=== PATIENT | female | born 1995 | race Caucasian/White ===

== ENCOUNTER 2017-08-10 01:48 | Inpatient (IN) | payer BC, OTHER ==
[2017-08-10] VITALS (23 sets, daily range): BP systolic 78–126; BP diastolic 42–83
[~2017-08-10] VITALS: Ht 165.1 cm; Wt 69.1 kg
--- NOTE | 2017-08-10 02:18 | Emergency Room Report ---
History of Present Illness General Chief Complaint: Overdose Source: Family Member, EMS Present Illness HPI This is a 21-year-old female with a history of drug abuse. Per her mom, she had her history of endocarditis required valve replacement surgery. She also had bilateral pneumothorax requiring chest tube. Per mom she was clean until recently. EMS brought her in for drug overdose and seizure. Per EMS, her friend said that she did cocaine and heroin tonight. She was found unresponsive and 911 was called. EMS said that she had a brief 30 seconds tonic -clonic seizure activity that broke with 5 mg Versed. EMS also gave her 4 mg of Narcan without any response. Patient unable to give a history. History is from EMS and her mother. Allergies: Coded Allergies: UNABLE TO ASSESS (Unverified , 08/10/17) Patient History Past Medical History: see triage record, old chart reviewed Past Surgical History: other Pertinent Family History: none Social History: Reports: drug use Last Menstrual Period: unknown Now: No - unknown : 0 Para: 0 Immunizations: other Reviewed Nursing Documentation: PMH: Agreed, PSxH: Agreed Nursing Documentation-PMH Past Medical History Deferred: No Family Available Review of Systems All Other Systems: limited - Secondary to her condition Physical Exam Vital Signs Date Time Temp Pulse Resp B/P (MAP) Pulse Ox O2 Delivery O2 Flow Rate FiO2 08/10/17 01:33 112 14 100/70 94 Room Air vitals with tachycardia Sp02 EP Interpretation: reviewed, normal General Appearance: well appearing, no apparent distress, other - unresponsive Head: normocephalic, atraumatic Eyes: bilateral eye EOMI, bilateral eye other - Pupils are unequal. right is 6mm, left is 4mm ENT: hearing grossly normal, normal pharynx Neck: full range of motion, supple, no meningismus Respiratory: chest non-tender, lungs clear, normal breath sounds Cardiovascular #1: regular rate, rhythm, no murmur, other - Midline scar of the sternum. Bilateral chest tube scars. No murmur Gastrointestinal: normal bowel sounds, non tender, no mass, no organomegaly, no bruit, non-distended Musculoskeletal: back normal, other - Multiple track marley Psychiatric: mood/affect normal Skin: warm/dry Medical Decision Making Diagnostic Impression: Primary Impression: Drug overdose Qualified Codes: T50.901A - Poisoning by unspecified drugs, medicaments and biological substances, accidental (unintentional), initial encounter Additional Impressions: Encephalopathy acute Seizure Hypotension Qualified Codes: I95.9 - Hypotension, unspecified ER Course Present with an overdose and new-onset seizure. Now she is only positive for benzodiazepine. This may be from the Versed given by EMS. Supposedly, she took heroine and cocaine just prior to EMS arrival. Her seizure is new-onset. This may be secondary to hypoxic injury. Patient blood pressure is low. Per mom, when she was hospitalized for overdose, her blood pressure was low. Her daughter normally runs low blood pressure. Is no evidence of sepsis. She does have a urinary tract infection. Chest x-ray showed no pneumothorax. I hear no murmur to indicate endocarditis reoccurrence. She said her mental status change , will admit for further monitoring. I worry that she may have anoxic brain injury causing her persistent state. Laboratory Tests Test 08/10/17 01:50 White Blood Count 9.2 K/UL (4.8-10.8) Red Blood Count 5.24 M/UL (4.20-5.40) Hemoglobin 16.2 G/DL (12.0-16.0) H Hematocrit 51.2 % (37.0-47.0) H Mean Corpuscular Volume 98 FL (80-99) Mean Corpuscular Hemoglobin 30.9 PG (27.0-31.0) Mean Corpuscular Hemoglobin Concent 31.6 G/DL (32.0-36.0) L Red Cell Distribution Width 14.1 % (11.6-14.8) Platelet Count 255 K/UL (150-450) Mean Platelet Volume 7.3 FL (6.5-10.1) Neutrophils (%) (Auto) 54.0 % (45.0-75.0) Lymphocytes (%) (Auto) 39.2 % (20.0-45.0) Monocytes (%) (Auto) 4.6 % (1.0-10.0) Eosinophils (%) (Auto) 0.9 % (0.0-3.0) Basophils (%) (Auto) 1.3 % (0.0-2.0) Urine Color Yellow Urine Appearance Slightly cloudy Urine pH 6 (4.5-8.0) Urine Specific [place] 1.020 (1.005-1.035) Urine Protein 3+ (NEGATIVE) H Urine Glucose (UA) Negative (NEGATIVE) Urine Ketones 2+ (NEGATIVE) H Urine Occult Blood 4+ (NEGATIVE) H Urine Nitrite Positive (NEGATIVE) H Urine Bilirubin Negative (NEGATIVE) Urine Urobilinogen Normal MG/DL (0.0-1.0) Urine Leukocyte Esterase 1+ (NEGATIVE) H Urine RBC 15-20 /HPF (0 - 2) H Urine WBC 5-10 /HPF (0 - 2) H Urine Squamous Epithelial Cells Many /LPF (NONE/OCC) H Urine Bacteria Many /HPF (NONE) H Urine HCG, Qualitative Negative Sodium Level 139 MMOL/L (136-145) Potassium Level 4.1 MMOL/L (3.5-5.1) Chloride Level 99 MMOL/L (98-107) Carbon Dioxide Level 17 MMOL/L (21-32) L Anion Gap 23 mmol/L (5-15) H Blood Urea Nitrogen 11 mg/dL (7-18) Creatinine 1.7 MG/DL (0.55-1.30) H Estimat Glomerular Filtration Rate 37.6 mL/min (>60) Glucose Level 177 MG/DL (74-106) H Calcium Level 9.0 MG/DL (8.5-10.1) Total Bilirubin 0.8 MG/DL (0.2-1.0) Aspartate Amino Transf (AST/SGOT) 176 U/L (15-37) H Alanine Aminotransferase (ALT/SGPT) 94 U/L (12-78) H Alkaline Phosphatase 142 U/L (46-116) H Total Protein 7.8 G/DL (6.4-8.2) Albumin 3.9 G/DL (3.4-5.0) Globulin 3.9 g/dL Albumin/Globulin Ratio 1.0 (1.0-2.7) Salicylates Level 2.4 ug/mL (2.8-20) L Urine Opiates Screen Negative (NEGATIVE) Acetaminophen Level < 2 MCG/ML (10-30) L Urine Barbiturates Screen Negative (NEGATIVE) Phencyclidine (PCP) Screen Negative (NEGATIVE) Urine Amphetamines Screen Negative (NEGATIVE) Urine Benzodiazepines Screen Positive (NEGATIVE) H Urine Cocaine Screen Negative (NEGATIVE) Urine Marijuana (THC) Screen Negative (NEGATIVE) Serum Alcohol < 3 mg/dL Lab Results Impression labs unremarkable EKG Diagnostic Results Rate: normal, tachycardiac Rhythm: NSR ST Segments: no acute changes Rhythm Strip Diag. Results Rhythm Strip Time: 02:18 EP Interpretation: yes Rate: 100 Rhythm: NSR, no PVC's, no ectopy Chest X-Ray Diagnostic Results Chest X-Ray Diagnostic Results : Chest X-Ray Ordered: Yes # of Views/Limited/Complete: 1 View Indication: Shortness of Breath EP Interpretation: Yes Interpretation: no consolidation, no effusion, no pneumothorax, no acute cardiopulmonary disease Impression: No acute disease Electronically Signed by: Antwon Templeton MD Last Vital Signs Date Time Temp Pulse Resp B/P (MAP) Pulse Ox O2 Delivery O2 Flow Rate FiO2 08/10/17 01:33 112 14 100/70 94 Room Air Status: improved Disposition: ADMITTED INPATIENT Condition: Serious ANTWON TEMPLETON M.D. Aug 10, 2017 02:18
[2017-08-10 02:29] LABS: BASOPHILS % (AUTO) 1.3 % (0.0-2.0); EOSINOPHILS % (AUTO) 0.9 % (0.0-3.0); HEMATOCRIT 51.2 % (37.0-47.0); HEMOGLOBIN 16.2 G/DL (12.0-16.0); LYMPHOCYTES % (AUTO) 39.2 % (20.0-45.0); MEAN CORPUSCULAR VOLUME 98 FL (80-99); MONOCYTES % (AUTO) 4.6 % (1.0-10.0); PLATELET COUNT 255 K/UL (150-450); RED BLOOD COUNT 5.24 M/UL (4.20-5.40); RED CELL DISTRIBUTION WIDTH 14.1 % (11.6-14.8); WHITE BLOOD COUNT 9.2 K/UL (4.8-10.8)
[2017-08-10 02:38] LABS: BILIRUBIN, URINE NEGATIVE (NEGATIVE); GLUCOSE, URINE (UA) NEGATIVE (NEGATIVE); KETONES,URINE 2+ (NEGATIVE); LEUKOCYTE ESTERASE ,URINE 1+ (NEGATIVE); NITRITE,URINE POSITIVE (NEGATIVE); PH,URINE 6 (4.5-8.0); PROTEIN,URINE 3+ (NEGATIVE); UROBILINOGEN,URINE NORMAL MG/DL (0.0-1.0)
[2017-08-10 02:47] LABS: ANION GAP 23 mmol/L (5-15); BLOOD UREA NITROGEN 11 mg/dL (7-18); CARBON DIOXIDE 17 MMOL/L (21-32); CHLORIDE 99 MMOL/L (98-107); CREATININE 1.7 MG/DL (0.55-1.30); POTASSIUM 4.1 MMOL/L (3.5-5.1); SODIUM 139 MMOL/L (136-145)
[2017-08-10 02:51] LABS: ALANINE AMINOTRANSFERASE 94 U/L (12-78); ALBUMIN 3.9 G/DL (3.4-5.0); ALKALINE PHOSPHATASE 142 U/L (46-116); APPEARANCE,URINE SLIGHTLY CLOUDY; ASPARTATE AMINO TRANSFERASE 176 U/L (15-37); BILIRUBIN,TOTAL 0.8 MG/DL (0.2-1.0); COLOR,URINE YELLOW
[2017-08-10] MEDS ORDERED: cefTRIAXone 1 GM in NS 55 ML IVPB ONE (03:15)
[2017-08-10] MEDS ORDERED: NEURONTIN100 MG ORAL (05:01)
--- NOTE | 2017-08-10 11:17 | Diagnostic Imaging Report ---
Indication: Headache Technique: Contiguous 5 mm thick transaxial imaging of the head obtained in a Siemens Sensation [address] scanner. Soft tissue and bone windows generated. Automatic Exposure Control was utilized. Total Dose length Product (DLP): 1291.[address] Dose Index Volume (CTDIvol): 70.38 mGy Comparison: none Findings: The size and configuration of the cortical sulci, basal cisterns, and ventricles are within normal limits for age. There is no mass effect, midline shift, or edema identified. There is no evidence of acute hemorrhage or abnormal intra-axial or extra-axial fluid collections. The bones and soft tissues are unremarkable. Impression: No mass effect, edema or acute bleed. The CT scanner at [facility] is accredited by the [employer] and the scans are performed using dose optimization techniques as appropriate to a performed exam including Automatic Exposure control.
--- NOTE | 2017-08-10 12:36 | Diagnostic Imaging Report ---
Indication: Dyspnea Comparison: None A single view chest radiograph was obtained. Findings: Mechanical heart valve, sternotomy noted. Normal atelectasis noted at the lung base. No infiltrate seen. IMPRESSION: No acute findings
--- NOTE | 2017-08-10 12:41 | Diagnostic Imaging Report ---
Indication: Dyspnea Comparison: None A single view chest radiograph was obtained. Findings: Cardiomediastinal appearance is within normal limits for age. Pulmonary vascularity is appropriate. The diaphragmatic contour is smooth and costophrenic angles are sharp. Sternotomy and mechanical heart valve noted. No pleural effusions are identified. The bones are osteopenic. Impression: No acute findings
--- NOTE | 2017-08-10 12:48 | Consultation ---
Consult Note Consult Note PCCM for Dr. Jennings REASON FOR CONSULT: OD/RF/acidosis HPI: 21 F h/o IVDU in/out rehab c/b IE S/P MVR @ [place] early 2017 now BIB EMS after her roomate found her FD surrounded by drug paraphenelia. In the ED initially she was 7.27/57/71/21/93, then placed on BiPAP with minimal improvement, HCO3- 17, gap 23, Utox + BZD's, per mother she has been using Xanax + Fentanyl + black tar heroine. She is slightly more alert. No further Hx is obtainable. PMH: IVDU, IE PSH: MVR ALL: NKDA Active Scripts Medications Dose Route/Sig Max Daily Dose Days Date Category Neurontin* (Gabapentin) 100 Mg Capsule Unknown Dose ORAL THREE TIMES A DAY 08/10/17 Reported SHx: + IVDU, occ EtOH, + tobacco FHx: Unobtainable ROS: Unobtainable PE: Last 24 Hour Vital Signs Date Time Temp Pulse Resp B/P (MAP) Pulse Ox O2 Delivery O2 Flow Rate FiO2 08/10/17 12:18 98.8 93 16 94/56 100 Bi-pap 2.0 50 08/10/17 12:00 93 12 105/59 100 Bi-pap 30 08/10/17 11:45 50 08/10/17 11:00 89 16 94/56 100 Bi-pap 30 08/10/17 10:47 100 20 100 Facial 30 08/10/17 10:00 98.8 94 15 94/56 100 Bi-pap 30 08/10/17 09:10 94 18 99 Facial 30 08/10/17 09:08 94 12 111/54 100 Bi-pap 30 08/10/17 09:02 30 08/10/17 08:30 87 15 87/53 100 Nasal Cannula 2.0 08/10/17 08:00 97.4 88 15 92/50 100 Nasal Cannula 2.0 08/10/17 06:54 98.1 91 14 83/51 97 Nasal Cannula 2.0 08/10/17 06:00 98.1 91 20 88/52 99 Nasal Cannula 2.0 08/10/17 05:00 98.0 90 20 94/52 98 Nasal Cannula 2.0 08/10/17 04:57 98.1 94 16 86/46 96 Nasal Cannula 3.0 08/10/17 03:56 97.8 94 16 78/46 96 Nasal Cannula 3.0 08/10/17 03:55 97.8 93 14 82/42 96 Nasal Cannula 3.0 08/10/17 03:15 97.8 93 14 78/48 96 Nasal Cannula 3.0 08/10/17 03:00 97.9 91 14 82/50 96 Nasal Cannula 3.0 08/10/17 02:30 97.8 92 14 89/52 96 Nasal Cannula 3.0 08/10/17 01:50 98 14 Nasal Cannula 3.0 08/10/17 01:50 97.8 98 14 118/74 96 Nasal Cannula 3.0 08/10/17 01:33 112 14 100/70 94 Room Air Obtunded, arousable NC/AT, OPC c dry MM, BiPAP CTA RRR, + sternotomy scar S/NT/ND c NABS No C/C/E Laboratory Tests Test 08/10/17 01:50 08/10/17 07:39 08/10/17 10:48 White Blood Count 9.2 K/UL (4.8-10.8) Red Blood Count 5.24 M/UL (4.20-5.40) Hemoglobin 16.2 G/DL (12.0-16.0) H Hematocrit 51.2 % (37.0-47.0) H Mean Corpuscular Volume 98 FL (80-99) Mean Corpuscular Hemoglobin 30.9 PG (27.0-31.0) Mean Corpuscular Hemoglobin Concent 31.6 G/DL (32.0-36.0) L Red Cell Distribution Width 14.1 % (11.6-14.8) Platelet Count 255 K/UL (150-450) Mean Platelet Volume 7.3 FL (6.5-10.1) Neutrophils (%) (Auto) 54.0 % (45.0-75.0) Lymphocytes (%) (Auto) 39.2 % (20.0-45.0) Monocytes (%) (Auto) 4.6 % (1.0-10.0) Eosinophils (%) (Auto) 0.9 % (0.0-3.0) Basophils (%) (Auto) 1.3 % (0.0-2.0) Urine Color Yellow Urine Appearance Slightly cloudy Urine pH 6 (4.5-8.0) Urine Specific [place] 1.020 (1.005-1.035) Urine Protein 3+ (NEGATIVE) H Urine Glucose (UA) Negative (NEGATIVE) Urine Ketones 2+ (NEGATIVE) H Urine Occult Blood 4+ (NEGATIVE) H Urine Nitrite Positive (NEGATIVE) H Urine Bilirubin Negative (NEGATIVE) Urine Urobilinogen Normal MG/DL (0.0-1.0) Urine Leukocyte Esterase 1+ (NEGATIVE) H Urine RBC 15-20 /HPF (0 - 2) H Urine WBC 5-10 /HPF (0 - 2) H Urine Squamous Epithelial Cells Many /LPF (NONE/OCC) H Urine Bacteria Many /HPF (NONE) H Urine HCG, Qualitative Negative Sodium Level 139 MMOL/L (136-145) Potassium Level 4.1 MMOL/L (3.5-5.1) Chloride Level 99 MMOL/L (98-107) Carbon Dioxide Level 17 MMOL/L (21-32) L Anion Gap 23 mmol/L (5-15) H Blood Urea Nitrogen 11 mg/dL (7-18) Creatinine 1.7 MG/DL (0.55-1.30) H Estimat Glomerular Filtration Rate 37.6 mL/min (>60) Glucose Level 177 MG/DL (74-106) H Calcium Level 9.0 MG/DL (8.5-10.1) Total Bilirubin 0.8 MG/DL (0.2-1.0) Aspartate Amino Transf (AST/SGOT) 176 U/L (15-37) H Alanine Aminotransferase (ALT/SGPT) 94 U/L (12-78) H Alkaline Phosphatase 142 U/L (46-116) H Total Protein 7.8 G/DL (6.4-8.2) Albumin 3.9 G/DL (3.4-5.0) Globulin 3.9 g/dL Albumin/Globulin Ratio 1.0 (1.0-2.7) Salicylates Level 2.4 ug/mL (2.8-20) L Urine Opiates Screen Negative (NEGATIVE) Acetaminophen Level < 2 MCG/ML (10-30) L Urine Barbiturates Screen Negative (NEGATIVE) Phencyclidine (PCP) Screen Negative (NEGATIVE) Urine Amphetamines Screen Negative (NEGATIVE) Urine Benzodiazepines Screen Positive (NEGATIVE) H Urine Cocaine Screen Negative (NEGATIVE) Urine Marijuana (THC) Screen Negative (NEGATIVE) Serum Alcohol < 3 mg/dL Arterial Blood pH 7.270 (7.350-7.450) 7.280 (7.350-7.450) Arterial Blood Partial Pressure CO2 47.5 mmHg (35.0-45.0) H 47.1 mmHg (35.0-45.0) H Arterial Blood Partial Pressure O2 71.2 mmHg (75.0-100.0) L 55.1 mmHg (75.0-100.0) L Arterial Blood HCO3 21.5 mmol/L (22.0-26.0) L 21.7 mmol/L (22.0-26.0) L Arterial Blood Oxygen Saturation 93.0 % (92.0-98.0) 87.3 % (92.0-98.0) L Arterial Blood Base Excess -5.4 -5.1 Tye Test Positive Positive Assessment/Plan ASSESSMENT: 21 F h/o IVDU c/b IE S/P MVR p/w AMS 2/2 drug OD/toxicity c/b AGMA with inadequate respiratory compensation. She was previously on a ventilator for several months and her mother would rather he not be intubated but understands that if she does not respond to the current BiPAP setting she may require intubation. PROBLEM LIST: -Drug OD -H/O IVDU -Anion gap metabolic acidosis + Respiratory acidosis -MATTHEW -Hemoconcentration -Dehydration -H/O infective endocarditis S/P MVR PLAN: -Admit to [facility] -Increase BiPAP to 15/5 -Recheck ABG in 1 hour -If gas exchange not better --> will require intubation -Aggressive IVF hydration -F/U Cx's -F/U TTE -NPO until MS better -Monitor volumes and renal function -DVT Px: Hep SQ -Will need psych and SW evaluation D/W mom and ERMD @ bedside Nelia Gaines MD, [facility] NELIA GAINES M.D. Aug 10, 2017 12:48
[2017-08-10 15:36] LABS: BASOPHILS % (AUTO) 0.9 % (0.0-2.0); EOSINOPHILS % (AUTO) 0.4 % (0.0-3.0); HEMATOCRIT 40.6 % (37.0-47.0); HEMOGLOBIN 13.2 G/DL (12.0-16.0); LYMPHOCYTES % (AUTO) 19.9 % (20.0-45.0); MEAN CORPUSCULAR VOLUME 96 FL (80-99); MONOCYTES % (AUTO) 8.8 % (1.0-10.0); PLATELET COUNT 166 K/UL (150-450); RED BLOOD COUNT 4.25 M/UL (4.20-5.40); RED CELL DISTRIBUTION WIDTH 14.5 % (11.6-14.8); WHITE BLOOD COUNT 6.3 K/UL (4.8-10.8)
[2017-08-10 15:47] LABS: ALANINE AMINOTRANSFERASE 109 U/L (12-78); ALBUMIN 3.2 G/DL (3.4-5.0); ALKALINE PHOSPHATASE 98 U/L (46-116); ANION GAP 10 mmol/L (5-15); ASPARTATE AMINO TRANSFERASE 167 U/L (15-37); BILIRUBIN,TOTAL 0.5 MG/DL (0.2-1.0); BLOOD UREA NITROGEN 8 mg/dL (7-18); CALCIUM 8.1 MG/DL (8.5-10.1); CARBON DIOXIDE 23 MMOL/L (21-32); CHLORIDE 108 MMOL/L (98-107); CREATININE 0.9 MG/DL (0.55-1.30); POTASSIUM 4.2 MMOL/L (3.5-5.1); SODIUM 141 MMOL/L (136-145)
[2017-08-10 16:15] LABS: APPEARANCE,URINE CLEAR; BILIRUBIN, URINE NEGATIVE (NEGATIVE); COLOR,URINE PALE YELLOW; GLUCOSE, URINE (UA) NEGATIVE (NEGATIVE); KETONES,URINE 3+ (NEGATIVE); LEUKOCYTE ESTERASE ,URINE 1+ (NEGATIVE); NITRITE,URINE NEGATIVE (NEGATIVE); PH,URINE 5 (4.5-8.0); PROTEIN,URINE NEGATIVE (NEGATIVE); UROBILINOGEN,URINE NORMAL MG/DL (0.0-1.0)
--- NOTE | 2017-08-10 17:30 | History and Physical Report ---
DATE OF ADMISSION: 08/10/2017 CHIEF COMPLAINT: Altered level of consciousness. HISTORY OF PRESENT ILLNESS: This is an unfortunate 21-year-old female, who has a prolonged history of IV drug abuse. The patient was found down at her apartment for unknown period of time. The patient unfortunately continued to abuse drugs including fentanyl. Apparently, the patient lost her consciousness for an unknown period of time. She became unconscious. Paramedics were called. The patient was rushed to the ER. She had a 30-second tonic-clonic seizure and she developed respiratory failure. The patient stayed in the emergency department for a long period of time on BiPAP. Eventually, the patient was transferred to telemetry. Currently the patient is nonverbal and unable to give any further information. The information is retrieved from the patient's mother who is at the bedside. PAST MEDICAL HISTORY: 1. Polysubstance abuse including mainly IV drug abuse. 2. Status post aortic valve bioprosthetic valve replacement done in [place] about a year ago. 3. History of subacute bacterial aortic valve endocarditis around that time, namely July 2016. MEDICATIONS: Home medications currently unknown. We will try to get the list from the mother. One medication is Neurontin, but the rest of the medications unknown. ALLERGIES: No known drug allergies. SOCIAL HISTORY: The patient is known to use multiple IV agents including fentanyl and other agents. FAMILY HISTORY: Unremarkable. REVIEW OF SYSTEMS: Unable to obtain. PHYSICAL EXAMINATION: GENERAL: This is a young female, who is on a BiPAP. VITAL SIGNS: Blood pressure 94/56, pulse 93, temperature 98.8 degrees rectal. The patient is on BiPAP. HEENT: Head is normocephalic. Pupils are dilated and essentially barely responsive to light. NECK: Supple. Trachea midline. There was no lymphadenopathy or thyromegaly. LUNGS: Bilateral rhonchi. HEART: Tachycardia. S1, S2. No rubs, murmurs, or gallops. ABDOMEN: Soft and nontender. Bowel sounds were active. EXTREMITIES: No clubbing, cyanosis, or edema. NEUROLOGIC: She is barely responsive to noxious stimuli. There were no lateralizing signs. LABORATORY AND ANCILLARY DATA: CT scan of the brain essentially unremarkable. Chest x-ray, no acute finding. CBC within normal limits. Serum chemistry, creatinine 1.7, BUN 11. Electrolytes within normal limits. AST 176, ALT 94. ABG the latest one on BiPAP is pH 7.28, pCO2 47, pO2 55. ASSESSMENT: 1. Respiratory failure. 2. Delirium secondary to drug use. 3. Multiorgan failure secondary to the above. PLAN: 1. The patient may need intubation due to acute hypoxemia. 2. We discussed with Dr. Gaines, design drafter chief. Albert Doran M.D. DR: Judith JOB#: [id number] CC:
--- NOTE | 2017-08-10 17:55 | Infectious Diseases Prog Note ---
Assessment/Plan Assessment/Plan Full consult dictated: A) 1) possible uti, ams, drug overdose, ? sepsis, + risk for endocarditis 2) allergies - negative 3) hx valve replacement secondary to endocarditis P) 1) vancomycin, rocephin and flagyl 2) check cultures, chest x-ray and labs 3) neurology evaluation 4) continue per primary and consultants 5) thank you Subjective Allergies: Coded Allergies: UNABLE TO ASSESS (Unverified , 08/10/17) Objective Vital Signs Last 24 Hour Vital Signs Date Time Temp Pulse Resp B/P (MAP) Pulse Ox O2 Delivery O2 Flow Rate FiO2 08/10/17 17:11 97 16 100 Facial 50 08/10/17 16:00 98.1 100 16 109/60 100 Bi-pap 70 08/10/17 14:42 103 16 100 Facial 50 08/10/17 12:47 100 20 100 Facial 50 08/10/17 12:18 98.8 93 16 94/56 100 Bi-pap 2.0 50 08/10/17 12:00 93 12 105/59 100 Bi-pap 30 08/10/17 11:45 50 08/10/17 11:00 89 16 94/56 100 Bi-pap 30 08/10/17 10:47 100 20 100 Facial 30 08/10/17 10:00 98.8 94 15 94/56 100 Bi-pap 30 08/10/17 09:10 94 18 99 Facial 30 08/10/17 09:08 94 12 111/54 100 Bi-pap 30 08/10/17 09:02 30 08/10/17 08:30 87 15 87/53 100 Nasal Cannula 2.0 08/10/17 08:00 97.4 88 15 92/50 100 Nasal Cannula 2.0 08/10/17 06:54 98.1 91 14 83/51 97 Nasal Cannula 2.0 08/10/17 06:00 98.1 91 20 88/52 99 Nasal Cannula 2.0 08/10/17 05:00 98.0 90 20 94/52 98 Nasal Cannula 2.0 08/10/17 04:57 98.1 94 16 86/46 96 Nasal Cannula 3.0 08/10/17 03:56 97.8 94 16 78/46 96 Nasal Cannula 3.0 08/10/17 03:55 97.8 93 14 82/42 96 Nasal Cannula 3.0 08/10/17 03:15 97.8 93 14 78/48 96 Nasal Cannula 3.0 08/10/17 03:00 97.9 91 14 82/50 96 Nasal Cannula 3.0 08/10/17 02:30 97.8 92 14 89/52 96 Nasal Cannula 3.0 08/10/17 01:50 98 14 Nasal Cannula 3.0 08/10/17 01:50 97.8 98 14 118/74 96 Nasal Cannula 3.0 08/10/17 01:33 112 14 100/70 94 Room Air Height (Feet): 5 Height (Inches): 6.00 Weight (Pounds): 160 Laboratory Tests Test 08/10/17 01:50 08/10/17 07:39 08/10/17 10:48 08/10/17 12:27 White Blood Count 9.2 K/UL (4.8-10.8) Red Blood Count 5.24 M/UL (4.20-5.40) Hemoglobin 16.2 G/DL (12.0-16.0) H Hematocrit 51.2 % (37.0-47.0) H Mean Corpuscular Volume 98 FL (80-99) Mean Corpuscular Hemoglobin 30.9 PG (27.0-31.0) Mean Corpuscular Hemoglobin Concent 31.6 G/DL (32.0-36.0) L Red Cell Distribution Width 14.1 % (11.6-14.8) Platelet Count 255 K/UL (150-450) Mean Platelet Volume 7.3 FL (6.5-10.1) Neutrophils (%) (Auto) 54.0 % (45.0-75.0) Lymphocytes (%) (Auto) 39.2 % (20.0-45.0) Monocytes (%) (Auto) 4.6 % (1.0-10.0) Eosinophils (%) (Auto) 0.9 % (0.0-3.0) Basophils (%) (Auto) 1.3 % (0.0-2.0) Urine Color Yellow Urine Appearance Slightly cloudy Urine pH 6 (4.5-8.0) Urine Specific [place] 1.020 (1.005-1.035) Urine Protein 3+ (NEGATIVE) H Urine Glucose (UA) Negative (NEGATIVE) Urine Ketones 2+ (NEGATIVE) H Urine Occult Blood 4+ (NEGATIVE) H Urine Nitrite Positive (NEGATIVE) H Urine Bilirubin Negative (NEGATIVE) Urine Urobilinogen Normal MG/DL (0.0-1.0) Urine Leukocyte Esterase 1+ (NEGATIVE) H Urine RBC 15-20 /HPF (0 - 2) H Urine WBC 5-10 /HPF (0 - 2) H Urine Squamous Epithelial Cells Many /LPF (NONE/OCC) H Urine Bacteria Many /HPF (NONE) H Urine HCG, Qualitative Negative Sodium Level 139 MMOL/L (136-145) Potassium Level 4.1 MMOL/L (3.5-5.1) Chloride Level 99 MMOL/L (98-107) Carbon Dioxide Level 17 MMOL/L (21-32) L Anion Gap 23 mmol/L (5-15) H Blood Urea Nitrogen 11 mg/dL (7-18) Creatinine 1.7 MG/DL (0.55-1.30) H Estimat Glomerular Filtration Rate 37.6 mL/min (>60) Glucose Level 177 MG/DL (74-106) H Calcium Level 9.0 MG/DL (8.5-10.1) Total Bilirubin 0.8 MG/DL (0.2-1.0) Aspartate Amino Transf (AST/SGOT) 176 U/L (15-37) H Alanine Aminotransferase (ALT/SGPT) 94 U/L (12-78) H Alkaline Phosphatase 142 U/L (46-116) H Total Protein 7.8 G/DL (6.4-8.2) Albumin 3.9 G/DL (3.4-5.0) Globulin 3.9 g/dL Albumin/Globulin Ratio 1.0 (1.0-2.7) Salicylates Level 2.4 ug/mL (2.8-20) L Urine Opiates Screen Negative (NEGATIVE) Acetaminophen Level < 2 MCG/ML (10-30) L Urine Barbiturates Screen Negative (NEGATIVE) Phencyclidine (PCP) Screen Negative (NEGATIVE) Urine Amphetamines Screen Negative (NEGATIVE) Urine Benzodiazepines Screen Positive (NEGATIVE) H Urine Cocaine Screen Negative (NEGATIVE) Urine Marijuana (THC) Screen Negative (NEGATIVE) Serum Alcohol < 3 mg/dL Arterial Blood pH 7.270 (7.350-7.450) 7.280 (7.350-7.450) 7.300 (7.350-7.450) Arterial Blood Partial Pressure CO2 47.5 mmHg (35.0-45.0) H 47.1 mmHg (35.0-45.0) H 44.2 mmHg (35.0-45.0) Arterial Blood Partial Pressure O2 71.2 mmHg (75.0-100.0) L 55.1 mmHg (75.0-100.0) L 66.6 mmHg (75.0-100.0) L Arterial Blood HCO3 21.5 mmol/L (22.0-26.0) L 21.7 mmol/L (22.0-26.0) L 21.7 mmol/L (22.0-26.0) L Arterial Blood Oxygen Saturation 93.0 % (92.0-98.0) 87.3 % (92.0-98.0) L 92.7 % (92.0-98.0) Arterial Blood Base Excess -5.4 -5.1 -4.6 Tye Test Positive Positive Positive Test 08/10/17 15:00 08/10/17 15:45 White Blood Count 6.3 K/UL (4.8-10.8) Red Blood Count 4.25 M/UL (4.20-5.40) Hemoglobin 13.2 G/DL (12.0-16.0) Hematocrit 40.6 % (37.0-47.0) Mean Corpuscular Volume 96 FL (80-99) Mean Corpuscular Hemoglobin 31.1 PG (27.0-31.0) H Mean Corpuscular Hemoglobin Concent 32.5 G/DL (32.0-36.0) Red Cell Distribution Width 14.5 % (11.6-14.8) Platelet Count 166 K/UL (150-450) Mean Platelet Volume 7.5 FL (6.5-10.1) Neutrophils (%) (Auto) 70.0 % (45.0-75.0) Lymphocytes (%) (Auto) 19.9 % (20.0-45.0) L Monocytes (%) (Auto) 8.8 % (1.0-10.0) Eosinophils (%) (Auto) 0.4 % (0.0-3.0) Basophils (%) (Auto) 0.9 % (0.0-2.0) Sodium Level 141 MMOL/L (136-145) Potassium Level 4.2 MMOL/L (3.5-5.1) Chloride Level 108 MMOL/L (98-107) H Carbon Dioxide Level 23 MMOL/L (21-32) Anion Gap 10 mmol/L (5-15) Blood Urea Nitrogen 8 mg/dL (7-18) Creatinine 0.9 MG/DL (0.55-1.30) Estimat Glomerular Filtration Rate > 60 mL/min (>60) Glucose Level 71 MG/DL (74-106) #L Lactic Acid Level 0.70 mmol/L (0.66-2.22) Calcium Level 8.1 MG/DL (8.5-10.1) L Total Bilirubin 0.5 MG/DL (0.2-1.0) Aspartate Amino Transf (AST/SGOT) 167 U/L (15-37) H Alanine Aminotransferase (ALT/SGPT) 109 U/L (12-78) H Alkaline Phosphatase 98 U/L (46-116) Troponin I 0.853 ng/mL (0.000-0.056) Total Protein 6.3 G/DL (6.4-8.2) L Albumin 3.2 G/DL (3.4-5.0) L Globulin 3.1 g/dL Albumin/Globulin Ratio 1.0 (1.0-2.7) Urine Color Pale yellow Urine Appearance Clear Urine pH 5 (4.5-8.0) Urine Specific [place] 1.020 (1.005-1.035) Urine Protein Negative (NEGATIVE) Urine Glucose (UA) Negative (NEGATIVE) Urine Ketones 3+ (NEGATIVE) H Urine Occult Blood Negative (NEGATIVE) Urine Nitrite Negative (NEGATIVE) Urine Bilirubin Negative (NEGATIVE) Urine Urobilinogen Normal MG/DL (0.0-1.0) Urine Leukocyte Esterase 1+ (NEGATIVE) H Urine RBC 0-2 /HPF (0 - 2) Urine WBC 0-2 /HPF (0 - 2) Urine Squamous Epithelial Cells Few /LPF (NONE/OCC) Urine Bacteria Few /HPF (NONE) Current Medications Medications (Trade) Dose Ordered Sig/Hema Route PRN Reason Start Time Stop Time Status Last Admin Dose Admin Heparin Sodium (Porcine) (Heparin 5000 units/ml) 5,000 units EVERY 12 HOURS SUBQ 08/10/17 21:00 09/09/17 20:59 Sodium Chloride 1,000 ml @ 150 mls/hr [id number] IV 08/10/17 13:31 09/09/17 13:30 08/10/17 14:21 MARIA A SMITH Aug 10, 2017 17:55
[2017-08-10] MEDS ORDERED: Thiamine HCl 100 MG in D5W 55 ML IVPB SCH (18:00)
[2017-08-10] MEDS: levETIRAcetam 500mg/NS100ml 100 ML IVPB SCH (20:08)
[2017-08-10] MEDS: Thiamine HCl 100 MG in D5W 55 ML IVPB SCH (20:09)
[2017-08-10] MEDS ORDERED: levETIRAcetam 500mg/NS100ml 100 ML IVPB ONE (21:00)
[2017-08-10] MEDS ORDERED: Heparin 5000 units/ml inj SUBQ SCH (21:00)
[2017-08-10] MEDS: Heparin 5000 units/ml inj SUBQ SCH (21:01)
--- NOTE | 2017-08-10 21:15 | Consultation ---
DATE OF CONSULTATION: 08/10/2017 NEUROLOGICAL CONSULTATION CONSULTING PHYSICIAN: Charlie Alvarez M.D. REQUESTING PHYSICIAN: Albert Doran M.D. HISTORY OF PRESENT ILLNESS: This is a 21-year-old female, seen in neurological consultation to evaluate a new onset of unresponsiveness. The patient is comatose, unable to provide with any information and this was obtained from her mother who was present during this exam as well as from medical records. Note that, the patient had a relapse with her substance abuse in the last month or two. Last night, she was walking and was in her usual state. Then, around 2 a.m., her roommate, girlfriend, found her in the bathroom with some drug paraphernalia, needles, around her. The patient was unresponsive and nonbreathing. She started her on CPR, chest compressions, called paramedics and within 5 minutes paramedics arrived. The patient's friend reported that she was on cocaine and heroin. When the paramedics arrived, they found her with having tonic-clonic seizure, which stopped after 5 mg of Versed was given, later 4 mg of Narcan was given, but with no response. She was brought to this facility with blood pressure 100/70 and heart rate of 112. She was unresponsive. Her pupils were unequal, right 6 mm and left 4 mm. Drug screen was positive only for benzodiazepine, which felt could be from Versed given by EMS. Episode of seizure was new onset and suspected to have hypoxic injury. The patient was admitted with hypotension. Her laboratory work revealed elevated hemoglobin 16.2 and hematocrit 51.2. Toxicology panel as mentioned was positive for benzo. Her urinalysis 5 to 10 WBCs, 2+ ketones, and 3+ protein. Chemistry panel, carbon dioxide of 17, anion gap of 23, creatinine 1.7, glucose 177, AST 176, ALT 94, alkaline phosphatase 142, and troponin 0.853. Lactic acid 0.70. Repeat chemistry revealed glucose down to 71. Imaging studies included CT scan of the brain, which revealed no intracranial abnormalities. No edema. No mass lesion. Her chest x-ray with no acute findings. Sternotomy and mechanical heart valve was noted. Repeat chest x-ray, no acute findings. Following admission till present, the patient's condition remained essentially unchanged except noted sometimes opening eyes looking to the right, but no spontaneous movement of arms and legs. The patient continued with desaturation and maintained now on BiPAP. It is expected that if there are any signs of progression, the patient is to be intubated. 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 Last year, she developed drug-induced endocarditis and in September of this year, she underwent mitral valve replacement. The patient had been abusing IV fentanyl, heroin, presumably Xanax as well, and alcohol. She had at least 3 relapses, but the latest was approximately one month ago. SOCIAL HISTORY: Currently, the patient resides with a roommate. 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 FAMILY HISTORY: Noncontributory. REVIEW OF SYMPTOMS: Unable to obtain due to the patient's status. PHYSICAL EXAMINATION: GENERAL: This is a well-developed, somewhat pale, ill-appearing young lady, lying in bed with head turned to the right. BiPAP in place. MUSCULOSKELETAL: There is midsternal postsurgical scarring. There are multiple IV scars in her both upper and lower extremities and seems a fresh needle thien in the right decubitus. Peripheral pulses 1+ symmetric. MENTAL STATUS: The patient is unresponsive. On stimulation, she opens eyes, has a right gaze preference. She does not respond to verbal command. CRANIAL NERVE II: Pupils 3 mm responding to light and accommodation. Extraocular movements, right gaze preference. CRANIAL NERVE V: Normal corneal responses. CRANIAL NERVE VII: No facial asymmetry. CRANIAL NERVE VIII: Unable to test. CRANIAL NERVES IX THROUGH XII: Reduced gag response. MOTOR EXAMINATION: Slightly diffuse rigidity in both upper and lower extremities. No spontaneous movement. No asymmetry from [id number]. Deep tendon reflexes very brisk, 3+ bilaterally. Positive Babinski sign clearly on the right, questionable on the left. IMPRESSION: 1. Severe anoxic encephalopathy with bilateral upper motor neuron deficit. 2. Rule out drug toxicity. 3. Status post mitral valve replacement in 2017. DISCUSSION: The patient was found to be nonbreathing, unresponsive, and it was not clear how long she stayed in that condition before her friend found her in the bathroom. CPR was applied and it took approximately 5 minutes for paramedics to arrive and continue the CPR. The patient had a single generalized seizure episode caused by underlying severe encephalopathy. Cause of encephalopathy is not clear, but most likely post anoxic. Repeat laboratory work with drug screen was requested. I will obtain an electroencephalogram. Her treatment is limited now to respiratory support. She is on subcutaneous heparin, normal saline, and Rocephin. We will add thiamine 100 mg. The patient to be placed in ICU for closer observation as she may develop need for intubation. The patient to be observed for paroxysmal events and EEG is pending. She has abnormal transaminase. We will check ammonia level and repeat studies in the morning. I discussed in detail the patient's status with her mother and staff. Thank you for allowing me to see this interesting patient in neurological consultation. Charlie Alvarez M.D. DR: TEZ JOB#: [id number] CC:
--- NOTE | 2017-08-10 21:54 | Cardiology Progress Note ---
Subjective Subjective The patient with IVDA and hsitory of endocarditis She has prosthetic cardiac valve need to rule out valve endocarditis Objective Last 24 Hour Vital Signs Date Time Temp Pulse Resp B/P (MAP) Pulse Ox O2 Delivery O2 Flow Rate FiO2 08/10/17 21:00 104 18 116/72 100 Bi-pap 70 08/10/17 20:54 104 17 100 Facial 70 08/10/17 20:00 100.1 103 17 113/70 100 Bi-pap 70 08/10/17 19:00 101 17 112/75 100 Bi-pap 70 08/10/17 18:15 70 08/10/17 18:15 99.4 100 16 126/83 100 Bi-pap 70 08/10/17 18:07 99 08/10/17 17:11 97 16 100 Facial 50 08/10/17 16:00 98.1 100 16 109/60 100 Bi-pap 70 08/10/17 14:42 103 16 100 Facial 50 08/10/17 12:47 100 20 100 Facial 50 08/10/17 12:18 98.8 93 16 94/56 100 Bi-pap 2.0 50 08/10/17 12:00 93 12 105/59 100 Bi-pap 30 08/10/17 11:45 50 08/10/17 11:00 89 16 94/56 100 Bi-pap 30 08/10/17 10:47 100 20 100 Facial 30 08/10/17 10:00 98.8 94 15 94/56 100 Bi-pap 30 08/10/17 09:10 94 18 99 Facial 30 08/10/17 09:08 94 12 111/54 100 Bi-pap 30 08/10/17 09:02 30 08/10/17 08:30 87 15 87/53 100 Nasal Cannula 2.0 08/10/17 08:00 97.4 88 15 92/50 100 Nasal Cannula 2.0 08/10/17 06:54 98.1 91 14 83/51 97 Nasal Cannula 2.0 08/10/17 06:00 98.1 91 20 88/52 99 Nasal Cannula 2.0 08/10/17 05:00 98.0 90 20 94/52 98 Nasal Cannula 2.0 08/10/17 04:57 98.1 94 16 86/46 96 Nasal Cannula 3.0 08/10/17 03:56 97.8 94 16 78/46 96 Nasal Cannula 3.0 08/10/17 03:55 97.8 93 14 82/42 96 Nasal Cannula 3.0 08/10/17 03:15 97.8 93 14 78/48 96 Nasal Cannula 3.0 08/10/17 03:00 97.9 91 14 82/50 96 Nasal Cannula 3.0 08/10/17 02:30 97.8 92 14 89/52 96 Nasal Cannula 3.0 08/10/17 01:50 98 14 Nasal Cannula 3.0 08/10/17 01:50 97.8 98 14 118/74 96 Nasal Cannula 3.0 08/10/17 01:33 112 14 100/70 94 Room Air Intake and Output 08/10/17 08/11/17 19:00 07:00 Intake Total 450 ml 406 ml Output Total 1050 ml Balance -600 ml 406 ml Intake IV Total 450 ml 406 ml Output Urine Total 1050 ml Laboratory Tests Test 08/10/17 01:50 08/10/17 07:39 08/10/17 10:48 08/10/17 12:27 White Blood Count 9.2 K/UL (4.8-10.8) Red Blood Count 5.24 M/UL (4.20-5.40) Hemoglobin 16.2 G/DL (12.0-16.0) H Hematocrit 51.2 % (37.0-47.0) H Mean Corpuscular Volume 98 FL (80-99) Mean Corpuscular Hemoglobin 30.9 PG (27.0-31.0) Mean Corpuscular Hemoglobin Concent 31.6 G/DL (32.0-36.0) L Red Cell Distribution Width 14.1 % (11.6-14.8) Platelet Count 255 K/UL (150-450) Mean Platelet Volume 7.3 FL (6.5-10.1) Neutrophils (%) (Auto) 54.0 % (45.0-75.0) Lymphocytes (%) (Auto) 39.2 % (20.0-45.0) Monocytes (%) (Auto) 4.6 % (1.0-10.0) Eosinophils (%) (Auto) 0.9 % (0.0-3.0) Basophils (%) (Auto) 1.3 % (0.0-2.0) Urine Color Yellow Urine Appearance Slightly cloudy Urine pH 6 (4.5-8.0) Urine Specific [place] 1.020 (1.005-1.035) Urine Protein 3+ (NEGATIVE) H Urine Glucose (UA) Negative (NEGATIVE) Urine Ketones 2+ (NEGATIVE) H Urine Occult Blood 4+ (NEGATIVE) H Urine Nitrite Positive (NEGATIVE) H Urine Bilirubin Negative (NEGATIVE) Urine Urobilinogen Normal MG/DL (0.0-1.0) Urine Leukocyte Esterase 1+ (NEGATIVE) H Urine RBC 15-20 /HPF (0 - 2) H Urine WBC 5-10 /HPF (0 - 2) H Urine Squamous Epithelial Cells Many /LPF (NONE/OCC) H Urine Bacteria Many /HPF (NONE) H Urine HCG, Qualitative Negative Sodium Level 139 MMOL/L (136-145) Potassium Level 4.1 MMOL/L (3.5-5.1) Chloride Level 99 MMOL/L (98-107) Carbon Dioxide Level 17 MMOL/L (21-32) L Anion Gap 23 mmol/L (5-15) H Blood Urea Nitrogen 11 mg/dL (7-18) Creatinine 1.7 MG/DL (0.55-1.30) H Estimat Glomerular Filtration Rate 37.6 mL/min (>60) Glucose Level 177 MG/DL (74-106) H Calcium Level 9.0 MG/DL (8.5-10.1) Total Bilirubin 0.8 MG/DL (0.2-1.0) Aspartate Amino Transf (AST/SGOT) 176 U/L (15-37) H Alanine Aminotransferase (ALT/SGPT) 94 U/L (12-78) H Alkaline Phosphatase 142 U/L (46-116) H Total Protein 7.8 G/DL (6.4-8.2) Albumin 3.9 G/DL (3.4-5.0) Globulin 3.9 g/dL Albumin/Globulin Ratio 1.0 (1.0-2.7) Salicylates Level 2.4 ug/mL (2.8-20) L Urine Opiates Screen Negative (NEGATIVE) Acetaminophen Level < 2 MCG/ML (10-30) L Urine Barbiturates Screen Negative (NEGATIVE) Phencyclidine (PCP) Screen Negative (NEGATIVE) Urine Amphetamines Screen Negative (NEGATIVE) Urine Benzodiazepines Screen Positive (NEGATIVE) H Urine Cocaine Screen Negative (NEGATIVE) Urine Marijuana (THC) Screen Negative (NEGATIVE) Serum Alcohol < 3 mg/dL Arterial Blood pH 7.270 (7.350-7.450) 7.280 (7.350-7.450) 7.300 (7.350-7.450) Arterial Blood Partial Pressure CO2 47.5 mmHg (35.0-45.0) H 47.1 mmHg (35.0-45.0) H 44.2 mmHg (35.0-45.0) Arterial Blood Partial Pressure O2 71.2 mmHg (75.0-100.0) L 55.1 mmHg (75.0-100.0) L 66.6 mmHg (75.0-100.0) L Arterial Blood HCO3 21.5 mmol/L (22.0-26.0) L 21.7 mmol/L (22.0-26.0) L 21.7 mmol/L (22.0-26.0) L Arterial Blood Oxygen Saturation 93.0 % (92.0-98.0) 87.3 % (92.0-98.0) L 92.7 % (92.0-98.0) Arterial Blood Base Excess -5.4 -5.1 -4.6 Tye Test Positive Positive Positive Test 08/10/17 15:00 08/10/17 15:45 08/10/17 18:40 White Blood Count 6.3 K/UL (4.8-10.8) Red Blood Count 4.25 M/UL (4.20-5.40) Hemoglobin 13.2 G/DL (12.0-16.0) Hematocrit 40.6 % (37.0-47.0) Mean Corpuscular Volume 96 FL (80-99) Mean Corpuscular Hemoglobin 31.1 PG (27.0-31.0) H Mean Corpuscular Hemoglobin Concent 32.5 G/DL (32.0-36.0) Red Cell Distribution Width 14.5 % (11.6-14.8) Platelet Count 166 K/UL (150-450) Mean Platelet Volume 7.5 FL (6.5-10.1) Neutrophils (%) (Auto) 70.0 % (45.0-75.0) Lymphocytes (%) (Auto) 19.9 % (20.0-45.0) L Monocytes (%) (Auto) 8.8 % (1.0-10.0) Eosinophils (%) (Auto) 0.4 % (0.0-3.0) Basophils (%) (Auto) 0.9 % (0.0-2.0) Sodium Level 141 MMOL/L (136-145) Potassium Level 4.2 MMOL/L (3.5-5.1) Chloride Level 108 MMOL/L (98-107) H Carbon Dioxide Level 23 MMOL/L (21-32) Anion Gap 10 mmol/L (5-15) Blood Urea Nitrogen 8 mg/dL (7-18) Creatinine 0.9 MG/DL (0.55-1.30) Estimat Glomerular Filtration Rate > 60 mL/min (>60) Glucose Level 71 MG/DL (74-106) #L Lactic Acid Level 0.70 mmol/L (0.66-2.22) Calcium Level 8.1 MG/DL (8.5-10.1) L Total Bilirubin 0.5 MG/DL (0.2-1.0) Aspartate Amino Transf (AST/SGOT) 167 U/L (15-37) H Alanine Aminotransferase (ALT/SGPT) 109 U/L (12-78) H Alkaline Phosphatase 98 U/L (46-116) Troponin I 0.853 ng/mL (0.000-0.056) Total Protein 6.3 G/DL (6.4-8.2) L Albumin 3.2 G/DL (3.4-5.0) L Globulin 3.1 g/dL Albumin/Globulin Ratio 1.0 (1.0-2.7) Urine Color Pale yellow Urine Appearance Clear Urine pH 5 (4.5-8.0) Urine Specific [place] 1.020 (1.005-1.035) Urine Protein Negative (NEGATIVE) Urine Glucose (UA) Negative (NEGATIVE) Urine Ketones 3+ (NEGATIVE) H Urine Occult Blood Negative (NEGATIVE) Urine Nitrite Negative (NEGATIVE) Urine Bilirubin Negative (NEGATIVE) Urine Urobilinogen Normal MG/DL (0.0-1.0) Urine Leukocyte Esterase 1+ (NEGATIVE) H Urine RBC 0-2 /HPF (0 - 2) Urine WBC 0-2 /HPF (0 - 2) Urine Squamous Epithelial Cells Few /LPF (NONE/OCC) Urine Bacteria Few /HPF (NONE) Ammonia 15 umol/L (11-32) Opiates Screen Pending Oxycodone Level Pending Blood Methadone Screen Pending Blood Propoxyphene Screen Pending Blood Barbiturates Screen Pending Phencyclidine (PCP) Screen Pending Amphetamines Screen Pending Benzodiazepines Screen Pending Blood Cocaine/Metabolite Screen Pending Marijuana (THC) Screen Pending Blood Drug Screen Comment Pending MICHAEL PADILLA Aug 10, 2017 21:54
[2017-08-10] MEDS: Vancomycin 1gm in Dextrose 275ml IVPB SCH (21:58)
[2017-08-11] VITALS (24 sets, daily range): BP systolic 96–131; BP diastolic 43–87
--- NOTE | 2017-08-11 01:00 | Consultation ---
DATE OF CONSULTATION: 08/10/2017 INFECTIOUS DISEASES CONSULTATION CONSULTING PHYSICIAN: Danyel Whitfield M.D. ATTENDING PHYSICIAN: Albert Doran M.D. REASON FOR CONSULTATION: Urinary tract infection, encephalopathy, rule out sepsis. CHIEF COMPLAINT: The patient's chief complaint coming into the hospital is encephalopathy and drug overdose. HISTORY OF PRESENT ILLNESS: This is a 21-year-old female, who has history of valve replacement surgery because of endocarditis because of history of drug abuse. The patient has history also of bilateral pneumothorax. The patient had overdose and seizures in the ER. Per the records, the patient had cocaine and heroin. The patient was noted to have positive urinalysis and has possibility to have urinary tract infection. The patient also has risk for endocarditis. She has significantly altered mental status requiring BiPAP and the patient may require intubation per the pulmonary notes. Drug screen was positive for benzodiazepines. Opiate and cocaine were negative. The patient is short of breath requiring BiPAP. The patient will be started on broad-spectrum antibiotics treating urinary tract infection and possibility of endocarditis, especially with history of valve replacement. Because of altered mental status, she could also be septic. The patient was placed on vancomycin, Rocephin, and Flagyl pending workup. The patient will be seen by neurology. MAR was noted. Orders were noted. Notes were reviewed. Case was discussed with the patient's mother. PAST MEDICAL HISTORY: The patient has history of endocarditis requiring mechanical valve replacement. She has history of pneumothorax with chest tubes. She is currently on BiPAP. She is short of breath, altered mental status. She has metabolic acidosis at this time. She has history of bioprosthetic valve replacement, it looks like, actually one year ago and also aortic valve endocarditis in 07/2016, it looks like. No history of diabetes or hypertension mentioned, but she has history of IV drug abuse as discussed. She did come in with seizure. MEDICATIONS: Upon reviewing the MAR, she is currently on heparin, IV fluids, antibiotics of Rocephin, vancomycin, and Flagyl. She was given a dose of Rocephin in the emergency room. Outside medications, it looks like she is on gabapentin and Neurontin. ALLERGIES: No known drug allergies. SOCIAL HISTORY: Positive for IV drug abuse. There is no mention of alcohol use. Per the records, she has social history positive for tobacco use. FAMILY HISTORY: Noncontributory. REVIEW OF SYSTEMS: CONSTITUTIONAL: She does have a Garcia. She has altered mental status requiring BiPAP. HEAD AND NECK: She has BiPAP. It is unclear if she had neck stiffness or fevers prior to admission. CARDIAC: She is currently not on pressors. GASTROINTESTINAL: No nausea, vomiting, or diarrhea. GENITOURINARY: She has a Garcia. PULMONARY: Short of breath, on BiPAP. SKIN: No rash. NEUROLOGICAL: She did come in with seizures actually. Review of systems otherwise limited. PHYSICAL EXAMINATION: VITAL SIGNS: Temperature 98.1 degrees, pulse rate 100, respiratory rate 16, blood pressure systolic noted/62, and saturation 100% on BiPAP, FiO2 down to 50%. GENERAL: Lethargic and weak. Neck seems to be somewhat stiff, but really difficult to tell because of her altered mental status and BiPAP status. HEAD AND NECK: Oral exam, no obvious thrush. Eye exam, no obvious icterus. She actually is responsive to her name. She is somewhat responsive. She opens her eyes, but does not verbalize at this time. She is on BiPAP. Normocephalic. CARDIAC: Regular, tachycardic. A 1/6 systolic murmur. ABDOMEN: Soft. Positive bowel sounds. LUNGS: Fairly clear bilaterally. No obvious rales. Occasional rhonchi. SKIN: No rash. MUSCULOSKELETAL: No effusion. Legs are without cellulitis. PERIPHERAL VASCULAR: No cyanosis or gangrene. GENITOURINARY: She has a Garcia. Urine is slightly cloudy. LINES: Line sites without phlebitis. NEUROLOGICAL: Poorly responsive. Opens her eyes, but on BiPAP. LABORATORY AND DIAGNOSTIC DATA: Laboratory data as follows. UA had positive nitrite, 5-10 white blood cells, and 1+ leukocyte esterase. Urine culture and blood cultures are pending. Creatinine 0.9, it was 1.7. LFTs were elevated. , urine HCG screen was negative. Chest x-ray was negative. CT scan of the head showed no acute bleed or mass effect. Cultures are pending at this time. Followup chest x-ray has been ordered. ASSESSMENT AND PLAN: 1. The patient has altered mental status, likely secondary to drug overdose, however, must rule out any occult underlying sepsis. It looks like she has urinary tract infection which certainly could cause altered mental status. She is at risk for endocarditis and also aspiration pneumonia. The patient will be placed on aggressive treatment with antibiotics of vancomycin, Rocephin, and Flagyl until cultures are back. We will check followup chest x-ray. Questionable with altered mental status, it could be secondary to meningitis, this is difficult to assess at this time. The patient will be seen by neurology and if her mental status does not improve, consider lumbar puncture, however, she will be placed on empiric antibiotics as of now. Check followup labs, chest x-ray, and cultures. Continue vancomycin, Rocephin, and Flagyl for now. 2. History of intravenous drug abuse and drug overdose. 3. Shortness of breath, acidosis on BiPAP. 4. Acute kidney injury with elevated creatinine, which is improved. 5. Dehydration. 6. Intravenous fluids. 7. 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 8. No known drug allergies. 9. Social history positive for intravenous drug abuse and smoking. 10. Family history noncontributory. 11. MAR was noted. 12. Continue treatment per primary, Dr. Doran. 13. Case discussed with RN. 14. Case discussed with the patient's mother. Danyel Whitfield M.D. DR: Izzy JOB#: [id number] CC: [email or web address]
[2017-08-11 05:50] LABS: BASOPHILS % (AUTO) 0.4 % (0.0-2.0); HEMATOCRIT 38.2 % (37.0-47.0); HEMOGLOBIN 12.6 G/DL (12.0-16.0); LYMPHOCYTES % (AUTO) 8.7 % (20.0-45.0); MEAN CORPUSCULAR VOLUME 95 FL (80-99); MONOCYTES % (AUTO) 7.2 % (1.0-10.0); NEUTROPHILS % (AUTO) 83.7 % (45.0-75.0); PLATELET COUNT 139 K/UL (150-450); RED BLOOD COUNT 4.01 M/UL (4.20-5.40); RED CELL DISTRIBUTION WIDTH 13.9 % (11.6-14.8); WHITE BLOOD COUNT 9.6 K/UL (4.8-10.8)
[2017-08-11] MEDS: Vancomycin 1gm in Dextrose 275ml IVPB SCH ×3 (06:21→23:16)
[2017-08-11] MEDS: levETIRAcetam 500mg/NS100ml 100 ML IVPB SCH (06:23)
[2017-08-11 06:42] LABS: ALANINE AMINOTRANSFERASE 87 U/L (12-78); ALBUMIN/GLOBULIN RATIO 0.9 (1.0-2.7); ALKALINE PHOSPHATASE 89 U/L (46-116); ANION GAP 13 mmol/L (5-15); ASPARTATE AMINO TRANSFERASE 80 U/L (15-37); BILIRUBIN,TOTAL 0.5 MG/DL (0.2-1.0); BLOOD UREA NITROGEN 5 mg/dL (7-18); CALCIUM 8.3 MG/DL (8.5-10.1); CARBON DIOXIDE 19 MMOL/L (21-32); CHLORIDE 107 MMOL/L (98-107); CREATININE 0.8 MG/DL (0.55-1.30); POTASSIUM 3.6 MMOL/L (3.5-5.1); SODIUM 139 MMOL/L (136-145)
--- NOTE | 2017-08-11 08:35 | Cardiology Progress Note ---
Assessment/Plan Assessment/Plan from cardiac stndpoint, the patient is stable at present time sounds like she has mechanical valve if she has mechanical valve ? and probably should be anticoagulated I am unable to review echo and will review report from her surgery as soon as it is available endocarditis work up in progress the patient presented with seizures and she is treated by neurology will follow Subjective Subjective Tthe patient is sedated on bipap mother at the bedside the patient Objective Last 24 Hour Vital Signs Date Time Temp Pulse Resp B/P (MAP) Pulse Ox O2 Delivery O2 Flow Rate FiO2 08/11/17 07:29 86 19 94 Facial 70 08/11/17 06:00 111 24 107/87 97 Bi-pap 70 08/11/17 05:32 118 27 95 Facial 70 08/11/17 05:00 115 20 119/60 97 Bi-pap 70 08/11/17 04:00 120 08/11/17 04:00 70 08/11/17 04:00 98.9 120 21 117/67 98 Bi-pap 70 08/11/17 03:00 119 19 105/62 97 Bi-pap 70 08/11/17 02:49 103 22 100 Facial 70 08/11/17 02:00 113 21 114/63 100 Bi-pap 70 08/11/17 01:42 112 19 100 Facial 70 08/11/17 01:00 109 20 122/80 100 Bi-pap 70 08/11/17 00:00 98.8 107 20 120/61 100 Bi-pap 70 08/11/17 00:00 107 08/10/17 23:34 109 22 100 Facial 70 08/10/17 23:00 112 20 116/69 100 Bi-pap 70 08/10/17 22:00 105 18 121/82 100 Bi-pap 70 08/10/17 21:00 104 18 116/72 100 Bi-pap 70 08/10/17 20:54 104 17 100 Facial 70 08/10/17 20:00 100.1 103 17 113/70 100 Bi-pap 70 08/10/17 20:00 70 08/10/17 20:00 103 08/10/17 19:00 101 17 112/75 100 Bi-pap 70 08/10/17 18:15 70 08/10/17 18:15 99.4 100 16 126/83 100 Bi-pap 70 08/10/17 18:07 99 08/10/17 17:11 97 16 100 Facial 50 08/10/17 16:00 98.1 100 16 109/60 100 Bi-pap 70 08/10/17 14:42 103 16 100 Facial 50 08/10/17 12:47 100 20 100 Facial 50 08/10/17 12:18 98.8 93 16 94/56 100 Bi-pap 2.0 50 08/10/17 12:00 93 12 105/59 100 Bi-pap 30 08/10/17 11:45 50 08/10/17 11:00 89 16 94/56 100 Bi-pap 30 08/10/17 10:47 100 20 100 Facial 30 08/10/17 10:00 98.8 94 15 94/56 100 Bi-pap 30 08/10/17 09:10 94 18 99 Facial 30 08/10/17 09:08 94 12 111/54 100 Bi-pap 30 08/10/17 09:02 30 General Appearance: other - sedated EENT: other - sluggish pupil reaction Neck: no JVD Rhythm: ST Cardiovascular: normal rate, other - crisp S2 sound better heard at LSB Respiratory/Chest: chest wall non-tender, rhonchi - bilaterally, other - has midsternal surgical scar Abdomen: soft Neurologic: unresponsiveness Laboratory Tests Test 08/10/17 10:48 08/10/17 12:27 08/10/17 15:00 08/10/17 15:45 Arterial Blood pH 7.280 (7.350-7.450) 7.300 (7.350-7.450) Arterial Blood Partial Pressure CO2 47.1 mmHg (35.0-45.0) H 44.2 mmHg (35.0-45.0) Arterial Blood Partial Pressure O2 55.1 mmHg (75.0-100.0) L 66.6 mmHg (75.0-100.0) L Arterial Blood HCO3 21.7 mmol/L (22.0-26.0) L 21.7 mmol/L (22.0-26.0) L Arterial Blood Oxygen Saturation 87.3 % (92.0-98.0) L 92.7 % (92.0-98.0) Arterial Blood Base Excess -5.1 -4.6 Tye Test Positive Positive White Blood Count 6.3 K/UL (4.8-10.8) Red Blood Count 4.25 M/UL (4.20-5.40) Hemoglobin 13.2 G/DL (12.0-16.0) Hematocrit 40.6 % (37.0-47.0) Mean Corpuscular Volume 96 FL (80-99) Mean Corpuscular Hemoglobin 31.1 PG (27.0-31.0) H Mean Corpuscular Hemoglobin Concent 32.5 G/DL (32.0-36.0) Red Cell Distribution Width 14.5 % (11.6-14.8) Platelet Count 166 K/UL (150-450) Mean Platelet Volume 7.5 FL (6.5-10.1) Neutrophils (%) (Auto) 70.0 % (45.0-75.0) Lymphocytes (%) (Auto) 19.9 % (20.0-45.0) L Monocytes (%) (Auto) 8.8 % (1.0-10.0) Eosinophils (%) (Auto) 0.4 % (0.0-3.0) Basophils (%) (Auto) 0.9 % (0.0-2.0) Sodium Level 141 MMOL/L (136-145) Potassium Level 4.2 MMOL/L (3.5-5.1) Chloride Level 108 MMOL/L (98-107) H Carbon Dioxide Level 23 MMOL/L (21-32) Anion Gap 10 mmol/L (5-15) Blood Urea Nitrogen 8 mg/dL (7-18) Creatinine 0.9 MG/DL (0.55-1.30) Estimat Glomerular Filtration Rate > 60 mL/min (>60) Glucose Level 71 MG/DL (74-106) #L Lactic Acid Level 0.70 mmol/L (0.66-2.22) Calcium Level 8.1 MG/DL (8.5-10.1) L Total Bilirubin 0.5 MG/DL (0.2-1.0) Aspartate Amino Transf (AST/SGOT) 167 U/L (15-37) H Alanine Aminotransferase (ALT/SGPT) 109 U/L (12-78) H Alkaline Phosphatase 98 U/L (46-116) Troponin I 0.853 ng/mL (0.000-0.056) Total Protein 6.3 G/DL (6.4-8.2) L Albumin 3.2 G/DL (3.4-5.0) L Globulin 3.1 g/dL Albumin/Globulin Ratio 1.0 (1.0-2.7) Urine Color Pale yellow Urine Appearance Clear Urine pH 5 (4.5-8.0) Urine Specific [place] 1.020 (1.005-1.035) Urine Protein Negative (NEGATIVE) Urine Glucose (UA) Negative (NEGATIVE) Urine Ketones 3+ (NEGATIVE) H Urine Occult Blood Negative (NEGATIVE) Urine Nitrite Negative (NEGATIVE) Urine Bilirubin Negative (NEGATIVE) Urine Urobilinogen Normal MG/DL (0.0-1.0) Urine Leukocyte Esterase 1+ (NEGATIVE) H Urine RBC 0-2 /HPF (0 - 2) Urine WBC 0-2 /HPF (0 - 2) Urine Squamous Epithelial Cells Few /LPF (NONE/OCC) Urine Bacteria Few /HPF (NONE) Test 08/10/17 18:40 08/11/17 05:10 Ammonia 15 umol/L (11-32) Opiates Screen Pending Oxycodone Level Pending Blood Methadone Screen Pending Blood Propoxyphene Screen Pending Blood Barbiturates Screen Pending Phencyclidine (PCP) Screen Pending Amphetamines Screen Pending Benzodiazepines Screen Pending Blood Cocaine/Metabolite Screen Pending Marijuana (THC) Screen Pending Blood Drug Screen Comment Pending White Blood Count 9.6 K/UL (4.8-10.8) # Red Blood Count 4.01 M/UL (4.20-5.40) L Hemoglobin 12.6 G/DL (12.0-16.0) Hematocrit 38.2 % (37.0-47.0) Mean Corpuscular Volume 95 FL (80-99) Mean Corpuscular Hemoglobin 31.4 PG (27.0-31.0) H Mean Corpuscular Hemoglobin Concent 32.9 G/DL (32.0-36.0) Red Cell Distribution Width 13.9 % (11.6-14.8) Platelet Count 139 K/UL (150-450) L Mean Platelet Volume 7.9 FL (6.5-10.1) Neutrophils (%) (Auto) 83.7 % (45.0-75.0) H Lymphocytes (%) (Auto) 8.7 % (20.0-45.0) L Monocytes (%) (Auto) 7.2 % (1.0-10.0) Eosinophils (%) (Auto) 0.0 % (0.0-3.0) Basophils (%) (Auto) 0.4 % (0.0-2.0) Sodium Level 139 MMOL/L (136-145) Potassium Level 3.6 MMOL/L (3.5-5.1) Chloride Level 107 MMOL/L (98-107) Carbon Dioxide Level 19 MMOL/L (21-32) L Anion Gap 13 mmol/L (5-15) Blood Urea Nitrogen 5 mg/dL (7-18) L Creatinine 0.8 MG/DL (0.55-1.30) Estimat Glomerular Filtration Rate > 60 mL/min (>60) Glucose Level 93 MG/DL (74-106) Calcium Level 8.3 MG/DL (8.5-10.1) L Total Bilirubin 0.5 MG/DL (0.2-1.0) Aspartate Amino Transf (AST/SGOT) 80 U/L (15-37) H Alanine Aminotransferase (ALT/SGPT) 87 U/L (12-78) H Alkaline Phosphatase 89 U/L (46-116) Troponin I 0.977 ng/mL (0.000-0.056) Total Protein 6.3 G/DL (6.4-8.2) L Albumin 3.0 G/DL (3.4-5.0) L Globulin 3.3 g/dL Albumin/Globulin Ratio 0.9 (1.0-2.7) L Hepatitis A IgM Antibody Pending Hepatitis B Surface Antigen Pending Hepatitis B Core IgM Antibody Pending Hepatitis C Antibody Pending HIV (1&2) Antibody Rapid Negative (NEGATIVE) Microbiology Date/Time Source Procedure Growth Status 08/10/17 15:45 Urine,Clean Catch Urine Culture - Preliminary NO GROWTH Resulted 08/10/17 01:50 Urine,Clean Catch Urine Culture - Preliminary Gram Negative Bacillus 1 Resulted MICHAEL PADILLA Aug 11, 2017 08:35
[2017-08-11] MEDS: Heparin 5000 units/ml inj SUBQ SCH ×2 (08:45→20:51)
[2017-08-11] MEDS ORDERED: levETIRAcetam 1,000mg/NS100ml 100 ML IVPB ONE (09:00)
--- NOTE | 2017-08-11 10:11 | Pulmonology Progress Note ---
Assessment/Plan Assessment/Plan ASSESSMENT: 21 F h/o IVDU c/b IE S/P MVR p/w AMS 2/2 drug OD/toxicity c/b AGMA with inadequate respiratory compensation. She was previously on a ventilator for several months and her mother would rather he not be intubated but understands that if she does not respond to the current BiPAP setting she may require intubation. PROBLEM LIST: -Drug OD -H/O IVDU -Anion gap metabolic acidosis + Respiratory acidosis -MATTHEW -Hemoconcentration -Dehydration -H/O infective endocarditis S/P MVR PLAN: -Admitted to ICU -Off BiPAP now -Recheck ABG in 1 hour -Aggressive IVF hydration -F/U Cx's -F/U TTE -NPO until MS better -Monitor volumes and renal function -DVT Px: Hep SQ Subjective Interval Events: Seen in ICU Constitutional: Reports: no symptoms HEENT: Repors: no symptoms Respiratory: Reports: no symptoms Cardiovascular: Reports: no symptoms Gastrointestinal/Abdominal: Reports: no symptoms Genitourinary: Reports: no symptoms Allergies: Coded Allergies: UNABLE TO ASSESS (Unverified , 08/10/17) Objective Last 24 Hour Vital Signs Date Time Temp Pulse Resp B/P (MAP) Pulse Ox O2 Delivery O2 Flow Rate FiO2 08/11/17 09:49 Nasal Cannula 4.0 36 08/11/17 09:48 100 Nasal Cannula 4.0 36 08/11/17 09:27 126 32 94 Facial 70 08/11/17 08:00 111 24 105/62 97 Bi-pap 70 08/11/17 07:29 86 19 94 Facial 70 08/11/17 07:00 97 24 105/62 97 Bi-pap 70 08/11/17 06:00 111 24 107/87 97 Bi-pap 70 08/11/17 05:32 118 27 95 Facial 70 08/11/17 05:00 115 20 119/60 97 Bi-pap 70 08/11/17 04:00 120 08/11/17 04:00 70 08/11/17 04:00 98.9 120 21 117/67 98 Bi-pap 70 08/11/17 03:00 119 19 105/62 97 Bi-pap 70 08/11/17 02:49 103 22 100 Facial 70 08/11/17 02:00 113 21 114/63 100 Bi-pap 70 08/11/17 01:42 112 19 100 Facial 70 08/11/17 01:00 109 20 122/80 100 Bi-pap 70 08/11/17 00:00 98.8 107 20 120/61 100 Bi-pap 70 08/11/17 00:00 107 08/10/17 23:34 109 22 100 Facial 70 08/10/17 23:00 112 20 116/69 100 Bi-pap 70 08/10/17 22:00 105 18 121/82 100 Bi-pap 70 08/10/17 21:00 104 18 116/72 100 Bi-pap 70 08/10/17 20:54 104 17 100 Facial 70 08/10/17 20:00 100.1 103 17 113/70 100 Bi-pap 70 08/10/17 20:00 70 08/10/17 20:00 103 08/10/17 19:00 101 17 112/75 100 Bi-pap 70 08/10/17 18:15 70 08/10/17 18:15 99.4 100 16 126/83 100 Bi-pap 70 08/10/17 18:07 99 08/10/17 17:11 97 16 100 Facial 50 08/10/17 16:00 98.1 100 16 109/60 100 Bi-pap 70 08/10/17 14:42 103 16 100 Facial 50 08/10/17 12:47 100 20 100 Facial 50 08/10/17 12:18 98.8 93 16 94/56 100 Bi-pap 2.0 50 08/10/17 12:00 93 12 105/59 100 Bi-pap 30 08/10/17 11:45 50 08/10/17 11:00 89 16 94/56 100 Bi-pap 30 08/10/17 10:47 100 20 100 Facial 30 General Appearance: no acute distress HEENT: normocephalic Respiratory/Chest: chest wall non-tender, lungs clear Cardiovascular: normal peripheral pulses, normal rate Microbiology Date/Time Source Procedure Growth Status 08/10/17 15:45 Urine,Clean Catch Urine Culture - Preliminary NO GROWTH Resulted 08/10/17 01:50 Urine,Clean Catch Urine Culture - Preliminary Gram Negative Bacillus 1 Resulted Laboratory Tests 08/10/17 10:48: Arterial Blood pH 7.280L, Arterial Blood Partial Pressure CO2 47.1H, Arterial Blood Partial Pressure O2 55.1L, Arterial Blood HCO3 21.7L, Arterial Blood Oxygen Saturation 87.3L, Arterial Blood Base Excess -5.1, Tye Test Positive 08/10/17 12:27: Arterial Blood pH 7.300L, Arterial Blood Partial Pressure CO2 44.2, Arterial Blood Partial Pressure O2 66.6L, Arterial Blood HCO3 21.7L, Arterial Blood Oxygen Saturation 92.7, Arterial Blood Base Excess -4.6, Tye Test Positive 08/10/17 15:00: White Blood Count 6.3, Red Blood Count 4.25, Hemoglobin 13.2, Hematocrit 40.6, Mean Corpuscular Volume 96, Mean Corpuscular Hemoglobin 31.1H, Mean Corpuscular Hemoglobin Concent 32.5, Red Cell Distribution Width 14.5, Platelet Count 166, Mean Platelet Volume 7.5, Neutrophils (%) (Auto) 70.0, Lymphocytes (%) (Auto) 19.9L, Monocytes (%) (Auto) 8.8, Eosinophils (%) (Auto) 0.4, Basophils (%) (Auto ) 0.9, Sodium Level 141, Potassium Level 4.2, Chloride Level 108H, Carbon Dioxide Level 23, Anion Gap 10, Blood Urea Nitrogen 8, Creatinine 0.9, Estimat Glomerular Filtration Rate > 60, Glucose Level 71#L, Lactic Acid Level 0.70, Calcium Level 8.1L, Total Bilirubin 0.5, Aspartate Amino Transf (AST/SGOT) 167H , Alanine Aminotransferase (ALT/SGPT) 109H, Alkaline Phosphatase 98, Troponin I 0.853H, Total Protein 6.3L, Albumin 3.2L, Globulin 3.1, Albumin/Globulin Ratio 1.0 08/10/17 15:45: Urine Color Pale yellow, Urine Appearance Clear, Urine pH 5, Urine Specific [place] 1.020, Urine Protein Negative, Urine Glucose (UA) Negative, Urine Ketones 3+H, Urine Occult Blood Negative, Urine Nitrite Negative, Urine Bilirubin Negative, Urine Urobilinogen Normal, Urine Leukocyte Esterase 1+H, Urine RBC 0-2, Urine WBC 0-2, Urine Squamous Epithelial Cells Few, Urine Bacteria Few 08/10/17 18:40: Ammonia 15, Opiates Screen [Pending], Oxycodone Level [Pending], Blood Methadone Screen [Pending], Blood Propoxyphene Screen [Pending], Blood Barbiturates Screen [Pending], Phencyclidine (PCP) Screen [Pending], Amphetamines Screen [Pending], Benzodiazepines Screen [Pending], Blood Cocaine/ Metabolite Screen [Pending], Marijuana (THC) Screen [Pending], Blood Drug Screen Comment [Pending] 08/11/17 05:10: White Blood Count 9.6#, Red Blood Count 4.01L, Hemoglobin 12.6, Hematocrit 38.2 , Mean Corpuscular Volume 95, Mean Corpuscular Hemoglobin 31.4H, Mean Corpuscular Hemoglobin Concent 32.9, Red Cell Distribution Width 13.9, Platelet Count 139L, Mean Platelet Volume 7.9, Neutrophils (%) (Auto) 83.7H, Lymphocytes (%) (Auto) 8.7L, Monocytes (%) (Auto) 7.2, Eosinophils (%) (Auto) 0.0, Basophils (%) (Auto) 0.4, Sodium Level 139, Potassium Level 3.6, Chloride Level 107, Carbon Dioxide Level 19L, Anion Gap 13, Blood Urea Nitrogen 5L, Creatinine 0.8, Estimat Glomerular Filtration Rate > 60, Glucose Level 93, Calcium Level 8.3L, Total Bilirubin 0.5, Aspartate Amino Transf (AST/SGOT) 80H, Alanine Aminotransferase (ALT/SGPT) 87H, Alkaline Phosphatase 89, Troponin I 0.977H, Total Protein 6.3L, Albumin 3.0L, Globulin 3.3, Albumin/Globulin Ratio 0.9L, Hepatitis A IgM Antibody [Pending], Hepatitis B Surface Antigen [Pending], Hepatitis B Core IgM Antibody [Pending], Hepatitis C Antibody [Pending], HIV (1& 2) Antibody Rapid Negative 08/11/17 09:20: Arterial Blood pH 7.385, Arterial Blood Partial Pressure CO2 32.8L, Arterial Blood Partial Pressure O2 367.3H, Arterial Blood HCO3 18.8L, Arterial Blood Oxygen Saturation 99.2H, Arterial Blood Base Excess -5.3, Tye Test Positive Current Medications Medications (Trade) Dose Ordered Sig/Hema Route PRN Reason Start Time Stop Time Status Last Admin Dose Admin Ceftriaxone Sodium 2 gm/ Dextrose 100 ml @ 200 mls/hr EVERY 12 HOURS IVPB 08/10/17 21:00 08/17/17 20:59 08/11/17 08:41 Chlorhexidine Gluconate (Valerie-Hex 2%) 1 applic DAILY@2000 TOPIC 08/11/17 20:00 09/10/17 19:59 UNV Heparin Sodium (Porcine) (Heparin 5000 units/ml) 5,000 units EVERY 12 HOURS SUBQ 08/10/17 21:00 09/09/17 20:59 08/11/17 08:45 Heparin Sodium/ Sodium Chloride (Heparin 2000 units/Ns 1000ml premix) 2,000 unit ONCE ONCE INJ 08/11/17 10:00 08/11/17 10:01 UNV Levetiracetam 100 ml @ 400 mls/hr Q12HR@0700,1900 IVPB 08/10/17 19:00 09/09/17 18:59 08/11/17 06:23 Lidocaine HCl (Xylocaine 1% 30ml) 30 ml ONCE ONCE INJ 08/11/17 10:00 08/11/17 10:01 UNV Metronidazole 100 ml @ 100 mls/hr Q8HR IVPB 08/10/17 22:00 08/17/17 21:59 08/11/17 06:20 Sodium Chloride 1,000 ml @ 150 mls/hr Q6H40M IV 08/10/17 19:15 09/09/17 19:14 08/11/17 06:21 Thiamine HCl 100 mg/Dextrose 56 ml @ 112 mls/hr Q24H IVPB 08/10/17 19:30 09/09/17 19:29 08/10/17 20:09 Vancomycin HCl (Vanco rx to dose) 1 ea DAILYPRN PRN MISC Per rx protocol 08/11/17 09:00 09/10/17 08:59 Vancomycin HCl 1 gm/Dextrose 275 ml @ 183.708 mls/hr Q8HR IVPB 08/10/17 22:00 08/15/17 21:59 08/11/17 06:21 Misbah Lay MD Aug 11, 2017 10:11
[2017-08-11] MEDS ORDERED: Lidocaine 1% Plain 30 ml INJ PRN (10:30)
[2017-08-11] MEDS ORDERED: Heparin 2000 units/Ns 1000ml INJ PRN (10:30)
--- NOTE | 2017-08-11 10:39 | General Progress Note ---
Assessment/Plan Assessment/Plan Recurrent Brain Anoxia due to Cardio Respiratory arrest. Waking up. Prognosis seems better. Still Delirious. 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 Awaiting Medical records from [place]. Subjective Allergies: Coded Allergies: UNABLE TO ASSESS (Unverified , 08/10/17) Subjective In ICU. Waking up. Per mother was verbal earlier.. Had seizures earlier. Objective Last 24 Hour Vital Signs Date Time Temp Pulse Resp B/P (MAP) Pulse Ox O2 Delivery O2 Flow Rate FiO2 08/11/17 10:00 101 24 112/51 100 Nasal Cannula 4.0 08/11/17 09:49 Nasal Cannula 4.0 36 08/11/17 09:48 100 Nasal Cannula 4.0 36 08/11/17 09:27 126 32 94 Facial 70 08/11/17 09:00 111 24 105/62 99 Bi-pap 70 08/11/17 08:00 99.0 08/11/17 08:00 111 24 105/62 97 Bi-pap 70 08/11/17 07:29 86 19 94 Facial 70 08/11/17 07:00 97 24 105/62 97 Bi-pap 70 08/11/17 06:00 111 24 107/87 97 Bi-pap 70 08/11/17 05:32 118 27 95 Facial 70 08/11/17 05:00 115 20 119/60 97 Bi-pap 70 08/11/17 04:00 120 08/11/17 04:00 70 08/11/17 04:00 98.9 120 21 117/67 98 Bi-pap 70 08/11/17 03:00 119 19 105/62 97 Bi-pap 70 08/11/17 02:49 103 22 100 Facial 70 08/11/17 02:00 113 21 114/63 100 Bi-pap 70 08/11/17 01:42 112 19 100 Facial 70 08/11/17 01:00 109 20 122/80 100 Bi-pap 70 08/11/17 00:00 98.8 107 20 120/61 100 Bi-pap 70 08/11/17 00:00 107 08/10/17 23:34 109 22 100 Facial 70 08/10/17 23:00 112 20 116/69 100 Bi-pap 70 08/10/17 22:00 105 18 121/82 100 Bi-pap 70 08/10/17 21:00 104 18 116/72 100 Bi-pap 70 08/10/17 20:54 104 17 100 Facial 70 08/10/17 20:00 100.1 103 17 113/70 100 Bi-pap 70 08/10/17 20:00 70 08/10/17 20:00 103 08/10/17 19:00 101 17 112/75 100 Bi-pap 70 08/10/17 18:15 70 08/10/17 18:15 99.4 100 16 126/83 100 Bi-pap 70 08/10/17 18:07 99 08/10/17 17:11 97 16 100 Facial 50 08/10/17 16:00 98.1 100 16 109/60 100 Bi-pap 70 08/10/17 14:42 103 16 100 Facial 50 08/10/17 12:47 100 20 100 Facial 50 08/10/17 12:18 98.8 93 16 94/56 100 Bi-pap 2.0 50 08/10/17 12:00 93 12 105/59 100 Bi-pap 30 08/10/17 11:45 50 08/10/17 11:00 89 16 94/56 100 Bi-pap 30 08/10/17 10:47 100 20 100 Facial 30 Laboratory Tests 08/10/17 10:48: Arterial Blood pH 7.280L, Arterial Blood Partial Pressure CO2 47.1H, Arterial Blood Partial Pressure O2 55.1L, Arterial Blood HCO3 21.7L, Arterial Blood Oxygen Saturation 87.3L, Arterial Blood Base Excess -5.1, Tye Test Positive 08/10/17 12:27: Arterial Blood pH 7.300L, Arterial Blood Partial Pressure CO2 44.2, Arterial Blood Partial Pressure O2 66.6L, Arterial Blood HCO3 21.7L, Arterial Blood Oxygen Saturation 92.7, Arterial Blood Base Excess -4.6, Tye Test Positive 08/10/17 15:00: White Blood Count 6.3, Red Blood Count 4.25, Hemoglobin 13.2, Hematocrit 40.6, Mean Corpuscular Volume 96, Mean Corpuscular Hemoglobin 31.1H, Mean Corpuscular Hemoglobin Concent 32.5, Red Cell Distribution Width 14.5, Platelet Count 166, Mean Platelet Volume 7.5, Neutrophils (%) (Auto) 70.0, Lymphocytes (%) (Auto) 19.9L, Monocytes (%) (Auto) 8.8, Eosinophils (%) (Auto) 0.4, Basophils (%) (Auto ) 0.9, Sodium Level 141, Potassium Level 4.2, Chloride Level 108H, Carbon Dioxide Level 23, Anion Gap 10, Blood Urea Nitrogen 8, Creatinine 0.9, Estimat Glomerular Filtration Rate > 60, Glucose Level 71#L, Lactic Acid Level 0.70, Calcium Level 8.1L, Total Bilirubin 0.5, Aspartate Amino Transf (AST/SGOT) 167H , Alanine Aminotransferase (ALT/SGPT) 109H, Alkaline Phosphatase 98, Troponin I 0.853H, Total Protein 6.3L, Albumin 3.2L, Globulin 3.1, Albumin/Globulin Ratio 1.0 08/10/17 15:45: Urine Color Pale yellow, Urine Appearance Clear, Urine pH 5, Urine Specific [place] 1.020, Urine Protein Negative, Urine Glucose (UA) Negative, Urine Ketones 3+H, Urine Occult Blood Negative, Urine Nitrite Negative, Urine Bilirubin Negative, Urine Urobilinogen Normal, Urine Leukocyte Esterase 1+H, Urine RBC 0-2, Urine WBC 0-2, Urine Squamous Epithelial Cells Few, Urine Bacteria Few 08/10/17 18:40: Ammonia 15, Opiates Screen [Pending], Oxycodone Level [Pending], Blood Methadone Screen [Pending], Blood Propoxyphene Screen [Pending], Blood Barbiturates Screen [Pending], Phencyclidine (PCP) Screen [Pending], Amphetamines Screen [Pending], Benzodiazepines Screen [Pending], Blood Cocaine/ Metabolite Screen [Pending], Marijuana (THC) Screen [Pending], Blood Drug Screen Comment [Pending] 08/11/17 05:10: White Blood Count 9.6#, Red Blood Count 4.01L, Hemoglobin 12.6, Hematocrit 38.2 , Mean Corpuscular Volume 95, Mean Corpuscular Hemoglobin 31.4H, Mean Corpuscular Hemoglobin Concent 32.9, Red Cell Distribution Width 13.9, Platelet Count 139L, Mean Platelet Volume 7.9, Neutrophils (%) (Auto) 83.7H, Lymphocytes (%) (Auto) 8.7L, Monocytes (%) (Auto) 7.2, Eosinophils (%) (Auto) 0.0, Basophils (%) (Auto) 0.4, Sodium Level 139, Potassium Level 3.6, Chloride Level 107, Carbon Dioxide Level 19L, Anion Gap 13, Blood Urea Nitrogen 5L, Creatinine 0.8, Estimat Glomerular Filtration Rate > 60, Glucose Level 93, Calcium Level 8.3L, Total Bilirubin 0.5, Aspartate Amino Transf (AST/SGOT) 80H, Alanine Aminotransferase (ALT/SGPT) 87H, Alkaline Phosphatase 89, Troponin I 0.977H, Total Protein 6.3L, Albumin 3.0L, Globulin 3.3, Albumin/Globulin Ratio 0.9L, Hepatitis A IgM Antibody [Pending], Hepatitis B Surface Antigen [Pending], Hepatitis B Core IgM Antibody [Pending], Hepatitis C Antibody [Pending], HIV (1& 2) Antibody Rapid Negative 08/11/17 09:20: Arterial Blood pH 7.385, Arterial Blood Partial Pressure CO2 32.8L, Arterial Blood Partial Pressure O2 367.3H, Arterial Blood HCO3 18.8L, Arterial Blood Oxygen Saturation 99.2H, Arterial Blood Base Excess -5.3, Tye Test Positive Height (Feet): 5 Height (Inches): 6.00 Weight (Pounds): 160 Objective On 02 via NC Cv RR Lungs CTA Abd SNT. BS + E No CCe Neuro Delirious. Nonfocal. Michel Extensor B. pupils equal + responsive to light. BERTRAND CONDE Aug 11, 2017 10:39
--- NOTE | 2017-08-11 12:33 | Neurology Progress Note ---
Interim History Interim History ROS Limited/Unobtainable: Yes Complaints: nonverbal, Events: in/out LOC, was able to say yes/no.noted intermittent R>L arm/arm contractu Objective Physical Exam Last Vital Signs Date Time Temp Pulse Resp B/P (MAP) Pulse Ox O2 Delivery O2 Flow Rate FiO2 08/11/17 12:03 4.0 08/11/17 12:00 99 08/11/17 11:00 24 98/43 100 Nasal Cannula 08/11/17 09:49 36 08/11/17 08:00 99.0 Laboratory Tests Test 08/10/17 15:00 08/10/17 15:45 08/10/17 18:40 08/11/17 05:10 White Blood Count 6.3 K/UL (4.8-10.8) 9.6 K/UL (4.8-10.8) # Red Blood Count 4.25 M/UL (4.20-5.40) 4.01 M/UL (4.20-5.40) L Hemoglobin 13.2 G/DL (12.0-16.0) 12.6 G/DL (12.0-16.0) Hematocrit 40.6 % (37.0-47.0) 38.2 % (37.0-47.0) Mean Corpuscular Volume 96 FL (80-99) 95 FL (80-99) Mean Corpuscular Hemoglobin 31.1 PG (27.0-31.0) H 31.4 PG (27.0-31.0) H Mean Corpuscular Hemoglobin Concent 32.5 G/DL (32.0-36.0) 32.9 G/DL (32.0-36.0) Red Cell Distribution Width 14.5 % (11.6-14.8) 13.9 % (11.6-14.8) Platelet Count 166 K/UL (150-450) 139 K/UL (150-450) L Mean Platelet Volume 7.5 FL (6.5-10.1) 7.9 FL (6.5-10.1) Neutrophils (%) (Auto) 70.0 % (45.0-75.0) 83.7 % (45.0-75.0) H Lymphocytes (%) (Auto) 19.9 % (20.0-45.0) L 8.7 % (20.0-45.0) L Monocytes (%) (Auto) 8.8 % (1.0-10.0) 7.2 % (1.0-10.0) Eosinophils (%) (Auto) 0.4 % (0.0-3.0) 0.0 % (0.0-3.0) Basophils (%) (Auto) 0.9 % (0.0-2.0) 0.4 % (0.0-2.0) Sodium Level 141 MMOL/L (136-145) 139 MMOL/L (136-145) Potassium Level 4.2 MMOL/L (3.5-5.1) 3.6 MMOL/L (3.5-5.1) Chloride Level 108 MMOL/L (98-107) H 107 MMOL/L (98-107) Carbon Dioxide Level 23 MMOL/L (21-32) 19 MMOL/L (21-32) L Anion Gap 10 mmol/L (5-15) 13 mmol/L (5-15) Blood Urea Nitrogen 8 mg/dL (7-18) 5 mg/dL (7-18) L Creatinine 0.9 MG/DL (0.55-1.30) 0.8 MG/DL (0.55-1.30) Estimat Glomerular Filtration Rate > 60 mL/min (>60) > 60 mL/min (>60) Glucose Level 71 MG/DL (74-106) #L 93 MG/DL (74-106) Lactic Acid Level 0.70 mmol/L (0.66-2.22) Calcium Level 8.1 MG/DL (8.5-10.1) L 8.3 MG/DL (8.5-10.1) L Total Bilirubin 0.5 MG/DL (0.2-1.0) 0.5 MG/DL (0.2-1.0) Aspartate Amino Transf (AST/SGOT) 167 U/L (15-37) H 80 U/L (15-37) H Alanine Aminotransferase (ALT/SGPT) 109 U/L (12-78) H 87 U/L (12-78) H Alkaline Phosphatase 98 U/L (46-116) 89 U/L (46-116) Troponin I 0.853 ng/mL (0.000-0.056) 0.977 ng/mL (0.000-0.056) Total Protein 6.3 G/DL (6.4-8.2) L 6.3 G/DL (6.4-8.2) L Albumin 3.2 G/DL (3.4-5.0) L 3.0 G/DL (3.4-5.0) L Globulin 3.1 g/dL 3.3 g/dL Albumin/Globulin Ratio 1.0 (1.0-2.7) 0.9 (1.0-2.7) L Urine Color Pale yellow Urine Appearance Clear Urine pH 5 (4.5-8.0) Urine Specific [place] 1.020 (1.005-1.035) Urine Protein Negative (NEGATIVE) Urine Glucose (UA) Negative (NEGATIVE) Urine Ketones 3+ (NEGATIVE) H Urine Occult Blood Negative (NEGATIVE) Urine Nitrite Negative (NEGATIVE) Urine Bilirubin Negative (NEGATIVE) Urine Urobilinogen Normal MG/DL (0.0-1.0) Urine Leukocyte Esterase 1+ (NEGATIVE) H Urine RBC 0-2 /HPF (0 - 2) Urine WBC 0-2 /HPF (0 - 2) Urine Squamous Epithelial Cells Few /LPF (NONE/OCC) Urine Bacteria Few /HPF (NONE) Ammonia 15 umol/L (11-32) Opiates Screen Pending Oxycodone Level Pending Blood Methadone Screen Pending Blood Propoxyphene Screen Pending Blood Barbiturates Screen Pending Phencyclidine (PCP) Screen Pending Amphetamines Screen Pending Benzodiazepines Screen Pending Blood Cocaine/Metabolite Screen Pending Marijuana (THC) Screen Pending Blood Drug Screen Comment Pending Hepatitis A IgM Antibody Pending Hepatitis B Surface Antigen Pending Hepatitis B Core IgM Antibody Pending Hepatitis C Antibody Pending HIV (1&2) Antibody Rapid Negative (NEGATIVE) Test 08/11/17 09:20 08/11/17 12:15 Arterial Blood pH 7.385 (7.350-7.450) 7.396 (7.350-7.450) Arterial Blood Partial Pressure CO2 32.8 mmHg (35.0-45.0) L 34.7 mmHg (35.0-45.0) L Arterial Blood Partial Pressure O2 367.3 mmHg (75.0-100.0) H 54.0 mmHg (75.0-100.0) L Arterial Blood HCO3 18.8 mmol/L (22.0-26.0) L 20.8 mmol/L (22.0-26.0) L Arterial Blood Oxygen Saturation 99.2 % (92.0-98.0) H 89.5 % (92.0-98.0) L Arterial Blood Base Excess -5.3 -3.4 Tye Test Positive Positive General: well developed, well nourished, no acute distress, other - on bipap Head: normocophalic, atraumatic Neck: other - rigid Neurologic Exam Mental Status: other - occasion arousable,recognised mom Speech: other - yes/no Language: no aphasia Cranial Nerve II: fundus normal, no papilledema Cranial Nerves III, IV, : PERRLA, EOMI, pupils Cranial Nerve V: masseters function normal Cranial Nerve VII: normal facial expressions Cranial Nerve VIII: no nystagmus Cranial Nerve IX: normal palate elevation Cranial Nerve X: other Cranial Nerve XI: trapezii function normal Cranial Nerve XII: no tongue atrophy/fasciculations Motor System: other - occas tonic movements armsR>L Sensory: other Coordination: other Deep Tendon Reflexes: 3+ bicep (L), 3+ bicep (R), 3+ tricep (L), 3+ tricep (R) , 3+ brachioradialis (L), 3+ brachioradialis (R), 3+ knee (L), 3+ knee (R), 3+ ankle (L), 3+ ankle (R) Reflexes: mute plantar (L), mute plantar (R) Impression/Recommendations Problems: (1) severe anoxic encephalopathy (2) iv substance abuse, relapse (3) r/o drug toxicity (4) symptomatic seizure event Status: unchanged Recommendations #[id number] EEG noted ICU monitoring ammonia drug screen keppra 1000mg bid d/w staff and MOM PAM FAN Aug 11, 2017 12:33
[2017-08-11] MEDS: LORazepam Inj 2mg/ml 1ml IV PRN ×2 (15:44→23:25)
--- NOTE | 2017-08-11 18:15 | Cardiology Report ---
APPROVED REPORT EKG Measurement Heart [id number] Sinus tachycardia Otherwise normal ECG
[2017-08-11] MEDS ORDERED: levETIRAcetam 500mg/NS100ml 100 ML IVPB ONE (19:30)
[2017-08-11] MEDS ORDERED: Dyna-Hex 2% Top Sol 2oz TOPIC SCH (20:00)
--- NOTE | 2017-08-11 20:12 | Cardiology Progress Note ---
Assessment/Plan Assessment/Plan from cardiac stndpoint, the patient is stable at present time sounds like she has mechanical valve if she has mechanical valve ? and probably should be anticoagulated I am unable to review echo and will review report from her surgery as soon as it is available endocarditis work up in progress the patient presented with seizures and she is treated by neurology will follow Subjective Subjective I am still unalbe to review echo personally. The imaging are not available for review. No froml report available either no hospital records from the [facility] were surgery was done available either will order PT/INT the patient at home was not on Coumadin, according to her mother. Objective Last 24 Hour Vital Signs Date Time Temp Pulse Resp B/P (MAP) Pulse Ox O2 Delivery O2 Flow Rate FiO2 08/11/17 19:00 102 22 119/62 97 Nasal Cannula 4.0 08/11/17 18:00 89 22 123/68 97 Nasal Cannula 4.0 08/11/17 17:00 89 22 123/68 97 Nasal Cannula 4.0 08/11/17 16:00 92 08/11/17 16:00 87 22 108/68 97 Nasal Cannula 4.0 08/11/17 16:00 4.0 08/11/17 15:00 111 24 131/68 100 Nasal Cannula 4.0 08/11/17 14:00 115 24 113/79 100 Nasal Cannula 4.0 08/11/17 13:00 115 24 116/65 100 Nasal Cannula 4.0 08/11/17 12:03 4.0 08/11/17 12:00 99 08/11/17 12:00 98.8 104 24 96/43 100 Nasal Cannula 4.0 08/11/17 11:00 98 24 98/43 100 Nasal Cannula 4.0 08/11/17 10:00 101 24 112/51 100 Nasal Cannula 4.0 08/11/17 09:49 Nasal Cannula 4.0 36 08/11/17 09:48 100 Nasal Cannula 4.0 36 08/11/17 09:27 126 32 94 Facial 70 08/11/17 09:00 111 24 105/62 99 Bi-pap 70 08/11/17 08:00 70 08/11/17 08:00 98 08/11/17 08:00 99.0 08/11/17 08:00 111 24 105/62 97 Bi-pap 70 08/11/17 07:29 86 19 94 Facial 70 08/11/17 07:00 97 24 105/62 97 Bi-pap 70 08/11/17 06:00 111 24 107/87 97 Bi-pap 70 08/11/17 05:32 118 27 95 Facial 70 08/11/17 05:00 115 20 119/60 97 Bi-pap 70 08/11/17 04:00 120 08/11/17 04:00 70 08/11/17 04:00 98.9 120 21 117/67 98 Bi-pap 70 08/11/17 03:00 119 19 105/62 97 Bi-pap 70 08/11/17 02:49 103 22 100 Facial 70 08/11/17 02:00 113 21 114/63 100 Bi-pap 70 08/11/17 01:42 112 19 100 Facial 70 08/11/17 01:00 109 20 122/80 100 Bi-pap 70 08/11/17 00:00 98.8 107 20 120/61 100 Bi-pap 70 08/11/17 00:00 107 08/10/17 23:34 109 22 100 Facial 70 08/10/17 23:00 112 20 116/69 100 Bi-pap 70 08/10/17 22:00 105 18 121/82 100 Bi-pap 70 08/10/17 21:00 104 18 116/72 100 Bi-pap 70 08/10/17 20:54 104 17 100 Facial 70 Intake and Output 08/11/17 08/12/17 19:00 07:00 Intake Total 2067.416 ml Output Total 520 ml Balance 1547.416 ml Intake IV Total 2067.416 ml Output Urine Total 520 ml Laboratory Tests Test 08/11/17 05:10 08/11/17 09:20 08/11/17 12:15 White Blood Count 9.6 K/UL (4.8-10.8) # Red Blood Count 4.01 M/UL (4.20-5.40) L Hemoglobin 12.6 G/DL (12.0-16.0) Hematocrit 38.2 % (37.0-47.0) Mean Corpuscular Volume 95 FL (80-99) Mean Corpuscular Hemoglobin 31.4 PG (27.0-31.0) H Mean Corpuscular Hemoglobin Concent 32.9 G/DL (32.0-36.0) Red Cell Distribution Width 13.9 % (11.6-14.8) Platelet Count 139 K/UL (150-450) L Mean Platelet Volume 7.9 FL (6.5-10.1) Neutrophils (%) (Auto) 83.7 % (45.0-75.0) H Lymphocytes (%) (Auto) 8.7 % (20.0-45.0) L Monocytes (%) (Auto) 7.2 % (1.0-10.0) Eosinophils (%) (Auto) 0.0 % (0.0-3.0) Basophils (%) (Auto) 0.4 % (0.0-2.0) Sodium Level 139 MMOL/L (136-145) Potassium Level 3.6 MMOL/L (3.5-5.1) Chloride Level 107 MMOL/L (98-107) Carbon Dioxide Level 19 MMOL/L (21-32) L Anion Gap 13 mmol/L (5-15) Blood Urea Nitrogen 5 mg/dL (7-18) L Creatinine 0.8 MG/DL (0.55-1.30) Estimat Glomerular Filtration Rate > 60 mL/min (>60) Glucose Level 93 MG/DL (74-106) Calcium Level 8.3 MG/DL (8.5-10.1) L Total Bilirubin 0.5 MG/DL (0.2-1.0) Aspartate Amino Transf (AST/SGOT) 80 U/L (15-37) H Alanine Aminotransferase (ALT/SGPT) 87 U/L (12-78) H Alkaline Phosphatase 89 U/L (46-116) Troponin I 0.977 ng/mL (0.000-0.056) Total Protein 6.3 G/DL (6.4-8.2) L Albumin 3.0 G/DL (3.4-5.0) L Globulin 3.3 g/dL Albumin/Globulin Ratio 0.9 (1.0-2.7) L Hepatitis A IgM Antibody Pending Hepatitis B Surface Antigen Pending Hepatitis B Core IgM Antibody Pending Hepatitis C Antibody Pending HIV (1&2) Antibody Rapid Negative (NEGATIVE) Arterial Blood pH 7.385 (7.350-7.450) 7.396 (7.350-7.450) Arterial Blood Partial Pressure CO2 32.8 mmHg (35.0-45.0) L 34.7 mmHg (35.0-45.0) L Arterial Blood Partial Pressure O2 367.3 mmHg (75.0-100.0) H 54.0 mmHg (75.0-100.0) L Arterial Blood HCO3 18.8 mmol/L (22.0-26.0) L 20.8 mmol/L (22.0-26.0) L Arterial Blood Oxygen Saturation 99.2 % (92.0-98.0) H 89.5 % (92.0-98.0) L Arterial Blood Base Excess -5.3 -3.4 Tye Test Positive Positive Microbiology Date/Time Source Procedure Growth Status 08/10/17 15:45 Urine,Clean Catch Urine Culture - Preliminary NO GROWTH Resulted 08/10/17 01:50 Urine,Clean Catch Urine Culture - Preliminary Gram Negative Bacillus 1 Resulted MICHAEL PADILLA Aug 11, 2017 20:12
[2017-08-11] MEDS: Thiamine HCl 100 MG in D5W 55 ML IVPB SCH (20:17)
[2017-08-11 21:30] LABS: INR 1.2 (0.9-1.1)
--- NOTE | 2017-08-11 22:32 | Electroencephalogram ---
DATE OF PROCEDURE: 08/10/2017 PROCEDURE PERFORMED: Electroencephalogram. READING PHYSICIAN: Charlie Alvarez M.D. HISTORY: This is a 21-year-old female with anoxic encephalopathy and drug toxicity, presented with generalized seizure. EEG was requested to identify underlying epileptogenic activity. CURRENT TREATMENT: Includes vancomycin and Keppra. During recording, the patient described as being drowsy, stuporous, and restless, with intermittently awake or sleep episodes, poorly cooperative. Modified montage was applied due to lack of Fz, Cz, due to head gear for ongoing BiPAP. EEG was done using 18 electrodes placed scalp to scalp, scalp to ear montages according to 10/20 [employer] System. Most wakeful portions of recording, background consists of low voltage mixture of 6 to 7 - 7 to 8 cycles per second theta activities often by fast low voltage beta activities. No significant amount of EMG artifacts noted. There was no asymmetry from side to side. There were no spike or wave activities. There was no clinical evidence of paroxysmal event. IMPRESSION: Abnormal EEG in presence of mild-moderate diffuse slowing. COMMENT: 1. Absence of paroxysmal event on a single recording does not rule out seizure disorder. Above abnormality consistent with underlying anoxic or toxic encephalopathy. 2. Clinical correlation is necessary. Charlie Alvarez M.D. DR: Conner JOB#: [id number] CC:
[2017-08-12] VITALS (19 sets, daily range): BP systolic 100–147; BP diastolic 42–97
[2017-08-12] MEDS: LORazepam Inj 2mg/ml 1ml IV PRN (02:48)
[2017-08-12 04:43] LABS: EOSINOPHILS % (AUTO) 0.2 % (0.0-3.0); HEMATOCRIT 34.2 % (37.0-47.0); HEMOGLOBIN 11.4 G/DL (12.0-16.0); LYMPHOCYTES % (AUTO) 18.8 % (20.0-45.0); MEAN CORPUSCULAR VOLUME 94 FL (80-99); MONOCYTES % (AUTO) 11.7 % (1.0-10.0); NEUTROPHILS % (AUTO) 68.3 % (45.0-75.0); PLATELET COUNT 126 K/UL (150-450); RED BLOOD COUNT 3.64 M/UL (4.20-5.40); RED CELL DISTRIBUTION WIDTH 13.9 % (11.6-14.8); WHITE BLOOD COUNT 6.4 K/UL (4.8-10.8)
[2017-08-12 04:52] LABS: ANION GAP 11 mmol/L (5-15); BLOOD UREA NITROGEN 5 mg/dL (7-18); CALCIUM 8.3 MG/DL (8.5-10.1); CARBON DIOXIDE 21 MMOL/L (21-32); CHLORIDE 109 MMOL/L (98-107); CREATININE 0.9 MG/DL (0.55-1.30); POTASSIUM 3.3 MMOL/L (3.5-5.1); SODIUM 141 MMOL/L (136-145)
[2017-08-12] MEDS: Vancomycin 1gm in Dextrose 275ml IVPB SCH ×2 (06:48→14:54)
--- NOTE | 2017-08-12 08:23 | Pulmonology Progress Note ---
Assessment/Plan Assessment/Plan ASSESSMENT: 21 F h/o IVDU c/b IE S/P MVR p/w AMS 2/2 drug OD/toxicity c/b AGMA with inadequate respiratory compensation. She was previously on a ventilator for several months and her mother would rather he not be intubated but understands that if she does not respond to the current BiPAP setting she may require intubation. PROBLEM LIST: -Drug OD -H/O IVDU -Anion gap metabolic acidosis + Respiratory acidosis -MATTHEW -Hemoconcentration -Dehydration -H/O infective endocarditis S/P MVR PLAN: -Admitted to ICU -Off BiPAP now; respiratory status is stable -F/U Cx's -F/U TTE -NPO until MS better -Monitor volumes and renal function -DVT Px: Hep SQ Subjective Interval Events: Marginally more awake Constitutional: Reports: no symptoms HEENT: Repors: no symptoms Respiratory: Reports: no symptoms Cardiovascular: Reports: no symptoms Gastrointestinal/Abdominal: Reports: no symptoms Allergies: Coded Allergies: UNABLE TO ASSESS (Unverified , 08/10/17) Objective Last 24 Hour Vital Signs Date Time Temp Pulse Resp B/P (MAP) Pulse Ox O2 Delivery O2 Flow Rate FiO2 08/12/17 08:00 99 32 133/62 100 Nasal Cannula 3.0 08/12/17 08:00 99 08/12/17 07:00 92 19 145/73 100 Nasal Cannula 3.0 08/12/17 06:00 106 27 145/80 100 Nasal Cannula 3.0 08/12/17 05:00 90 30 141/80 99 Nasal Cannula 3.0 08/12/17 04:00 98.9 93 31 130/65 100 Nasal Cannula 3.0 08/12/17 04:00 97 08/12/17 03:00 98 30 112/68 99 Nasal Cannula 3.0 08/12/17 02:00 103 33 130/63 98 Nasal Cannula 3.0 08/12/17 01:00 98.9 97 32 130/63 100 Nasal Cannula 3.0 08/12/17 00:00 100.2 103 32 136/64 100 Nasal Cannula 3.0 08/12/17 00:00 106 08/11/17 23:00 99 21 129/64 100 Nasal Cannula 3.0 08/11/17 22:00 88 25 115/51 100 Nasal Cannula 3.0 08/11/17 21:00 90 28 123/66 100 Nasal Cannula 3.0 08/11/17 20:00 98.9 108 23 130/67 100 Nasal Cannula 4.0 08/11/17 20:00 4.0 08/11/17 20:00 83 08/11/17 19:30 Nasal Cannula 2.0 28 08/11/17 19:30 100 Nasal Cannula 2.0 28 08/11/17 19:00 102 22 119/62 97 Nasal Cannula 4.0 08/11/17 18:00 89 22 123/68 97 Nasal Cannula 4.0 08/11/17 17:00 89 22 123/68 97 Nasal Cannula 4.0 08/11/17 16:00 92 08/11/17 16:00 87 22 108/68 97 Nasal Cannula 4.0 08/11/17 16:00 4.0 08/11/17 15:00 111 24 131/68 100 Nasal Cannula 4.0 08/11/17 14:00 115 24 113/79 100 Nasal Cannula 4.0 08/11/17 13:00 115 24 116/65 100 Nasal Cannula 4.0 08/11/17 12:03 4.0 08/11/17 12:00 99 08/11/17 12:00 98.8 104 24 96/43 100 Nasal Cannula 4.0 08/11/17 11:00 98 24 98/43 100 Nasal Cannula 4.0 08/11/17 10:00 101 24 112/51 100 Nasal Cannula 4.0 08/11/17 09:49 Nasal Cannula 4.0 36 08/11/17 09:48 100 Nasal Cannula 4.0 36 08/11/17 09:27 126 32 94 Facial 70 08/11/17 09:00 111 24 105/62 99 Bi-pap 70 Intake and Output 08/12/17 08/13/17 19:00 07:00 Output Total 35 ml Balance -35 ml Output Urine Total 35 ml General Appearance: no acute distress HEENT: normocephalic Respiratory/Chest: chest wall non-tender, lungs clear Cardiovascular: normal peripheral pulses, normal rate Microbiology Date/Time Source Procedure Growth Status 08/10/17 18:40 Blood Blood Culture - Preliminary NO GROWTH AFTER 24 HOURS Resulted 08/10/17 18:35 Blood Blood Culture - Preliminary NO GROWTH AFTER 24 HOURS Resulted 08/10/17 01:50 Nasal Nares MRSA Culture - Final NO METHICILLIN RESISTANT STAPH AUREUS... Complete 08/10/17 15:45 Urine,Clean Catch Urine Culture - Preliminary NO GROWTH Resulted 08/10/17 01:50 Urine,Clean Catch Urine Culture - Preliminary Gram Negative Bacillus 1 Resulted 08/10/17 01:50 Rectum VRE Culture - Final NO VANCOMYCIN RESISTANT ENTEROCOCCUS ... Complete Laboratory Tests 08/11/17 09:20: Arterial Blood pH 7.385, Arterial Blood Partial Pressure CO2 32.8L, Arterial Blood Partial Pressure O2 367.3H, Arterial Blood HCO3 18.8L, Arterial Blood Oxygen Saturation 99.2H, Arterial Blood Base Excess -5.3, Tye Test Positive 08/11/17 12:15: Arterial Blood pH 7.396, Arterial Blood Partial Pressure CO2 34.7L, Arterial Blood Partial Pressure O2 54.0L, Arterial Blood HCO3 20.8L, Arterial Blood Oxygen Saturation 89.5L, Arterial Blood Base Excess -3.4, Tye Test Positive 08/11/17 21:00: Prothrombin Time 13.1H, Prothromb Time International Ratio 1.2H, Vancomycin Level Trough 16.5H 08/12/17 03:00: White Blood Count 6.4, Red Blood Count 3.64L, Hemoglobin 11.4L, Hematocrit 34.2L , Mean Corpuscular Volume 94, Mean Corpuscular Hemoglobin 31.4H, Mean Corpuscular Hemoglobin Concent 33.3, Red Cell Distribution Width 13.9, Platelet Count 126L, Mean Platelet Volume 8.7, Neutrophils (%) (Auto) 68.3, Lymphocytes ( %) (Auto) 18.8L, Monocytes (%) (Auto) 11.7H, Eosinophils (%) (Auto) 0.2, Basophils (%) (Auto) 1.0, Sodium Level 141, Potassium Level 3.3L, Chloride Level 109H, Carbon Dioxide Level 21, Anion Gap 11, Blood Urea Nitrogen 5L, Creatinine 0.9, Estimat Glomerular Filtration Rate > 60, Glucose Level 107H, Calcium Level 8.3L, Magnesium Level 1.4L Current Medications Medications (Trade) Dose Ordered Sig/Hema Route PRN Reason Start Time Stop Time Status Last Admin Dose Admin Ceftriaxone Sodium 2 gm/ Dextrose 100 ml @ 200 mls/hr EVERY 12 HOURS IVPB 08/10/17 21:00 08/17/17 20:59 08/11/17 20:51 Chlorhexidine Gluconate (Valerie-Hex 2%) 1 applic DAILY@2000 TOPIC 08/11/17 20:00 09/10/17 19:59 Heparin Sodium (Porcine) (Heparin 5000 units/ml) 5,000 units EVERY 12 HOURS SUBQ 08/10/17 21:00 09/09/17 20:59 08/11/17 08:45 Heparin Sodium/ Sodium Chloride (Heparin 2000 units/Ns 1000ml premix) 2,000 unit ONCE PRN INJ PICC PLACEMENT 08/11/17 10:30 08/12/17 23:59 Levetiracetam 100 ml @ 400 mls/hr Q12HR IVPB 08/12/17 09:00 09/11/17 08:59 Lidocaine HCl (Xylocaine 1% 30ml) 30 ml ONCE PRN INJ PICC PLACEMENT 08/11/17 10:30 08/12/17 23:59 Lorazepam (Ativan 2mg/ml 1ml) 2 mg Q3H PRN IV For Anxiety 08/11/17 15:30 08/18/17 15:29 08/12/17 02:48 Metronidazole 100 ml @ 100 mls/hr Q8HR IVPB 08/10/17 22:00 08/17/17 21:59 08/12/17 05:47 Sodium Chloride 1,000 ml @ 150 mls/hr Q6H40M IV 08/10/17 19:15 09/09/17 19:14 08/12/17 05:47 Thiamine HCl 100 mg/Dextrose 56 ml @ 112 mls/hr Q24H IVPB 08/10/17 19:30 09/09/17 19:29 08/11/17 20:17 Vancomycin HCl (Vanco rx to dose) 1 ea DAILYPRN PRN MISC Per rx protocol 08/11/17 09:00 09/10/17 08:59 Vancomycin HCl 1 gm/Dextrose 275 ml @ 183.708 mls/hr Q8HR IVPB 08/10/17 22:00 08/15/17 21:59 08/12/17 06:48 Misbah Lay MD Aug 12, 2017 08:23
--- NOTE | 2017-08-12 08:45 | General Progress Note ---
Assessment/Plan Assessment/Plan Recurrent Brain Anoxia due to Cardio Respiratory arrest. Waking up. Prognosis seems better. Still Delirious. 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 Awaiting Medical records from [place]. Further waking up. To tele. EEG diffuse slow. Subjective Allergies: Coded Allergies: UNABLE TO ASSESS (Unverified , 08/10/17) Subjective In ICU. Waking up. Per mother was verbal earlier.. Had seizures earlier. Objective Last 24 Hour Vital Signs Date Time Temp Pulse Resp B/P (MAP) Pulse Ox O2 Delivery O2 Flow Rate FiO2 08/12/17 08:00 99 32 133/62 100 Nasal Cannula 3.0 08/12/17 08:00 99 08/12/17 07:00 92 19 145/73 100 Nasal Cannula 3.0 08/12/17 06:00 106 27 145/80 100 Nasal Cannula 3.0 08/12/17 05:00 90 30 141/80 99 Nasal Cannula 3.0 08/12/17 04:00 98.9 93 31 130/65 100 Nasal Cannula 3.0 08/12/17 04:00 97 08/12/17 03:00 98 30 112/68 99 Nasal Cannula 3.0 08/12/17 02:00 103 33 130/63 98 Nasal Cannula 3.0 08/12/17 01:00 98.9 97 32 130/63 100 Nasal Cannula 3.0 08/12/17 00:00 100.2 103 32 136/64 100 Nasal Cannula 3.0 08/12/17 00:00 106 08/11/17 23:00 99 21 129/64 100 Nasal Cannula 3.0 08/11/17 22:00 88 25 115/51 100 Nasal Cannula 3.0 08/11/17 21:00 90 28 123/66 100 Nasal Cannula 3.0 08/11/17 20:00 98.9 108 23 130/67 100 Nasal Cannula 4.0 08/11/17 20:00 4.0 08/11/17 20:00 83 08/11/17 19:30 Nasal Cannula 2.0 28 08/11/17 19:30 100 Nasal Cannula 2.0 28 08/11/17 19:00 102 22 119/62 97 Nasal Cannula 4.0 08/11/17 18:00 89 22 123/68 97 Nasal Cannula 4.0 08/11/17 17:00 89 22 123/68 97 Nasal Cannula 4.0 08/11/17 16:00 92 08/11/17 16:00 87 22 108/68 97 Nasal Cannula 4.0 08/11/17 16:00 4.0 08/11/17 15:00 111 24 131/68 100 Nasal Cannula 4.0 08/11/17 14:00 115 24 113/79 100 Nasal Cannula 4.0 08/11/17 13:00 115 24 116/65 100 Nasal Cannula 4.0 08/11/17 12:03 4.0 08/11/17 12:00 99 08/11/17 12:00 98.8 104 24 96/43 100 Nasal Cannula 4.0 08/11/17 11:00 98 24 98/43 100 Nasal Cannula 4.0 08/11/17 10:00 101 24 112/51 100 Nasal Cannula 4.0 08/11/17 09:49 Nasal Cannula 4.0 36 08/11/17 09:48 100 Nasal Cannula 4.0 36 08/11/17 09:27 126 32 94 Facial 70 08/11/17 09:00 111 24 105/62 99 Bi-pap 70 Intake and Output 08/12/17 08/13/17 19:00 07:00 Output Total 35 ml Balance -35 ml Output Urine Total 35 ml Laboratory Tests 08/11/17 09:20: Arterial Blood pH 7.385, Arterial Blood Partial Pressure CO2 32.8L, Arterial Blood Partial Pressure O2 367.3H, Arterial Blood HCO3 18.8L, Arterial Blood Oxygen Saturation 99.2H, Arterial Blood Base Excess -5.3, Tye Test Positive 08/11/17 12:15: Arterial Blood pH 7.396, Arterial Blood Partial Pressure CO2 34.7L, Arterial Blood Partial Pressure O2 54.0L, Arterial Blood HCO3 20.8L, Arterial Blood Oxygen Saturation 89.5L, Arterial Blood Base Excess -3.4, Tye Test Positive 08/11/17 21:00: Prothrombin Time 13.1H, Prothromb Time International Ratio 1.2H, Vancomycin Level Trough 16.5H 08/12/17 03:00: White Blood Count 6.4, Red Blood Count 3.64L, Hemoglobin 11.4L, Hematocrit 34.2L , Mean Corpuscular Volume 94, Mean Corpuscular Hemoglobin 31.4H, Mean Corpuscular Hemoglobin Concent 33.3, Red Cell Distribution Width 13.9, Platelet Count 126L, Mean Platelet Volume 8.7, Neutrophils (%) (Auto) 68.3, Lymphocytes ( %) (Auto) 18.8L, Monocytes (%) (Auto) 11.7H, Eosinophils (%) (Auto) 0.2, Basophils (%) (Auto) 1.0, Sodium Level 141, Potassium Level 3.3L, Chloride Level 109H, Carbon Dioxide Level 21, Anion Gap 11, Blood Urea Nitrogen 5L, Creatinine 0.9, Estimat Glomerular Filtration Rate > 60, Glucose Level 107H, Calcium Level 8.3L, Magnesium Level 1.4L Height (Feet): 5 Height (Inches): 6.00 Weight (Pounds): 156 Objective On 02 via NC Cv RR Lungs CTA Abd SNT. BS + E No CCe Neuro Delirious. Nonfocal. Michel Extensor B. pupils equal + responsive to light. BERTRAND CONDE Aug 12, 2017 08:45
[2017-08-12] MEDS ORDERED: levETIRAcetam 1,000mg/NS100ml 100 ML IVPB SCH (09:00)
[2017-08-12] MEDS: Heparin 5000 units/ml inj SUBQ SCH ×2 (09:00→20:43)
[2017-08-12] MEDS ORDERED: Acetaminophen 650 MG SUPP RECTAL PRN (09:30)
[2017-08-12] MEDS ORDERED: Pantoprazole Inj IVP SCH (10:00)
--- NOTE | 2017-08-12 10:16 | Diagnostic Imaging Report ---
Indication: Reason For Exam: COUGH Technique: One view of the chest Comparison: 08/10/2017 Findings: Slight peripheral opacity in the left lateral lung base probably reflects overlying soft tissue, but small effusion not excluded. Lungs and pleural spaces are otherwise clear. Prosthetic valve and median sternotomy sutures, orphaned epicardial pacemaker leads again demonstrated Impression: Doubt acute process. Cannot rule out minimal pleural and/or parenchymal disease of the left lateral lung base
--- NOTE | 2017-08-12 11:10 | Neurology Progress Note ---
Interim History Interim History ROS Limited/Unobtainable: Yes Complaints: reported brief frazes to mom Events: in/out LOC, was able to say yes/no.noted intermittent R>L arm contractures Objective Physical Exam Last Vital Signs Date Time Temp Pulse Resp B/P (MAP) Pulse Ox O2 Delivery O2 Flow Rate FiO2 08/12/17 10:00 95 27 131/75 100 Nasal Cannula 3.0 08/12/17 09:00 99.1 08/12/17 07:10 28 Laboratory Tests Test 08/11/17 12:15 08/11/17 21:00 08/12/17 03:00 Arterial Blood pH 7.396 (7.350-7.450) Arterial Blood Partial Pressure CO2 34.7 mmHg (35.0-45.0) L Arterial Blood Partial Pressure O2 54.0 mmHg (75.0-100.0) L Arterial Blood HCO3 20.8 mmol/L (22.0-26.0) L Arterial Blood Oxygen Saturation 89.5 % (92.0-98.0) L Arterial Blood Base Excess -3.4 Tye Test Positive Prothrombin Time 13.1 SEC (9.30-11.50) H Prothromb Time International Ratio 1.2 (0.9-1.1) H Vancomycin Level Trough 16.5 ug/mL (5.0-12.0) H White Blood Count 6.4 K/UL (4.8-10.8) Red Blood Count 3.64 M/UL (4.20-5.40) L Hemoglobin 11.4 G/DL (12.0-16.0) L Hematocrit 34.2 % (37.0-47.0) L Mean Corpuscular Volume 94 FL (80-99) Mean Corpuscular Hemoglobin 31.4 PG (27.0-31.0) H Mean Corpuscular Hemoglobin Concent 33.3 G/DL (32.0-36.0) Red Cell Distribution Width 13.9 % (11.6-14.8) Platelet Count 126 K/UL (150-450) L Mean Platelet Volume 8.7 FL (6.5-10.1) Neutrophils (%) (Auto) 68.3 % (45.0-75.0) Lymphocytes (%) (Auto) 18.8 % (20.0-45.0) L Monocytes (%) (Auto) 11.7 % (1.0-10.0) H Eosinophils (%) (Auto) 0.2 % (0.0-3.0) Basophils (%) (Auto) 1.0 % (0.0-2.0) Sodium Level 141 MMOL/L (136-145) Potassium Level 3.3 MMOL/L (3.5-5.1) L Chloride Level 109 MMOL/L (98-107) H Carbon Dioxide Level 21 MMOL/L (21-32) Anion Gap 11 mmol/L (5-15) Blood Urea Nitrogen 5 mg/dL (7-18) L Creatinine 0.9 MG/DL (0.55-1.30) Estimat Glomerular Filtration Rate > 60 mL/min (>60) Glucose Level 107 MG/DL (74-106) H Calcium Level 8.3 MG/DL (8.5-10.1) L Magnesium Level 1.4 MG/DL (1.8-2.4) L General: well developed, well nourished, no acute distress, other - off bipap Head: normocophalic, atraumatic Neck: other - rigid Neurologic Exam Mental Status: other - occasion arousable,recognised mom, keep eyes closed Speech: other - yes/no Language: no aphasia Cranial Nerve II: fundus normal, no papilledema Cranial Nerves III, IV, : PERRLA, EOMI, pupils Cranial Nerve V: masseters function normal Cranial Nerve VII: normal facial expressions Cranial Nerve VIII: no nystagmus Cranial Nerve IX: normal palate elevation Cranial Nerve X: other Cranial Nerve XI: trapezii function normal Cranial Nerve XII: no tongue atrophy/fasciculations Motor System: other - occas tonic movements armsR>L,generalised rigidity Sensory: other Coordination: other Deep Tendon Reflexes: 3+ bicep (L), 3+ bicep (R), 3+ tricep (L), 3+ tricep (R) , 3+ brachioradialis (L), 3+ brachioradialis (R), 3+ knee (L), 3+ knee (R), 3+ ankle (L), 3+ ankle (R) Reflexes: mute plantar (L), mute plantar (R) Impression/Recommendations Problems: (1) severe anoxic encephalopathy (2) iv substance abuse, relapse (3) r/o drug toxicity (4) symptomatic seizure event Status: unchanged Recommendations #[id number] EEG noted ICU monitoring ammonia level drug screen---pending keppra 1000mg bid d/w staff and PAM POTTER Aug 12, 2017 11:10
--- NOTE | 2017-08-12 13:03 | Diagnostic Imaging Report ---
Indications: Needs long-term IV access Technique: Procedure performed at bedside. Procedural timeout performed. Ultrasound confirms patent compressible right is a vein. Total sterile technique, including sterile probe cover and sterile gel, sterile gloves, hand hygiene, hat, mask,, sterile gown, large sterile drape, and preparation with 2% chlorhexidine utilized. Local anesthesia with 1% lidocaine. Under real-time ultrasound guidance, puncture basilic vein using 21-gauge needle, passage 0.018 guidewire, exchange for 5 Azerbaijani peel-away sheath. 5 Azerbaijani dual-lumen power PICC cut to 37 cm. It was inserted through the peel-away sheath. Peel-away sheath and guidewire removed. Catheter fixed to the skin. Both catheter ports aspirated and flushed. Patient tolerated procedure well, without immediate complication. Followup chest x-ray obtained, documents catheter tip position at the cavoatrial junction Impression: Successful bedside placement of right arm PICC under sonographic guidance, as described above.
--- NOTE | 2017-08-12 14:48 | Cardiology Report ---
APPROVED REPORT EXAM: Two-dimensional and M-mode echocardiogram with Doppler and color Doppler. INDICATION Atrial Flutter M-Mode DIMENSIONS IVSd0.9 (0.7-1.1cm)Left Atrium (MM)2.0 (1.6-4.0cm) LVDd4.1 (3.5-5.6cm)Aortic Root2.7 (2.0-3.7cm) PWd0.9 (0.7-1.1cm)Aortic Cusp Exc.2.0 (1.5-2.0cm) LVDs2.4 (2.5-4.0cm) PWs1.3 cm Normal left ventricular chamber size, systolic function and wall motion. Left ventricular ejection fraction estimated to be 65 %. No evidence of left ventricular hypertrophy. No evidence of pericardial effusion. Left atrial and right ventricular sizes are within normal limits. Mild right atrial enlargement. Mild mitral annulus and aortic root calcification. Normal appearing aortic, mitral, and pulmonic valves. Mechanical tricuspid valve is noted and appears to move appropriately. IVC at normal size with physiologic collapse. A color flow and spectral Doppler study was performed and revealed: No aortic regurgitation. Trace mitral regurgitation. Mitral inflow indicates normal left ventricular diastolic function. Mild to moderate tricuspid regurgitation. Tricuspid systolic velocities suggests peak right ventricular systolic pressure of 38 mmHg, consistent with mild pulmonary hypertension. Mild to moderate pulmonic regurgitation present.
--- NOTE | 2017-08-12 14:53 | Diagnostic Imaging Report ---
Indication: Reason For Exam: SOB Technique: One view of the chest Comparison: 08/11/2017 Findings: Patient currently rotated to the right. There are increased hazy opacities seen at both lung bases. Normal heart size. Postsurgical changes as described previously Impression: Increased bilateral basilar hazy infiltrates versus edema, over one day
--- NOTE | 2017-08-12 19:24 | Infectious Diseases Prog Note ---
Assessment/Plan Assessment/Plan ASSESSMENT AND PLAN: 1. e.coli uti, ? cap, ? aspiration pna, ? atx, ?edema - rocephin and flagyl - check sputum - check labs and chest x-ray 2. History of intravenous drug abuse and drug overdose, encephalopathy, more alert 3. Shortness of breath, acidosis on BiPAP, ? VT - respiratory status better 4. Acute kidney injury with elevated creatinine, which is improved. 5. Dehydration. 6. Intravenous fluids. 7. 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 8. No known drug allergies. 9. Social history positive for intravenous drug abuse and smoking. 10. Family history noncontributory. 11. MAR was noted. 12. Continue treatment per primary, Dr. Doran and consultants 13. Case discussed with RN. 14. Case discussed with the patient's mother. Subjective Constitutional: Reports: other - more alert but confused , Denies: fever HEENT: Reports: congestion - less Respiratory: Reports: shortness of breath - less Cardiovascular: Denies: chest pain Gastrointestinal/Abdominal: Denies: nausea, vomiting, diarrhea Genitourinary: Reports: other - no jameson Neurologic: Reports: other - more alert Skin: Denies: rash Hematologic: Denies: bleeding Allergies: Coded Allergies: No Known Allergies (Unverified , 08/12/17) Objective Vital Signs Last 24 Hour Vital Signs Date Time Temp Pulse Resp B/P (MAP) Pulse Ox O2 Delivery O2 Flow Rate FiO2 08/12/17 17:00 84 29 147/79 100 Nasal Cannula 3.0 08/12/17 16:00 71 28 120/68 100 Nasal Cannula 3.0 08/12/17 16:00 68 08/12/17 15:00 97.5 86 29 116/97 100 Nasal Cannula 3.0 08/12/17 14:00 66 23 109/70 100 Nasal Cannula 3.0 08/12/17 13:25 99.1 08/12/17 13:00 81 30 115/78 100 Nasal Cannula 3.0 08/12/17 12:00 77 08/12/17 12:00 100.7 100 28 100/42 100 Nasal Cannula 3.0 08/12/17 11:00 30 131/75 100 Nasal Cannula 3.0 08/12/17 11:00 91 30 131/75 100 Nasal Cannula 3.0 08/12/17 10:00 95 27 131/75 100 Nasal Cannula 3.0 08/12/17 09:00 99.1 94 31 126/71 100 Nasal Cannula 3.0 08/12/17 08:00 99.9 99 32 133/62 100 Nasal Cannula 3.0 08/12/17 08:00 84 08/12/17 08:00 99 08/12/17 07:10 Nasal Cannula 2.0 28 08/12/17 07:10 100 Nasal Cannula 2.0 28 08/12/17 07:00 92 19 145/73 100 Nasal Cannula 3.0 08/12/17 06:00 106 27 145/80 100 Nasal Cannula 3.0 08/12/17 05:00 90 30 141/80 99 Nasal Cannula 3.0 08/12/17 04:00 98.9 93 31 130/65 100 Nasal Cannula 3.0 08/12/17 04:00 97 08/12/17 03:00 98 30 112/68 99 Nasal Cannula 3.0 08/12/17 02:00 103 33 130/63 98 Nasal Cannula 3.0 08/12/17 01:00 98.9 97 32 130/63 100 Nasal Cannula 3.0 08/12/17 00:00 100.2 103 32 136/64 100 Nasal Cannula 3.0 08/12/17 00:00 106 08/11/17 23:00 99 21 129/64 100 Nasal Cannula 3.0 08/11/17 22:00 88 25 115/51 100 Nasal Cannula 3.0 08/11/17 21:00 90 28 123/66 100 Nasal Cannula 3.0 08/11/17 20:00 98.9 108 23 130/67 100 Nasal Cannula 4.0 08/11/17 20:00 4.0 08/11/17 20:00 83 08/11/17 19:30 Nasal Cannula 2.0 28 08/11/17 19:30 100 Nasal Cannula 2.0 28 Height (Feet): 5 Height (Inches): 6.00 Weight (Pounds): 156 General Appearance: no acute distress HEENT: normocephalic, atraumatic, anicteric, mucous membranes moist, EOMI, pharynx normal, supple, no JVD Respiratory/Chest: lungs clear, normal breath sounds, no respiratory distress, no accessory muscle use Cardiovascular: normal rate, regular rhythm, no gallop/murmur, no JVD Abdomen: normal bowel sounds, soft, non tender, no organomegaly, non distended Genitourinary: other - no jameson Extremities: no cyanosis Skin: no rash 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 Complete 08/10/17 15:45 Urine,Clean Catch Urine Culture - Preliminary NO GROWTH AFTER 24 HOURS Resulted 08/10/17 01:50 Urine,Clean Catch Urine Culture - Final Escherichia Coli Complete 08/10/17 01:50 Rectum VRE Culture - Final NO VANCOMYCIN RESISTANT ENTEROCOCCUS ... Complete Laboratory Tests Test 08/11/17 21:00 08/12/17 03:00 Prothrombin Time 13.1 SEC (9.30-11.50) H Prothromb Time International Ratio 1.2 (0.9-1.1) H Vancomycin Level Trough 16.5 ug/mL (5.0-12.0) H White Blood Count 6.4 K/UL (4.8-10.8) Red Blood Count 3.64 M/UL (4.20-5.40) L Hemoglobin 11.4 G/DL (12.0-16.0) L Hematocrit 34.2 % (37.0-47.0) L Mean Corpuscular Volume 94 FL (80-99) Mean Corpuscular Hemoglobin 31.4 PG (27.0-31.0) H Mean Corpuscular Hemoglobin Concent 33.3 G/DL (32.0-36.0) Red Cell Distribution Width 13.9 % (11.6-14.8) Platelet Count 126 K/UL (150-450) L Mean Platelet Volume 8.7 FL (6.5-10.1) Neutrophils (%) (Auto) 68.3 % (45.0-75.0) Lymphocytes (%) (Auto) 18.8 % (20.0-45.0) L Monocytes (%) (Auto) 11.7 % (1.0-10.0) H Eosinophils (%) (Auto) 0.2 % (0.0-3.0) Basophils (%) (Auto) 1.0 % (0.0-2.0) Sodium Level 141 MMOL/L (136-145) Potassium Level 3.3 MMOL/L (3.5-5.1) L Chloride Level 109 MMOL/L (98-107) H Carbon Dioxide Level 21 MMOL/L (21-32) Anion Gap 11 mmol/L (5-15) Blood Urea Nitrogen 5 mg/dL (7-18) L Creatinine 0.9 MG/DL (0.55-1.30) Estimat Glomerular Filtration Rate > 60 mL/min (>60) Glucose Level 107 MG/DL (74-106) H Calcium Level 8.3 MG/DL (8.5-10.1) L Magnesium Level 1.4 MG/DL (1.8-2.4) L Current Medications Medications (Trade) Dose Ordered Sig/Hema Route PRN Reason Start Time Stop Time Status Last Admin Dose Admin Acetaminophen (Tylenol) 650 mg Q4H PRN RECTAL Mild Pain/Temp > 100.5 08/12/17 19:30 09/11/17 19:29 Ceftriaxone Sodium 2 gm/ Dextrose 100 ml @ 200 mls/hr EVERY 12 HOURS IVPB 08/12/17 21:00 08/17/17 20:59 Chlorhexidine Gluconate (Valerie-Hex 2%) 1 applic DAILY@2000 TOPIC 08/12/17 20:00 09/10/17 19:59 Heparin Sodium (Porcine) (Heparin 5000 units/ml) 5,000 units EVERY 12 HOURS SUBQ 08/12/17 21:00 09/09/17 20:59 UNV Levetiracetam 100 ml @ 400 mls/hr Q12HR IVPB 08/12/17 21:00 09/11/17 08:59 Lorazepam (Ativan 2mg/ml 1ml) 2 mg Q3H PRN IV For Anxiety or Agitation 08/12/17 18:30 08/18/17 15:29 Metronidazole 100 ml @ 100 mls/hr Q8HR IVPB 08/12/17 22:00 12/25/17 21:59 Pantoprazole (Protonix) 40 mg DAILY IVP 08/13/17 09:00 09/11/17 09:59 Sodium Chloride 1,000 ml @ 150 mls/hr Q6H40M IV 08/12/17 20:00 09/09/17 19:59 Thiamine HCl 100 mg/Dextrose 56 ml @ 112 mls/hr Q24H IVPB 08/12/17 20:00 09/09/17 19:59 Vancomycin HCl (Vanco rx to dose) 1 ea DAILYPRN PRN MISC Per rx protocol 08/12/17 19:15 09/11/17 19:14 Vancomycin HCl 1 gm/Dextrose 275 ml @ 183.708 mls/hr Q8HR IVPB 08/12/17 22:00 08/15/17 21:59 MARIA A DOLAN Aug 12, 2017 19:24
[2017-08-12] MEDS: Dyna-Hex 2% Top Sol 2oz TOPIC SCH (20:42)
[2017-08-12] MEDS: levETIRAcetam 1,000mg/NS100ml 100 ML IVPB SCH (20:42)
[2017-08-12] MEDS: Thiamine HCl 100 MG in D5W 55 ML IVPB SCH (20:48)
[2017-08-12] MEDS ORDERED: Vancomycin 1 GM in D5W 275 ML IVPB SCH (22:00)
[2017-08-13] VITALS (7 sets, daily range): BP systolic 115–145; BP diastolic 68–103
[2017-08-13] MEDS: LORazepam Inj 2mg/ml 1ml IV PRN (01:06)
[2017-08-13 07:11] LABS: ANION GAP 10 mmol/L (5-15); BLOOD UREA NITROGEN 7 mg/dL (7-18); CARBON DIOXIDE 20 MMOL/L (21-32); CHLORIDE 115 MMOL/L (98-107); CREATININE 0.7 MG/DL (0.55-1.30); HEMOGLOBIN 9.4 G/DL (12.0-16.0); MEAN CORPUSCULAR VOLUME 93 FL (80-99); PLATELET COUNT 91 K/UL (150-450); RED BLOOD COUNT 2.99 M/UL (4.20-5.40); RED CELL DISTRIBUTION WIDTH 13.4 % (11.6-14.8); WHITE BLOOD COUNT 5.6 K/UL (4.8-10.8)
[2017-08-13 07:49] LABS: CALCIUM 6.5 MG/DL (8.5-10.1); POTASSIUM 2.9 MMOL/L (3.5-5.1); SODIUM 146 MMOL/L (136-145)
--- NOTE | 2017-08-13 08:21 | Pulmonology Progress Note ---
Assessment/Plan Assessment/Plan ASSESSMENT: 21 F h/o IVDU c/b IE S/P MVR p/w AMS 2/2 drug OD/toxicity c/b AGMA with inadequate respiratory compensation. She was previously on a ventilator for several months and her mother would rather he not be intubated but understands that if she does not respond to the current BiPAP setting she may require intubation. PROBLEM LIST: -Drug OD -H/O IVDU -Anion gap metabolic acidosis + Respiratory acidosis -MATTHEW -Hemoconcentration -Dehydration -H/O infective endocarditis S/P MVR PLAN: -Continue supplemental o2 -Off BiPAP now; respiratory status is stable -F/U Cx's -F/U TTE -NPO until MS better -Monitor volumes and renal function -DVT Px: Hep SQ Subjective Interval Events: More awake Constitutional: Reports: no symptoms HEENT: Repors: no symptoms Respiratory: Reports: no symptoms Cardiovascular: Reports: no symptoms Allergies: Coded Allergies: No Known Allergies (Unverified , 08/12/17) PER MOM, NO KNOWN ALLERGIES Objective Last 24 Hour Vital Signs Date Time Temp Pulse Resp B/P (MAP) Pulse Ox O2 Delivery O2 Flow Rate FiO2 08/13/17 04:00 98.2 80 20 145/70 94 Nasal Cannula 08/13/17 04:00 86 08/13/17 00:00 61 08/13/17 00:00 99.5 92 26 123/68 95 Nasal Cannula 92 08/12/17 20:45 Nasal Cannula 2.0 28 08/12/17 20:44 96 Nasal Cannula 2.0 28 08/12/17 20:00 59 08/12/17 20:00 96.1 67 22 121/63 97 Nasal Cannula 3.0 08/12/17 17:00 84 29 147/79 100 Nasal Cannula 3.0 08/12/17 16:00 71 28 120/68 100 Nasal Cannula 3.0 08/12/17 16:00 68 08/12/17 15:00 97.5 86 29 116/97 100 Nasal Cannula 3.0 08/12/17 14:00 66 23 109/70 100 Nasal Cannula 3.0 08/12/17 13:25 99.1 08/12/17 13:00 81 30 115/78 100 Nasal Cannula 3.0 08/12/17 12:00 77 08/12/17 12:00 100.7 100 28 100/42 100 Nasal Cannula 3.0 08/12/17 11:00 30 131/75 100 Nasal Cannula 3.0 08/12/17 11:00 91 30 131/75 100 Nasal Cannula 3.0 08/12/17 10:00 95 27 131/75 100 Nasal Cannula 3.0 08/12/17 09:00 99.1 94 31 126/71 100 Nasal Cannula 3.0 Intake and Output 08/12/17 08/13/17 19:00 07:00 Intake Total 900 ml 1612.0 ml Output Total 330 ml 327 ml Balance 570 ml 1285.0 ml Intake IV Total 900 ml 1612.0 ml Output Urine Total 330 ml 325 ml Stool Total 2 ml # Bowel Movements 2 General Appearance: no acute distress HEENT: normocephalic Respiratory/Chest: chest wall non-tender, lungs clear Cardiovascular: normal peripheral pulses Microbiology Date/Time Source Procedure Growth Status 08/10/17 18:40 Blood Blood Culture - Preliminary NO GROWTH AFTER 48 HOURS Resulted 08/10/17 18:35 Blood Blood Culture - Preliminary NO GROWTH AFTER 48 HOURS Resulted 08/10/17 15:45 Urine,Clean Catch Urine Culture - Preliminary NO GROWTH AFTER 24 HOURS Resulted Laboratory Tests 08/13/17 05:30: White Blood Count 5.6, Red Blood Count 2.99L, Hemoglobin 9.4L, Hematocrit 28.0L , Mean Corpuscular Volume 93, Mean Corpuscular Hemoglobin 31.3H, Mean Corpuscular Hemoglobin Concent 33.5, Red Cell Distribution Width 13.4, Platelet Count 91L, Mean Platelet Volume 7.9, Neutrophils (%) (Auto) , Lymphocytes (%) ( Auto) , Monocytes (%) (Auto) , Eosinophils (%) (Auto) , Basophils (%) (Auto) , Neutrophils % (Manual) [Pending], Lymphocytes % (Manual) [Pending], Platelet Estimate [Pending], Platelet Morphology [Pending], Sodium Level 146H, Potassium Level 2.9L, Chloride Level 115H, Carbon Dioxide Level 20L, Anion Gap 10, Blood Urea Nitrogen 7, Creatinine 0.7, Estimat Glomerular Filtration Rate > 60, Glucose Level 111H, Calcium Level 6.5#L Current Medications Medications (Trade) Dose Ordered Sig/Hema Route PRN Reason Start Time Stop Time Status Last Admin Dose Admin Acetaminophen (Tylenol) 650 mg Q4H PRN RECTAL Mild Pain/Temp > 100.5 08/12/17 19:30 09/11/17 19:29 Ceftriaxone Sodium 1 gm/ Dextrose 50 ml @ 100 mls/hr Q24H IVPB 08/13/17 09:00 08/20/17 08:59 Chlorhexidine Gluconate (Valerie-Hex 2%) 1 applic DAILY@2000 TOPIC 08/12/17 20:00 09/10/17 19:59 08/12/17 20:42 Heparin Sodium (Porcine) (Heparin 5000 units/ml) 5,000 units EVERY 12 HOURS SUBQ 08/12/17 21:00 09/09/17 20:59 Levetiracetam 100 ml @ 400 mls/hr Q12HR IVPB 08/12/17 21:00 09/11/17 08:59 08/12/17 20:42 Lorazepam (Ativan 2mg/ml 1ml) 2 mg Q3H PRN IV For Anxiety or Agitation 08/12/17 18:30 08/18/17 15:29 08/13/17 01:06 Metronidazole 100 ml @ 100 mls/hr Q8HR IVPB 08/12/17 22:00 08/17/17 21:59 08/13/17 05:19 Pantoprazole (Protonix) 40 mg DAILY IVP 08/13/17 09:00 09/11/17 09:59 Sodium Chloride 1,000 ml @ 150 mls/hr Q6H40M IV 08/12/17 20:00 09/09/17 19:59 08/13/17 04:11 Thiamine HCl 100 mg/Dextrose 56 ml @ 112 mls/hr Q24H IVPB 08/12/17 20:00 09/09/17 19:59 08/12/17 20:48 Misbah Lay MD Aug 13, 2017 08:21
[2017-08-13] MEDS: Heparin 5000 units/ml inj SUBQ SCH ×2 (09:00→21:00)
[2017-08-13] MEDS: Pantoprazole Inj IVP SCH (09:17)
[2017-08-13] MEDS: levETIRAcetam 1,000mg/NS100ml 100 ML IVPB SCH (09:21)
[2017-08-13] MEDS: cefTRIAXone 1 GM in D5W 50 ML IVPB SCH (09:52)
[2017-08-13] MEDS: Acetaminophen 650 MG SUPP RECTAL PRN (09:57)
--- NOTE | 2017-08-13 13:03 | Neurology Progress Note ---
Interim History Interim History ROS Limited/Unobtainable: Yes Complaints: reportedtalking to friends Events: in/out confusion, was able to say"thursty".noted intermittent R>L arm rigid Objective Physical Exam Last Vital Signs Date Time Temp Pulse Resp B/P (MAP) Pulse Ox O2 Delivery O2 Flow Rate FiO2 08/13/17 11:21 99.1 08/13/17 08:00 95 26 144/76 95 Nasal Cannula 08/12/17 20:45 2.0 28 Laboratory Tests Test 08/13/17 05:30 White Blood Count 5.6 K/UL (4.8-10.8) Red Blood Count 2.99 M/UL (4.20-5.40) L Hemoglobin 9.4 G/DL (12.0-16.0) L Hematocrit 28.0 % (37.0-47.0) L Mean Corpuscular Volume 93 FL (80-99) Mean Corpuscular Hemoglobin 31.3 PG (27.0-31.0) H Mean Corpuscular Hemoglobin Concent 33.5 G/DL (32.0-36.0) Red Cell Distribution Width 13.4 % (11.6-14.8) Platelet Count 91 K/UL (150-450) L Mean Platelet Volume 7.9 FL (6.5-10.1) Neutrophils (%) (Auto) % (45.0-75.0) Lymphocytes (%) (Auto) % (20.0-45.0) Monocytes (%) (Auto) % (1.0-10.0) Eosinophils (%) (Auto) % (0.0-3.0) Basophils (%) (Auto) % (0.0-2.0) Differential Total Cells Counted 100 Neutrophils % (Manual) 73 % (45-75) Lymphocytes % (Manual) 21 % (20-45) Monocytes % (Manual) 6 % (1-10) Eosinophils % (Manual) 0 % (0-3) Basophils % (Manual) 0 % (0-2) Band Neutrophils 0 % (0-8) Platelet Estimate Decreased L Platelet Morphology Normal Hypochromasia 1+ Sodium Level 146 MMOL/L (136-145) H Potassium Level 2.9 MMOL/L (3.5-5.1) L Chloride Level 115 MMOL/L (98-107) H Carbon Dioxide Level 20 MMOL/L (21-32) L Anion Gap 10 mmol/L (5-15) Blood Urea Nitrogen 7 mg/dL (7-18) Creatinine 0.7 MG/DL (0.55-1.30) Estimat Glomerular Filtration Rate > 60 mL/min (>60) Glucose Level 111 MG/DL (74-106) H Calcium Level 6.5 MG/DL (8.5-10.1) #L General: well developed, well nourished, no acute distress, other - on o2 canula ,very restless moving all limbs,spastic, eyes closed,slurred speech Head: normocophalic, atraumatic Neck: other - rigid Neurologic Exam Mental Status: other - arousable,recognised mom, keep eyes closed,mumbling follows simple command,very restless Speech: other - yes/no slurred Language: no aphasia Cranial Nerve II: fundus normal, no papilledema Cranial Nerves III, IV, : PERRLA, EOMI, pupils, other - p5mm rla no eyetracking ? blind Cranial Nerve V: masseters function normal Cranial Nerve VII: normal facial expressions Cranial Nerve VIII: no nystagmus Cranial Nerve IX: normal palate elevation Cranial Nerve X: other Cranial Nerve XI: trapezii function normal Cranial Nerve XII: no tongue atrophy/fasciculations Motor System: other - often tonic movements armsR>L,generalised rigiditypower 5 /5 Sensory: other Coordination: other Deep Tendon Reflexes: 3+ bicep (L), 3+ bicep (R), 3+ tricep (L), 3+ tricep (R) , 3+ brachioradialis (L), 3+ brachioradialis (R), 3+ knee (L), 3+ knee (R), 3+ ankle (L), 3+ ankle (R) Reflexes: mute plantar (L), mute plantar (R) Impression/Recommendations Problems: (1) severe anoxic encephalopathy (2) iv substance abuse, relapse (3) r/o drug toxicity (4) symptomatic seizure event (5) anemia,low K and CA++ (6) nicotine/drug withdrawal. Status: unchanged Recommendations #[id number] EEG noted ICU monitori drug screen---pending keppra 1000mg bid d/w staff and MOM MRI brain clonopin0.5 psych eval swallow study PAM FAN Aug 13, 2017 13:03
[2017-08-13] MEDS: LORazepam Inj 2mg/ml 1ml IV SCH ×2 (13:29→17:40)
--- NOTE | 2017-08-13 14:27 | General Progress Note ---
Assessment/Plan Assessment/Plan Recurrent Brain Anoxia due to Cardio Respiratory arrest. Waking up. Prognosis seems better. 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 Awaiting Medical records from [facility]. Further waking up. To tele. EEG diffuse slow. Bedside swallow pending. Refer to [facility] Subjective Allergies: Coded Allergies: No Known Allergies (Unverified , 08/12/17) PER MOM, NO KNOWN ALLERGIES Subjective In HIRAM. Waking up further. Per mother was verbal earlier.. Sedated (Ativan) Objective Last 24 Hour Vital Signs Date Time Temp Pulse Resp B/P (MAP) Pulse Ox O2 Delivery O2 Flow Rate FiO2 08/13/17 11:21 99.1 08/13/17 10:27 99.1 08/13/17 08:00 101.8 95 26 144/76 95 Nasal Cannula 08/13/17 08:00 92 08/13/17 04:00 98.2 80 20 145/70 94 Nasal Cannula 08/13/17 04:00 86 08/13/17 00:00 61 08/13/17 00:00 99.5 92 26 123/68 95 Nasal Cannula 92 08/12/17 20:45 Nasal Cannula 2.0 28 08/12/17 20:44 96 Nasal Cannula 2.0 28 08/12/17 20:00 59 08/12/17 20:00 96.1 67 22 121/63 97 Nasal Cannula 3.0 08/12/17 17:00 84 29 147/79 100 Nasal Cannula 3.0 08/12/17 16:00 71 28 120/68 100 Nasal Cannula 3.0 08/12/17 16:00 68 08/12/17 15:00 97.5 86 29 116/97 100 Nasal Cannula 3.0 Intake and Output 08/12/17 08/13/17 19:00 07:00 Intake Total 900 ml 1612.0 ml Output Total 330 ml 327 ml Balance 570 ml 1285.0 ml Intake IV Total 900 ml 1612.0 ml Output Urine Total 330 ml 325 ml Stool Total 2 ml # Bowel Movements 2 Laboratory Tests 08/13/17 05:30: White Blood Count 5.6, Red Blood Count 2.99L, Hemoglobin 9.4L, Hematocrit 28.0L , Mean Corpuscular Volume 93, Mean Corpuscular Hemoglobin 31.3H, Mean Corpuscular Hemoglobin Concent 33.5, Red Cell Distribution Width 13.4, Platelet Count 91L, Mean Platelet Volume 7.9, Neutrophils (%) (Auto) , Lymphocytes (%) ( Auto) , Monocytes (%) (Auto) , Eosinophils (%) (Auto) , Basophils (%) (Auto) , Differential Total Cells Counted 100, Neutrophils % (Manual) 73, Lymphocytes % ( Manual) 21, Monocytes % (Manual) 6, Eosinophils % (Manual) 0, Basophils % ( Manual) 0, Band Neutrophils 0, Platelet Estimate DecreasedL, Platelet Morphology Normal, Hypochromasia 1+, Sodium Level 146H, Potassium Level 2.9L, Chloride Level 115H, Carbon Dioxide Level 20L, Anion Gap 10, Blood Urea Nitrogen 7, Creatinine 0.7, Estimat Glomerular Filtration Rate > 60, Glucose Level 111H, Calcium Level 6.5#L Height (Feet): 5 Height (Inches): 6.00 Weight (Pounds): 160 Objective On 02 via NC Cv RR Lungs CTA Abd SNT. BS + E No CCe Neuro Delirious. Nonfocal. Michel Extensor B. pupils equal + responsive to light. BERTRAND CONDE Aug 13, 2017 14:27
[2017-08-13] MEDS: Potassium Chloride 30 MEQ in 1/2 NS 1000ml 1,000 ML IV SCH (16:33)
[2017-08-13] MEDS ORDERED: Tubing IV Secondary IV ONE (16:38)
[2017-08-13] MEDS: Thiamine HCl 100 MG in D5W 55 ML IVPB SCH (21:03)
[2017-08-13] MEDS: Dyna-Hex 2% Top Sol 2oz TOPIC SCH (21:04)
--- NOTE | 2017-08-13 23:30 | Cardiology Progress Note ---
Assessment/Plan Assessment/Plan reviewed echo: the patient has bioprosthetic valve in tricuspid position it is functioning fine she does not have mechanical valve and does not have indications for antiocagulation Subjective Subjective The patient is sleeping. Mother at the bedside Objective Last 24 Hour Vital Signs Date Time Temp Pulse Resp B/P (MAP) Pulse Ox O2 Delivery O2 Flow Rate FiO2 08/13/17 19:46 96.6 88 24 115/77 95 Room Air 74 08/13/17 16:00 86 08/13/17 15:50 98.2 86 20 128/80 94 Nasal Cannula 08/13/17 12:00 88 08/13/17 12:00 99.3 91 24 136/68 95 Nasal Cannula 3.0 91 08/13/17 11:21 99.1 08/13/17 10:27 99.1 08/13/17 08:00 101.8 95 26 144/76 95 Nasal Cannula 08/13/17 08:00 92 08/13/17 04:00 98.2 80 20 145/70 94 Nasal Cannula 08/13/17 04:00 86 08/13/17 00:00 61 08/13/17 00:00 99.5 92 26 123/68 95 Nasal Cannula 92 General Appearance: lethargic, other - sedated EENT: PERRL/EOMI Neck: supple Rhythm: NSR Cardiovascular: normal peripheral pulses Respiratory/Chest: lungs clear Abdomen: non tender Extremities: no swelling Intake and Output 08/12/17 08/13/17 19:00 07:00 Intake Total 900 ml 1612.0 ml Output Total 330 ml 327 ml Balance 570 ml 1285.0 ml Intake IV Total 900 ml 1612.0 ml Output Urine Total 330 ml 325 ml Stool Total 2 ml # Bowel Movements 2 Laboratory Tests Test 08/13/17 05:30 White Blood Count 5.6 K/UL (4.8-10.8) Red Blood Count 2.99 M/UL (4.20-5.40) L Hemoglobin 9.4 G/DL (12.0-16.0) L Hematocrit 28.0 % (37.0-47.0) L Mean Corpuscular Volume 93 FL (80-99) Mean Corpuscular Hemoglobin 31.3 PG (27.0-31.0) H Mean Corpuscular Hemoglobin Concent 33.5 G/DL (32.0-36.0) Red Cell Distribution Width 13.4 % (11.6-14.8) Platelet Count 91 K/UL (150-450) L Mean Platelet Volume 7.9 FL (6.5-10.1) Neutrophils (%) (Auto) % (45.0-75.0) Lymphocytes (%) (Auto) % (20.0-45.0) Monocytes (%) (Auto) % (1.0-10.0) Eosinophils (%) (Auto) % (0.0-3.0) Basophils (%) (Auto) % (0.0-2.0) Differential Total Cells Counted 100 Neutrophils % (Manual) 73 % (45-75) Lymphocytes % (Manual) 21 % (20-45) Monocytes % (Manual) 6 % (1-10) Eosinophils % (Manual) 0 % (0-3) Basophils % (Manual) 0 % (0-2) Band Neutrophils 0 % (0-8) Platelet Estimate Decreased L Platelet Morphology Normal Hypochromasia 1+ Sodium Level 146 MMOL/L (136-145) H Potassium Level 2.9 MMOL/L (3.5-5.1) L Chloride Level 115 MMOL/L (98-107) H Carbon Dioxide Level 20 MMOL/L (21-32) L Anion Gap 10 mmol/L (5-15) Blood Urea Nitrogen 7 mg/dL (7-18) Creatinine 0.7 MG/DL (0.55-1.30) Estimat Glomerular Filtration Rate > 60 mL/min (>60) Glucose Level 111 MG/DL (74-106) H Calcium Level 6.5 MG/DL (8.5-10.1) KyleL MICHAEL PADILLA Aug 13, 2017 23:30
[2017-08-14] MEDS: LORazepam Inj 2mg/ml 1ml IV SCH ×3 (00:30→12:00)
[2017-08-14] MEDS: Potassium Chloride 30 MEQ in 1/2 NS 1000ml 1,000 ML IV SCH ×3 (02:37→22:35)
[2017-08-14 03:37] VITALS: BP 122/64
[2017-08-14] MEDS: cefTRIAXone 1 GM in D5W 50 ML IVPB SCH ×2 (06:15→10:51)
[2017-08-14 08:00] VITALS: BP 117/68
[2017-08-14] MEDS: Heparin 5000 units/ml inj SUBQ SCH ×2 (08:33→20:47)
[2017-08-14] MEDS: Pantoprazole Inj IVP SCH (09:24)
[2017-08-14] MEDS: levETIRAcetam 1,000mg/NS100ml 100 ML IVPB SCH (09:25)
[2017-08-14 09:33] LABS: BASOPHILS % (AUTO) 0.7 % (0.0-2.0); EOSINOPHILS % (AUTO) 0.4 % (0.0-3.0); HEMATOCRIT 35.1 % (37.0-47.0); HEMOGLOBIN 11.8 G/DL (12.0-16.0); LYMPHOCYTES % (AUTO) 16.5 % (20.0-45.0); MEAN CORPUSCULAR VOLUME 93 FL (80-99); MONOCYTES % (AUTO) 9.4 % (1.0-10.0); PLATELET COUNT 149 K/UL (150-450); RED BLOOD COUNT 3.79 M/UL (4.20-5.40); RED CELL DISTRIBUTION WIDTH 13.4 % (11.6-14.8); WHITE BLOOD COUNT 7.7 K/UL (4.8-10.8)
[2017-08-14 09:44] LABS: ALANINE AMINOTRANSFERASE 43 U/L (12-78); ALBUMIN 2.9 G/DL (3.4-5.0); ALKALINE PHOSPHATASE 66 U/L (46-116); ANION GAP 13 mmol/L (5-15); ASPARTATE AMINO TRANSFERASE 43 U/L (15-37); BILIRUBIN,TOTAL 0.7 MG/DL (0.2-1.0); BLOOD UREA NITROGEN 7 mg/dL (7-18); CARBON DIOXIDE 19 MMOL/L (21-32); CHLORIDE 106 MMOL/L (98-107); CREATININE 0.7 MG/DL (0.55-1.30); POTASSIUM 3.4 MMOL/L (3.5-5.1); SODIUM 138 MMOL/L (136-145)
--- NOTE | 2017-08-14 10:15 | General Progress Note ---
Assessment/Plan Assessment/Plan Recurrent Brain Anoxia due to Cardio Respiratory arrest. Waking up. Prognosis seems better. 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 Awaiting Medical records from [place]. Further waking up. To tele. EEG diffuse slow. Bedside swallow pending. Refer to [facility] Urine Tox Screen Results Still pending? Subjective Allergies: Coded Allergies: No Known Allergies (Unverified , 08/12/17) PER MOM, NO KNOWN ALLERGIES Subjective In HIRAM. Waking up further. Per mother was verbal earlier.. Sedated (Ativan) Objective Last 24 Hour Vital Signs Date Time Temp Pulse Resp B/P (MAP) Pulse Ox O2 Delivery O2 Flow Rate FiO2 08/14/17 08:00 98.6 91 20 117/68 93 Nasal Cannula 2.0 91 08/14/17 04:00 96 08/14/17 03:37 98.2 76 20 122/64 93 Nasal Cannula 75 08/14/17 00:00 84 08/13/17 23:45 98.1 71 22 137/103 98 Nasal Cannula 78 08/13/17 20:00 87 08/13/17 19:46 96.6 88 24 115/77 95 Room Air 74 08/13/17 19:30 97 Nasal Cannula 2.0 28 08/13/17 19:30 Nasal Cannula 2.0 28 08/13/17 16:00 86 08/13/17 15:50 98.2 86 20 128/80 94 Nasal Cannula 08/13/17 12:00 88 08/13/17 12:00 99.3 91 24 136/68 95 Nasal Cannula 3.0 91 08/13/17 11:21 99.1 08/13/17 10:27 99.1 Intake and Output 08/13/17 08/14/17 19:00 07:00 Output Total 300 ml Balance -300 ml Output Urine Total 300 ml # Bowel Movements 3 Laboratory Tests 08/14/17 09:00: White Blood Count 7.7, Red Blood Count 3.79L, Hemoglobin 11.8L, Hematocrit 35.1L , Mean Corpuscular Volume 93, Mean Corpuscular Hemoglobin 31.1H, Mean Corpuscular Hemoglobin Concent 33.6, Red Cell Distribution Width 13.4, Platelet Count 149#L, Mean Platelet Volume 7.8, Neutrophils (%) (Auto) 73.0, Lymphocytes (%) (Auto) 16.5L, Monocytes (%) (Auto) 9.4, Eosinophils (%) (Auto) 0.4, Basophils (%) (Auto) 0.7, Sodium Level 138, Potassium Level 3.4L, Chloride Level 106, Carbon Dioxide Level 19L, Anion Gap 13, Blood Urea Nitrogen 7, Creatinine 0.7, Estimat Glomerular Filtration Rate > 60, Glucose Level 84, Calcium Level 7.0L, Total Bilirubin 0.7, Aspartate Amino Transf (AST/SGOT) 43H, Alanine Aminotransferase (ALT/SGPT) 43, Alkaline Phosphatase 66, Total Protein 5.8L, Albumin 2.9L, Globulin 2.9, Albumin/Globulin Ratio 1.0 Height (Feet): 5 Height (Inches): 6.00 Weight (Pounds): 170 Objective On 02 via NC Cv RR Lungs CTA Abd SNT. BS + E No CCe Neuro Delirious. Nonfocal. Michel Extensor B. pupils equal + responsive to light. BERTRAND CONDE Aug 14, 2017 10:15
--- NOTE | 2017-08-14 11:11 | Pulmonology Progress Note ---
Assessment/Plan Assessment/Plan ASSESSMENT: 21 F h/o IVDU c/b IE S/P MVR p/w AMS 2/2 drug OD/toxicity c/b AGMA with inadequate respiratory compensation. She was previously on a ventilator for several months and her mother would rather he not be intubated but understands that if she does not respond to the current BiPAP setting she may require intubation. PROBLEM LIST: -Drug OD -H/O IVDU -Anion gap metabolic acidosis + Respiratory acidosis -MATTHEW -Hemoconcentration -Dehydration -H/O infective endocarditis S/P MVR PLAN: -Continue supplemental o2 -Off BiPAP now; respiratory status is stable -F/U Cx's -F/U TTE -NPO until MS better; swallow eval -Monitor volumes and renal function -DVT Px: Hep SQ May need ARU Subjective Interval Events: More awake Constitutional: Reports: no symptoms HEENT: Repors: no symptoms Respiratory: Reports: no symptoms Cardiovascular: Reports: no symptoms Allergies: Coded Allergies: No Known Allergies (Unverified , 08/12/17) PER MOM, NO KNOWN ALLERGIES Objective Last 24 Hour Vital Signs Date Time Temp Pulse Resp B/P (MAP) Pulse Ox O2 Delivery O2 Flow Rate FiO2 08/14/17 08:00 98.6 91 20 117/68 93 Nasal Cannula 2.0 91 08/14/17 04:00 96 08/14/17 03:37 98.2 76 20 122/64 93 Nasal Cannula 75 08/14/17 00:00 84 08/13/17 23:45 98.1 71 22 137/103 98 Nasal Cannula 78 08/13/17 20:00 87 08/13/17 19:46 96.6 88 24 115/77 95 Room Air 74 08/13/17 19:30 97 Nasal Cannula 2.0 28 08/13/17 19:30 Nasal Cannula 2.0 28 08/13/17 16:00 86 08/13/17 15:50 98.2 86 20 128/80 94 Nasal Cannula 08/13/17 12:00 88 08/13/17 12:00 99.3 91 24 136/68 95 Nasal Cannula 3.0 91 08/13/17 11:21 99.1 Intake and Output 08/13/17 08/14/17 19:00 07:00 Output Total 300 ml Balance -300 ml Output Urine Total 300 ml # Bowel Movements 3 General Appearance: no acute distress HEENT: normocephalic Respiratory/Chest: chest wall non-tender, lungs clear Cardiovascular: normal peripheral pulses, normal rate Abdomen: normal bowel sounds Laboratory Tests 08/14/17 09:00: White Blood Count 7.7, Red Blood Count 3.79L, Hemoglobin 11.8L, Hematocrit 35.1L , Mean Corpuscular Volume 93, Mean Corpuscular Hemoglobin 31.1H, Mean Corpuscular Hemoglobin Concent 33.6, Red Cell Distribution Width 13.4, Platelet Count 149#L, Mean Platelet Volume 7.8, Neutrophils (%) (Auto) 73.0, Lymphocytes (%) (Auto) 16.5L, Monocytes (%) (Auto) 9.4, Eosinophils (%) (Auto) 0.4, Basophils (%) (Auto) 0.7, Sodium Level 138, Potassium Level 3.4L, Chloride Level 106, Carbon Dioxide Level 19L, Anion Gap 13, Blood Urea Nitrogen 7, Creatinine 0.7, Estimat Glomerular Filtration Rate > 60, Glucose Level 84, Calcium Level 7.0L, Total Bilirubin 0.7, Aspartate Amino Transf (AST/SGOT) 43H, Alanine Aminotransferase (ALT/SGPT) 43, Alkaline Phosphatase 66, Total Protein 5.8L, Albumin 2.9L, Globulin 2.9, Albumin/Globulin Ratio 1.0 Current Medications Medications (Trade) Dose Ordered Sig/Hema Route PRN Reason Start Time Stop Time Status Last Admin Dose Admin Acetaminophen (Tylenol) 650 mg Q4H PRN RECTAL Mild Pain/Temp > 100.5 08/12/17 19:30 09/11/17 19:29 08/13/17 09:57 Ceftriaxone Sodium 1 gm/ Dextrose 50 ml @ 100 mls/hr Q24H IVPB 08/13/17 09:00 08/20/17 08:59 08/14/17 10:51 Chlorhexidine Gluconate (Valerie-Hex 2%) 1 applic DAILY@2000 TOPIC 08/12/17 20:00 09/10/17 19:59 08/13/17 21:04 Heparin Sodium (Porcine) (Heparin 5000 units/ml) 5,000 units EVERY 12 HOURS SUBQ 08/12/17 21:00 09/09/17 20:59 Levetiracetam 100 ml @ 400 mls/hr DAILY IVPB 08/14/17 09:00 09/11/17 08:59 08/14/17 09:25 Lorazepam (Ativan 2mg/ml 1ml) 1 mg EVERY 6 HOURS IV 08/13/17 13:00 08/20/17 12:59 08/14/17 06:14 Lorazepam (Ativan 2mg/ml 1ml) 2 mg Q3H PRN IV For Anxiety or Agitation 08/12/17 18:30 08/18/17 15:29 08/13/17 01:06 Metronidazole 100 ml @ 100 mls/hr Q8HR IVPB 08/12/17 22:00 08/17/17 21:59 08/14/17 06:16 Nicotine (Nicoderm) 1 patch Q24H TDERMAL 08/13/17 16:00 09/12/17 15:59 08/13/17 16:34 Pantoprazole (Protonix) 40 mg DAILY IVP 08/13/17 09:00 09/11/17 09:59 08/14/17 09:24 Potassium Chloride 30 meq/ Sodium Chloride 1,015 ml @ 100 mls/hr Q10H9M IV 08/13/17 16:00 09/12/17 15:59 08/14/17 02:37 Thiamine HCl 100 mg/Dextrose 56 ml @ 112 mls/hr Q24H IVPB 08/12/17 20:00 09/09/17 19:59 08/13/17 21:03 Misbah Lay MD Aug 14, 2017 11:11
[2017-08-14 12:00] VITALS: BP 120/78
--- NOTE | 2017-08-14 13:51 | Neurology Progress Note ---
Interim History Interim History ROS Limited/Unobtainable: Yes Complaints: reported talking to friends,appropriately Events: post ativan sedation followed by severe agitation Interim History patients friend reported -pt was heavily abusing xanax, heroin tar.x 1 week prior to admission Objective Physical Exam Last Vital Signs Date Time Temp Pulse Resp B/P (MAP) Pulse Ox O2 Delivery O2 Flow Rate FiO2 08/14/17 08:00 98.6 91 20 117/68 93 Nasal Cannula 2.0 91 08/13/17 19:30 28 Laboratory Tests Test 08/14/17 09:00 White Blood Count 7.7 K/UL (4.8-10.8) Red Blood Count 3.79 M/UL (4.20-5.40) L Hemoglobin 11.8 G/DL (12.0-16.0) L Hematocrit 35.1 % (37.0-47.0) L Mean Corpuscular Volume 93 FL (80-99) Mean Corpuscular Hemoglobin 31.1 PG (27.0-31.0) H Mean Corpuscular Hemoglobin Concent 33.6 G/DL (32.0-36.0) Red Cell Distribution Width 13.4 % (11.6-14.8) Platelet Count 149 K/UL (150-450) #L Mean Platelet Volume 7.8 FL (6.5-10.1) Neutrophils (%) (Auto) 73.0 % (45.0-75.0) Lymphocytes (%) (Auto) 16.5 % (20.0-45.0) L Monocytes (%) (Auto) 9.4 % (1.0-10.0) Eosinophils (%) (Auto) 0.4 % (0.0-3.0) Basophils (%) (Auto) 0.7 % (0.0-2.0) Sodium Level 138 MMOL/L (136-145) Potassium Level 3.4 MMOL/L (3.5-5.1) L Chloride Level 106 MMOL/L (98-107) Carbon Dioxide Level 19 MMOL/L (21-32) L Anion Gap 13 mmol/L (5-15) Blood Urea Nitrogen 7 mg/dL (7-18) Creatinine 0.7 MG/DL (0.55-1.30) Estimat Glomerular Filtration Rate > 60 mL/min (>60) Glucose Level 84 MG/DL (74-106) Calcium Level 7.0 MG/DL (8.5-10.1) L Total Bilirubin 0.7 MG/DL (0.2-1.0) Aspartate Amino Transf (AST/SGOT) 43 U/L (15-37) H Alanine Aminotransferase (ALT/SGPT) 43 U/L (12-78) Alkaline Phosphatase 66 U/L (46-116) Total Protein 5.8 G/DL (6.4-8.2) L Albumin 2.9 G/DL (3.4-5.0) L Globulin 2.9 g/dL Albumin/Globulin Ratio 1.0 (1.0-2.7) General: well developed, well nourished, no acute distress, other - on o2 canula ,very restless moving all limbs,spastic, eyes closed,slurred speech Head: normocophalic, atraumatic Neck: other - rigid Neurologic Exam Mental Status: other - ,recognised mom, keep eyes closed,mumbling follows simple command,very restless Speech: other - yes/no slurred but spoke with friends Language: no aphasia Cranial Nerve II: fundus normal, no papilledema Cranial Nerves III, IV, : PERRLA, EOMI, pupils, other - p5mm rla no eyetracking ? blind Cranial Nerve V: masseters function normal Cranial Nerve VII: normal facial expressions Cranial Nerve VIII: no nystagmus Cranial Nerve IX: normal palate elevation Cranial Nerve X: other Cranial Nerve XI: trapezii function normal Cranial Nerve XII: no tongue atrophy/fasciculations Motor System: other - often tonic movements armsR>L,generalised rigiditypower 5 /5 Sensory: other Coordination: other Deep Tendon Reflexes: 3+ bicep (L), 3+ bicep (R), 3+ tricep (L), 3+ tricep (R) , 3+ brachioradialis (L), 3+ brachioradialis (R), 3+ knee (L), 3+ knee (R), 3+ ankle (L), 3+ ankle (R) Reflexes: mute plantar (L), mute plantar (R) Impression/Recommendations Problems: (1) severe anoxic encephalopathy (2) iv substance abuse, relapse (3) r/o drug toxicity (4) symptomatic seizure event (5) anemia,low K and CA++ (6) nicotine/drug withdrawal. Status: doing well, unchanged Recommendations #[id number] EEG noted drug screen---pending keppra 1000mg bid d/w staff and MOM MRI brain psych eval swallow study [id number] prn [id number] qhs PAM FAN Aug 14, 2017 13:51
--- NOTE | 2017-08-14 15:01 | Infectious Diseases Prog Note ---
Assessment/Plan Assessment/Plan ASSESSMENT AND PLAN: 1. e.coli uti, ? cap, ? aspiration pna, ? atx, ?edema - rocephin and flagyl - check sputum - check labs and chest x-ray 2. History of intravenous drug abuse and drug overdose, encephalopathy, more alert 3. Shortness of breath, acidosis on BiPAP, ? AL - respiratory status better 4. Acute kidney injury with elevated creatinine, which is improved. 5. Dehydration. 6. Intravenous fluids. 7. 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 8. No known drug allergies. 9. Social history positive for intravenous drug abuse and smoking. 10. Family history noncontributory. 11. MAR was noted. 12. Continue treatment per primary, Dr. Doran and consultants 13. Case discussed with RN. 14. Case discussed with the patient's mother. Subjective Constitutional: Reports: fever HEENT: Denies: congestion Respiratory: Denies: shortness of breath Cardiovascular: Denies: chest pain Gastrointestinal/Abdominal: Denies: nausea, vomiting, diarrhea Genitourinary: Reports: other - + jameson Neurologic: Denies: headache Psychiatric: Denies: depression Skin: Denies: rash Hematologic: Denies: bleeding Musculoskeletal: Denies: pain Allergies: Coded Allergies: No Known Allergies (Unverified , 08/12/17) PER MOM, NO KNOWN ALLERGIES Objective Vital Signs Last 24 Hour Vital Signs Date Time Temp Pulse Resp B/P (MAP) Pulse Ox O2 Delivery O2 Flow Rate FiO2 08/14/17 08:00 98.6 91 20 117/68 93 Nasal Cannula 2.0 91 08/14/17 04:00 96 08/14/17 03:37 98.2 76 20 122/64 93 Nasal Cannula 75 08/14/17 00:00 84 08/13/17 23:45 98.1 71 22 137/103 98 Nasal Cannula 78 08/13/17 20:00 87 08/13/17 19:46 96.6 88 24 115/77 95 Room Air 74 08/13/17 19:30 97 Nasal Cannula 2.0 28 08/13/17 19:30 Nasal Cannula 2.0 28 08/13/17 16:00 86 08/13/17 15:50 98.2 86 20 128/80 94 Nasal Cannula Height (Feet): 5 Height (Inches): 6.00 Weight (Pounds): 170 General Appearance: no acute distress, other - more alert overall HEENT: normocephalic, atraumatic, anicteric Respiratory/Chest: crackles/rales, rhonchi - bilaterally Cardiovascular: normal rate, regular rhythm, no gallop/murmur, no JVD Abdomen: normal bowel sounds, soft, non tender, no organomegaly, non distended Genitourinary: other - + jameson - urine slt cloudy Extremities: no cyanosis Skin: no rash Neurologic/Psychiatric: cash management coordinator II-XII grossly normal, alert - more alert and talkative Lymphatic: no neck adenopathy Musculoskeletal: no effusion Objective 08/12 - Chest x-ray: Impression: Increased bilateral basilar hazy infiltrates versus edema, over one day Microbiology Date/Time Source Procedure Growth Status 08/10/17 18:40 Blood Blood Culture - Preliminary NO GROWTH AFTER 72 HOURS Resulted 08/10/17 01:50 Nasal Nares MRSA Culture - Final NO METHICILLIN RESISTANT STAPH AUREUS... Complete 08/10/17 15:45 Urine,Clean Catch Urine Culture - Final NO GROWTH AFTER 48 HOURS Complete 08/10/17 01:50 Rectum VRE Culture - Final NO VANCOMYCIN RESISTANT ENTEROCOCCUS ... Complete Laboratory Tests Test 08/14/17 09:00 White Blood Count 7.7 K/UL (4.8-10.8) Red Blood Count 3.79 M/UL (4.20-5.40) L Hemoglobin 11.8 G/DL (12.0-16.0) L Hematocrit 35.1 % (37.0-47.0) L Mean Corpuscular Volume 93 FL (80-99) Mean Corpuscular Hemoglobin 31.1 PG (27.0-31.0) H Mean Corpuscular Hemoglobin Concent 33.6 G/DL (32.0-36.0) Red Cell Distribution Width 13.4 % (11.6-14.8) Platelet Count 149 K/UL (150-450) #L Mean Platelet Volume 7.8 FL (6.5-10.1) Neutrophils (%) (Auto) 73.0 % (45.0-75.0) Lymphocytes (%) (Auto) 16.5 % (20.0-45.0) L Monocytes (%) (Auto) 9.4 % (1.0-10.0) Eosinophils (%) (Auto) 0.4 % (0.0-3.0) Basophils (%) (Auto) 0.7 % (0.0-2.0) Sodium Level 138 MMOL/L (136-145) Potassium Level 3.4 MMOL/L (3.5-5.1) L Chloride Level 106 MMOL/L (98-107) Carbon Dioxide Level 19 MMOL/L (21-32) L Anion Gap 13 mmol/L (5-15) Blood Urea Nitrogen 7 mg/dL (7-18) Creatinine 0.7 MG/DL (0.55-1.30) Estimat Glomerular Filtration Rate > 60 mL/min (>60) Glucose Level 84 MG/DL (74-106) Calcium Level 7.0 MG/DL (8.5-10.1) L Total Bilirubin 0.7 MG/DL (0.2-1.0) Aspartate Amino Transf (AST/SGOT) 43 U/L (15-37) H Alanine Aminotransferase (ALT/SGPT) 43 U/L (12-78) Alkaline Phosphatase 66 U/L (46-116) Total Protein 5.8 G/DL (6.4-8.2) L Albumin 2.9 G/DL (3.4-5.0) L Globulin 2.9 g/dL Albumin/Globulin Ratio 1.0 (1.0-2.7) Current Medications Medications (Trade) Dose Ordered Sig/Hema Route PRN Reason Start Time Stop Time Status Last Admin Dose Admin Acetaminophen (Tylenol) 650 mg Q4H PRN RECTAL Mild Pain/Temp > 100.5 08/12/17 19:30 09/11/17 19:29 08/13/17 09:57 Ceftriaxone Sodium 1 gm/ Dextrose 50 ml @ 100 mls/hr Q24H IVPB 08/13/17 09:00 08/20/17 08:59 08/14/17 10:51 Chlorhexidine Gluconate (Valerie-Hex 2%) 1 applic DAILY@1999 TOPIC 08/12/17 20:00 09/10/17 19:59 08/13/17 21:04 Haloperidol Lactate (Haldol) 2 mg Q4H PRN IM Agitation 08/14/17 14:00 09/13/17 13:59 Haloperidol Lactate (Haldol) 2 mg QHS IM 12/22/17 21:00 09/13/17 20:59 Heparin Sodium (Porcine) (Heparin 5000 units/ml) 5,000 units EVERY 12 HOURS SUBQ 08/12/17 21:00 09/09/17 20:59 Levetiracetam 100 ml @ 400 mls/hr DAILY IVPB 08/14/17 09:00 09/11/17 08:59 08/14/17 09:25 Lorazepam (Ativan 2mg/ml 1ml) 2 mg Q3H PRN IV For Anxiety or Agitation 08/12/17 18:30 08/18/17 15:29 08/13/17 01:06 Metronidazole 100 ml @ 100 mls/hr Q8HR IVPB 08/12/17 22:00 08/17/17 21:59 08/14/17 13:42 Multivitamins 10 ml/Potassium Chloride 30 meq/ Sodium Chloride 1,025 ml @ 100 mls/hr Q24H IV 08/14/17 16:00 09/13/17 15:59 Nicotine (Nicoderm) 1 patch Q24H TDERMAL 08/13/17 16:00 09/12/17 15:59 08/13/17 16:34 Non-Formulary Medication (Non-Formulary Med) 1 ea DAILY ORAL 08/14/17 21:00 09/13/17 20:59 Pantoprazole (Protonix) 40 mg DAILY IVP 08/13/17 09:00 09/11/17 09:59 08/14/17 09:24 Potassium Chloride 30 meq/ Sodium Chloride 1,015 ml @ 100 mls/hr Q10H9M IV 08/13/17 16:00 09/12/17 15:59 08/14/17 12:38 Thiamine HCl 100 mg/Dextrose 56 ml @ 112 mls/hr Q24H IVPB 08/12/17 20:00 09/09/17 19:59 08/13/17 21:03 MARIA A SMITH Aug 14, 2017 15:01
[2017-08-14 16:00] VITALS: BP 124/76
[2017-08-14] MEDS: 1/2 NS IV SCH (16:14)
[2017-08-14] MEDS: MULTIVITAMIN IV SCH (16:14)
[2017-08-14] MEDS: POTASSIUM CHLORIDE IV SCH (16:14)
--- NOTE | 2017-08-14 17:57 | Diagnostic Imaging Report ---
Indication: Infection Technique: XRAY Chest 1v Comparison: None Findings: Interval PICC line placement catheter tip appears to be in the region of the caval atrial junction however evaluation is limited due to overlying cardiac leads. Heart size and mediastinal contours are stable. There is increasing interstitial opacification and patchy bilateral airspace opacities. Total amount of small bilateral pleural effusions. No definite pneumothorax. Impression: Interval worsening of interstitial opacification/edema with development of small bilateral pleural effusions and patchy bilateral airspace opacities. PICC line tip obscured. Possibly in the region of the cavoatrial junction. Repeat exam after repositioning the overlying cardiac leads is recommended for better assessment of PICC tip position.
[2017-08-14 20:00] VITALS: BP 128/74
[2017-08-14] MEDS: Dyna-Hex 2% Top Sol 2oz TOPIC SCH (20:16)
[2017-08-14] MEDS: Acetaminophen 650 MG SUPP RECTAL PRN (20:18)
[2017-08-14] MEDS: Thiamine HCl 100 MG in D5W 55 ML IVPB SCH (20:49)
[2017-08-14] MEDS ORDERED: Haloperidol 5mg/ml Inj IM SCH (21:00)
[2017-08-14] MEDS: Haloperidol 5mg/ml Inj IM PRN (22:44)
[2017-08-15] VITALS: BP 107/46
--- NOTE | 2017-08-15 00:27 | Cardiology Report ---
APPROVED REPORT EKG Measurement Heart [id number] VT [id number] Sinus tachycardia Otherwise normal ECG
[2017-08-15] MEDS: Haloperidol 5mg/ml Inj IM PRN (02:29)
[2017-08-15 04:00] VITALS: BP 150/85
[2017-08-15 04:54] LABS: BASOPHILS % (AUTO) 0.9 % (0.0-2.0); EOSINOPHILS % (AUTO) 0.4 % (0.0-3.0); HEMATOCRIT 36.4 % (37.0-47.0); HEMOGLOBIN 12.4 G/DL (12.0-16.0); LYMPHOCYTES % (AUTO) 20.1 % (20.0-45.0); MEAN CORPUSCULAR VOLUME 92 FL (80-99); MONOCYTES % (AUTO) 10.3 % (1.0-10.0); NEUTROPHILS % (AUTO) 68.2 % (45.0-75.0); PLATELET COUNT 151 K/UL (150-450); RED BLOOD COUNT 3.97 M/UL (4.20-5.40); RED CELL DISTRIBUTION WIDTH 13.3 % (11.6-14.8); WHITE BLOOD COUNT 6.8 K/UL (4.8-10.8)
[2017-08-15 05:19] LABS: ANION GAP 13 mmol/L (5-15); BLOOD UREA NITROGEN 5 mg/dL (7-18); CALCIUM 7.1 MG/DL (8.5-10.1); CARBON DIOXIDE 20 MMOL/L (21-32); CHLORIDE 107 MMOL/L (98-107); CREATININE 0.7 MG/DL (0.55-1.30); POTASSIUM 3.5 MMOL/L (3.5-5.1); SODIUM 140 MMOL/L (136-145)
[2017-08-15 08:00] VITALS: BP 125/68
[2017-08-15] MEDS: Heparin 5000 units/ml inj SUBQ SCH ×2 (09:00→20:54)
[2017-08-15] MEDS: Pantoprazole Inj IVP SCH (09:33)
[2017-08-15] MEDS: levETIRAcetam 1,000mg/NS100ml 100 ML IVPB SCH (09:36)
[2017-08-15] MEDS: cefTRIAXone 1 GM in D5W 50 ML IVPB SCH (09:39)
[2017-08-15] MEDS: Potassium Chloride 30 MEQ in 1/2 NS 1000ml 1,000 ML IV SCH (11:22)
--- NOTE | 2017-08-15 11:28 | General Progress Note ---
Assessment/Plan Assessment/Plan Recurrent Brain Anoxia due to Cardio Respiratory arrest. Waking up. Prognosis seems better. 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 Awaiting Medical records from [place]. Further waking up. To tele. EEG diffuse slow. Bedside swallow pending. Refer to [facility] Urine Tox Screen Results Still pending? DW Dr. Alvarez. May need PEG to afford more sedation and better nutrition/IVF Subjective Allergies: Coded Allergies: No Known Allergies (Unverified , 08/12/17) PER MOM, NO KNOWN ALLERGIES Subjective In HIRAM. Waking up further. Per mother was verbal earlier.. Sedated (Ativan) Objective Last 24 Hour Vital Signs Date Time Temp Pulse Resp B/P (MAP) Pulse Ox O2 Delivery O2 Flow Rate FiO2 08/15/17 08:00 98.2 63 19 125/68 98 Room Air 08/15/17 08:00 89 08/15/17 04:00 84 08/15/17 04:00 97.9 80 23 150/85 98 Room Air 08/15/17 00:00 98.8 87 25 107/46 94 Room Air 08/15/17 00:00 108 08/14/17 20:50 97.0 08/14/17 20:00 103 08/14/17 20:00 99.0 26 128/74 95 Room Air 08/14/17 16:00 86 08/14/17 16:00 97.0 80 19 124/76 94 Nasal Cannula 2.0 93 08/14/17 12:00 97.1 93 20 120/78 93 Nasal Cannula 2.0 93 08/14/17 12:00 70 Intake and Output 08/14/17 08/15/17 19:00 07:00 Output Total 1402 ml Balance -1402 ml Output Urine Total 1400 ml Stool Total 2 ml # Voids 1 1 # Bowel Movements 2 Laboratory Tests 08/15/17 04:30: White Blood Count 6.8, Red Blood Count 3.97L, Hemoglobin 12.4, Hematocrit 36.4L , Mean Corpuscular Volume 92, Mean Corpuscular Hemoglobin 31.2H, Mean Corpuscular Hemoglobin Concent 34.0, Red Cell Distribution Width 13.3, Platelet Count 151, Mean Platelet Volume 7.7, Neutrophils (%) (Auto) 68.2, Lymphocytes (% ) (Auto) 20.1, Monocytes (%) (Auto) 10.3H, Eosinophils (%) (Auto) 0.4, Basophils (%) (Auto) 0.9, Sodium Level 140, Potassium Level 3.5, Chloride Level 107, Carbon Dioxide Level 20L, Anion Gap 13, Blood Urea Nitrogen 5L, Creatinine 0.7, Estimat Glomerular Filtration Rate > 60, Glucose Level 83, Calcium Level 7.1L Height (Feet): 5 Height (Inches): 6.00 Weight (Pounds): 166 Objective On 02 via NC Cv RR Lungs CTA Abd SNT. BS + E No CCe Neuro Delirious. Nonfocal. Michel Extensor B. pupils equal + responsive to light. BERTRAND CONDE Aug 15, 2017 11:28
[2017-08-15 12:00] VITALS: BP 124/79
--- NOTE | 2017-08-15 12:03 | Neurology Progress Note ---
Interim History Interim History ROS Limited/Unobtainable: Yes Complaints: reported talking to friends,appropriately Events: haldol 2mg brief sedation Interim History intermittent motor agitation severe rigidity mos at night, with verbal unresponsiveness hi risk of aspiration Objective Physical Exam Last Vital Signs Date Time Temp Pulse Resp B/P (MAP) Pulse Ox O2 Delivery O2 Flow Rate FiO2 08/15/17 08:00 98.2 63 19 125/68 98 Room Air 08/14/17 16:00 2.0 08/13/17 19:30 28 Laboratory Tests Test 08/15/17 04:30 White Blood Count 6.8 K/UL (4.8-10.8) Red Blood Count 3.97 M/UL (4.20-5.40) L Hemoglobin 12.4 G/DL (12.0-16.0) Hematocrit 36.4 % (37.0-47.0) L Mean Corpuscular Volume 92 FL (80-99) Mean Corpuscular Hemoglobin 31.2 PG (27.0-31.0) H Mean Corpuscular Hemoglobin Concent 34.0 G/DL (32.0-36.0) Red Cell Distribution Width 13.3 % (11.6-14.8) Platelet Count 151 K/UL (150-450) Mean Platelet Volume 7.7 FL (6.5-10.1) Neutrophils (%) (Auto) 68.2 % (45.0-75.0) Lymphocytes (%) (Auto) 20.1 % (20.0-45.0) Monocytes (%) (Auto) 10.3 % (1.0-10.0) H Eosinophils (%) (Auto) 0.4 % (0.0-3.0) Basophils (%) (Auto) 0.9 % (0.0-2.0) Sodium Level 140 MMOL/L (136-145) Potassium Level 3.5 MMOL/L (3.5-5.1) Chloride Level 107 MMOL/L (98-107) Carbon Dioxide Level 20 MMOL/L (21-32) L Anion Gap 13 mmol/L (5-15) Blood Urea Nitrogen 5 mg/dL (7-18) L Creatinine 0.7 MG/DL (0.55-1.30) Estimat Glomerular Filtration Rate > 60 mL/min (>60) Glucose Level 83 MG/DL (74-106) Calcium Level 7.1 MG/DL (8.5-10.1) L General: well developed, well nourished, no acute distress, other - on o2 canula ,very restless moving all limbs,spastic, eyes closed,slurred speech Head: normocophalic, atraumatic Neck: other - rigid Neurologic Exam Mental Status: other - ,recognised mom, keep eyes closed,mumbling follows simple command,very restless Speech: other - yes/no slurred but spoke with friends Language: no aphasia Cranial Nerve II: fundus normal, no papilledema Cranial Nerves III, IV, : PERRLA, EOMI, pupils, other - p5mm rla no eyetracking ? blind Cranial Nerve V: masseters function normal Cranial Nerve VII: normal facial expressions Cranial Nerve VIII: no nystagmus Cranial Nerve IX: normal palate elevation Cranial Nerve X: other Cranial Nerve XI: trapezii function normal Cranial Nerve XII: no tongue atrophy/fasciculations Motor System: other - often tonic movements armsR>L,generalised rigiditypower 5 /5 Sensory: other Coordination: other Deep Tendon Reflexes: 3+ bicep (L), 3+ bicep (R), 3+ tricep (L), 3+ tricep (R) , 3+ brachioradialis (L), 3+ brachioradialis (R), 3+ knee (L), 3+ knee (R), 3+ ankle (L), 3+ ankle (R) Reflexes: mute plantar (L), mute plantar (R) Impression/Recommendations Problems: (1) severe anoxic encephalopathy (2) iv substance abuse, relapse (3) r/o drug toxicity (4) symptomatic seizure event (5) nicotine/drug withdrawal. Status: doing well, unchanged Recommendations #[id number] EEG noted drug screen---pending keppra 500 mg bid d/w staff and MOM psych eval swallow study done G tube [id number] Valium not awailable PAM FAN Aug 15, 2017 12:03
[2017-08-15] MEDS ORDERED: DiphenhydrAMINE 50mg/ml Inj IVP PRN (12:15)
--- NOTE | 2017-08-15 12:15 | Pulmonology Progress Note ---
Assessment/Plan Assessment/Plan ASSESSMENT: 21 F h/o IVDU c/b IE S/P MVR p/w AMS 2/2 drug OD/toxicity c/b AGMA with inadequate respiratory compensation. She was previously on a ventilator for several months and her mother would rather he not be intubated but understands that if she does not respond to the current BiPAP setting she may require intubation. PROBLEM LIST: -Drug OD -H/O IVDU -Anion gap metabolic acidosis + Respiratory acidosis -MATTHEW -Hemoconcentration -Dehydration -H/O infective endocarditis S/P MVR PLAN: -Continue supplemental o2 -Off BiPAP now; respiratory status is stable -F/U Cx's -F/U TTE -NPO until MS better; swallow eval -Monitor volumes and renal function -DVT Px: Hep SQ May need ARU Discussed with mother at bedside Subjective Interval Events: More awake Constitutional: Reports: no symptoms HEENT: Repors: no symptoms Respiratory: Reports: no symptoms Cardiovascular: Reports: no symptoms Allergies: Coded Allergies: No Known Allergies (Unverified , 08/12/17) PER MOM, NO KNOWN ALLERGIES Objective Last 24 Hour Vital Signs Date Time Temp Pulse Resp B/P (MAP) Pulse Ox O2 Delivery O2 Flow Rate FiO2 08/15/17 08:00 98.2 63 19 125/68 98 Room Air 08/15/17 08:00 89 08/15/17 04:00 84 08/15/17 04:00 97.9 80 23 150/85 98 Room Air 08/15/17 00:00 98.8 87 25 107/46 94 Room Air 08/15/17 00:00 108 08/14/17 20:50 97.0 08/14/17 20:00 103 08/14/17 20:00 99.0 26 128/74 95 Room Air 08/14/17 16:00 86 08/14/17 16:00 97.0 80 19 124/76 94 Nasal Cannula 2.0 93 Intake and Output 08/14/17 08/15/17 19:00 07:00 Output Total 1402 ml Balance -1402 ml Output Urine Total 1400 ml Stool Total 2 ml # Voids 1 1 # Bowel Movements 2 General Appearance: no acute distress HEENT: normocephalic Respiratory/Chest: chest wall non-tender, lungs clear Cardiovascular: normal peripheral pulses, normal rate Laboratory Tests 08/15/17 04:30: White Blood Count 6.8, Red Blood Count 3.97L, Hemoglobin 12.4, Hematocrit 36.4L , Mean Corpuscular Volume 92, Mean Corpuscular Hemoglobin 31.2H, Mean Corpuscular Hemoglobin Concent 34.0, Red Cell Distribution Width 13.3, Platelet Count 151, Mean Platelet Volume 7.7, Neutrophils (%) (Auto) 68.2, Lymphocytes (% ) (Auto) 20.1, Monocytes (%) (Auto) 10.3H, Eosinophils (%) (Auto) 0.4, Basophils (%) (Auto) 0.9, Sodium Level 140, Potassium Level 3.5, Chloride Level 107, Carbon Dioxide Level 20L, Anion Gap 13, Blood Urea Nitrogen 5L, Creatinine 0.7, Estimat Glomerular Filtration Rate > 60, Glucose Level 83, Calcium Level 7.1L Current Medications Medications (Trade) Dose Ordered Sig/Hema Route PRN Reason Start Time Stop Time Status Last Admin Dose Admin Acetaminophen (Tylenol) 650 mg Q4H PRN RECTAL Mild Pain/Temp > 100.5 08/12/17 19:30 09/11/17 19:29 08/14/17 20:18 Ceftriaxone Sodium 1 gm/ Dextrose 50 ml @ 100 mls/hr Q24H IVPB 08/13/17 09:00 08/20/17 08:59 08/15/17 09:39 Chlorhexidine Gluconate (Valerie-Hex 2%) 1 applic DAILY@2000 TOPIC 08/12/17 20:00 09/10/17 19:59 08/14/17 20:16 Diphenhydramine HCl (Benadryl) 50 mg Q6H PRN IVP Agitation 08/15/17 12:15 09/14/17 12:14 Haloperidol Lactate (Haldol) 2 mg Q4H PRN IM Agitation 08/14/17 14:00 09/13/17 13:59 08/15/17 02:29 Heparin Sodium (Porcine) (Heparin 5000 units/ml) 5,000 units EVERY 12 HOURS SUBQ 08/12/17 21:00 09/09/17 20:59 Levetiracetam 100 ml @ 400 mls/hr DAILY IVPB 08/14/17 09:00 09/11/17 08:59 08/15/17 09:36 Lorazepam (Ativan 2mg/ml 1ml) 2 mg Q3H PRN IV For Anxiety or Agitation 08/12/17 18:30 08/18/17 15:29 08/13/17 01:06 Metronidazole 100 ml @ 100 mls/hr Q8HR IVPB 08/12/17 22:00 08/17/17 21:59 08/15/17 06:09 Multivitamins 10 ml/Potassium Chloride 30 meq/ Sodium Chloride 1,025 ml @ 100 mls/hr Q24H IV 08/14/17 16:00 09/13/17 15:59 08/14/17 16:14 Nicotine (Nicoderm) 1 patch Q24H TDERMAL 08/13/17 16:00 09/12/17 15:59 08/14/17 15:21 Pantoprazole (Protonix) 40 mg DAILY IVP 08/13/17 09:00 09/11/17 09:59 08/15/17 09:33 Potassium Chloride 30 meq/ Sodium Chloride 1,015 ml @ 100 mls/hr Q10H9M IV 08/13/17 16:00 09/12/17 15:59 08/15/17 11:22 Thiamine HCl 100 mg/Dextrose 56 ml @ 112 mls/hr Q24H IVPB 08/12/17 20:00 09/09/17 19:59 08/14/17 20:49 Misbah Lay MD Aug 15, 2017 12:15
[2017-08-15] MEDS: Acetaminophen 650 MG SUPP RECTAL PRN ×2 (13:51→23:30)
[2017-08-15] MEDS: LORazepam Inj 2mg/ml 1ml IV PRN (14:29)
[2017-08-15] MEDS: POTASSIUM CHLORIDE IV SCH (15:44)
[2017-08-15] MEDS: 1/2 NS IV SCH (15:44)
[2017-08-15] MEDS: MULTIVITAMIN IV SCH (15:44)
[2017-08-15 16:00] VITALS: BP 128/60
--- NOTE | 2017-08-15 16:21 | Cardiology Progress Note ---
Assessment/Plan Assessment/Plan rthe clint is stable from cardiac standpoint continue tretment as per neurology Subjective Subjective The patinet opens her eyes, but doesnot communicate does nto follow commands Objective Last 24 Hour Vital Signs Date Time Temp Pulse Resp B/P (MAP) Pulse Ox O2 Delivery O2 Flow Rate FiO2 08/15/17 12:00 97 08/15/17 12:00 97.8 79 19 124/79 93 Room Air 08/15/17 08:00 98.2 63 19 125/68 98 Room Air 08/15/17 08:00 89 08/15/17 04:00 84 08/15/17 04:00 97.9 80 23 150/85 98 Room Air 08/15/17 00:00 98.8 87 25 107/46 94 Room Air 08/15/17 00:00 108 08/14/17 20:50 97.0 08/14/17 20:00 103 08/14/17 20:00 99.0 26 128/74 95 Room Air General Appearance: lethargic EENT: PERRL/EOMI Neck: no JVD Rhythm: NSR Cardiovascular: normal peripheral pulses, normal rate Respiratory/Chest: rhonchi - bilaterally Abdomen: soft Extremities: trace edema Intake and Output 08/14/17 08/15/17 19:00 07:00 Output Total 1402 ml Balance -1402 ml Output Urine Total 1400 ml Stool Total 2 ml # Voids 1 1 # Bowel Movements 2 Laboratory Tests Test 08/15/17 04:30 White Blood Count 6.8 K/UL (4.8-10.8) Red Blood Count 3.97 M/UL (4.20-5.40) L Hemoglobin 12.4 G/DL (12.0-16.0) Hematocrit 36.4 % (37.0-47.0) L Mean Corpuscular Volume 92 FL (80-99) Mean Corpuscular Hemoglobin 31.2 PG (27.0-31.0) H Mean Corpuscular Hemoglobin Concent 34.0 G/DL (32.0-36.0) Red Cell Distribution Width 13.3 % (11.6-14.8) Platelet Count 151 K/UL (150-450) Mean Platelet Volume 7.7 FL (6.5-10.1) Neutrophils (%) (Auto) 68.2 % (45.0-75.0) Lymphocytes (%) (Auto) 20.1 % (20.0-45.0) Monocytes (%) (Auto) 10.3 % (1.0-10.0) H Eosinophils (%) (Auto) 0.4 % (0.0-3.0) Basophils (%) (Auto) 0.9 % (0.0-2.0) Sodium Level 140 MMOL/L (136-145) Potassium Level 3.5 MMOL/L (3.5-5.1) Chloride Level 107 MMOL/L (98-107) Carbon Dioxide Level 20 MMOL/L (21-32) L Anion Gap 13 mmol/L (5-15) Blood Urea Nitrogen 5 mg/dL (7-18) L Creatinine 0.7 MG/DL (0.55-1.30) Estimat Glomerular Filtration Rate > 60 mL/min (>60) Glucose Level 83 MG/DL (74-106) Calcium Level 7.1 MG/DL (8.5-10.1) MICHAEL LOPEZ Aug 15, 2017 16:21
--- NOTE | 2017-08-15 16:32 | Cardiology Progress Note ---
Assessment/Plan Assessment/Plan rthe paitnet is stable from cardiac standpoint continue tretment as per neurology Subjective Subjective [id number] Objective Last 24 Hour Vital Signs Date Time Temp Pulse Resp B/P (MAP) Pulse Ox O2 Delivery O2 Flow Rate FiO2 08/15/17 12:00 97 08/15/17 12:00 97.8 79 19 124/79 93 Room Air 08/15/17 08:00 98.2 63 19 125/68 98 Room Air 08/15/17 08:00 89 08/15/17 04:00 84 08/15/17 04:00 97.9 80 23 150/85 98 Room Air 08/15/17 00:00 98.8 87 25 107/46 94 Room Air 08/15/17 00:00 108 08/14/17 20:50 97.0 08/14/17 20:00 103 08/14/17 20:00 99.0 26 128/74 95 Room Air Intake and Output 08/14/17 08/15/17 19:00 07:00 Output Total 1402 ml Balance -1402 ml Output Urine Total 1400 ml Stool Total 2 ml # Voids 1 1 # Bowel Movements 2 Laboratory Tests Test 08/15/17 04:30 White Blood Count 6.8 K/UL (4.8-10.8) Red Blood Count 3.97 M/UL (4.20-5.40) L Hemoglobin 12.4 G/DL (12.0-16.0) Hematocrit 36.4 % (37.0-47.0) L Mean Corpuscular Volume 92 FL (80-99) Mean Corpuscular Hemoglobin 31.2 PG (27.0-31.0) H Mean Corpuscular Hemoglobin Concent 34.0 G/DL (32.0-36.0) Red Cell Distribution Width 13.3 % (11.6-14.8) Platelet Count 151 K/UL (150-450) Mean Platelet Volume 7.7 FL (6.5-10.1) Neutrophils (%) (Auto) 68.2 % (45.0-75.0) Lymphocytes (%) (Auto) 20.1 % (20.0-45.0) Monocytes (%) (Auto) 10.3 % (1.0-10.0) H Eosinophils (%) (Auto) 0.4 % (0.0-3.0) Basophils (%) (Auto) 0.9 % (0.0-2.0) Sodium Level 140 MMOL/L (136-145) Potassium Level 3.5 MMOL/L (3.5-5.1) Chloride Level 107 MMOL/L (98-107) Carbon Dioxide Level 20 MMOL/L (21-32) L Anion Gap 13 mmol/L (5-15) Blood Urea Nitrogen 5 mg/dL (7-18) L Creatinine 0.7 MG/DL (0.55-1.30) Estimat Glomerular Filtration Rate > 60 mL/min (>60) Glucose Level 83 MG/DL (74-106) Calcium Level 7.1 MG/DL (8.5-10.1) MICHAEL LOPEZ Aug 15, 2017 16:32
[2017-08-15] MEDS ORDERED: Tubing IV Secondary IV ONE (17:39)
[2017-08-15] MEDS ORDERED: NS 275ml ONE (17:39)
--- NOTE | 2017-08-15 19:00 | Consultation ---
DATE OF CONSULTATION: 08/10/2017 CARDIOLOGY CONSULTATION CONSULTING PHYSICIAN: Lauren Catalan M.D. ATTENDING/REFERRING PHYSICIAN: Albert Doran M.D. THE PATIENT IDENTIFYING DATA: This is a 21-year-old female. REASON FOR EVALUATION: Tachycardia and presence of prosthetic heart valve. HISTORY OF PRESENT ILLNESS: Taken from reviewing the chart, the patient is unresponsive and she is on BiPAP, and also on discussion with the mother who is present at the bedside. The patient is a very unfortunate 21-year-old female who came in with seizures and unresponsiveness. She has history of intravenous drug abuse, variety of them, and she also has history of smoking and alcohol abuse. She was in respiratory distress. She was admitted with seizures. She was treated and I saw her in the ICU. The patient apparently had cardiac valve replaced in [place] approximately a year ago according to her mother, but mother did not have any additional records and she did not remember the time, but it was roughly a year ago according to her and the patient also had some peripheral neuropathy as past medical history. She could not give any history herself. Besides the cardiac surgery, there was no any additional history of any surgical procedures and medication was, she apparently was on aspirin and gabapentin. MEDICATIONS: The patient's medications at home included gabapentin, propranolol, citalopram, and also aspirin. REVIEW OF SYSTEMS: Unavailable, impossible to do because she is on BiPAP and she is unresponsive. PHYSICAL EXAMINATION: GENERAL: Revealed a 21-year-old, who is on BiPAP. VITAL SIGNS: Blood pressure 80/40, heart rate , respiration rate 14, temperature was normal. HEENT: Pupils are narrowed. EOMI. NECK: Supple. Jugular venous pressure is not elevated. There is midsternal surgical scar which is healed. PMI is in the sixth intercostal space in midclavicular line. She has loud S2 and holosystolic murmur on the left sternal border. BREASTS: No masses. ABDOMEN: Soft, nontender. No masses palpable. EXTREMITIES: Lower extremities, no edema. LABORATORY AND DIAGNOSTIC DATA: The ECG revealed presence of sinus rhythm, sinus tachycardia at 100 beats per minute. No acute ST or T changes. Her old laboratories were reviewed and her hemoglobin upon admission was 13.2, white count 6.3, and platelets 156,000. Her chemistry was remarkable for BUN 23, GFR 37.5, creatinine was 1.7. AST was 176, ALT 94, and alkaline phosphatase 142. Troponin was elevated up to 0.853 and subsequent one was 0.977. Her chest x-ray done upon admission and it revealed no acute findings. IMPRESSION AND RECOMMENDATION: The patient presented with seizure. She probably is either withdrawal or overdose on one of her toxic medications. It could be alcohol withdrawal as well. Neurology is following her. She is in acute respiratory distress, failure, on BiPAP. On BiPAP, she is compensated. She also is hypotensive and showed evidence of elevated creatinine and so she is getting intravenous hydration. There are no signs of heart failure. There is history of valve replacement. We are going to review the echo. It does not sound like she has a mechanical valve, so she is not on Coumadin and in the setting of her critical condition, endocarditis and sepsis could not be rule out because she does have history of sepsis endocarditis, so we will work her up for that. We will follow the echocardiogram and she is going to be treated by infectious diseases with antibiotics and by neurology with antiseizure medications as well. This is intensive care unit level of care and I have spent 1 hour [id number] with the patient and then coordinating the care. Lauren Catalan M.D. DR: Ankit JOB#: [id number] CC:
[2017-08-15 20:00] VITALS: BP 141/90
[2017-08-15] MEDS: Thiamine HCl 100 MG in D5W 55 ML IVPB SCH (20:54)
[2017-08-15] MEDS: Dyna-Hex 2% Top Sol 2oz TOPIC SCH (20:54)
--- NOTE | 2017-08-15 21:00 | Consultation ---
DATE OF CONSULTATION: 08/15/2017 PSYCHIATRIC CONSULTATION CONSULTING PHYSICIAN: Kristie Braswell M.D. ATTENDING PHYSICIAN: Albert Doran M.D. HISTORY OF PRESENT ILLNESS: The patient is a 21-year-old female with history of opiate pain medication, heroin, and Xanax addiction who recently relapsed. She overdosed on an unknown amount of Xanax and heroin. Laboratory toxicology is only positive for benzodiazepines. The patient was found in her apartment unconscious, friends who were at bedside and stated that they found the patient with syringe, empty syringes on the floor. During evaluation, the patient is agitated. Her vitals were unstable. Her blood pressure was high. She was and was unable to participate in evaluation and answer the questions. PAST PSYCHIATRIC HISTORY: Includes depression and anxiety has been treated with benzodiazepines and specifically Xanax. According to mother, Ativan does not work for her. The patient has had another suicide attempt a year back, unknown whether it was suicide attempt or overdose. PAST MEDICAL HISTORY: Aortic valve bioprosthetic valve replacement, history of cellulitis, history of subacute bacterial aortic valve endocarditis. ALLERGIES: No known drug allergies. SUBSTANCE ABUSE HISTORY: See above. MENTAL STATUS EXAMINATION: The patient was confused, disoriented, agitated, mumbles, not able to answer questions. Mood is anxious, agitation. Affect is constricted, congruent with mood. Thought process is concrete. Thought content, no suicidal or homicidal ideation. ASSESSMENT: AXIS I Polysubstance dependence, benzodiazepine withdrawal, encephalopathy. AXIS II Deferred. AXIS III As above. AXIS IV Low. AXIS V Global assessment of functioning is 20. PLAN: 1. I will discontinue Haldol. At this point, the patient is withdrawing from benzodiazepine. 2. I will change the IV to IM, titrate gradually with into her system and keep the withdrawal symptoms controlled. 3. We will continue to follow and readjust the medications. Kristie Braswell M.D. DR: JOHN JOB#: [id number] CC:
[2017-08-15] MEDS: LORazepam Inj 2mg/ml 1ml IM PRN (22:11)
[2017-08-16] VITALS: BP 137/81
[2017-08-16] MEDS: LORazepam Inj 2mg/ml 1ml IM PRN ×2 (01:25→05:22)
[2017-08-16] MEDS: Potassium Chloride 30 MEQ in 1/2 NS 1000ml 1,000 ML IV SCH ×4 (02:49→15:39)
[2017-08-16 04:00] VITALS: BP 133/79
[2017-08-16 08:00] VITALS: BP 134/100
[2017-08-16] MEDS: Pantoprazole Inj IVP SCH (09:20)
[2017-08-16] MEDS: cefTRIAXone 1 GM in D5W 50 ML IVPB SCH (09:20)
[2017-08-16] MEDS: Heparin 5000 units/ml inj SUBQ SCH ×2 (09:21→22:18)
--- NOTE | 2017-08-16 09:36 | Diagnostic Imaging Report ---
Indication: Infection Technique: XRAY Chest 1v Comparison: 08/14/2017 Findings: Heart size and mediastinal contours are stable. PICC line tip in the region of the cavoatrial junction. Slight interval decrease in interstitial opacification/edema and improved aeration of the bilateral lower lungs compared to the prior exam. No pneumothorax. Osseous structures are stable. Impression: Slight improvement of aeration of the lungs compared to the prior exam with improved interstitial opacification/edema and decrease in patchy bilateral airspace opacities.
[2017-08-16] MEDS ORDERED: LORazepam Inj 2mg/ml 1ml IV ONE (09:50)
[2017-08-16 11:33] LABS: ALANINE AMINOTRANSFERASE 35 U/L (12-78); ALBUMIN 2.9 G/DL (3.4-5.0); ALBUMIN/GLOBULIN RATIO 0.9 (1.0-2.7); ALKALINE PHOSPHATASE 64 U/L (46-116); ANION GAP 10 mmol/L (5-15); ASPARTATE AMINO TRANSFERASE 32 U/L (15-37); BILIRUBIN,TOTAL 0.4 MG/DL (0.2-1.0); BLOOD UREA NITROGEN 5 mg/dL (7-18); CALCIUM 7.3 MG/DL (8.5-10.1); CARBON DIOXIDE 22 MMOL/L (21-32); CHLORIDE 105 MMOL/L (98-107); CREATINE KINASE 226 U/L (26-308); CREATININE 0.7 MG/DL (0.55-1.30); POTASSIUM 3.6 MMOL/L (3.5-5.1); SODIUM 137 MMOL/L (136-145)
--- NOTE | 2017-08-16 11:37 | Neurology Progress Note ---
Interim History Interim History ROS Limited/Unobtainable: Yes Complaints: reported talking to friends,appropriately,intermittent tremors/ rigid Events: now on Ativan off haldol Objective Physical Exam Last Vital Signs Date Time Temp Pulse Resp B/P (MAP) Pulse Ox O2 Delivery O2 Flow Rate FiO2 08/16/17 04:00 98.2 101 22 133/79 97 08/16/17 04:00 Room Air 08/14/17 16:00 2.0 08/13/17 19:30 28 Laboratory Tests Test 08/16/17 10:50 Sodium Level Pending Potassium Level Pending Chloride Level Pending Carbon Dioxide Level Pending Blood Urea Nitrogen Pending Creatinine Pending Estimat Glomerular Filtration Rate Pending Glucose Level Pending Calcium Level Pending Magnesium Level Pending Total Bilirubin Pending Aspartate Amino Transf (AST/SGOT) Pending Alanine Aminotransferase (ALT/SGPT) Pending Alkaline Phosphatase Pending Total Creatine Kinase Pending Total Protein Pending Albumin Pending Globulin Pending General: well developed, well nourished, no acute distress, other - on o2 canula ,very restless moving all limbs,spastic, eyes closed,slurred speech Head: normocophalic, atraumatic Neck: other - rigid Neurologic Exam Mental Status: other - ,recognised mom, keep eyes closed,mumbling follows simple command,very restless Speech: other - yes/no slurred but spoke with friends Language: no aphasia Cranial Nerve II: fundus normal, no papilledema Cranial Nerves III, IV, : PERRLA, EOMI, pupils, other - p5mm rla no eyetracking ? blind Cranial Nerve V: masseters function normal Cranial Nerve VII: normal facial expressions Cranial Nerve VIII: no nystagmus Cranial Nerve IX: normal palate elevation Cranial Nerve X: other Cranial Nerve XI: trapezii function normal Cranial Nerve XII: no tongue atrophy/fasciculations Motor System: other - often tonic movements armsR>L,generalised rigiditypower 5 /5 Sensory: other Coordination: other Deep Tendon Reflexes: 3+ bicep (L), 3+ bicep (R), 3+ tricep (L), 3+ tricep (R) , 3+ brachioradialis (L), 3+ brachioradialis (R), 3+ knee (L), 3+ knee (R), 3+ ankle (L), 3+ ankle (R) Reflexes: mute plantar (L), mute plantar (R) Impression/Recommendations Problems: (1) severe encephalopathy, anoxic/drug toxicity/benzo withdrawal (2) iv substance abuse, relapse (3) symptomatic seizure event (4) nicotine/drug withdrawal. Status: doing well, unchanged Recommendations #[id number] EEG noted drug screen---pending keppra 500 mg bid d/w staff and MOM psych eval noted swallow study done-ng tube [id number] Valium not available d/w mom, staff venous duplex PAM Perez Aug 16, 2017 11:37
[2017-08-16] MEDS: levETIRAcetam 1,000mg/NS100ml 100 ML IVPB SCH (11:42)
[2017-08-16 12:00] VITALS: BP 140/80
[2017-08-16] MEDS ORDERED: LORazepam Inj 2mg/ml 1ml IM PRN ×2 (12:30→13:00)
[2017-08-16] MEDS ORDERED: NS 275ml ONE (12:35)
[2017-08-16] MEDS ORDERED: NS 500ML ONE (12:35)
[2017-08-16] MEDS ORDERED: Tubing IV Secondary IV ONE (12:35)
[2017-08-16] MEDS: LORazepam Inj 2mg/ml 1ml IM SCH ×3 (13:29→22:17)
--- NOTE | 2017-08-16 13:33 | General Progress Note ---
Assessment/Plan Assessment/Plan Recurrent Brain Anoxia due to Cardio Respiratory arrest. Waking up. Prognosis seems better. 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 Awaiting Medical records from [place]. Further waking up. To tele. EEG diffuse slow. Bedside swallow pending. She'll need long-term SNF after PEG. Urine Tox Screen Results Still pending? DW Dr. Alvarez. May need PEG to afford more sedation and better nutrition/IVF Subjective Allergies: Coded Allergies: No Known Allergies (Unverified , 08/12/17) PER MOM, NO KNOWN ALLERGIES Subjective In HIRAM. Waking up further. Per mother was verbal earlier.. Sedated (Ativan) Objective Last 24 Hour Vital Signs Date Time Temp Pulse Resp B/P (MAP) Pulse Ox O2 Delivery O2 Flow Rate FiO2 08/16/17 12:00 102 08/16/17 08:00 109 08/16/17 08:00 98.4 100 20 134/100 97 Room Air 08/16/17 04:00 98.2 101 22 133/79 97 08/16/17 04:00 Room Air 08/16/17 04:00 104 08/16/17 00:00 Room Air 08/16/17 00:00 90 08/16/17 00:00 98.1 103 22 137/81 97 08/15/17 20:00 Room Air 08/15/17 20:00 98.2 88 22 141/90 97 08/15/17 20:00 86 08/15/17 16:00 87 08/15/17 16:00 98.9 84 19 128/60 92 Room Air Intake and Output 08/15/17 08/16/17 19:00 07:00 Intake Total 1027 ml 1142 ml Output Total 1700 ml 1600 ml Balance -673 ml -458 ml Intake IV Total 1027 ml 1142 ml Output Urine Total 1700 ml 1600 ml Laboratory Tests 08/16/17 10:50: Sodium Level 137, Potassium Level 3.6, Chloride Level 105, Carbon Dioxide Level 22, Anion Gap 10, Blood Urea Nitrogen 5L, Creatinine 0.7, Estimat Glomerular Filtration Rate > 60, Glucose Level 117H, Calcium Level 7.3L, Magnesium Level 1.6L, Total Bilirubin 0.4, Aspartate Amino Transf (AST/SGOT) 32, Alanine Aminotransferase (ALT/SGPT) 35, Alkaline Phosphatase 64, Total Creatine Kinase 226, Total Protein 6.1L, Albumin 2.9L, Globulin 3.2, Albumin/Globulin Ratio 0.9L Height (Feet): 5 Height (Inches): 6.00 Weight (Pounds): 158 Objective On 02 via NC Cv RR Lungs CTA Abd SNT. BS + E No CCe Neuro Delirious. Nonfocal. Michel Extensor B. pupils equal + responsive to light. BERTRAND CONDE Aug 16, 2017 13:33
--- NOTE | 2017-08-16 13:58 | Pulmonology Progress Note ---
Assessment/Plan Assessment/Plan PROBLEM LIST: -Drug OD -H/O IVDU -Respiratory acidosis -MATTHEW -H/O infective endocarditis S/P MVR PLAN: -Continue supplemental o2 -Off BiPAP and monitor -monitor for aspiration -Monitor volumes and renal function -DVT prophylaxis Subjective Allergies: Coded Allergies: No Known Allergies (Unverified , 08/12/17) PER MOM, NO KNOWN ALLERGIES Subjective care reviewed and discussed Objective Last 24 Hour Vital Signs Date Time Temp Pulse Resp B/P (MAP) Pulse Ox O2 Delivery O2 Flow Rate FiO2 08/16/17 12:00 102 08/16/17 08:00 109 08/16/17 08:00 98.4 100 20 134/100 97 Room Air 08/16/17 04:00 98.2 101 22 133/79 97 08/16/17 04:00 Room Air 08/16/17 04:00 104 08/16/17 00:00 Room Air 08/16/17 00:00 90 08/16/17 00:00 98.1 103 22 137/81 97 08/15/17 20:00 Room Air 08/15/17 20:00 98.2 88 22 141/90 97 08/15/17 20:00 86 08/15/17 16:00 87 08/15/17 16:00 98.9 84 19 128/60 92 Room Air Intake and Output 08/15/17 08/16/17 19:00 07:00 Intake Total 1027 ml 1142 ml Output Total 1700 ml 1600 ml Balance -673 ml -458 ml Intake IV Total 1027 ml 1142 ml Output Urine Total 1700 ml 1600 ml Objective WDWN NAD clear breath sounds bilaterally without rhonchi or wheeze [id number] without MRG NABS nontender no HSM no CCE nonfocal Laboratory Tests 08/16/17 10:50: Sodium Level 137, Potassium Level 3.6, Chloride Level 105, Carbon Dioxide Level 22, Anion Gap 10, Blood Urea Nitrogen 5L, Creatinine 0.7, Estimat Glomerular Filtration Rate > 60, Glucose Level 117H, Calcium Level 7.3L, Magnesium Level 1.6L, Total Bilirubin 0.4, Aspartate Amino Transf (AST/SGOT) 32, Alanine Aminotransferase (ALT/SGPT) 35, Alkaline Phosphatase 64, Total Creatine Kinase 226, Total Protein 6.1L, Albumin 2.9L, Globulin 3.2, Albumin/Globulin Ratio 0.9L Current Medications Medications (Trade) Dose Ordered Sig/Hema Route PRN Reason Start Time Stop Time Status Last Admin Dose Admin Acetaminophen (Tylenol) 650 mg Q4H PRN RECTAL Mild Pain/Temp > 100.5 08/12/17 19:30 09/11/17 19:29 08/15/17 23:30 Ceftriaxone Sodium 1 gm/ Dextrose 50 ml @ 100 mls/hr Q24H IVPB 08/13/17 09:00 08/20/17 08:59 08/16/17 09:20 Chlorhexidine Gluconate (Valerie-Hex 2%) 1 applic DAILY@2000 TOPIC 08/12/17 20:00 09/10/17 19:59 08/15/17 20:54 Diphenhydramine HCl (Benadryl) 50 mg Q6H PRN IVP Agitation 08/15/17 12:15 09/14/17 12:14 Heparin Sodium (Porcine) (Heparin 5000 units/ml) 5,000 units EVERY 12 HOURS SUBQ 08/12/17 21:00 09/09/17 20:59 08/16/17 09:21 Levetiracetam 100 ml @ 400 mls/hr DAILY IVPB 08/14/17 09:00 09/11/17 08:59 08/16/17 11:42 Lorazepam (Ativan 2mg/ml 1ml) 2 mg Q4HR IM 08/16/17 13:00 08/23/17 12:59 08/16/17 13:29 Metronidazole 100 ml @ 100 mls/hr Q8HR IVPB 08/12/17 22:00 08/17/17 21:59 08/16/17 05:21 Multivitamins 10 ml/Potassium Chloride 30 meq/ Sodium Chloride 1,025 ml @ 100 mls/hr Q24H IV 08/14/17 16:00 09/13/17 15:59 08/15/17 15:44 Nicotine (Nicoderm) 1 patch Q24H TDERMAL 08/13/17 16:00 09/12/17 15:59 08/15/17 15:38 Pantoprazole (Protonix) 40 mg DAILY IVP 08/13/17 09:00 09/11/17 09:59 08/16/17 09:20 Potassium Chloride 30 meq/ Sodium Chloride 1,015 ml @ 100 mls/hr Q10H9M IV 08/13/17 16:00 09/12/17 15:59 08/16/17 02:49 Thiamine HCl 100 mg/Dextrose 56 ml @ 112 mls/hr Q24H IVPB 08/12/17 20:00 09/09/17 19:59 08/15/17 20:54 GAYLE ALMENDAREZ Aug 16, 2017 13:58
--- NOTE | 2017-08-16 14:06 | Infectious Diseases Prog Note ---
Assessment/Plan Assessment/Plan ASSESSMENT AND PLAN: 1. e.coli uti, ? cap, ? aspiration pna, ? atx, ?edema - rocephin and flagyl - day # 7 abx - no sputum cultures results, was ordered - check labs and chest x-ray - respiratory improved, chest x-ray better - d/w mother 2. drug abuse and drug overdose, encephalopathy - per neurology 3. hepatitis C serology + - w/u as outpatient including viral load etc... 4. Acute kidney injury with elevated creatinine, which is improved. 5. Dehydration. 6. Intravenous fluids. 7. 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 8. No known drug allergies. 9. Social history positive for intravenous drug abuse and smoking. 10. Family history noncontributory. 11. MAR was noted. 12. Continue treatment per primary, Dr. Doran and consultants 13. Case discussed with RN. 14. Case discussed with the patient's mother. Subjective Constitutional: Denies: fever HEENT: Denies: congestion Respiratory: Denies: shortness of breath - less Cardiovascular: Denies: chest pain Gastrointestinal/Abdominal: Denies: nausea, vomiting, diarrhea Genitourinary: Reports: other - + jameson Neurologic: Denies: headache Psychiatric: Reports: other - NA Skin: Denies: rash Hematologic: Denies: bleeding Musculoskeletal: Denies: pain Allergies: Coded Allergies: No Known Allergies (Unverified , 08/12/17) PER MOM, NO KNOWN ALLERGIES Objective Vital Signs Last 24 Hour Vital Signs Date Time Temp Pulse Resp B/P (MAP) Pulse Ox O2 Delivery O2 Flow Rate FiO2 08/16/17 12:00 102 08/16/17 08:00 109 08/16/17 08:00 98.4 100 20 134/100 97 Room Air 08/16/17 04:00 98.2 101 22 133/79 97 08/16/17 04:00 Room Air 08/16/17 04:00 104 08/16/17 00:00 Room Air 08/16/17 00:00 90 08/16/17 00:00 98.1 103 22 137/81 97 08/15/17 20:00 Room Air 08/15/17 20:00 98.2 88 22 141/90 97 08/15/17 20:00 86 08/15/17 16:00 87 08/15/17 16:00 98.9 84 19 128/60 92 Room Air Height (Feet): 5 Height (Inches): 6.00 Weight (Pounds): 158 General Appearance: no acute distress HEENT: normocephalic, atraumatic, anicteric, mucous membranes moist, EOMI, pharynx normal, supple, no JVD Respiratory/Chest: crackles/rales, rhonchi - bilaterally Cardiovascular: normal rate, regular rhythm, no gallop/murmur, no JVD Abdomen: normal bowel sounds, soft, non tender, no organomegaly, non distended Genitourinary: other - + jameson - urine slt cloudy Extremities: no cyanosis Skin: no rash 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 Complete 08/10/17 15:45 Urine,Clean Catch Urine Culture - Final NO GROWTH AFTER 48 HOURS Complete 08/10/17 01:50 Rectum VRE Culture - Final NO VANCOMYCIN RESISTANT ENTEROCOCCUS ... Complete Labs Test 08/14/17 09:00 08/15/17 04:30 08/16/17 10:50 White Blood Count 7.7 K/UL (4.8-10.8) 6.8 K/UL (4.8-10.8) Red Blood Count 3.79 M/UL (4.20-5.40) 3.97 M/UL (4.20-5.40) Hemoglobin 11.8 G/DL (12.0-16.0) 12.4 G/DL (12.0-16.0) Hematocrit 35.1 % (37.0-47.0) 36.4 % (37.0-47.0) Mean Corpuscular Volume 93 FL (80-99) 92 FL (80-99) Mean Corpuscular Hemoglobin 31.1 PG (27.0-31.0) 31.2 PG (27.0-31.0) Mean Corpuscular Hemoglobin Concent 33.6 G/DL (32.0-36.0) 34.0 G/DL (32.0-36.0) Red Cell Distribution Width 13.4 % (11.6-14.8) 13.3 % (11.6-14.8) Platelet Count 149 K/UL (150-450) 151 K/UL (150-450) Mean Platelet Volume 7.8 FL (6.5-10.1) 7.7 FL (6.5-10.1) Neutrophils (%) (Auto) 73.0 % (45.0-75.0) 68.2 % (45.0-75.0) Lymphocytes (%) (Auto) 16.5 % (20.0-45.0) 20.1 % (20.0-45.0) Monocytes (%) (Auto) 9.4 % (1.0-10.0) 10.3 % (1.0-10.0) Eosinophils (%) (Auto) 0.4 % (0.0-3.0) 0.4 % (0.0-3.0) Basophils (%) (Auto) 0.7 % (0.0-2.0) 0.9 % (0.0-2.0) Sodium Level 138 MMOL/L (136-145) 140 MMOL/L (136-145) 137 MMOL/L (136-145) Potassium Level 3.4 MMOL/L (3.5-5.1) 3.5 MMOL/L (3.5-5.1) 3.6 MMOL/L (3.5-5.1) Chloride Level 106 MMOL/L (98-107) 107 MMOL/L (98-107) 105 MMOL/L (98-107) Carbon Dioxide Level 19 MMOL/L (21-32) 20 MMOL/L (21-32) 22 MMOL/L (21-32) Anion Gap 13 mmol/L (5-15) 13 mmol/L (5-15) 10 mmol/L (5-15) Blood Urea Nitrogen 7 mg/dL (7-18) 5 mg/dL (7-18) 5 mg/dL (7-18) Creatinine 0.7 MG/DL (0.55-1.30) 0.7 MG/DL (0.55-1.30) 0.7 MG/DL (0.55-1.30) Estimat Glomerular Filtration Rate > 60 mL/min (>60) > 60 mL/min (>60) > 60 mL/min (>60) Glucose Level 84 MG/DL (74-106) 83 MG/DL (74-106) 117 MG/DL (74-106) Calcium Level 7.0 MG/DL (8.5-10.1) 7.1 MG/DL (8.5-10.1) 7.3 MG/DL (8.5-10.1) Total Bilirubin 0.7 MG/DL (0.2-1.0) 0.4 MG/DL (0.2-1.0) Aspartate Amino Transf (AST/SGOT) 43 U/L (15-37) 32 U/L (15-37) Alanine Aminotransferase (ALT/SGPT) 43 U/L (12-78) 35 U/L (12-78) Alkaline Phosphatase 66 U/L (46-116) 64 U/L (46-116) Total Protein 5.8 G/DL (6.4-8.2) 6.1 G/DL (6.4-8.2) Albumin 2.9 G/DL (3.4-5.0) 2.9 G/DL (3.4-5.0) Globulin 2.9 g/dL 3.2 g/dL Albumin/Globulin Ratio 1.0 (1.0-2.7) 0.9 (1.0-2.7) Magnesium Level 1.6 MG/DL (1.8-2.4) Total Creatine Kinase 226 U/L (26-308) Laboratory Tests Test 08/16/17 10:50 Sodium Level 137 MMOL/L (136-145) Potassium Level 3.6 MMOL/L (3.5-5.1) Chloride Level 105 MMOL/L (98-107) Carbon Dioxide Level 22 MMOL/L (21-32) Anion Gap 10 mmol/L (5-15) Blood Urea Nitrogen 5 mg/dL (7-18) L Creatinine 0.7 MG/DL (0.55-1.30) Estimat Glomerular Filtration Rate > 60 mL/min (>60) Glucose Level 117 MG/DL (74-106) H Calcium Level 7.3 MG/DL (8.5-10.1) L Magnesium Level 1.6 MG/DL (1.8-2.4) L Total Bilirubin 0.4 MG/DL (0.2-1.0) Aspartate Amino Transf (AST/SGOT) 32 U/L (15-37) Alanine Aminotransferase (ALT/SGPT) 35 U/L (12-78) Alkaline Phosphatase 64 U/L (46-116) Total Creatine Kinase 226 U/L (26-308) Total Protein 6.1 G/DL (6.4-8.2) L Albumin 2.9 G/DL (3.4-5.0) L Globulin 3.2 g/dL Albumin/Globulin Ratio 0.9 (1.0-2.7) L Current Medications Medications (Trade) Dose Ordered Sig/Hema Route PRN Reason Start Time Stop Time Status Last Admin Dose Admin Acetaminophen (Tylenol) 650 mg Q4H PRN RECTAL Mild Pain/Temp > 100.5 08/12/17 19:30 09/11/17 19:29 08/15/17 23:30 Ceftriaxone Sodium 1 gm/ Dextrose 50 ml @ 100 mls/hr Q24H IVPB 08/13/17 09:00 08/20/17 08:59 08/16/17 09:20 Chlorhexidine Gluconate (Valerie-Hex 2%) 1 applic DAILY@2000 TOPIC 08/12/17 20:00 09/10/17 19:59 08/15/17 20:54 Diphenhydramine HCl (Benadryl) 50 mg Q6H PRN IVP Agitation 08/15/17 12:15 09/14/17 12:14 Heparin Sodium (Porcine) (Heparin 5000 units/ml) 5,000 units EVERY 12 HOURS SUBQ 08/12/17 21:00 09/09/17 20:59 08/16/17 09:21 Levetiracetam 100 ml @ 400 mls/hr DAILY IVPB 08/14/17 09:00 09/11/17 08:59 08/16/17 11:42 Lorazepam (Ativan 2mg/ml 1ml) 2 mg Q4HR IM 08/16/17 13:00 08/23/17 12:59 08/16/17 13:29 Metronidazole 100 ml @ 100 mls/hr Q8HR IVPB 08/12/17 22:00 08/17/17 21:59 08/16/17 05:21 Multivitamins 10 ml/Potassium Chloride 30 meq/ Sodium Chloride 1,025 ml @ 100 mls/hr Q24H IV 08/14/17 16:00 09/13/17 15:59 08/15/17 15:44 Nicotine (Nicoderm) 1 patch Q24H TDERMAL 08/13/17 16:00 09/12/17 15:59 08/15/17 15:38 Pantoprazole (Protonix) 40 mg DAILY IVP 08/13/17 09:00 09/11/17 09:59 08/16/17 09:20 Potassium Chloride 30 meq/ Sodium Chloride 1,015 ml @ 100 mls/hr Q10H9M IV 08/13/17 16:00 09/12/17 15:59 08/16/17 02:49 Thiamine HCl 100 mg/Dextrose 56 ml @ 112 mls/hr Q24H IVPB 08/12/17 20:00 09/09/17 19:59 08/15/17 20:54 MARIA A SMITH Aug 16, 2017 14:05
[2017-08-16 16:00] VITALS: BP 138/86
[2017-08-16] MEDS: POTASSIUM CHLORIDE IV SCH (16:41)
[2017-08-16] MEDS: 1/2 NS IV SCH (16:41)
[2017-08-16] MEDS: MULTIVITAMIN IV SCH (16:41)
--- NOTE | 2017-08-16 18:10 | Cardiology Progress Note ---
Assessment/Plan Assessment/Plan will discontinue telemetry tomorrow Subjective Subjective she is more alert Objective Last 24 Hour Vital Signs Date Time Temp Pulse Resp B/P (MAP) Pulse Ox O2 Delivery O2 Flow Rate FiO2 08/16/17 16:00 97.9 98 19 138/86 98 Room Air 08/16/17 12:00 102 08/16/17 12:00 99.9 100 20 140/80 99 Room Air 08/16/17 08:00 109 08/16/17 08:00 98.4 100 20 134/100 97 Room Air 08/16/17 04:00 98.2 101 22 133/79 97 08/16/17 04:00 Room Air 08/16/17 04:00 104 08/16/17 00:00 Room Air 08/16/17 00:00 90 08/16/17 00:00 98.1 103 22 137/81 97 08/15/17 20:00 Room Air 08/15/17 20:00 98.2 88 22 141/90 97 08/15/17 20:00 86 General Appearance: lethargic EENT: PERRL/EOMI Neck: supple Rhythm: SB Cardiovascular: regular rhythm Respiratory/Chest: crackles/rales - at bases Abdomen: non tender Extremities: no swelling Neurologic: no pronator Intake and Output 08/15/17 08/16/17 19:00 07:00 Intake Total 1027 ml 1142 ml Output Total 1700 ml 1600 ml Balance -673 ml -458 ml Intake IV Total 1027 ml 1142 ml Output Urine Total 1700 ml 1600 ml Laboratory Tests Test 08/16/17 10:50 Sodium Level 137 MMOL/L (136-145) Potassium Level 3.6 MMOL/L (3.5-5.1) Chloride Level 105 MMOL/L (98-107) Carbon Dioxide Level 22 MMOL/L (21-32) Anion Gap 10 mmol/L (5-15) Blood Urea Nitrogen 5 mg/dL (7-18) L Creatinine 0.7 MG/DL (0.55-1.30) Estimat Glomerular Filtration Rate > 60 mL/min (>60) Glucose Level 117 MG/DL (74-106) H Calcium Level 7.3 MG/DL (8.5-10.1) L Magnesium Level 1.6 MG/DL (1.8-2.4) L Total Bilirubin 0.4 MG/DL (0.2-1.0) Aspartate Amino Transf (AST/SGOT) 32 U/L (15-37) Alanine Aminotransferase (ALT/SGPT) 35 U/L (12-78) Alkaline Phosphatase 64 U/L (46-116) Total Creatine Kinase 226 U/L (26-308) Total Protein 6.1 G/DL (6.4-8.2) L Albumin 2.9 G/DL (3.4-5.0) L Globulin 3.2 g/dL Albumin/Globulin Ratio 0.9 (1.0-2.7) L Microbiology Date/Time Source Procedure Growth Status 08/14/17 21:00 Sputum Induced Gram Stain - Final Resulted 08/14/17 21:00 Sputum Induced Sputum Culture Pending Resulted MICHAEL PADILLA Aug 16, 2017 18:10
[2017-08-16] MEDS: Acetaminophen 650 MG SUPP RECTAL PRN (18:25)
--- NOTE | 2017-08-16 18:45 | Consultation ---
DATE OF CONSULTATION: 08/16/2017 GASTROENTEROLOGY CONSULTATION CONSULTING PHYSICIAN: Nir Enrique M.D. ATTENDING/REFERRING PHYSICIAN: Albert Doran M.D. CHIEF COMPLAINT: Failure to thrive. HISTORY OF PRESENT ILLNESS: Most of the history per family at bedside and per chart. This is a 22-year-old female with past medical history of polysubstance abuse, at this time very sedated, unable to get any history from her. I was mainly consulted for possible G-tube placement for feeding. PAST MEDICAL HISTORY: 1. Polysubstance abuse. 2. Aortic valve bioprosthetic valve replacement. 3. History of subacute bacterial aortic valve infection. ALLERGIES: No known drug allergies. MEDICATIONS: Please see medication reconciliation list. SOCIAL HISTORY: The patient has history of multiple drug abuse. FAMILY HISTORY: Noncontributory. REVIEW OF SYSTEMS: Unable to obtain. PHYSICAL EXAMINATION: VITAL SIGNS: Temperature 98.2, pulse 101, respirations 22, blood pressure 132/79. HEENT: Normocephalic, atraumatic. Sclerae anicteric. NECK: Supple. No sign of obvious lymphadenopathy. CARDIOVASCULAR: Regular rhythm. Plus S1, S2. No obvious murmur. LUNGS: Decreased breath sounds bilaterally based on supine exam. ABDOMEN: Soft, nontender. No rebound. No guarding. EXTREMITIES: No cyanosis. No clubbing. No edema. LABORATORY DATA: Hepatitis C positive. White count 6.8, hemoglobin 12.4, hematocrit 36, platelet of 151,000. ASSESSMENT AND PLAN: This is a 22-year-old female with polysubstance abuse, altered mental status. At this time, the patient apparently able to swallow but so sedated right now, cannot eat enough. I had a long discussion with the mother at the bedside. She does not want a gastrostomy tube at this time. We discussed the possibility of putting in NG tube to try feeding and give medications via NG tube and be evaluated in few days and she agreed to it, so we are going to do that for now. The patient also needs to follow up as outpatient for hepatitis C treatment. I want to thank Dr. Doran for this kind referral. Nir Redd Enrique DR: Hua JOB#: [id number] CC: Albert Doran M.D.; Fax#: [phone]
[2017-08-16] MEDS: Dyna-Hex 2% Top Sol 2oz TOPIC SCH (19:55)
[2017-08-16] MEDS: Thiamine HCl 100 MG in D5W 55 ML IVPB SCH (19:55)
[2017-08-16 20:42] VITALS: BP 128/72
[2017-08-17] VITALS (8 sets, daily range): BP systolic 93–156; BP diastolic 53–93
[2017-08-17] MEDS: LORazepam Inj 2mg/ml 1ml IM SCH ×6 (02:18→22:18)
[2017-08-17] MEDS: Potassium Chloride 30 MEQ in 1/2 NS 1000ml 1,000 ML IV SCH ×2 (04:26→12:41)
[2017-08-17 06:53] LABS: BASOPHILS % (AUTO) 1.1 % (0.0-2.0); EOSINOPHILS % (AUTO) 0.7 % (0.0-3.0); LYMPHOCYTES % (AUTO) 23.9 % (20.0-45.0); MEAN CORPUSCULAR VOLUME 92 FL (80-99); MONOCYTES % (AUTO) 10.3 % (1.0-10.0); NEUTROPHILS % (AUTO) 64.1 % (45.0-75.0); PLATELET COUNT 243 K/UL (150-450); RED BLOOD COUNT 4.15 M/UL (4.20-5.40); RED CELL DISTRIBUTION WIDTH 13.5 % (11.6-14.8); WHITE BLOOD COUNT 7.9 K/UL (4.8-10.8)
[2017-08-17 06:57] LABS: ANION GAP 11 mmol/L (5-15); BLOOD UREA NITROGEN 5 mg/dL (7-18); CALCIUM 7.5 MG/DL (8.5-10.1); CARBON DIOXIDE 21 MMOL/L (21-32); CHLORIDE 104 MMOL/L (98-107); CREATININE 0.7 MG/DL (0.55-1.30); POTASSIUM 3.5 MMOL/L (3.5-5.1); SODIUM 136 MMOL/L (136-145)
[2017-08-17] MEDS: levETIRAcetam 1,000mg/NS100ml 100 ML IVPB SCH (08:48)
[2017-08-17] MEDS: Pantoprazole Inj IVP SCH (08:48)
[2017-08-17] MEDS: cefTRIAXone 1 GM in D5W 50 ML IVPB SCH (08:48)
[2017-08-17] MEDS: Acetaminophen 650 MG SUPP RECTAL PRN (08:48)
[2017-08-17] MEDS: Heparin 5000 units/ml inj SUBQ SCH ×2 (09:07→22:20)
--- NOTE | 2017-08-17 09:15 | Pulmonology Progress Note ---
Assessment/Plan Assessment/Plan PROBLEM LIST: -Drug OD -H/O IVDU -Respiratory acidosis -MATTHEW -H/O infective endocarditis S/P MVR PLAN: -Continue supplemental o2 -Off BiPAP and monitor -monitor for aspiration and repeat Xray -Monitor volumes and renal function -DVT prophylaxis -followup ABG and BNP with cxr findings impression, plan, and exam edited and reviewed in detail care discussed with RN Subjective ROS Limited/Unobtainable: Yes Allergies: Coded Allergies: No Known Allergies (Unverified , 08/12/17) PER MOM, NO KNOWN ALLERGIES Subjective care reviewed and discussed with mother no congestion but would like repeat cxr Objective Last 24 Hour Vital Signs Date Time Temp Pulse Resp B/P (MAP) Pulse Ox O2 Delivery O2 Flow Rate FiO2 08/17/17 09:12 114/85 08/17/17 08:00 100.5 88 19 93/53 100 Room Air 08/17/17 04:50 99.3 80 19 156/75 99 Room Air 08/17/17 04:00 Room Air 08/17/17 04:00 104 08/17/17 00:00 Room Air 08/17/17 00:00 111 08/17/17 00:00 99.5 91 19 121/69 99 Room Air 08/16/17 20:49 Nasal Cannula 2.0 28 08/16/17 20:48 98 Nasal Cannula 2.0 28 08/16/17 20:42 100.3 104 19 128/72 98 Room Air 08/16/17 20:00 105 08/16/17 20:00 Room Air 08/16/17 16:00 97.9 98 19 138/86 98 Room Air 08/16/17 16:00 102 08/16/17 12:00 102 08/16/17 12:00 99.9 100 20 140/80 99 Room Air Intake and Output 08/16/17 08/17/17 19:00 07:00 Intake Total 1020 ml 1428 ml Output Total 400 ml 1400 ml Balance 620 ml 28 ml Intake Free Water 100 ml IV Total 1020 ml 1163 ml Tube Feeding 165 ml Output Urine Total 400 ml 1400 ml # Voids 1 # Bowel Movements 3 1 Objective WDWN NAD clear breath sounds bilaterally without rhonchi or wheeze [id number] without MRG NABS nontender no HSM no CCE nonfocal NGT in place reduced ROM Microbiology Date/Time Source Procedure Growth Status 08/14/17 21:00 Sputum Induced Gram Stain - Final Resulted 08/14/17 21:00 Sputum Induced Sputum Culture Pending Resulted Laboratory Tests 08/16/17 10:50: Sodium Level 137, Potassium Level 3.6, Chloride Level 105, Carbon Dioxide Level 22, Anion Gap 10, Blood Urea Nitrogen 5L, Creatinine 0.7, Estimat Glomerular Filtration Rate > 60, Glucose Level 117H, Calcium Level 7.3L, Magnesium Level 1.6L, Total Bilirubin 0.4, Aspartate Amino Transf (AST/SGOT) 32, Alanine Aminotransferase (ALT/SGPT) 35, Alkaline Phosphatase 64, Total Creatine Kinase 226, Total Protein 6.1L, Albumin 2.9L, Globulin 3.2, Albumin/Globulin Ratio 0.9L 08/17/17 06:10: Sodium Level 136, Potassium Level 3.5, Chloride Level 104, Carbon Dioxide Level 21, Anion Gap 11, Blood Urea Nitrogen 5L, Creatinine 0.7, Estimat Glomerular Filtration Rate > 60, Glucose Level 122H, Calcium Level 7.5L, White Blood Count 7.9, Red Blood Count 4.15L, Hemoglobin 13.0, Hematocrit 38.0, Mean Corpuscular Volume 92, Mean Corpuscular Hemoglobin 31.4H, Mean Corpuscular Hemoglobin Concent 34.2, Red Cell Distribution Width 13.5, Platelet Count 243, Mean Platelet Volume 7.1, Neutrophils (%) (Auto) 64.1, Lymphocytes (%) (Auto) 23.9, Monocytes (%) (Auto) 10.3H, Eosinophils (%) (Auto) 0.7, Basophils (%) (Auto) 1.1 Current Medications Medications (Trade) Dose Ordered Sig/Hema Route PRN Reason Start Time Stop Time Status Last Admin Dose Admin Acetaminophen (Tylenol) 650 mg Q4H PRN RECTAL Mild Pain/Temp > 100.5 08/12/17 19:30 09/11/17 19:29 08/17/17 08:48 Ceftriaxone Sodium 1 gm/ Dextrose 50 ml @ 100 mls/hr Q24H IVPB 08/17/17 09:00 08/20/17 08:59 08/17/17 08:48 Chlorhexidine Gluconate (Vlaerie-Hex 2%) 1 applic DAILY@1999 TOPIC 08/12/17 20:00 09/10/17 19:59 08/16/17 19:55 Diphenhydramine HCl (Benadryl) 50 mg Q6H PRN IVP Agitation 08/15/17 12:15 09/14/17 12:14 Heparin Sodium (Porcine) (Heparin 5000 units/ml) 5,000 units EVERY 12 HOURS SUBQ 08/12/17 21:00 09/09/17 20:59 08/17/17 09:07 Levetiracetam 100 ml @ 400 mls/hr DAILY IVPB 08/14/17 09:00 09/11/17 08:59 08/17/17 08:48 Lorazepam (Ativan 2mg/ml 1ml) 2 mg Q4HR IM 08/16/17 13:00 08/23/17 12:59 08/17/17 05:46 Metronidazole 100 ml @ 100 mls/hr Q8HR IVPB 08/16/17 22:00 08/20/17 21:59 08/17/17 05:46 Multivitamins 10 ml/Potassium Chloride 30 meq/ Sodium Chloride 1,025 ml @ 100 mls/hr Q24H IV 08/14/17 16:00 09/13/17 15:59 08/16/17 16:41 Nicotine (Nicoderm) 1 patch Q24H TDERMAL 08/13/17 16:00 09/12/17 15:59 08/16/17 16:42 Pantoprazole (Protonix) 40 mg DAILY IVP 08/13/17 09:00 09/11/17 09:59 08/17/17 08:48 Potassium Chloride 30 meq/ Sodium Chloride 1,015 ml @ 100 mls/hr Q10H9M IV 08/13/17 16:00 09/12/17 15:59 08/17/17 04:26 Thiamine HCl 100 mg/Dextrose 56 ml @ 112 mls/hr Q24H IVPB 08/12/17 20:00 09/09/17 19:59 08/16/17 19:55 GAYLE ALMENDAREZ Aug 17, 2017 09:15
--- NOTE | 2017-08-17 09:54 | Diagnostic Imaging Report ---
Indication: Reason For Exam: NGT. Technique: One view abdomen Findings: A nasogastric tube is in the stomach. There are overlying artifacts. Bowel gas pattern is nonobstructive. The bones are unremarkable. Impression: NG tube in the stomach. Otherwise negative. The above report is concordant with preliminary reading by [facility] . .
--- NOTE | 2017-08-17 09:55 | Neurology Progress Note ---
Interim History Interim History ROS Limited/Unobtainable: Yes Complaints: very drowsy intermittent arm spasms Events: now on Ativan off haldol no change Objective Physical Exam Last Vital Signs Date Time Temp Pulse Resp B/P (MAP) Pulse Ox O2 Delivery O2 Flow Rate FiO2 08/17/17 09:12 114/85 08/17/17 08:00 100.5 88 19 100 Room Air 08/16/17 20:49 2.0 28 Laboratory Tests Test 08/16/17 10:50 08/17/17 06:10 Sodium Level 137 MMOL/L (136-145) 136 MMOL/L (136-145) Potassium Level 3.6 MMOL/L (3.5-5.1) 3.5 MMOL/L (3.5-5.1) Chloride Level 105 MMOL/L (98-107) 104 MMOL/L (98-107) Carbon Dioxide Level 22 MMOL/L (21-32) 21 MMOL/L (21-32) Anion Gap 10 mmol/L (5-15) 11 mmol/L (5-15) Blood Urea Nitrogen 5 mg/dL (7-18) L 5 mg/dL (7-18) L Creatinine 0.7 MG/DL (0.55-1.30) 0.7 MG/DL (0.55-1.30) Estimat Glomerular Filtration Rate > 60 mL/min (>60) > 60 mL/min (>60) Glucose Level 117 MG/DL (74-106) H 122 MG/DL (74-106) H Calcium Level 7.3 MG/DL (8.5-10.1) L 7.5 MG/DL (8.5-10.1) L Magnesium Level 1.6 MG/DL (1.8-2.4) L Total Bilirubin 0.4 MG/DL (0.2-1.0) Aspartate Amino Transf (AST/SGOT) 32 U/L (15-37) Alanine Aminotransferase (ALT/SGPT) 35 U/L (12-78) Alkaline Phosphatase 64 U/L (46-116) Total Creatine Kinase 226 U/L (26-308) Total Protein 6.1 G/DL (6.4-8.2) L Albumin 2.9 G/DL (3.4-5.0) L Globulin 3.2 g/dL Albumin/Globulin Ratio 0.9 (1.0-2.7) L White Blood Count 7.9 K/UL (4.8-10.8) Red Blood Count 4.15 M/UL (4.20-5.40) L Hemoglobin 13.0 G/DL (12.0-16.0) Hematocrit 38.0 % (37.0-47.0) Mean Corpuscular Volume 92 FL (80-99) Mean Corpuscular Hemoglobin 31.4 PG (27.0-31.0) H Mean Corpuscular Hemoglobin Concent 34.2 G/DL (32.0-36.0) Red Cell Distribution Width 13.5 % (11.6-14.8) Platelet Count 243 K/UL (150-450) Mean Platelet Volume 7.1 FL (6.5-10.1) Neutrophils (%) (Auto) 64.1 % (45.0-75.0) Lymphocytes (%) (Auto) 23.9 % (20.0-45.0) Monocytes (%) (Auto) 10.3 % (1.0-10.0) H Eosinophils (%) (Auto) 0.7 % (0.0-3.0) Basophils (%) (Auto) 1.1 % (0.0-2.0) Pro-B-Type Natriuretic Peptide 3005 pg/mL (0-125) H General: well developed, well nourished, no acute distress, other - ,very restless moving all limbs,spastic, eyes closed,slurred speech Head: normocophalic, atraumatic Neck: other - rigid Neurologic Exam Mental Status: other - , keep eyes closed,mumblingat times follows simple command,very restless Speech: other - yes/no slurred but spoke with friends Language: no aphasia Cranial Nerve II: fundus normal, no papilledema Cranial Nerves III, IV, : PERRLA, EOMI, pupils, other - p5mm rla no eyetracking ? blind Cranial Nerve V: masseters function normal Cranial Nerve VII: normal facial expressions Cranial Nerve VIII: no nystagmus Cranial Nerve IX: normal palate elevation Cranial Nerve X: other Cranial Nerve XI: trapezii function normal Cranial Nerve XII: no tongue atrophy/fasciculations Motor System: other - often tonic movements armsR>L,generalised rigiditypower 5 /5 Sensory: other Coordination: other Deep Tendon Reflexes: 3+ bicep (L), 3+ bicep (R), 3+ tricep (L), 3+ tricep (R) , 3+ brachioradialis (L), 3+ brachioradialis (R), 3+ knee (L), 3+ knee (R), 3+ ankle (L), 3+ ankle (R) Reflexes: mute plantar (L), mute plantar (R) Impression/Recommendations Problems: (1) severe encephalopathy, anoxic/drug toxicity/benzo withdrawal (2) iv substance abuse, relapse (3) symptomatic seizure event (4) nicotine/drug withdrawal. Status: doing well, unchanged Recommendations #[id number] EEG noted drug screen---pending keppra 500 mg bid d/w staff and MOM psych eval noted swallow study done-ng tube [id number] prn venous duplex ble will call 2nd opinion, mom asked to transfer to [facility] Aug 17, 2017 09:55
--- NOTE | 2017-08-17 11:45 | General Progress Note ---
Assessment/Plan Problem List: (1) FTT (failure to thrive) in adult ICD Codes: R62.7 - Adult failure to thrive SNOMED: 070930327 (2) severe encephalopathy, anoxic/drug toxicity/benzo withdrawal (3) Overdose ICD Codes: T50.901A - Poisoning by unspecified drugs, medicaments and biological substances, accidental (unintentional), initial encounter SNOMED: 77041219 Assessment/Plan NGTF tolerated but she pulled out reinsert NGT cont to fu for PEG if no improvement in MS Subjective ROS Limited/Unobtainable: No Allergies: Coded Allergies: No Known Allergies (Unverified , 08/12/17) PER MOM, NO KNOWN ALLERGIES Objective Last 24 Hour Vital Signs Date Time Temp Pulse Resp B/P (MAP) Pulse Ox O2 Delivery O2 Flow Rate FiO2 08/17/17 10:02 Nasal Cannula 2.0 28 08/17/17 10:02 98 Nasal Cannula 2.0 28 08/17/17 09:12 114/85 08/17/17 08:00 100.5 88 19 93/53 100 Room Air 08/17/17 04:50 99.3 80 19 156/75 99 Room Air 08/17/17 04:00 Room Air 08/17/17 04:00 104 08/17/17 00:00 Room Air 08/17/17 00:00 111 08/17/17 00:00 99.5 91 19 121/69 99 Room Air 08/16/17 20:49 Nasal Cannula 2.0 28 08/16/17 20:48 98 Nasal Cannula 2.0 28 08/16/17 20:42 100.3 104 19 128/72 98 Room Air 08/16/17 20:00 105 08/16/17 20:00 Room Air 08/16/17 16:00 97.9 98 19 138/86 98 Room Air 08/16/17 16:00 102 08/16/17 12:00 102 08/16/17 12:00 99.9 100 20 140/80 99 Room Air Intake and Output 08/16/17 08/17/17 19:00 07:00 Intake Total 1020 ml 1428 ml Output Total 400 ml 1400 ml Balance 620 ml 28 ml Intake Free Water 100 ml IV Total 1020 ml 1163 ml Tube Feeding 165 ml Output Urine Total 400 ml 1400 ml # Voids 1 # Bowel Movements 3 1 Laboratory Tests 12/25/17 06:10: White Blood Count 7.9, Red Blood Count 4.15L, Hemoglobin 13.0, Hematocrit 38.0, Mean Corpuscular Volume 92, Mean Corpuscular Hemoglobin 31.4H, Mean Corpuscular Hemoglobin Concent 34.2, Red Cell Distribution Width 13.5, Platelet Count 243, Mean Platelet Volume 7.1, Neutrophils (%) (Auto) 64.1, Lymphocytes (%) (Auto) 23.9, Monocytes (%) (Auto) 10.3H, Eosinophils (%) (Auto) 0.7, Basophils (%) ( Auto) 1.1, Sodium Level 136, Potassium Level 3.5, Chloride Level 104, Carbon Dioxide Level 21, Anion Gap 11, Blood Urea Nitrogen 5L, Creatinine 0.7, Estimat Glomerular Filtration Rate > 60, Glucose Level 122H, Calcium Level 7.5L, Pro-B- Type Natriuretic Peptide 3005H Height (Feet): 5 Height (Inches): 6.00 Weight (Pounds): 160 General Appearance: lethargic EENT: normal ENT inspection Neck: supple Cardiovascular: normal rate Respiratory/Chest: decreased breath sounds Abdomen: normal bowel sounds, non tender, soft Extremities: non-tender EUSEBIO ESCAMILLA Aug 17, 2017 11:45
--- NOTE | 2017-08-17 12:39 | General Progress Note ---
Assessment/Plan Assessment/Plan Recurrent Brain Anoxia due to Cardio Respiratory arrest. Waking up. Prognosis seems better. 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 Awaiting Medical records from [place]. Further waking up. To tele. EEG diffuse slow. Bedside swallow pending. She'll need long-term SNF after PEG. Urine Tox Screen Results Still pending? MAYANK Alvarez. May need PEG to afford more sedation and better nutrition/IVF. DW Mother. Lateral transfer to [facility] not an option! Subjective Allergies: Coded Allergies: No Known Allergies (Unverified , 08/12/17) PER MOM, NO KNOWN ALLERGIES Subjective In HIRAM. Waking up further. Per mother was verbal earlier.. Sedated (Ativan). Mother frustrated due to not enough senior care help. Objective Last 24 Hour Vital Signs Date Time Temp Pulse Resp B/P (MAP) Pulse Ox O2 Delivery O2 Flow Rate FiO2 08/17/17 10:02 Nasal Cannula 2.0 28 08/17/17 10:02 98 Nasal Cannula 2.0 28 08/17/17 09:12 114/85 08/17/17 08:00 100.5 88 19 93/53 100 Room Air 08/17/17 08:00 85 08/17/17 04:50 99.3 80 19 156/75 99 Room Air 08/17/17 04:00 Room Air 08/17/17 04:00 104 08/17/17 00:00 Room Air 08/17/17 00:00 111 08/17/17 00:00 99.5 91 19 121/69 99 Room Air 08/16/17 20:49 Nasal Cannula 2.0 28 08/16/17 20:48 98 Nasal Cannula 2.0 28 08/16/17 20:42 100.3 104 19 128/72 98 Room Air 08/16/17 20:00 105 08/16/17 20:00 Room Air 08/16/17 16:00 97.9 98 19 138/86 98 Room Air 08/16/17 16:00 102 Intake and Output 08/16/17 08/17/17 19:00 07:00 Intake Total 1020 ml 1428 ml Output Total 400 ml 1400 ml Balance 620 ml 28 ml Intake Free Water 100 ml IV Total 1020 ml 1163 ml Tube Feeding 165 ml Output Urine Total 400 ml 1400 ml # Voids 1 # Bowel Movements 3 1 Laboratory Tests 08/17/17 06:10: White Blood Count 7.9, Red Blood Count 4.15L, Hemoglobin 13.0, Hematocrit 38.0, Mean Corpuscular Volume 92, Mean Corpuscular Hemoglobin 31.4H, Mean Corpuscular Hemoglobin Concent 34.2, Red Cell Distribution Width 13.5, Platelet Count 243, Mean Platelet Volume 7.1, Neutrophils (%) (Auto) 64.1, Lymphocytes (%) (Auto) 23.9, Monocytes (%) (Auto) 10.3H, Eosinophils (%) (Auto) 0.7, Basophils (%) ( Auto) 1.1, Sodium Level 136, Potassium Level 3.5, Chloride Level 104, Carbon Dioxide Level 21, Anion Gap 11, Blood Urea Nitrogen 5L, Creatinine 0.7, Estimat Glomerular Filtration Rate > 60, Glucose Level 122H, Calcium Level 7.5L, Pro-B- Type Natriuretic Peptide 3005H 08/17/17 09:14: Arterial Blood pH 7.480H, Arterial Blood Partial Pressure CO2 30.6L, Arterial Blood Partial Pressure O2 89.8, Arterial Blood HCO3 22.7, Arterial Blood Oxygen Saturation 97.1, Arterial Blood Base Excess 0.2, Tye Test Positive Height (Feet): 5 Height (Inches): 6.00 Weight (Pounds): 160 Objective On 02 via NC Cv RR Lungs CTA Abd SNT. BS + E No CCe Neuro Delirious. Nonfocal. Michel Extensor B. pupils equal + responsive to light. BERTRAND CONDE Aug 17, 2017 12:39
[2017-08-17] MEDS: POTASSIUM CHLORIDE IV SCH (16:51)
[2017-08-17] MEDS: MULTIVITAMIN IV SCH (16:51)
[2017-08-17] MEDS: 1/2 NS IV SCH (16:51)
[2017-08-17] MEDS ORDERED: Sterile Water Irrig 1000ml IRRIG ONE (17:30)
[2017-08-17] MEDS: Thiamine HCl 100 MG in D5W 55 ML IVPB SCH (20:27)
[2017-08-17] MEDS: Dyna-Hex 2% Top Sol 2oz TOPIC SCH (20:27)
[2017-08-18] VITALS: BP 157/94
[2017-08-18] MEDS: Acetaminophen 650 MG SUPP RECTAL PRN (01:24)
[2017-08-18] MEDS: LORazepam Inj 2mg/ml 1ml IM SCH ×6 (02:51→20:30)
[2017-08-18 04:00] VITALS: BP 138/87
[2017-08-18] MEDS: Potassium Chloride 30 MEQ in 1/2 NS 1000ml 1,000 ML IV SCH ×3 (05:43→17:48)
[2017-08-18 08:00] VITALS: BP 115/80
--- NOTE | 2017-08-18 08:10 | Pulmonology Progress Note ---
Assessment/Plan Assessment/Plan PROBLEM LIST: -Drug OD -H/O IVDU -Respiratory acidosis -MATTHEW -H/O infective endocarditis S/P MVR PLAN: -Continue supplemental o2 -Off BiPAP and monitor -monitor for aspiration and repeat Xray -Monitor volumes and renal function -DVT prophylaxis -followup ABG and BNP with cxr findings-monitor closely -ID followup recommended impression, plan, and exam edited and reviewed in detail care discussed with RN Subjective ROS Limited/Unobtainable: Yes Allergies: Coded Allergies: No Known Allergies (Unverified , 08/12/17) PER MOM, NO KNOWN ALLERGIES Subjective care reviewed and discussed with mother low grade fever Objective Last 24 Hour Vital Signs Date Time Temp Pulse Resp B/P (MAP) Pulse Ox O2 Delivery O2 Flow Rate FiO2 08/18/17 04:00 90 08/18/17 04:00 Room Air 08/18/17 04:00 97.9 92 22 138/87 96 Room Air 08/18/17 02:15 98.6 08/18/17 02:14 98.4 08/18/17 00:00 Room Air 08/18/17 00:00 78 08/18/17 00:00 101.7 94 20 157/94 98 Room Air 08/17/17 20:26 99 Room Air 08/17/17 20:26 Room Air 08/17/17 20:00 Room Air 08/17/17 20:00 100.6 88 20 135/93 94 Room Air 08/17/17 20:00 96 08/17/17 16:00 99.3 80 19 120/80 100 Room Air 08/17/17 16:00 77 08/17/17 12:00 99.0 97 19 119/70 100 Room Air 08/17/17 12:00 77 08/17/17 10:02 Nasal Cannula 2.0 28 08/17/17 10:02 98 Nasal Cannula 2.0 28 08/17/17 09:12 114/85 08/17/17 09:00 99.0 98 19 94/61 100 Room Air Intake and Output 08/17/17 08/18/17 19:00 07:00 Intake Total 100 ml 1429 ml Output Total 450 ml 1000 ml Balance -350 ml 429 ml Intake Free Water 100 ml IV Total 100 ml 1044 ml Tube Feeding 285 ml Output Urine Total 450 ml 1000 ml # Bowel Movements 3 Objective WDWN NAD clear breath sounds bilaterally without rhonchi or wheeze [id number] without MRG NABS nontender no HSM no CCE nonfocal NGT in place reduced ROM Laboratory Tests 08/17/17 09:14: Arterial Blood pH 7.480H, Arterial Blood Partial Pressure CO2 30.6L, Arterial Blood Partial Pressure O2 89.8, Arterial Blood HCO3 22.7, Arterial Blood Oxygen Saturation 97.1, Arterial Blood Base Excess 0.2, Tye Test Positive Current Medications Medications (Trade) Dose Ordered Sig/Hema Route PRN Reason Start Time Stop Time Status Last Admin Dose Admin Acetaminophen (Tylenol) 650 mg Q4H PRN RECTAL Mild Pain/Temp > 100.5 08/12/17 19:30 09/11/17 19:29 08/18/17 01:24 Ceftriaxone Sodium 1 gm/ Dextrose 50 ml @ 100 mls/hr Q24H IVPB 08/17/17 09:00 08/20/17 08:59 08/17/17 08:48 Chlorhexidine Gluconate (Valerie-Hex 2%) 1 applic DAILY@2000 TOPIC 08/12/17 20:00 09/10/17 19:59 08/17/17 20:27 Heparin Sodium (Porcine) (Heparin 5000 units/ml) 5,000 units EVERY 12 HOURS SUBQ 08/12/17 21:00 09/09/17 20:59 08/17/17 22:20 Levetiracetam 100 ml @ 400 mls/hr DAILY IVPB 08/14/17 09:00 09/11/17 08:59 08/17/17 08:48 Lorazepam (Ativan 2mg/ml 1ml) 2 mg Q4HR IM 08/16/17 13:00 08/23/17 12:59 08/18/17 05:43 Metronidazole 100 ml @ 100 mls/hr Q8HR IVPB 08/16/17 22:00 08/20/17 21:59 08/18/17 05:43 Multivitamins 10 ml/Potassium Chloride 30 meq/ Sodium Chloride 1,025 ml @ 100 mls/hr Q24H IV 08/14/17 16:00 09/13/17 15:59 08/17/17 16:51 Nicotine (Nicoderm) 1 patch Q24H TDERMAL 08/13/17 16:00 09/12/17 15:59 08/17/17 16:51 Pantoprazole (Protonix) 40 mg DAILY IVP 08/13/17 09:00 09/11/17 09:59 08/17/17 08:48 Potassium Chloride 30 meq/ Sodium Chloride 1,015 ml @ 100 mls/hr Q10H9M IV 08/13/17 16:00 09/12/17 15:59 08/18/17 05:43 Thiamine HCl 100 mg/Dextrose 56 ml @ 112 mls/hr Q24H IVPB 08/12/17 20:00 09/09/17 19:59 08/17/17 20:27 GAYLE ALMENDAREZ Aug 18, 2017 08:10
[2017-08-18] MEDS: cefTRIAXone 1 GM in D5W 50 ML IVPB SCH (09:22)
[2017-08-18] MEDS: levETIRAcetam 1,000mg/NS100ml 100 ML IVPB SCH (09:22)
[2017-08-18] MEDS: Pantoprazole Inj IVP SCH (09:22)
[2017-08-18] MEDS: Heparin 5000 units/ml inj SUBQ SCH ×2 (09:25→20:32)
--- NOTE | 2017-08-18 11:42 | Diagnostic Imaging Report ---
Indication: NG tube Comparison: 08/16/2017 Single view of the abdomen obtained Findings: NG tube is in good position curled in the body of the stomach. Bowel gas pattern is nonspecific. IMPRESSION: NG tube in good position
[2017-08-18 12:00] VITALS: BP 120/90
--- NOTE | 2017-08-18 13:40 | GI Progress Note ---
Assessment/Plan Problems: (1) FTT (failure to thrive) in adult ICD Codes: R62.7 - Adult failure to thrive SNOMED: 005330237 (2) Overdose ICD Codes: T50.901A - Poisoning by unspecified drugs, medicaments and biological substances, accidental (unintentional), initial encounter SNOMED: 42141113 (3) severe encephalopathy, anoxic/drug toxicity/benzo withdrawal (4) iv substance abuse, relapse (5) symptomatic seizure event (6) severe anoxic encephalopathy Status: unchanged Status Narrative Discussed with Dr. Enrique. Assessment/Plan NGT was pulled out yesterday, replaced today awaiting placement confirmation PEG scheduled for tomorrow, mother has agreed. - NPO @ [place] - hold all blood thinners NGTFs per RD labs outpatient Hep C tx Subjective Subjective limited, non responsive Objective Last 24 Hour Vital Signs Date Time Temp Pulse Resp B/P (MAP) Pulse Ox O2 Delivery O2 Flow Rate FiO2 08/18/17 08:00 99.5 102 22 115/80 98 Room Air 08/18/17 04:00 90 08/18/17 04:00 Room Air 08/18/17 04:00 97.9 92 22 138/87 96 Room Air 08/18/17 02:15 98.6 08/18/17 02:14 98.4 08/18/17 00:00 Room Air 08/18/17 00:00 78 08/18/17 00:00 101.7 94 20 157/94 98 Room Air 08/17/17 20:26 99 Room Air 08/17/17 20:26 Room Air 08/17/17 20:00 Room Air 08/17/17 20:00 100.6 88 20 135/93 94 Room Air 08/17/17 20:00 96 08/17/17 16:00 99.3 80 19 120/80 100 Room Air 08/17/17 16:00 77 Intake and Output 08/17/17 08/18/17 19:00 07:00 Intake Total 100 ml 1429 ml Output Total 450 ml 1000 ml Balance -350 ml 429 ml Intake Free Water 100 ml IV Total 100 ml 1044 ml Tube Feeding 285 ml Output Urine Total 450 ml 1000 ml # Bowel Movements 3 Height (Feet): 5 Height (Inches): 6.00 Weight (Pounds): 148 General Appearance: no apparent distress, lethargic Cardiovascular: normal rate Respiratory/Chest: normal breath sounds, no respiratory distress Abdominal Exam: normal bowel sounds, non tender, soft Extremities: non-tender Kendra Templeton N.P. Aug 18, 2017 13:40
--- NOTE | 2017-08-18 14:57 | Diagnostic Imaging Report ---
Indication: Dyspnea Comparison: 08/17/17 about 10 minutes earlier A single view chest radiograph was obtained. Findings: The findings are stable. There is no change. NG tube is in good position. IMPRESSION: No change from the exam done 10 minutes earlier
--- NOTE | 2017-08-18 14:58 | Diagnostic Imaging Report ---
Indication: Dyspnea Comparison: 08/17/2017 A single view chest radiograph was obtained. Findings: NG tube is projected over the stomach. Heart size is stable. Mechanical heart valve, sternotomy, right PICC line are stable. Lungs remain clear IMPRESSION: No change from one day earlier
--- NOTE | 2017-08-18 15:11 | Infectious Diseases Prog Note ---
Assessment/Plan Assessment/Plan ASSESSMENT AND PLAN: 1. e.coli uti, esbl e.coli pna, ? aspiration pna, ? sepsis, febrile, ams, sedated, ? drug overdose - change abx to zosyn - recheck cultures - check labs and chest x-ray - respiratory improved, chest x-ray better - d/w mother - consider lumbar puncture if no improvemen, will d/w neurology 2. drug abuse and drug overdose per history, encephalopathy - per neurology, patient sedated, await f/u drug screen 3. hepatitis C serology + - w/u as outpatient including viral load and possible tx, d/w mother 4. Acute kidney injury with elevated creatinine, which is improved. 5. Dehydration. 6. Intravenous fluids. 7. 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 8. No known drug allergies. 9. Social history positive for intravenous drug abuse and smoking. 10. Family history noncontributory. 11. MAR was noted. 12. Continue treatment per primary, Dr. Doran and consultants 13. Case discussed with RN. 14. Case discussed with the patient's mother. Subjective Constitutional: Denies: fever HEENT: Denies: congestion Respiratory: Denies: shortness of breath Cardiovascular: Denies: chest pain Gastrointestinal/Abdominal: Denies: nausea, vomiting, diarrhea Genitourinary: Reports: other - + jameson - urine cloudy Neurologic: Reports: other - sedated Psychiatric: Denies: depression Skin: Denies: rash Hematologic: Denies: bleeding Musculoskeletal: Denies: pain Allergies: Coded Allergies: No Known Allergies (Unverified , 08/12/17) PER MOM, NO KNOWN ALLERGIES Objective Vital Signs Last 24 Hour Vital Signs Date Time Temp Pulse Resp B/P (MAP) Pulse Ox O2 Delivery O2 Flow Rate FiO2 08/18/17 08:00 99.5 102 22 115/80 98 Room Air 08/18/17 04:00 90 08/18/17 04:00 Room Air 08/18/17 04:00 97.9 92 22 138/87 96 Room Air 08/18/17 02:15 98.6 08/18/17 02:14 98.4 08/18/17 00:00 Room Air 08/18/17 00:00 78 08/18/17 00:00 101.7 94 20 157/94 98 Room Air 08/17/17 20:26 99 Room Air 08/17/17 20:26 Room Air 08/17/17 20:00 Room Air 08/17/17 20:00 100.6 88 20 135/93 94 Room Air 08/17/17 20:00 96 08/17/17 16:00 99.3 80 19 120/80 100 Room Air 08/17/17 16:00 77 Height (Feet): 5 Height (Inches): 6.00 Weight (Pounds): 148 General Appearance: no acute distress HEENT: normocephalic, atraumatic, anicteric, mucous membranes moist, EOMI, pharynx normal, supple, no JVD Respiratory/Chest: no accessory muscle use, crackles/rales, rhonchi - bilaterally Cardiovascular: normal rate, regular rhythm, no gallop/murmur, no JVD Abdomen: normal bowel sounds, soft, non tender, no organomegaly, non distended Genitourinary: other - + jameson - urine cloudy Extremities: no cyanosis Skin: no rash Neurologic/Psychiatric: other - sedated Lymphatic: no neck adenopathy Musculoskeletal: no effusion Objective 08/12 - Chest x-ray: Impression: Increased bilateral basilar hazy infiltrates versus edema, over one day Microbiology Date/Time Source Procedure Growth Status 08/10/17 18:40 Blood Blood Culture - Final NO GROWTH AFTER 5 DAYS Complete 08/14/17 21:00 Sputum Induced Gram Stain - Final Resulted 08/14/17 21:00 Sputum Culture - Preliminary Escherichia Coli - Esbl Resulted 08/10/17 15:45 Urine,Clean Catch Urine Culture - Final NO GROWTH AFTER 48 HOURS Complete 08/10/17 01:50 Rectum VRE Culture - Final NO VANCOMYCIN RESISTANT ENTEROCOCCUS ... Complete Labs Test 08/16/17 10:50 08/17/17 06:10 08/17/17 09:14 Sodium Level 137 MMOL/L (136-145) 136 MMOL/L (136-145) Potassium Level 3.6 MMOL/L (3.5-5.1) 3.5 MMOL/L (3.5-5.1) Chloride Level 105 MMOL/L (98-107) 104 MMOL/L (98-107) Carbon Dioxide Level 22 MMOL/L (21-32) 21 MMOL/L (21-32) Anion Gap 10 mmol/L (5-15) 11 mmol/L (5-15) Blood Urea Nitrogen 5 mg/dL (7-18) 5 mg/dL (7-18) Creatinine 0.7 MG/DL (0.55-1.30) 0.7 MG/DL (0.55-1.30) Estimat Glomerular Filtration Rate > 60 mL/min (>60) > 60 mL/min (>60) Glucose Level 117 MG/DL (74-106) 122 MG/DL (74-106) Calcium Level 7.3 MG/DL (8.5-10.1) 7.5 MG/DL (8.5-10.1) Magnesium Level 1.6 MG/DL (1.8-2.4) Total Bilirubin 0.4 MG/DL (0.2-1.0) Aspartate Amino Transf (AST/SGOT) 32 U/L (15-37) Alanine Aminotransferase (ALT/SGPT) 35 U/L (12-78) Alkaline Phosphatase 64 U/L (46-116) Total Creatine Kinase 226 U/L (26-308) Total Protein 6.1 G/DL (6.4-8.2) Albumin 2.9 G/DL (3.4-5.0) Globulin 3.2 g/dL Albumin/Globulin Ratio 0.9 (1.0-2.7) White Blood Count 7.9 K/UL (4.8-10.8) Red Blood Count 4.15 M/UL (4.20-5.40) Hemoglobin 13.0 G/DL (12.0-16.0) Hematocrit 38.0 % (37.0-47.0) Mean Corpuscular Volume 92 FL (80-99) Mean Corpuscular Hemoglobin 31.4 PG (27.0-31.0) Mean Corpuscular Hemoglobin Concent 34.2 G/DL (32.0-36.0) Red Cell Distribution Width 13.5 % (11.6-14.8) Platelet Count 243 K/UL (150-450) Mean Platelet Volume 7.1 FL (6.5-10.1) Neutrophils (%) (Auto) 64.1 % (45.0-75.0) Lymphocytes (%) (Auto) 23.9 % (20.0-45.0) Monocytes (%) (Auto) 10.3 % (1.0-10.0) Eosinophils (%) (Auto) 0.7 % (0.0-3.0) Basophils (%) (Auto) 1.1 % (0.0-2.0) Pro-B-Type Natriuretic Peptide 3005 pg/mL (0-125) Arterial Blood pH 7.480 (7.350-7.450) Arterial Blood Partial Pressure CO2 30.6 mmHg (35.0-45.0) Arterial Blood Partial Pressure O2 89.8 mmHg (75.0-100.0) Arterial Blood HCO3 22.7 mmol/L (22.0-26.0) Arterial Blood Oxygen Saturation 97.1 % (92.0-98.0) Arterial Blood Base Excess 0.2 Tye Test Positive Current Medications Medications (Trade) Dose Ordered Sig/Hema Route PRN Reason Start Time Stop Time Status Last Admin Dose Admin Acetaminophen (Tylenol) 650 mg Q4H PRN RECTAL Mild Pain/Temp > 100.5 08/12/17 19:30 09/11/17 19:29 08/18/17 01:24 Chlorhexidine Gluconate (Valerie-Hex 2%) 1 applic DAILY@2000 TOPIC 08/12/17 20:00 09/10/17 19:59 08/17/17 20:27 Heparin Sodium (Porcine) (Heparin 5000 units/ml) 5,000 units EVERY 12 HOURS SUBQ 08/12/17 21:00 09/09/17 20:59 08/18/17 09:25 Levetiracetam 100 ml @ 400 mls/hr DAILY IVPB 08/14/17 09:00 09/11/17 08:59 08/18/17 09:22 Lorazepam (Ativan 2mg/ml 1ml) 2 mg Q4HR IM 08/16/17 13:00 08/23/17 12:59 08/18/17 13:43 Multivitamins 10 ml/Potassium Chloride 30 meq/ Sodium Chloride 1,025 ml @ 100 mls/hr Q24H IV 08/14/17 16:00 09/13/17 15:59 08/17/17 16:51 Nicotine (Nicoderm) 1 patch Q24H TDERMAL 08/13/17 16:00 09/12/17 15:59 08/17/17 16:51 Pantoprazole (Protonix) 40 mg DAILY IVP 08/13/17 09:00 09/11/17 09:59 08/18/17 09:22 Piperacillin Sod/ Tazobactam Sod 3.375 gm/Dextrose 55 ml @ 13.75 mls/ hr Q8H IVPB 08/18/17 16:00 08/25/17 15:59 Potassium Chloride 30 meq/ Sodium Chloride 1,015 ml @ 100 mls/hr Q10H9M IV 08/13/17 16:00 09/12/17 15:59 08/18/17 05:43 Thiamine HCl 100 mg/Dextrose 56 ml @ 112 mls/hr Q24H IVPB 08/12/17 20:00 09/09/17 19:59 08/17/17 20:27 MARIA A SMITH Aug 18, 2017 15:11
[2017-08-18 16:00] VITALS: BP 125/85
--- NOTE | 2017-08-18 16:08 | Diagnostic Imaging Report ---
Indication: NG tube Comparison: 08/18/2017 Single view of the abdomen obtained Findings: Bowel gas pattern is nonspecific. No mass, ectopic calcifications, or abnormal gas collections are identified. The bones are unremarkable. NG tube remains in good position. Impression: No acute findings
--- NOTE | 2017-08-18 16:15 | Diagnostic Imaging Report ---
Indication: Dyspnea Comparison: 08/16/2017 A single view chest radiograph was obtained. Findings: NG tube noted in good position. Mechanical heart valve, borderline cardiomegaly and PICC line are noted. IMPRESSION: NG tube in good position.
[2017-08-18] MEDS: MULTIVITAMIN IV SCH (16:52)
[2017-08-18] MEDS: POTASSIUM CHLORIDE IV SCH (16:52)
[2017-08-18] MEDS: 1/2 NS IV SCH (16:52)
--- NOTE | 2017-08-18 17:14 | General Progress Note ---
Assessment/Plan Assessment/Plan Recurrent Brain Anoxia due to Cardio Respiratory arrest. Waking up. Prognosis seems better. 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 Awaiting Medical records from [place]. Further waking up. To tele. EEG diffuse slow. Bedside swallow pending. She'll need long-term SNF after PEG. Urine Tox Screen Results Still pending? MAYANK Alvarez. May need PEG to afford more sedation and better nutrition/IVF. DW Mother. Lateral transfer to [facility] not an option! Subjective Allergies: Coded Allergies: No Known Allergies (Unverified , 08/12/17) PER MOM, NO KNOWN ALLERGIES Subjective In HIRAM. Waking up further. Per mother was verbal earlier.. Sedated (Ativan). Objective Last 24 Hour Vital Signs Date Time Temp Pulse Resp B/P (MAP) Pulse Ox O2 Delivery O2 Flow Rate FiO2 08/18/17 08:00 99.5 102 22 115/80 98 Room Air 08/18/17 04:00 90 08/18/17 04:00 Room Air 08/18/17 04:00 97.9 92 22 138/87 96 Room Air 08/18/17 02:15 98.6 08/18/17 02:14 98.4 08/18/17 00:00 Room Air 08/18/17 00:00 78 08/18/17 00:00 101.7 94 20 157/94 98 Room Air 08/17/17 20:26 99 Room Air 08/17/17 20:26 Room Air 08/17/17 20:00 Room Air 08/17/17 20:00 100.6 88 20 135/93 94 Room Air 08/17/17 20:00 96 Intake and Output 08/17/17 08/18/17 19:00 07:00 Intake Total 100 ml 1429 ml Output Total 450 ml 1000 ml Balance -350 ml 429 ml Intake Free Water 100 ml IV Total 100 ml 1044 ml Tube Feeding 285 ml Output Urine Total 450 ml 1000 ml # Bowel Movements 3 Height (Feet): 5 Height (Inches): 6.00 Weight (Pounds): 148 Objective On 02 via NC Cv RR Lungs CTA Abd SNT. BS + E No CCe Neuro Delirious. Nonfocal. Michel Extensor B. pupils equal + responsive to light. BERTRAND CONDE Aug 18, 2017 17:14
[2017-08-18] MEDS: Piperacillin/Tazobactam 3.375 GM in D5W 55 ML IVPB SCH (18:40)
[2017-08-18 19:38] LABS: APPEARANCE,URINE CLEAR; BILIRUBIN, URINE NEGATIVE (NEGATIVE); COLOR,URINE YELLOW; GLUCOSE, URINE (UA) NEGATIVE (NEGATIVE); KETONES,URINE 3+ (NEGATIVE); LEUKOCYTE ESTERASE ,URINE 1+ (NEGATIVE); NITRITE,URINE NEGATIVE (NEGATIVE); PH,URINE 7 (4.5-8.0); PROTEIN,URINE NEGATIVE (NEGATIVE); UROBILINOGEN,URINE NORMAL MG/DL (0.0-1.0)
[2017-08-18 20:00] VITALS: BP 121/83
[2017-08-18] MEDS: Dyna-Hex 2% Top Sol 2oz TOPIC SCH (20:30)
[2017-08-18] MEDS: Thiamine HCl 100 MG in D5W 55 ML IVPB SCH (20:31)
--- NOTE | 2017-08-18 21:12 | Consultation ---
Consult Note Consult Note NEUROLOGY CONSULTATION: Full note dictated #[id number] 22 y/o, CF of ?H who was functioning relatively well until the early hours of 08/15/17 when her room-mate found her in the bathroom with some drug paraphernalia and needles, around her. She was unresponsive and not breathing. CPR was started immediately and the paramedics were called in. They arrived within 5 minutes. The patient's friend reported that she was on cocaine and heroin. When the paramedics arrived, they found her with having a tonic-clonic seizure, which stopped after 5 mg of Versed was given, later 4 mg of Narcan was given, but with no response. She was then transported to the [facility] ER. The drug screen was positive only for benzodiazepines, which was felt could be from Versed given by paramedics. She has been exhibiting myoclonic jerks and is on Ativan 2 g q 4 hours around the clock. As per one of her nurses she has been more obtunded recently. ON EXAM: Global cerebral dysfunction. Corneals positive and equal Gag depressed. No response even to deep pain. Pathologically brisk DTRs Extensor plantars. CT of brain benign EEG with moderate encephalopathy. IMPRESSION: Anoxic encephalopathy followed by drug-induced encephalopathy due to constant dosing with Ativan. REC: 1. Wean off Ativan and keep of mind altering drugs so that the true degree of encephalopathy can be determined. 2. Repeat EEG Prashant Berger M.D., M.S.P.H. PRASHANT BERGER Aug 18, 2017 21:12
--- NOTE | 2017-08-18 23:18 | General Progress Note ---
Assessment/Plan Status: progressing Assessment/Plan ?anoxic brain injury polysubstance abuse benzo withdrawal -cont ativan prn Subjective Allergies: Coded Allergies: No Known Allergies (Unverified , 08/12/17) PER MOM, NO KNOWN ALLERGIES Subjective the pt is encephalopathy is due to heroin and benzo overdose and its not due to administration of Ativan. the pt has relapsed on Xanax recently and has been taking Xanax on daily basis per mom and friends. Friends found her next to a syringe and heroine and alcohol/ the pt may be suffering from brain damage however at the same time withdrawing from Xanax. the pt has been pw with tachy cardia, high blood pressure and agitation. these are sxs of benzo withdrawal. the pt is less agitated on benzos. haldol would make tachy-cardia worse. Objective Last 24 Hour Vital Signs Date Time Temp Pulse Resp B/P (MAP) Pulse Ox O2 Delivery O2 Flow Rate FiO2 08/18/17 20:00 99.5 116 22 121/83 95 Room Air 08/18/17 16:00 99.2 107 20 125/85 96 Room Air 08/18/17 16:00 92 08/18/17 12:00 83 08/18/17 12:00 98.6 113 20 120/90 95 Room Air 08/18/17 08:00 99.5 102 22 115/80 98 Room Air 08/18/17 08:00 84 08/18/17 04:00 90 08/18/17 04:00 Room Air 08/18/17 04:00 97.9 92 22 138/87 96 Room Air 08/18/17 02:15 98.6 08/18/17 02:14 98.4 08/18/17 00:00 Room Air 08/18/17 00:00 78 08/18/17 00:00 101.7 94 20 157/94 98 Room Air Intake and Output 08/17/17 08/18/17 19:00 07:00 Intake Total 100 ml 1429 ml Output Total 450 ml 1000 ml Balance -350 ml 429 ml Intake Free Water 100 ml IV Total 100 ml 1044 ml Tube Feeding 285 ml Output Urine Total 450 ml 1000 ml # Bowel Movements 3 Laboratory Tests 08/18/17 14:26: Urine Color Yellow, Urine Appearance Clear, Urine pH 7, Urine Specific [place] 1.010, Urine Protein Negative, Urine Glucose (UA) Negative, Urine Ketones 3+H, Urine Occult Blood 1+H, Urine Nitrite Negative, Urine Bilirubin Negative, Urine Urobilinogen Normal, Urine Leukocyte Esterase 1+H, Urine RBC 2-4H, Urine WBC 0-2 , Urine Squamous Epithelial Cells Few, Urine Bacteria Few, Urine Yeast FewH 08/18/17 18:30: Rapid Plasma Reagin [Pending] Height (Feet): 5 Height (Inches): 6.00 Weight (Pounds): 148 General Appearance: no apparent distress, lethargic, confused Kristie Braswell M.D. Aug 18, 2017 23:18
[2017-08-19] VITALS (8 sets, daily range): BP systolic 114–152; BP diastolic 62–87
[2017-08-19] MEDS: Piperacillin/Tazobactam 3.375 GM in D5W 55 ML IVPB SCH ×3 (00:44→16:32)
[2017-08-19] MEDS: LORazepam Inj 2mg/ml 1ml IM SCH ×4 (00:52→18:12)
--- NOTE | 2017-08-19 01:30 | Consultation ---
DATE OF CONSULTATION: 08/18/2017 NEUROLOGY CONSULTATION (Second Opinion) CONSULTING PHYSICIAN: Andres Berger M.D. ATTENDING PHYSICIAN: Albert Doran M.D. REQUESTING PHYSICIAN: Charlie Alvarez M.D. HISTORY: Ms. 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 She was functioning relatively well in spite of that until the early hours of 08/15/2017, when her roommate found her in the bathroom with some drug paraphernalia and needles around her. She was apparently unresponsive and not breathing. CPR was started immediately and the paramedics were called in. When the paramedics got to her within approximately 5 minutes, the patient's friend reported that she was on cocaine and heroin. When they came, she was having a tonic-clonic seizure. She was given Versed 5 mg intravenously and the seizure stopped. Later, she was also given Narcan 4 mg with no improvement in her mental state. She was then transported to the [facility] Emergency Room. When she was evaluated in the emergency room, the drug screen was positive for benzodiazepines only and it was felt that that could have been from the Versed given to her by the paramedics, but since then, the patient has been quite encephalopathic with waxing and waning of her mental state, however, recently she has been more obtunded. Of note is that she is getting Ativan 2 mg every 4 hours [id number] for the last few days. The patient herself cannot be awakened and thus no further history could be obtained. PAST MEDICAL HISTORY: Significant for polysubstance abuse, bacterial endocarditis as a result of which she needed tricuspid valve replacement recently. FAMILY HISTORY: Unavailable as per the chart. PERSONAL HISTORY: Home: She was staying with a roommate. Work: She was a student, but recently was out of school. Habits: She has been using multiple drugs over the years. She has most recently been using Fentanyl intravenously, heroin intravenously, Xanax, alcohol, and tobacco. PHYSICAL EXAMINATION: GENERAL: She is a well-developed, well-nourished lady, lying in bed, having frequent myoclonic jerks of a generalized nature. VITAL SIGNS: Pulse 107 per minute, blood pressure 125/85 mmHg, respirations 20 per minute, and temperature 99.2 degrees Fahrenheit. HEAD: Normocephalic and atraumatic. NECK: No neck rigidity was observed. EENT: Benign. NEUROLOGICAL EXAMINATION: MENTAL STATUS EXAMINATION: She could not be aroused even on applying deep painful stimuli. Further mental status testing was thus impossible. SPEECH: Could not be tested. LANGUAGE: Could not be tested. CRANIAL NERVE EXAMINATION: II: She did not blink to threat. III, IV & : The external ocular movements were present on oculocephalic maneuvers. The pupils were 6 mm in diameter, equal, round, regular, and reactive sluggishly to light. V & VII: The corneal reflexes were present and were equal bilaterally. VIII: She did not respond to sounds and had no nystagmus. IX & X: The gag reflex was present, but depressed. XI: The sternocleidomastoids and trapezii functioned minimally. XII: The tongue was in the midline. MOTOR SYSTEM: The tone was increased in all four extremities with a mild degree of spasticity. Examination of muscle mass revealed no focal wasting. Examination of power could not be performed because even when deep painful stimuli were applied, no movements were seen. SENSORY EXAMINATION: She did not respond even to deep painful stimuli. REFLEXES: 3+ and bilaterally symmetrical at the biceps, triceps, brachioradialis, and knees; 2+ at both ankles. The plantar responses were extensor bilaterally. COORDINATION: Could not be tested. STANCE: Could not be tested. GAIT: Could not be tested. DIAGNOSTIC IMPRESSION: 1. Ms. Violetta Carter is a 22-year-old, lady, of unknown handedness, who does have a long history of polysubstance abuse, who in the early hours of 08/15/2017, overdosed on drugs that are unknown to us. She was found by her roommate unresponsive and not breathing. Cardiopulmonary resuscitation was started immediately and paramedics were called in and they arrived within approximately 5 minutes. When they found her, she was having a tonic-clonic seizure. She then was given Versed and Narcan, but no response was seen to the Narcan. She was then transported to [facility] where she was noted to have significant alteration in her mental state, but at one point in time was minimally responsive. 2. Since then, she has been given Ativan 2 mg every 4 hours [id number] and has become unresponsive. She is also exhibiting myoclonic jerks, which seem to be less than what they were earlier. 3. On neurological examination, at this time, she is unresponsive even to deep painful stimuli. The corneal reflexes are present and equal. The gag reflex is depressed and she does have eye movements on oculocephalic maneuvers. The deep tendon reflexes are pathologically brisk. She does have some mild spasticity in all four extremities. Plantar responses are extensor. 4. The CT scan of the brain without contrast is benign. 5. An electroencephalogram reveals a moderate encephalopathy. 6. The patient's history, neurological examination, laboratory data, CT scan findings, and electroencephalogram findings are most consistent with anoxic encephalopathy, most probably related to drug overdose. This has been followed by a drug-induced encephalopathy in the hospital due to the constant q.4 hour dosing with Ativan. RECOMMENDATIONS: 1. Agree with management by Dr. Alvarez. 2. Attempts should be made to wean the patient off the Ativan and keep her off mind-altering drugs so that the true degree of encephalopathy can be determined. 3. A repeat EEG should be performed - I will order it. 4. Further recommendations will be given after the above mentioned are done. Thank you for entrusting me with the care of Ms. Carter. Andres Berger M.D., M.S.P.H. DR: JOHN JOB#: [id number] CC: GUERRERO
[2017-08-19] MEDS: Potassium Chloride 30 MEQ in 1/2 NS 1000ml 1,000 ML IV SCH ×2 (04:01→16:30)
--- NOTE | 2017-08-19 08:05 | Pre-Procedure Note/Attestation ---
Pre-Procedure Note/Attestation Complete Prior to Procedure Planned Procedure: not applicable Procedure Narrative: egd/peg Indications for Procedure Pre-Operative Diagnosis: FTT Attestation I attest that I discussed the nature of the procedure; its benefits; risks and complications; and alternatives (and the risks and benefits of such alternatives ), prior to the procedure, with the patient (or the patient's legal contact center representative). I attest that, if there was a reasonable possibility of needing a blood transfusion, the patient (or the patient's legal contact center representative) was given the [facility] standardized written summary, pursuant to the Aol Sinclair Blood Safety Act ([place] Health and Safety Code # 1645, as amended). I attest that I re-evaluated the patient just prior to the surgery and that there has been no change in the patient's H&P, except as documented below: EUSEBIO ESCAMILLA Aug 19, 2017 08:05
--- NOTE | 2017-08-19 08:20 | Pulmonology Progress Note ---
Assessment/Plan Assessment/Plan PROBLEM LIST: -Drug OD -H/O IVDU -Respiratory acidosis -MATTHEW -H/O infective endocarditis S/P MVR PLAN: -Continue supplemental o2 -Off BiPAP and monitor -monitor for aspiration and repeat Xray as needed -Monitor volumes and renal function -DVT prophylaxis -followup ABG and BNP although cxr now clear ?lasix trial -ID followup recommended impression, plan, and exam edited and reviewed in detail care discussed with RN Subjective Allergies: Coded Allergies: No Known Allergies (Unverified , 08/12/17) PER MOM, NO KNOWN ALLERGIES Subjective care reviewed and discussed with mother cxr negative Objective Last 24 Hour Vital Signs Date Time Temp Pulse Resp B/P (MAP) Pulse Ox O2 Delivery O2 Flow Rate FiO2 08/19/17 04:00 99.0 109 24 139/87 6 Room Air 08/19/17 04:00 96 08/19/17 00:00 99.5 114 22 135/83 95 Room Air 08/19/17 00:00 114 08/18/17 20:00 99.5 116 22 121/83 95 Room Air 08/18/17 20:00 109 08/18/17 16:00 99.2 107 20 125/85 96 Room Air 08/18/17 16:00 92 08/18/17 12:00 83 08/18/17 12:00 98.6 113 20 120/90 95 Room Air Intake and Output 08/18/17 08/19/17 19:00 07:00 Output Total 825 ml 500 ml Balance -825 ml -500 ml Output Urine Total 825 ml 500 ml Objective WDWN NAD stable breath sounds bilaterally without rhonchi or wheeze [id number] without MRG NABS nontender no HSM no CCE nonfocal NGT in place reduced ROM Microbiology Date/Time Source Procedure Growth Status 08/18/17 14:26 Indwelling Cath Urine Culture - Preliminary NO GROWTH Resulted Laboratory Tests 08/18/17 14:26: Urine Color Yellow, Urine Appearance Clear, Urine pH 7, Urine Specific [place] 1.010, Urine Protein Negative, Urine Glucose (UA) Negative, Urine Ketones 3+H, Urine Occult Blood 1+H, Urine Nitrite Negative, Urine Bilirubin Negative, Urine Urobilinogen Normal, Urine Leukocyte Esterase 1+H, Urine RBC 2-4H, Urine WBC 0-2 , Urine Squamous Epithelial Cells Few, Urine Bacteria Few, Urine Yeast FewH 08/18/17 18:30: Rapid Plasma Reagin Non reactive Current Medications Medications (Trade) Dose Ordered Sig/Hema Route PRN Reason Start Time Stop Time Status Last Admin Dose Admin Acetaminophen (Tylenol) 650 mg Q4H PRN RECTAL Mild Pain/Temp > 100.5 08/12/17 19:30 09/11/17 19:29 08/18/17 01:24 Chlorhexidine Gluconate (Vaelrie-Hex 2%) 1 applic DAILY@2000 TOPIC 08/12/17 20:00 09/10/17 19:59 08/18/17 20:30 Heparin Sodium (Porcine) (Heparin 5000 units/ml) 5,000 units EVERY 12 HOURS SUBQ 08/12/17 21:00 09/09/17 20:59 08/18/17 20:32 Levetiracetam 100 ml @ 400 mls/hr DAILY IVPB 08/14/17 09:00 09/11/17 08:59 08/18/17 09:22 Lorazepam (Ativan 2mg/ml 1ml) 2 mg EVERY 6 HOURS IM 08/19/17 00:00 08/23/17 12:59 08/19/17 06:17 Multivitamins 10 ml/Potassium Chloride 30 meq/ Sodium Chloride 1,025 ml @ 100 mls/hr Q24H IV 08/14/17 16:00 09/13/17 15:59 08/18/17 16:52 Nicotine (Nicoderm) 1 patch Q24H TDERMAL 08/13/17 16:00 09/12/17 15:59 08/18/17 16:51 Pantoprazole (Protonix) 40 mg DAILY IVP 08/13/17 09:00 09/11/17 09:59 08/18/17 09:22 Piperacillin Sod/ Tazobactam Sod 3.375 gm/Dextrose 55 ml @ 13.75 mls/ hr Q8H IVPB 08/18/17 16:00 08/25/17 15:59 08/19/17 00:44 Potassium Chloride 30 meq/ Sodium Chloride 1,015 ml @ 100 mls/hr Q10H9M IV 08/13/17 16:00 09/12/17 15:59 08/19/17 04:01 Thiamine HCl 100 mg/Dextrose 56 ml @ 112 mls/hr Q24H IVPB 08/12/17 20:00 09/09/17 19:59 08/18/17 20:31 GAYLE ALMENDAREZ Aug 19, 2017 08:20
[2017-08-19] MEDS: Acetaminophen 650 MG SUPP RECTAL PRN (08:54)
[2017-08-19] MEDS: Pantoprazole Inj IVP SCH (08:56)
[2017-08-19] MEDS: Heparin 5000 units/ml inj SUBQ SCH ×3 (08:57→20:50)
[2017-08-19] MEDS: levETIRAcetam 1,000mg/NS100ml 100 ML IVPB SCH (09:15)
--- NOTE | 2017-08-19 10:28 | General Progress Note ---
Assessment/Plan Assessment/Plan Recurrent Brain Anoxia due to Cardio Respiratory arrest. Waking up. Prognosis seems better. 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 Awaiting Medical records from [place]. Further waking up. To tele. EEG diffuse slow. PEG on hold due to fever. ESBL E. Coli UTI per ID Urine Tox Screen Results Still pending? DW Dr. Alvarez. Subjective Allergies: Coded Allergies: No Known Allergies (Unverified , 08/12/17) PER MOM, NO KNOWN ALLERGIES Subjective Sedated. NPO Objective Last 24 Hour Vital Signs Date Time Temp Pulse Resp B/P (MAP) Pulse Ox O2 Delivery O2 Flow Rate FiO2 08/19/17 04:00 99.0 109 24 139/87 6 Room Air 08/19/17 04:00 96 08/19/17 00:00 99.5 114 22 135/83 95 Room Air 08/19/17 00:00 114 08/18/17 20:00 99.5 116 22 121/83 95 Room Air 08/18/17 20:00 109 08/18/17 16:00 99.2 107 20 125/85 96 Room Air 08/18/17 16:00 92 08/18/17 12:00 83 08/18/17 12:00 98.6 113 20 120/90 95 Room Air Intake and Output 08/18/17 08/19/17 19:00 07:00 Output Total 825 ml 500 ml Balance -825 ml -500 ml Output Urine Total 825 ml 500 ml Laboratory Tests 08/18/17 14:26: Urine Color Yellow, Urine Appearance Clear, Urine pH 7, Urine Specific [place] 1.010, Urine Protein Negative, Urine Glucose (UA) Negative, Urine Ketones 3+H, Urine Occult Blood 1+H, Urine Nitrite Negative, Urine Bilirubin Negative, Urine Urobilinogen Normal, Urine Leukocyte Esterase 1+H, Urine RBC 2-4H, Urine WBC 0-2 , Urine Squamous Epithelial Cells Few, Urine Bacteria Few, Urine Yeast FewH 08/18/17 18:30: Rapid Plasma Reagin Non reactive Height (Feet): 5 Height (Inches): 4.00 Weight (Pounds): 148 Objective On 02 via NC Febrile. Cv tach Lungs CTA Abd SNT. BS + E No CCE Neuro Sedated. Opisthotonic? SHECHTER,PAGIEL Aug 19, 2017 10:28
--- NOTE | 2017-08-19 10:31 | GI Progress Note ---
Assessment/Plan Problems: (1) FTT (failure to thrive) in adult ICD Codes: R62.7 - Adult failure to thrive SNOMED: 232106401 (2) Overdose ICD Codes: T50.901A - Poisoning by unspecified drugs, medicaments and biological substances, accidental (unintentional), initial encounter SNOMED: 42236939 (3) severe encephalopathy, anoxic/drug toxicity/benzo withdrawal (4) iv substance abuse, relapse (5) symptomatic seizure event (6) severe anoxic encephalopathy Status: unchanged Status Narrative Discussed with Dr. Enrique. Assessment/Plan PEG rescheduled for tomorrow, was cancelled today due to fever. - resume NGTFs, NPO @ [facility]. - hold all blood thinners NGTFs per RD fu labs outpatient Hep C tx Subjective Subjective limited, non responsive Objective Last 24 Hour Vital Signs Date Time Temp Pulse Resp B/P (MAP) Pulse Ox O2 Delivery O2 Flow Rate FiO2 08/19/17 04:00 99.0 109 24 139/87 6 Room Air 08/19/17 04:00 96 08/19/17 00:00 99.5 114 22 135/83 95 Room Air 08/19/17 00:00 114 08/18/17 20:00 99.5 116 22 121/83 95 Room Air 08/18/17 20:00 109 08/18/17 16:00 99.2 107 20 125/85 96 Room Air 08/18/17 16:00 92 08/18/17 12:00 83 08/18/17 12:00 98.6 113 20 120/90 95 Room Air Intake and Output 08/18/17 08/19/17 19:00 07:00 Output Total 825 ml 500 ml Balance -825 ml -500 ml Output Urine Total 825 ml 500 ml Laboratory Tests Test 08/18/17 14:26 08/18/17 18:30 Urine Color Yellow Urine Appearance Clear Urine pH 7 (4.5-8.0) Urine Specific [place] 1.010 (1.005-1.035) Urine Protein Negative (NEGATIVE) Urine Glucose (UA) Negative (NEGATIVE) Urine Ketones 3+ (NEGATIVE) H Urine Occult Blood 1+ (NEGATIVE) H Urine Nitrite Negative (NEGATIVE) Urine Bilirubin Negative (NEGATIVE) Urine Urobilinogen Normal MG/DL (0.0-1.0) Urine Leukocyte Esterase 1+ (NEGATIVE) H Urine RBC 2-4 /HPF (0 - 2) H Urine WBC 0-2 /HPF (0 - 2) Urine Squamous Epithelial Cells Few /LPF (NONE/OCC) Urine Bacteria Few /HPF (NONE) Urine Yeast Few /HPF (NONE) H Rapid Plasma Reagin Non reactive (Non Reactive) Microbiology Date/Time Source Procedure Growth Status 08/18/17 14:26 Indwelling Cath Urine Culture - Preliminary NO GROWTH Resulted Height (Feet): 5 Height (Inches): 4.00 Weight (Pounds): 148 General Appearance: no apparent distress Cardiovascular: normal rate Respiratory/Chest: normal breath sounds, no respiratory distress Abdominal Exam: normal bowel sounds, non tender, soft Extremities: non-tender Kendra Templeton N.P. Aug 19, 2017 10:31
[2017-08-19 12:36] LABS: ANION GAP 14 mmol/L (5-15); BLOOD UREA NITROGEN 11 mg/dL (7-18); CALCIUM 7.8 MG/DL (8.5-10.1); CARBON DIOXIDE 22 MMOL/L (21-32); CHLORIDE 98 MMOL/L (98-107); CREATININE 0.7 MG/DL (0.55-1.30); POTASSIUM 4.6 MMOL/L (3.5-5.1); SODIUM 134 MMOL/L (136-145)
[2017-08-19 12:37] LABS: BASOPHILS % (AUTO) 0.9 % (0.0-2.0); EOSINOPHILS % (AUTO) 1.3 % (0.0-3.0); HEMATOCRIT 42.2 % (37.0-47.0); LYMPHOCYTES % (AUTO) 25.2 % (20.0-45.0); MEAN CORPUSCULAR VOLUME 92 FL (80-99); MONOCYTES % (AUTO) 9.7 % (1.0-10.0); PLATELET COUNT 237 K/UL (150-450); RED BLOOD COUNT 4.56 M/UL (4.20-5.40); RED CELL DISTRIBUTION WIDTH 13.1 % (11.6-14.8); WHITE BLOOD COUNT 8.1 K/UL (4.8-10.8)
[2017-08-19 12:42] LABS: INR 1.5 (0.9-1.1)
--- NOTE | 2017-08-19 16:28 | Diagnostic Imaging Report ---
Indication: NG tube placement Comparison: None Single view of the abdomen obtained Findings: NG tube is in position with both the proximal and distal ports well situated in the stomach. IMPRESSION: Nasogastric tube in good position
[2017-08-19] MEDS: MULTIVITAMIN IV SCH (16:31)
[2017-08-19] MEDS: 1/2 NS IV SCH (16:31)
[2017-08-19] MEDS: POTASSIUM CHLORIDE IV SCH (16:31)
--- NOTE | 2017-08-19 19:56 | Neurology Progress Note ---
Interim History Interim History Interim History Ms. Carter continues to be unarousable. She only responds to deep pain with lower extremity withdrawal. She continues to get large doses of Ativan. The myoclonic jerks continue at the same pace. There has been no significant change in her condition. Review of Systems Neuro Review of Systems Unable to obtain Objective Physical Exam Last Vital Signs Date Time Temp Pulse Resp B/P (MAP) Pulse Ox O2 Delivery O2 Flow Rate FiO2 08/19/17 18:40 98.0 92 20 135/70 96 Room Air 08/17/17 10:02 2.0 28 Laboratory Tests Test 08/19/17 12:00 White Blood Count 8.1 K/UL (4.8-10.8) Red Blood Count 4.56 M/UL (4.20-5.40) Hemoglobin 14.0 G/DL (12.0-16.0) Hematocrit 42.2 % (37.0-47.0) Mean Corpuscular Volume 92 FL (80-99) Mean Corpuscular Hemoglobin 30.7 PG (27.0-31.0) Mean Corpuscular Hemoglobin Concent 33.2 G/DL (32.0-36.0) Red Cell Distribution Width 13.1 % (11.6-14.8) Platelet Count 237 K/UL (150-450) Mean Platelet Volume 6.2 FL (6.5-10.1) L Neutrophils (%) (Auto) 63.0 % (45.0-75.0) Lymphocytes (%) (Auto) 25.2 % (20.0-45.0) Monocytes (%) (Auto) 9.7 % (1.0-10.0) Eosinophils (%) (Auto) 1.3 % (0.0-3.0) Basophils (%) (Auto) 0.9 % (0.0-2.0) Prothrombin Time 15.6 SEC (9.30-11.50) H Prothromb Time International Ratio 1.5 (0.9-1.1) H Activated Partial Thromboplast Time 25 SEC (23-33) Sodium Level 134 MMOL/L (136-145) L Potassium Level 4.6 MMOL/L (3.5-5.1) Chloride Level 98 MMOL/L (98-107) Carbon Dioxide Level 22 MMOL/L (21-32) Anion Gap 14 mmol/L (5-15) Blood Urea Nitrogen 11 mg/dL (7-18) Creatinine 0.7 MG/DL (0.55-1.30) Estimat Glomerular Filtration Rate > 60 mL/min (>60) Glucose Level 184 MG/DL (74-106) H Calcium Level 7.8 MG/DL (8.5-10.1) L Coccidioides Antibody (Comp Fix) Pending Neurologic Exam Objective PHYSICAL EXAMINATION: GENERAL: She is a well-developed, well-nourished lady, lying in bed, having infrequent myoclonic jerks of a generalized nature. HEAD: Normocephalic and atraumatic. NECK: No neck rigidity was observed. EENT: Benign. NEUROLOGICAL EXAMINATION: MENTAL STATUS EXAMINATION: She could not be aroused even on applying deep painful stimuli. Further mental status testing was thus impossible. SPEECH: Could not be tested. LANGUAGE: Could not be tested. CRANIAL NERVE EXAMINATION: II: She did not blink to threat. III, IV & : The external ocular movements were present on oculocephalic maneuvers. The pupils were 6 mm in diameter, equal, round, regular, and reactive sluggishly to light. V & VII: The corneal reflexes were present and were equal bilaterally. VIII: She did not respond to sounds and had no nystagmus. IX & X: The gag reflex was present, but depressed. XI: The sternocleidomastoids and trapezii functioned minimally. XII: The tongue was in the midline. MOTOR SYSTEM: The tone was increased in all four extremities with a mild degree of spasticity. Examination of muscle mass revealed no focal wasting. Examination of power could not be performed because even when deep painful stimuli were applied, only minimal movements were seen in the toes bilaterally. SENSORY EXAMINATION: She did not respond even to deep painful stimuli, other than minimal movements were seen in the toes bilaterally. REFLEXES: 3+ and bilaterally symmetrical at the biceps, triceps,brachioradialis , and knees; 2+ at both ankles. The plantar responses were extensor bilaterally. COORDINATION: Could not be tested. STANCE: Could not be tested. GAIT: Could not be tested. Impression/Recommendations Diagnostic Impression 1. Ms. Violetta Carter is a 22-year-old, lady, of unknown handedness, who does have a long history of polysubstance abuse, who in the early hours of 08/15/2017, overdosed on drugs that are unknown to us. She was found by her roommate unresponsive and not breathing. Cardiopulmonary resuscitation was started immediately and paramedics were called in and they arrived within approximately 5 minutes. When they found her, she was having a tonic-clonic seizure. She then was given Versed and Narcan, but no response was seen to the Narcan. She was then transported to [facility] where she was noted to have significant alteration in her mental state, but at one point in time was minimally responsive. 2. Since then, she had been given Ativan 2 mg every 4 hours [id number] and has become unresponsive. She was also exhibiting myoclonic jerks, which seem to be less than what they were earlier. 3. At this time she is still unresponsive and cannot be aroused. 4. On neurological examination, at this time, she is unresponsive even to deep painful stimuli other than minimal movements in the toes bilaterally. The corneal reflexes are present and equal. The gag reflex is depressed and she does have eye movements on oculocephalic maneuvers. The deep tendon reflexes are pathologically brisk. She does have some mild spasticity in all four extremities. Plantar responses are extensor. 5. The CT scan of the brain without contrast is benign. 6. An electroencephalogram repeated on 08/19/17 reveals a severe encephalopathy with a definite toxic component due to benzodiazepines. 7. The patient's history, neurological examination, laboratory data, CT scan findings, and electroencephalogram findings are most consistent with an anoxic encephalopathy, most probably related to drug overdose. This has been followed by a drug-induced encephalopathy in the hospital due to the constant dosing with Ativan. Recommendations 1. Continue present management. 2. Attempts should be made to wean the patient off the Ativan and keep her off mind-altering drugs so that the true degree of encephalopathy can be determined. 3. Further recommendations will be given after the above mentioned is done. Prashant Berger M.D., M.SPRASHANT COLON Aug 19, 2017 19:56
[2017-08-19] MEDS: Dyna-Hex 2% Top Sol 2oz TOPIC SCH (20:29)
--- NOTE | 2017-08-19 21:00 | Electroencephalogram ---
DATE OF PROCEDURE: 08/19/2017 PROCEDURE PERFORMED: Electroencephalogram. READING PHYSICIAN: Andres Berger M.D. REQUESTING PHYSICIAN: Albert Doran M.D. HISTORY: This EEG was performed on 22-year-old lady who was found unresponsive and then had a seizure after overdosing on substances that are unknown to us. The patient has since been significantly encephalopathic. In addition, she is getting Ativan 2 mg every 4 hours around the clock, which is causing worsening of her mental state. The purpose of this EEG was to evaluate the patient for the degree and type of cerebral dysfunction. TECHNICAL NOTE: This EEG was performed on [employer] with electrodes placed on the scalp according to the International 10-20 System. [id number] and mpmcq-ny-hie montages were used. The EEG was technically satisfactory and was performed while the patient was in an unresponsive state. OBSERVATIONS: In the unresponsive state, the background activity consisted of 1.5-2.5 Hz delta activity with some intermixed 4 Hz theta frequencies. A large amount of superimposed beta activity was seen throughout the tracing. The patient was unresponsive to external stimuli. No focal abnormalities or epileptiform discharges were seen. IMPRESSION: This is an abnormal EEG characterized by: 1. Slowing of the background in the 1.5-2.5 Hz delta range with some intermixed 4 Hz theta activity. 2. A large amount of superimposed beta activity. 3. No reactivity to external stimulation. COMMENT: This study is consistent with a severe encephalopathy, most probably with large toxic component as evidenced by abundant beta activity. The most likely etiology would be large doses of benzodiazepines that the patient is being exposed to at this point in time. However, the patient has recently had a anoxic event, the exact degree of which cannot be determined at this point in time due to the superimposed drug induced encephalopathy. Andres Berger M.D., M.S.P.H. DR: KAMALA JOB#: [id number] MTDD
[2017-08-19] MEDS: Thiamine HCl 100 MG in D5W 55 ML IVPB SCH (21:42)
[2017-08-20] VITALS (9 sets, daily range): BP systolic 98–146; BP diastolic 53–92
[2017-08-20] MEDS: Potassium Chloride 30 MEQ in 1/2 NS 1000ml 1,000 ML IV SCH ×3 (00:15→17:52)
[2017-08-20] MEDS: Piperacillin/Tazobactam 3.375 GM in D5W 55 ML IVPB SCH ×3 (00:19→17:53)
[2017-08-20] MEDS: LORazepam Inj 2mg/ml 1ml IM SCH ×4 (00:21→17:52)
--- NOTE | 2017-08-20 08:19 | Pulmonology Progress Note ---
Assessment/Plan Assessment/Plan PROBLEM LIST: -Drug OD -H/O IVDU -Respiratory acidosis -MATTHEW -H/O infective endocarditis S/P MVR PLAN: -Continue supplemental o2 as needed -Off BiPAP and monitor -monitor for aspiration and repeat Xray as needed -Monitor volumes and renal function -DVT prophylaxis -GT placement -ID followup impression, plan, and exam edited and reviewed in detail care discussed with RN Subjective Allergies: Coded Allergies: No Known Allergies (Unverified , 08/12/17) PER MOM, NO KNOWN ALLERGIES Subjective care reviewed and discussed with mother cxr negative Objective Last 24 Hour Vital Signs Date Time Temp Pulse Resp B/P (MAP) Pulse Ox O2 Delivery O2 Flow Rate FiO2 08/20/17 04:43 98.2 115 18 146/79 96 Nasal Cannula 08/20/17 04:00 115 08/20/17 00:37 99.1 100 18 115/74 90 Nasal Cannula 08/20/17 00:00 96 Room Air 08/20/17 00:00 118 08/19/17 20:31 98.4 100 18 116/64 Nasal Cannula 08/19/17 20:00 116 08/19/17 18:40 98.0 92 20 135/70 96 Room Air 08/19/17 18:39 98.0 92 20 135/70 96 Room Air 08/19/17 16:00 98.0 92 20 135/70 96 Room Air 08/19/17 16:00 113 08/19/17 12:00 98.4 88 20 114/62 98 Room Air 08/19/17 12:00 115 08/19/17 09:24 98.4 Intake and Output 08/19/17 08/20/17 19:00 07:00 Intake Total 1261.00 ml Output Total 800 ml 300 ml Balance -800 ml 961.00 ml IV Total 1211.00 ml Tube Feeding 50 ml Output Urine Total 800 ml 300 ml # Bowel Movements 1 Objective WDWN NAD stable breath sounds bilaterally without rhonchi or wheeze [id number] without MRG NABS nontender no HSM no CCE nonfocal NGT in place reduced ROM Microbiology Date/Time Source Procedure Growth Status 08/18/17 18:30 Blood Blood Culture - Preliminary NO GROWTH AFTER 24 HOURS Resulted 08/18/17 18:30 Blood Blood Culture - Preliminary NO GROWTH AFTER 24 HOURS Resulted 08/18/17 14:26 Indwelling Cath Urine Culture - Preliminary NO GROWTH Resulted Laboratory Tests 08/19/17 12:00: White Blood Count 8.1, Red Blood Count 4.56, Hemoglobin 14.0, Hematocrit 42.2, Mean Corpuscular Volume 92, Mean Corpuscular Hemoglobin 30.7, Mean Corpuscular Hemoglobin Concent 33.2, Red Cell Distribution Width 13.1, Platelet Count 237, Mean Platelet Volume 6.2L, Neutrophils (%) (Auto) 63.0, Lymphocytes (%) (Auto) 25.2, Monocytes (%) (Auto) 9.7, Eosinophils (%) (Auto) 1.3, Basophils (%) (Auto ) 0.9, Prothrombin Time 15.6H, Prothromb Time International Ratio 1.5H, Activated Partial Thromboplast Time 25, Sodium Level 134L, Potassium Level 4.6, Chloride Level 98, Carbon Dioxide Level 22, Anion Gap 14, Blood Urea Nitrogen 11 , Creatinine 0.7, Estimat Glomerular Filtration Rate > 60, Glucose Level 184H, Calcium Level 7.8L, Coccidioides Antibody (Comp Fix) [Pending] Current Medications Medications (Trade) Dose Ordered Sig/Hema Route PRN Reason Start Time Stop Time Status Last Admin Dose Admin Acetaminophen (Tylenol) 650 mg Q4H PRN RECTAL Mild Pain/Temp > 100.5 08/12/17 19:30 09/11/17 19:29 08/19/17 08:54 Chlorhexidine Gluconate (Valerie-Hex 2%) 1 applic DAILY@2000 TOPIC 08/12/17 20:00 09/10/17 19:59 08/19/17 20:29 Heparin Sodium (Porcine) (Heparin 5000 units/ml) 5,000 units EVERY 12 HOURS SUBQ 08/12/17 21:00 09/09/17 20:59 08/18/17 20:32 Levetiracetam 100 ml @ 400 mls/hr DAILY IVPB 08/14/17 09:00 09/11/17 08:59 08/19/17 09:15 Lorazepam (Ativan 2mg/ml 1ml) 2 mg EVERY 6 HOURS IM 08/19/17 00:00 08/23/17 12:59 08/20/17 06:26 Multivitamins 10 ml/Potassium Chloride 30 meq/ Sodium Chloride 1,025 ml @ 100 mls/hr Q24H IV 08/14/17 16:00 09/13/17 15:59 08/19/17 16:31 Nicotine (Nicoderm) 1 patch Q24H TDERMAL 08/13/17 16:00 09/12/17 15:59 08/19/17 16:31 Pantoprazole (Protonix) 40 mg DAILY IVP 08/13/17 09:00 09/11/17 09:59 08/19/17 08:56 Piperacillin Sod/ Tazobactam Sod 3.375 gm/Dextrose 55 ml @ 13.75 mls/ hr Q8H IVPB 08/18/17 16:00 08/25/17 15:59 08/20/17 00:19 Potassium Chloride 30 meq/ Sodium Chloride 1,015 ml @ 100 mls/hr Q10H9M IV 08/20/17 06:00 09/19/17 05:59 08/20/17 06:27 Thiamine HCl 100 mg/Dextrose 56 ml @ 112 mls/hr Q24H IVPB 08/12/17 20:00 09/09/17 19:59 08/19/17 21:42 GAYLE ALMENDAREZ Aug 20, 2017 08:19
[2017-08-20] MEDS: Heparin 5000 units/ml inj SUBQ SCH ×2 (09:00→21:40)
[2017-08-20] MEDS: levETIRAcetam 1,000mg/NS100ml 100 ML IVPB SCH (10:37)
[2017-08-20] MEDS: Pantoprazole Inj IVP SCH (10:38)
--- NOTE | 2017-08-20 10:46 | Diagnostic Imaging Report ---
APPROVED REPORT CPT Code: 02838 Present Symptoms Lower Extremity Pain: Bilateral BILATERAL: Imaging reveals a patent deep venous system bilaterally. There is no evidence of thrombus within the femoral, popliteal or tibial segments. The greater saphenous veins are also within normal limits. Doppler indicates normal spontaneous flow within these segments.
--- NOTE | 2017-08-20 12:01 | Diagnostic Imaging Report ---
Indication: Shortness of breath Technique: One view of the chest Comparison: 08/18/2017 Findings: Some atelectasis and possibly hazy parenchymal opacity is seen in the left lateral lung base. The left costophrenic angle is equivocally slightly blunted. The remainder the lungs and pleural spaces are clear. There is a nasogastric tube, tip projected at level of gastric fundus body junction, proximal port just beyond the expected region of the gastroesophageal junction. Orphaned epicardial pacemaker leads, median sternotomy sutures and a valve prosthesis are again demonstrated Impression: Equivocal minimal hazy parenchymal opacity and possibly pleural fluid at the left lateral lung base. Otherwise little change management administrator 2 days
--- NOTE | 2017-08-20 12:40 | Pre-Procedure Note/Attestation ---
Pre-Procedure Note/Attestation Complete Prior to Procedure Planned Procedure: not applicable Procedure Narrative: egd/peg Indications for Procedure Pre-Operative Diagnosis: FTT Attestation I attest that I discussed the nature of the procedure; its benefits; risks and complications; and alternatives (and the risks and benefits of such alternatives ), prior to the procedure, with the patient (or the patient's legal manufacturers representative). I attest that, if there was a reasonable possibility of needing a blood transfusion, the patient (or the patient's legal manufacturers representative) was given the [facility] standardized written summary, pursuant to the [place] Blood Safety Act ([place] Health and Safety Code # 1645, as amended). I attest that I re-evaluated the patient just prior to the surgery and that there has been no change in the patient's H&P, except as documented below: EUSEBIO ESCAMILLA Aug 20, 2017 12:40
[2017-08-20] MEDS ORDERED: NS 500ML IV ONE (12:55)
[2017-08-20] MEDS ORDERED: Midazolam 2mg/2ml Inj ONE (13:00)
[2017-08-20] MEDS ORDERED: Lidocaine 1% MPF 10mg/ml 5ml ONE (13:00)
[2017-08-20] MEDS ORDERED: Propofol 200mg/20ml IV ONE (13:00)
[2017-08-20] MEDS ORDERED: LR 1000ml ONE (13:00)
[2017-08-20] MEDS ORDERED: Alfentanil 2ml Inj ONE (13:00)
[2017-08-20] MEDS ORDERED: LR 1000ml 1,000 ML IVLG SCH (13:06)
--- NOTE | 2017-08-20 13:12 | Anethesia Preoperative Eval ---
Anesthesia Pre-op PMH/ROS General Date of Evaluation: Aug 20, 2017 Time of Evaluation: 12:59 ASA Score: ASA 4 Mallampati Score Class I : Soft palate, uvula, fauces, pillars visible Class II: Soft palate, uvula, fauces visible Class III: Soft palate, base of uvula visible Class IV: Only hard plate visible Mallampati Classification: Class II Surgeon: Iva Diagnosis: Malnutrition Surgical Procedure: EGD/PEG Anesthesia History: none Family History: no anesthesia problems Allergies: Coded Allergies: No Known Allergies (Unverified , 08/12/17) PER MOM, NO KNOWN ALLERGIES Medications: see eMAR Past Medical History Cardiovascular: Reports: valve dz - Valve replacement Neurologic/Psychiatric: Reports: other - Overdose Encephelopathy, Opioid Tolerance Musculoskeletal/Integumentary: Reports: other - Contracted PSxH Narrative: Pneumo-Chest Tube, Ortho SX Anesthesia Pre-op Phys. Exam Physician Exam Last Vital Signs Date Time Temp Pulse Resp B/P (MAP) Pulse Ox O2 Delivery O2 Flow Rate FiO2 08/20/17 08:00 98.2 100 18 130/92 93 Room Air 08/17/17 10:02 2.0 28 Constitutional: NAD Neurologic: CN 2-12 intact Cardiovascular: RRR Respiratory: CTA Gastrointestinal: S/NT/ND Airway Exam Mallampati Score: Class II MO: limited ROM: limited Teeth: intact Anesthesia Pre-op A/P Risk Assessment & Plan Assessment: ASA 4 Plan: GA Status Change Before Surgery: No Pre-Antibiotics Drug: On Floor Bryan Carroll MD Aug 20, 2017 13:12
--- NOTE | 2017-08-20 13:13 | Immediate Post-Op Evaluation ---
Immediate Post-Op Evalulation Immediate Post-Op Evalulation Procedure: EGD/PEG Date of Evaluation: Aug 20, 2017 Time of Evaluation: 13:44 IV Fluids: 300 LR Blood Products: 0 Estimated Blood Loss: 8 Urinary Output: 0 Blood Pressure Systolic: 98 Blood Pressure Diastolic: 53 Pulse Rate: 97 Respiratory Rate: 16 O2 Sat by Pulse Oximetry: 99 Temperature (Fahrenheit): 97.4 Pain Score (1-10): 1 Nausea: No Vomiting: No Complications 0 Patient Status: no response, patent, none Hydration Status: adequate Bryan Carroll MD Aug 20, 2017 13:13
--- NOTE | 2017-08-20 13:13 | 48 Hour Post Anesthesia Eval ---
Post Anesthesia Evaluation Procedure: EGD/PEG Date of Evaluation: Aug 20, 2017 Time of Evaluation: 15:51 Blood Pressure Systolic: 97 0: 54 Pulse Rate: 89 Respiratory Rate: 18 Temperature (Fahrenheit): 98.2 O2 Sat by Pulse Oximetry: 100 Airway: patent Nausea: No Vomiting: No Pain Intensity: 1 Hydration Status: adequate Cardiopulmonary Status: Stable Mental Status/LOC: patient returned to baseline Follow-up Care/Observations: 0 Post-Anesthesia Complications: 0 Follow-up care needed: N/A Bryan Carroll MD Aug 20, 2017 13:13
[2017-08-20] MEDS ORDERED: HYDROcodone/Acetamin 7.5/325 tab ORAL PRN (13:15)
[2017-08-20] MEDS ORDERED: Labetalol 5mg/ml 20ml vial IV PRN (13:15)
[2017-08-20] MEDS ORDERED: DiphenhydrAMINE 50mg/ml Inj IVP PRN (13:15)
[2017-08-20] MEDS ORDERED: Ketorolac 30mg Inj IV PRN (13:15)
[2017-08-20] MEDS ORDERED: Atropine Inj 1mg/10ml Syr IV PRN (13:15)
[2017-08-20] MEDS ORDERED: LORazepam Inj 2mg/ml 1ml IV PRN (13:15)
[2017-08-20] MEDS ORDERED: Norco 5mg/325mg tab ORAL PRN (13:15)
[2017-08-20] MEDS ORDERED: fentaNYL 100 mcg/2 mL IV PRN (13:15)
[2017-08-20] MEDS ORDERED: Hydromorphone 0.5mg/0.5ml inj IVP PRN (13:15)
[2017-08-20] MEDS ORDERED: Midazolam 2mg/2ml Inj IVP PRN (13:15)
[2017-08-20] MEDS ORDERED: Ketorolac 60mg Inj IV PRN (13:15)
[2017-08-20] MEDS ORDERED: Metoclopramide 10mg/2ml Inj IVP PRN (13:15)
[2017-08-20] MEDS ORDERED: oxyCODONE HCL/Acetaminophen 5/325mg ORAL PRN (13:15)
--- NOTE | 2017-08-20 13:16 | Endoscopy Procedure Note ---
Endoscopy Procedure Note Indication for Procedure: FTT Procedures Performed: EGD, PEG Operative Findings/Diagnosis: same Specimen: yes Pt Tolerated Procedure Well: Yes Estimated Blood Loss: none Anesthesiologist: melvin Anesthesia: MAC Implant(s) used?: No 50 yrs or older w/o bx or poly: Not Applicable 10yrs. F/U not recommended: Not Applicable EUSEBIO ESCAMILLA Aug 20, 2017 13:16
--- NOTE | 2017-08-20 15:09 | General Progress Note ---
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 Waking up. Prognosis seems better in the long run. 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 Further waking up. To tele. CW carmen anoxic damage - EEG diffuse slowing. PEG done ESBL E. Coli UTI per ID Urine Tox Screen Results Still pending? Subjective Allergies: Coded Allergies: No Known Allergies (Unverified , 08/12/17) PER MOM, NO KNOWN ALLERGIES Subjective Sedated. NPO Objective Last 24 Hour Vital Signs Date Time Temp Pulse Resp B/P (MAP) Pulse Ox O2 Delivery O2 Flow Rate FiO2 08/20/17 14:10 97.8 91 17 104/63 97 Simple Mask 6.0 08/20/17 13:55 92 20 103/63 100 Simple Mask 6.0 08/20/17 13:43 96 16 101/54 100 Simple Mask 6.0 08/20/17 13:38 97 26 99/55 100 Simple Mask 6.0 08/20/17 13:33 97.4 97 19 98/53 99 Simple Mask 6.0 08/20/17 13:33 89 18 100 08/20/17 08:00 98.2 100 18 130/92 93 Room Air 08/20/17 04:43 98.2 115 18 146/79 96 Nasal Cannula 08/20/17 04:00 115 08/20/17 00:37 99.1 100 18 115/74 90 Nasal Cannula 08/20/17 00:00 96 Room Air 08/20/17 00:00 118 08/19/17 20:31 98.4 100 18 116/64 Nasal Cannula 08/19/17 20:00 116 08/19/17 18:40 98.0 92 20 135/70 96 Room Air 08/19/17 18:39 98.0 92 20 135/70 96 Room Air 08/19/17 16:00 98.0 92 20 135/70 96 Room Air 08/19/17 16:00 113 Intake and Output 08/19/17 08/20/17 19:00 07:00 Intake Total 1261.00 ml Output Total 800 ml 300 ml Balance -800 ml 961.00 ml IV Total 1211.00 ml Tube Feeding 50 ml Output Urine Total 800 ml 300 ml # Bowel Movements 1 Height (Feet): 5 Height (Inches): 5.00 Weight (Pounds): 145 Objective On 02 via Mask. Sedated Afebrile. Cv tach Lungs CTA Abd SNT. BS +. New PEG. E No CCE Neuro Sedated. Opisthotonic? BERTRAND CONDE Aug 20, 2017 15:09
--- NOTE | 2017-08-20 15:40 | Wound Care Consultation ---
Wound Assessment Wound Assessment #1: Wound Present on Admission: No New Wound: Yes Status Change of Wound: No Wound Location Body Site: perineal area Wound Type: chemical burn Rufino Test: Does not Rufino Percent of Wound [place]/Red: 100 Wound Drainage Amount: None Wound Drainage Odor: None/Absent Tissue Surrounding Wound: Erythemic Wound General Appearance: Reddened Wound Assessment #2: Wound Number: 2 Wound Present on Admission: Yes New Wound: No Status Change of Wound: No Wound Location Body Site Modif: right Wound Location Body Site: heel Wound Type: scab Rufino Test: Does not Rufino Wound Thickness: Full Thickness Wound Length: 1.0 Wound Width: 1.0 Percent of Wound Bed Yellow/Wh: 100 - dry Wound Drainage Amount: None Wound Drainage Odor: None/Absent Tissue Surrounding Wound: Intact Wound General Appearance: Asymptomatic Wound Comment #1 Chemical burn on perineal area #2 Right heel dry yellow scab Recommendation -Local wound care pre protocol -Keep clean and dry -Turn and reposition -Optimize nutrition -Offload both heels -Heel protector on both heels -Low air loss mattress -Assess and f/u accordingly for any changes ROYCE FLORIAN RN Aug 20, 2017 15:40
[2017-08-20] MEDS: MULTIVITAMIN IV SCH (16:00)
[2017-08-20] MEDS: POTASSIUM CHLORIDE IV SCH (16:00)
[2017-08-20] MEDS: 1/2 NS IV SCH (16:00)
--- NOTE | 2017-08-20 16:22 | General Progress Note ---
Assessment/Plan Status: stable Assessment/Plan ?anoxic brain injury polysubstance abuse benzo withdrawal -cont ativan prn Subjective Date patient seen: Aug 20, 2017 Neurologic/Psychiatric: Reports: anxiety, depressed, emotional problems Allergies: Coded Allergies: No Known Allergies (Unverified , 08/12/17) PER MOM, NO KNOWN ALLERGIES Subjective the pt is s/p GT, doing well less agitated. Objective Last 24 Hour Vital Signs Date Time Temp Pulse Resp B/P (MAP) Pulse Ox O2 Delivery O2 Flow Rate FiO2 08/20/17 14:10 97.8 91 17 104/63 97 Simple Mask 6.0 08/20/17 13:55 92 20 103/63 100 Simple Mask 6.0 08/20/17 13:43 96 16 101/54 100 Simple Mask 6.0 08/20/17 13:38 97 26 99/55 100 Simple Mask 6.0 08/20/17 13:33 97.4 97 19 98/53 99 Simple Mask 6.0 08/20/17 13:33 89 18 100 08/20/17 08:00 98.2 100 18 130/92 93 Room Air 08/20/17 04:43 98.2 115 18 146/79 96 Nasal Cannula 08/20/17 04:00 115 08/20/17 00:37 99.1 100 18 115/74 90 Nasal Cannula 08/20/17 00:00 96 Room Air 08/20/17 00:00 118 08/19/17 20:31 98.4 100 18 116/64 Nasal Cannula 08/19/17 20:00 116 08/19/17 18:40 98.0 92 20 135/70 96 Room Air 08/19/17 18:39 98.0 92 20 135/70 96 Room Air Intake and Output 08/19/17 08/20/17 19:00 07:00 Intake Total 1261.00 ml Output Total 800 ml 300 ml Balance -800 ml 961.00 ml IV Total 1211.00 ml Tube Feeding 50 ml Output Urine Total 800 ml 300 ml # Bowel Movements 1 Height (Feet): 5 Height (Inches): 5.00 Weight (Pounds): 145 General Appearance: no apparent distress, lethargic, confused Neurologic: unresponsive, depressed affect Kristie Braswell M.D. Aug 20, 2017 16:22
--- NOTE | 2017-08-20 17:16 | Procedure Note ---
DATE OF PROCEDURE: 08/20/2017 SURGEON: Nir Enrique M.D. REFERRING PHYSICIAN: Albert Doran M.D. ANESTHESIOLOGIST: Upper endoscopy with biopsy. ANESTHESIA: Per Dr. Carroll. INSTRUMENT: Olympus adult flexible upper endoscope. INDICATION: Failure to thrive. The procedure, risks, benefits, and possible consequences, including hemorrhage, aspiration, perforation and infection, and alternative treatments, were explained to the patient/legal guardian by Dr. Nir Enrique and the patient/legal guardian understood and accepted these risks. PROCEDURE: After informed consent was obtained and the patient was adequately sedated, Olympus upper endoscope was advanced from mouth into the second portion of the duodenum and retroflexion was performed in the stomach. The patient had evidence of multiple linear ulcerations in the body of the stomach. Biopsy from antrum was obtained to rule out H. pylori infection. Then, under endoscopic guidance and under sterile condition, a 20-[place] pull type of G-tube was successfully placed in the epigastric area. The distance from tip of the tube to skin was 2.5 cm in size. The patient tolerated the procedure well without any complication. SUMMARY OF FINDINGS: 1. Linear gastric ulceration, status post biopsy. 2. Status post successful PEG placement. RECOMMENDATIONS: Abdominal binder. Elevate the head of the bed at all times. G-tube flush. G-tube care. Start tube feeding later today. The patient is currently on Zosyn, continue. I want to thank Dr. Doran for this kind referral. Nir Enrique M.D. DR: Lali JOB#: [id number] CC: Albert Doran M.D.; Fax#: [phone]
--- NOTE | 2017-08-20 18:45 | Infectious Diseases Prog Note ---
Assessment/Plan Assessment/Plan ASSESSMENT AND PLAN: 1. e.coli uti, esbl e.coli pna, ? aspiration pna, ? sepsis, febrile, ams, sedated, ? drug overdose, fungal uti, 08/27 gram + blood cultures likely contaminant - zosyn and diflucan - check blood culture ID - check labs and chest x-ray - respiratory improved, chest x-ray better - d/w mother - more alert overall - s/p feeding tube 2. drug abuse and drug overdose per history, encephalopathy - per neurology, patient sedated, await f/u drug screen 3. hepatitis C serology + - w/u as outpatient including viral load and possible tx, d/w mother 4. Acute kidney injury with elevated creatinine, which is improved. 5. Dehydration. 6. Intravenous fluids. 7. 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 8. No known drug allergies. 9. Social history positive for intravenous drug abuse and smoking. 10. Family history noncontributory. 11. MAR was noted. 12. Continue treatment per primary, Dr. Doran and consultants 13. Case discussed with RN. 14. Case discussed with the patient's mother. Subjective Constitutional: Reports: other - more alert, Denies: fever HEENT: Denies: congestion Respiratory: Denies: shortness of breath Cardiovascular: Denies: chest pain Gastrointestinal/Abdominal: Denies: nausea, vomiting, diarrhea Genitourinary: Reports: other - + jameson Neurologic: Denies: headache Psychiatric: Reports: other - na Skin: Denies: rash Hematologic: Denies: bleeding Musculoskeletal: Denies: pain Allergies: Coded Allergies: No Known Allergies (Unverified , 08/12/17) PER MOM, NO KNOWN ALLERGIES Objective Vital Signs Last 24 Hour Vital Signs Date Time Temp Pulse Resp B/P (MAP) Pulse Ox O2 Delivery O2 Flow Rate FiO2 08/20/17 14:10 97.8 91 17 104/63 97 Simple Mask 6.0 08/20/17 13:55 92 20 103/63 100 Simple Mask 6.0 08/20/17 13:43 96 16 101/54 100 Simple Mask 6.0 08/20/17 13:38 97 26 99/55 100 Simple Mask 6.0 08/20/17 13:33 97.4 97 19 98/53 99 Simple Mask 6.0 08/20/17 13:33 89 18 100 08/20/17 08:00 98.2 100 18 130/92 93 Room Air 08/20/17 04:43 98.2 115 18 146/79 96 Nasal Cannula 08/20/17 04:00 115 08/20/17 00:37 99.1 100 18 115/74 90 Nasal Cannula 08/20/17 00:00 96 Room Air 08/20/17 00:00 118 08/19/17 20:31 98.4 100 18 116/64 Nasal Cannula 08/19/17 20:00 116 Height (Feet): 5 Height (Inches): 5.00 Weight (Pounds): 145 General Appearance: no acute distress HEENT: normocephalic, atraumatic, anicteric, mucous membranes moist, EOMI, pharynx normal, supple, no JVD Respiratory/Chest: no respiratory distress, no accessory muscle use, crackles/ rales, rhonchi - bilaterally Cardiovascular: normal rate, regular rhythm, no gallop/murmur Abdomen: normal bowel sounds, soft, non tender, no organomegaly, non distended Genitourinary: other - + jameson - urine slt cloudy Extremities: no cyanosis 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 Otherwise little size changer 2 days Microbiology Date/Time Source Procedure Growth Status 08/18/17 18:30 Blood Blood Culture - Preliminary NO GROWTH AFTER 24 HOURS Resulted 08/14/17 21:00 Sputum Induced Gram Stain - Final Complete 08/14/17 21:00 Sputum Culture - Final Escherichia Coli - Esbl Complete 08/18/17 14:26 Indwelling Cath Urine Culture - Preliminary YEAST Resulted 08/10/17 01:50 Rectum VRE Culture - Final NO VANCOMYCIN RESISTANT ENTEROCOCCUS ... Complete Microbiology Date/Time Source Procedure Growth Status 08/18/17 18:30 Blood Blood Culture - Preliminary NO GROWTH AFTER 24 HOURS Resulted 08/18/17 18:30 Blood Blood Culture - Preliminary Resulted 08/18/17 14:26 Indwelling Cath Urine Culture - Preliminary YEAST Resulted Labs Test 08/18/17 14:26 08/18/17 18:30 08/19/17 12:00 Urine Color Yellow Urine Appearance Clear Urine pH 7 (4.5-8.0) Urine Specific [place] 1.010 (1.005-1.035) Urine Protein Negative (NEGATIVE) Urine Glucose (UA) Negative (NEGATIVE) Urine Ketones 3+ (NEGATIVE) Urine Occult Blood 1+ (NEGATIVE) Urine Nitrite Negative (NEGATIVE) Urine Bilirubin Negative (NEGATIVE) Urine Urobilinogen Normal MG/DL (0.0-1.0) Urine Leukocyte Esterase 1+ (NEGATIVE) Urine RBC 2-4 /HPF (0 - 2) Urine WBC 0-2 /HPF (0 - 2) Urine Squamous Epithelial Cells Few /LPF (NONE/OCC) Urine Bacteria Few /HPF (NONE) Urine Yeast Few /HPF (NONE) Rapid Plasma Reagin Non reactive (Non Reactive) White Blood Count 8.1 K/UL (4.8-10.8) Red Blood Count 4.56 M/UL (4.20-5.40) Hemoglobin 14.0 G/DL (12.0-16.0) Hematocrit 42.2 % (37.0-47.0) Mean Corpuscular Volume 92 FL (80-99) Mean Corpuscular Hemoglobin 30.7 PG (27.0-31.0) Mean Corpuscular Hemoglobin Concent 33.2 G/DL (32.0-36.0) Red Cell Distribution Width 13.1 % (11.6-14.8) Platelet Count 237 K/UL (150-450) Mean Platelet Volume 6.2 FL (6.5-10.1) Neutrophils (%) (Auto) 63.0 % (45.0-75.0) Lymphocytes (%) (Auto) 25.2 % (20.0-45.0) Monocytes (%) (Auto) 9.7 % (1.0-10.0) Eosinophils (%) (Auto) 1.3 % (0.0-3.0) Basophils (%) (Auto) 0.9 % (0.0-2.0) Prothrombin Time 15.6 SEC (9.30-11.50) Prothromb Time International Ratio 1.5 (0.9-1.1) Activated Partial Thromboplast Time 25 SEC (23-33) Sodium Level 134 MMOL/L (136-145) Potassium Level 4.6 MMOL/L (3.5-5.1) Chloride Level 98 MMOL/L (98-107) Carbon Dioxide Level 22 MMOL/L (21-32) Anion Gap 14 mmol/L (5-15) Blood Urea Nitrogen 11 mg/dL (7-18) Creatinine 0.7 MG/DL (0.55-1.30) Estimat Glomerular Filtration Rate > 60 mL/min (>60) Glucose Level 184 MG/DL (74-106) Calcium Level 7.8 MG/DL (8.5-10.1) Current Medications Medications (Trade) Dose Ordered Sig/Hema Route PRN Reason Start Time Stop Time Status Last Admin Dose Admin Acetaminophen (Tylenol) 650 mg Q4H PRN RECTAL Mild Pain/Temp > 100.5 08/12/17 19:30 09/11/17 19:29 08/19/17 08:54 Chlorhexidine Gluconate (Valerie-Hex 2%) 1 applic DAILY@2000 TOPIC 08/12/17 20:00 09/10/17 19:59 08/19/17 20:29 Clotrimazole (Lotrimin) 1 applic EVERY 12 HOURS TOPIC 08/20/17 17:00 09/19/17 16:59 08/20/17 17:52 Heparin Sodium (Porcine) (Heparin 5000 units/ml) 5,000 units EVERY 12 HOURS SUBQ 08/12/17 21:00 09/09/17 20:59 08/18/17 20:32 Levetiracetam 100 ml @ 400 mls/hr DAILY IVPB 08/14/17 09:00 09/11/17 08:59 08/20/17 10:37 Lorazepam (Ativan 2mg/ml 1ml) 2 mg EVERY 6 HOURS IM 08/19/17 00:00 08/23/17 12:59 08/20/17 17:52 Multivitamins 10 ml/Potassium Chloride 30 meq/ Sodium Chloride 1,025 ml @ 100 mls/hr Q24H IV 08/14/17 16:00 09/13/17 15:59 08/19/17 16:31 Nicotine (Nicoderm) 1 patch Q24H TDERMAL 08/13/17 16:00 09/12/17 15:59 08/20/17 17:53 Pantoprazole (Protonix) 40 mg DAILY IVP 08/13/17 09:00 09/11/17 09:59 08/20/17 10:38 Piperacillin Sod/ Tazobactam Sod 3.375 gm/Dextrose 55 ml @ 13.75 mls/ hr Q8H IVPB 08/18/17 16:00 08/25/17 15:59 08/20/17 17:53 Potassium Chloride 30 meq/ Sodium Chloride 1,015 ml @ 100 mls/hr Q10H9M IV 08/20/17 06:00 09/19/17 05:59 08/20/17 17:52 Thiamine HCl 100 mg/Dextrose 56 ml @ 112 mls/hr Q24H IVPB 08/12/17 20:00 09/09/17 19:59 08/19/17 21:42 MARIA A SMITH Aug 20, 2017 18:45
[2017-08-20] MEDS ORDERED: Morphine Sulfate 2mg/ml Inj IVP PRN (21:00)
--- NOTE | 2017-08-20 21:21 | Neurology Progress Note ---
Interim History Interim History Interim History Ms. Carter is minimally arousable. She opened her eyes on loud vocal stimulation for a few seconds. She then mumbled but could not communicate in any manner. She responded to deep pain with lower extremity withdrawal. She continues to get Ativan every 6 hours. The myoclonic jerks are less frequent. She had her PEG inserted today. Review of Systems Neuro Review of Systems Unable to obtain Objective Physical Exam Last Vital Signs Date Time Temp Pulse Resp B/P (MAP) Pulse Ox O2 Delivery O2 Flow Rate FiO2 08/20/17 20:21 100.0 110 18 117/80 96 Nasal Cannula 08/20/17 14:10 6.0 08/17/17 10:02 28 Neurologic Exam Objective PHYSICAL EXAMINATION: GENERAL: She is a well-developed, well-nourished lady, lying in bed, having infrequent myoclonic jerks of a generalized nature. HEAD: Normocephalic and atraumatic. NECK: No neck rigidity was observed. EENT: Benign. NEUROLOGICAL EXAMINATION: MENTAL STATUS EXAMINATION: She could be aroused briefly with vigorous vocal stimuli. She was unable to maintain arousal for more than a few seconds. She was unable to communicate. Further mental status testing was thus impossible. SPEECH: She did mumble a little when aroused. LANGUAGE: Could not be tested. CRANIAL NERVE EXAMINATION: II: She did not blink to threat. III, IV & : The external ocular movements were present on oculocephalic maneuvers. The pupils were 6 mm in diameter, equal, round, regular, and reactive sluggishly to light. V & VII: The corneal reflexes were present and were equally brisk bilaterally. VIII: She did respond to sounds and had no nystagmus. IX & X: The gag reflex was present, but depressed. XI: The sternocleidomastoids and trapezii functioned minimally. XII: The tongue was in the midline. MOTOR SYSTEM: The tone was increased in all four extremities with a mild degree of spasticity. Examination of muscle mass revealed no focal wasting. Examination of power could not be performed because even when deep painful stimuli were applied, only minimal movements were seen in the toes bilaterally. SENSORY EXAMINATION: She did not respond even to deep painful stimuli, other than minimal movements seen in the toes bilaterally. REFLEXES: 3+ and bilaterally symmetrical at the biceps, triceps,brachioradialis , and knees; 2+ at both ankles. The plantar responses were extensor bilaterally. COORDINATION: Could not be tested. STANCE: Could not be tested. GAIT: Could not be tested. Impression/Recommendations Diagnostic Impression 1. Ms. Violetta Carter is a 22-year-old, lady, of unknown handedness, who does have a long history of polysubstance abuse, who in the early hours of 08/15/2017, overdosed on drugs that are unknown to us. She was found by her roommate unresponsive and not breathing. Cardiopulmonary resuscitation was started immediately and paramedics were called in and they arrived within approximately 5 minutes. When they found her, she was having a tonic-clonic seizure. She then was given Versed and Narcan, but no response was seen to the Narcan. She was then transported to [facility] where she was noted to have significant alteration in her mental state, but at one point in time was minimally responsive. 2. Since then, she had been given Ativan 2 mg every 4 hours [id number] and has become unresponsive. She was also exhibiting myoclonic jerks, which seem to be less than what they were earlier. 3. At this time she can be aroused briefly but is unable to communicate. 4. On neurological examination, at this time, she can be aroused briefly but is unable to communicate. The corneal reflexes are present and equal. The gag reflex is depressed and she does have eye movements on oculocephalic maneuvers. The deep tendon reflexes are pathologically brisk. She does have some mild spasticity in all four extremities. Plantar responses are extensor. 5. The CT scan of the brain without contrast is benign. 6. An electroencephalogram repeated on 08/19/17 revealed a severe encephalopathy with a definite toxic component due to benzodiazepines. 7. The patient's history, neurological examination, laboratory data, CT scan findings, and electroencephalogram findings are most consistent with an anoxic encephalopathy, most probably related to drug overdose. This has been followed by a drug-induced encephalopathy in the hospital due to the constant dosing with Ativan. Recommendations 1. Continue present management. 2. Attempts should be made to wean the patient off the Ativan and keep her off mind-altering drugs so that the true degree of encephalopathy can be determined. 3. Further recommendations will be given after the above mentioned is done. Prashant Berger M.D., M.S.P.H. PRASHANT BERGER Aug 20, 2017 21:21
[2017-08-20] MEDS: Dyna-Hex 2% Top Sol 2oz TOPIC SCH (21:35)
[2017-08-20] MEDS: Thiamine HCl 100 MG in D5W 55 ML IVPB SCH (21:35)
[2017-08-20] MEDS: Acetaminophen 650 MG SUPP RECTAL PRN (22:27)
[2017-08-21] VITALS (7 sets, daily range): BP systolic 105–129; BP diastolic 53–86
[2017-08-21] MEDS: LORazepam Inj 2mg/ml 1ml IM SCH ×3 (00:10→20:36)
[2017-08-21] MEDS: Potassium Chloride 30 MEQ in 1/2 NS 1000ml 1,000 ML IV SCH ×4 (01:32→19:00)
[2017-08-21] MEDS: Acetaminophen 650 MG SUPP RECTAL PRN ×2 (03:43→10:31)
[2017-08-21 07:02] LABS: BASOPHILS % (AUTO) 0.4 % (0.0-2.0); EOSINOPHILS % (AUTO) 0.6 % (0.0-3.0); HEMOGLOBIN 15.6 G/DL (12.0-16.0); LYMPHOCYTES % (AUTO) 12.3 % (20.0-45.0); MEAN CORPUSCULAR VOLUME 93 FL (80-99); MONOCYTES % (AUTO) 5.3 % (1.0-10.0); NEUTROPHILS % (AUTO) 81.4 % (45.0-75.0); PLATELET COUNT 331 K/UL (150-450); RED BLOOD COUNT 4.96 M/UL (4.20-5.40); RED CELL DISTRIBUTION WIDTH 13.5 % (11.6-14.8); WHITE BLOOD COUNT 13.9 K/UL (4.8-10.8)
[2017-08-21 07:35] LABS: ANION GAP 10 mmol/L (5-15); BLOOD UREA NITROGEN 15 mg/dL (7-18); CALCIUM 8.4 MG/DL (8.5-10.1); CARBON DIOXIDE 26 MMOL/L (21-32); CHLORIDE 100 MMOL/L (98-107); CREATININE 0.6 MG/DL (0.55-1.30); POTASSIUM 4.2 MMOL/L (3.5-5.1); SODIUM 136 MMOL/L (136-145)
[2017-08-21] MEDS: levETIRAcetam 1,000mg/NS100ml 100 ML IVPB SCH (08:31)
[2017-08-21] MEDS: Pantoprazole Inj IVP SCH (08:31)
[2017-08-21] MEDS: Heparin 5000 units/ml inj SUBQ SCH ×2 (08:32→20:52)
[2017-08-21] MEDS: Piperacillin/Tazobactam 3.375 GM in D5W 55 ML IVPB SCH ×4 (10:13→15:52)
--- NOTE | 2017-08-21 10:13 | GI Progress Note ---
Assessment/Plan Problems: (1) FTT (failure to thrive) in adult ICD Codes: R62.7 - Adult failure to thrive SNOMED: 051180423 (2) Overdose ICD Codes: T50.901A - Poisoning by unspecified drugs, medicaments and biological substances, accidental (unintentional), initial encounter SNOMED: 53302874 (3) severe encephalopathy, anoxic/drug toxicity/benzo withdrawal (4) iv substance abuse, relapse (5) symptomatic seizure event (6) severe anoxic encephalopathy Status: unchanged Status Narrative Discussed with Dr. Enrique. Assessment/Plan s/p EGD/PEG SUMMARY OF FINDINGS: 1. Linear gastric ulceration, status post biopsy. 2. Status post successful PEG placement. RECOMMENDATIONS: Abdominal binder. Elevate the head of the bed at all times. G-tube flush. G-tube care. GTFs per RD fu labs outpatient Hep C tx Subjective Subjective limited, responds to stimuli Objective Last 24 Hour Vital Signs Date Time Temp Pulse Resp B/P (MAP) Pulse Ox O2 Delivery O2 Flow Rate FiO2 08/21/17 04:13 97.7 08/21/17 04:00 111 08/21/17 04:00 97.7 111 18 127/86 96 Nasal Cannula 08/21/17 00:37 100.1 114 18 115/81 96 Nasal Cannula 08/21/17 00:00 106 08/20/17 20:21 100.0 110 18 117/80 96 Nasal Cannula 08/20/17 20:00 123 08/20/17 16:00 122 08/20/17 14:10 97.8 91 17 104/63 97 Simple Mask 6.0 08/20/17 13:55 92 20 103/63 100 Simple Mask 6.0 08/20/17 13:43 96 16 101/54 100 Simple Mask 6.0 08/20/17 13:38 97 26 99/55 100 Simple Mask 6.0 08/20/17 13:33 97.4 97 19 98/53 99 Simple Mask 6.0 08/20/17 13:33 89 18 100 08/20/17 12:00 114 Intake and Output 08/20/17 08/21/17 19:00 07:00 Intake Total 350 ml 356 ml Output Total 1858 ml 300 ml Balance -1508 ml 56 ml IV Total 356 ml Hemodialysis 350 ml Output Urine Total 1850 ml 300 ml Estimated Blood Loss 8 ml Laboratory Tests Test 08/21/17 05:00 White Blood Count 13.9 K/UL (4.8-10.8) H Red Blood Count 4.96 M/UL (4.20-5.40) Hemoglobin 15.6 G/DL (12.0-16.0) Hematocrit 46.0 % (37.0-47.0) Mean Corpuscular Volume 93 FL (80-99) Mean Corpuscular Hemoglobin 31.4 PG (27.0-31.0) H Mean Corpuscular Hemoglobin Concent 33.9 G/DL (32.0-36.0) Red Cell Distribution Width 13.5 % (11.6-14.8) Platelet Count 331 K/UL (150-450) Mean Platelet Volume 7.1 FL (6.5-10.1) Neutrophils (%) (Auto) 81.4 % (45.0-75.0) H Lymphocytes (%) (Auto) 12.3 % (20.0-45.0) L Monocytes (%) (Auto) 5.3 % (1.0-10.0) Eosinophils (%) (Auto) 0.6 % (0.0-3.0) Basophils (%) (Auto) 0.4 % (0.0-2.0) Sodium Level 136 MMOL/L (136-145) Potassium Level 4.2 MMOL/L (3.5-5.1) Chloride Level 100 MMOL/L (98-107) Carbon Dioxide Level 26 MMOL/L (21-32) Anion Gap 10 mmol/L (5-15) Blood Urea Nitrogen 15 mg/dL (7-18) Creatinine 0.6 MG/DL (0.55-1.30) Estimat Glomerular Filtration Rate > 60 mL/min (>60) Glucose Level 103 MG/DL (74-106) Calcium Level 8.4 MG/DL (8.5-10.1) L Height (Feet): 5 Height (Inches): 5.00 Weight (Pounds): 140 General Appearance: no apparent distress, thin Cardiovascular: normal rate Respiratory/Chest: normal breath sounds, no respiratory distress Abdominal Exam: normal bowel sounds, non tender, soft, GT site - c/d/i Extremities: non-tender Kendra Templeton N.P. Aug 21, 2017 10:13
--- NOTE | 2017-08-21 12:23 | General Progress Note ---
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 Waking up. Prognosis seems better in the long run. 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 Further waking up. To tele. CW carmen anoxic damage - EEG diffuse slowing. PEG done ESBL E. Coli UTI per ID Urine Tox Screen Results Still pending? TF?? DC planning??? Subjective Allergies: Coded Allergies: No Known Allergies (Unverified , 08/12/17) PER MOM, NO KNOWN ALLERGIES Subjective Less Sedated. NPO Objective Last 24 Hour Vital Signs Date Time Temp Pulse Resp B/P (MAP) Pulse Ox O2 Delivery O2 Flow Rate FiO2 08/21/17 11:01 97.7 08/21/17 08:00 98.2 97 18 107/69 96 Nasal Cannula 1.0 08/21/17 08:00 97 08/21/17 04:00 111 08/21/17 04:00 97.7 111 18 127/86 96 Nasal Cannula 08/21/17 00:37 100.1 114 18 115/81 96 Nasal Cannula 08/21/17 00:00 106 08/20/17 20:21 100.0 110 18 117/80 96 Nasal Cannula 08/20/17 20:00 123 08/20/17 16:00 122 08/20/17 14:10 97.8 91 17 104/63 97 Simple Mask 6.0 08/20/17 13:55 92 20 103/63 100 Simple Mask 6.0 08/20/17 13:43 96 16 101/54 100 Simple Mask 6.0 08/20/17 13:38 97 26 99/55 100 Simple Mask 6.0 08/20/17 13:33 97.4 97 19 98/53 99 Simple Mask 6.0 08/20/17 13:33 89 18 100 Intake and Output 08/20/17 08/21/17 19:00 07:00 Intake Total 350 ml 356 ml Output Total 1858 ml 300 ml Balance -1508 ml 56 ml IV Total 356 ml Hemodialysis 350 ml Output Urine Total 1850 ml 300 ml Estimated Blood Loss 8 ml Laboratory Tests 08/21/17 05:00: White Blood Count 13.9H, Red Blood Count 4.96, Hemoglobin 15.6, Hematocrit 46.0 , Mean Corpuscular Volume 93, Mean Corpuscular Hemoglobin 31.4H, Mean Corpuscular Hemoglobin Concent 33.9, Red Cell Distribution Width 13.5, Platelet Count 331, Mean Platelet Volume 7.1, Neutrophils (%) (Auto) 81.4H, Lymphocytes ( %) (Auto) 12.3L, Monocytes (%) (Auto) 5.3, Eosinophils (%) (Auto) 0.6, Basophils (%) (Auto) 0.4, Sodium Level 136, Potassium Level 4.2, Chloride Level 100, Carbon Dioxide Level 26, Anion Gap 10, Blood Urea Nitrogen 15, Creatinine 0.6, Estimat Glomerular Filtration Rate > 60, Glucose Level 103, Calcium Level 8.4L Height (Feet): 5 Height (Inches): 5.00 Weight (Pounds): 140 Objective Moaning Afebrile. Cv tach Lungs CTA Abd SNT. BS +. New PEG. E No CCE + Contractures BERTRAND CONDE Aug 21, 2017 12:23
--- NOTE | 2017-08-21 12:39 | Pulmonology Progress Note ---
Assessment/Plan Assessment/Plan PROBLEM LIST: -Drug OD -H/O IVDU -Respiratory acidosis -MATTHEW -H/O infective endocarditis S/P MVR PLAN: - cxr changes noted- monitor fluid status and recommend further -Continue supplemental o2 as needed -Off BiPAP and monitor -monitor for aspiration and repeat Xray as needed -Monitor volumes and renal function -DVT prophylaxis -GT placement -ID followup impression, plan, and exam edited and reviewed in detail care discussed with RN Subjective Allergies: Coded Allergies: No Known Allergies (Unverified , 08/12/17) PER MOM, NO KNOWN ALLERGIES Subjective care reviewed and discussed with mother cxr negative Objective Last 24 Hour Vital Signs Date Time Temp Pulse Resp B/P (MAP) Pulse Ox O2 Delivery O2 Flow Rate FiO2 08/21/17 11:01 97.7 08/21/17 08:00 98.2 97 18 107/69 96 Nasal Cannula 1.0 08/21/17 08:00 97 08/21/17 04:00 111 08/21/17 04:00 97.7 111 18 127/86 96 Nasal Cannula 08/21/17 00:37 100.1 114 18 115/81 96 Nasal Cannula 08/21/17 00:00 106 08/20/17 20:21 100.0 110 18 117/80 96 Nasal Cannula 08/20/17 20:00 123 08/20/17 16:00 122 08/20/17 14:10 97.8 91 17 104/63 97 Simple Mask 6.0 08/20/17 13:55 92 20 103/63 100 Simple Mask 6.0 08/20/17 13:43 96 16 101/54 100 Simple Mask 6.0 08/20/17 13:38 97 26 99/55 100 Simple Mask 6.0 08/20/17 13:33 97.4 97 19 98/53 99 Simple Mask 6.0 08/20/17 13:33 89 18 100 Intake and Output 08/20/17 08/21/17 19:00 07:00 Intake Total 350 ml 356 ml Output Total 1858 ml 300 ml Balance -1508 ml 56 ml IV Total 356 ml Hemodialysis 350 ml Output Urine Total 1850 ml 300 ml Estimated Blood Loss 8 ml Objective WDWN NAD stable breath sounds bilaterally without rhonchi or wheeze [id number] without MRG NABS nontender no HSM no CCE nonfocal NGT in place reduced ROM Microbiology Date/Time Source Procedure Growth Status 08/18/17 18:30 Blood Blood Culture - Preliminary NO GROWTH AFTER 48 HOURS Resulted 08/18/17 18:30 Blood Blood Culture - Preliminary Staphylococcus Sp Coag Neg Resulted 08/18/17 14:26 Indwelling Cath Urine Culture - Final Narcisa Albicans Complete Laboratory Tests 08/21/17 05:00: White Blood Count 13.9H, Red Blood Count 4.96, Hemoglobin 15.6, Hematocrit 46.0 , Mean Corpuscular Volume 93, Mean Corpuscular Hemoglobin 31.4H, Mean Corpuscular Hemoglobin Concent 33.9, Red Cell Distribution Width 13.5, Platelet Count 331, Mean Platelet Volume 7.1, Neutrophils (%) (Auto) 81.4H, Lymphocytes ( %) (Auto) 12.3L, Monocytes (%) (Auto) 5.3, Eosinophils (%) (Auto) 0.6, Basophils (%) (Auto) 0.4, Sodium Level 136, Potassium Level 4.2, Chloride Level 100, Carbon Dioxide Level 26, Anion Gap 10, Blood Urea Nitrogen 15, Creatinine 0.6, Estimat Glomerular Filtration Rate > 60, Glucose Level 103, Calcium Level 8.4L Current Medications Medications (Trade) Dose Ordered Sig/Hema Route PRN Reason Start Time Stop Time Status Last Admin Dose Admin Acetaminophen (Tylenol) 650 mg Q4H PRN RECTAL Mild Pain/Temp > 100.5 08/12/17 19:30 09/11/17 19:29 08/21/17 10:31 Chlorhexidine Gluconate (Valerie-Hex 2%) 1 applic DAILY@1999 TOPIC 08/12/17 20:00 09/10/17 19:59 08/20/17 21:35 Clotrimazole (Lotrimin) 1 applic EVERY 12 HOURS TOPIC 08/20/17 17:00 09/19/17 16:59 08/21/17 08:33 Fluconazole (Diflucan) 100 mg DAILY ORAL 08/21/17 19:30 08/28/17 19:29 Heparin Sodium (Porcine) (Heparin 5000 units/ml) 5,000 units EVERY 12 HOURS SUBQ 08/12/17 21:00 09/09/17 20:59 08/21/17 08:32 Levetiracetam 100 ml @ 400 mls/hr DAILY IVPB 08/14/17 09:00 09/11/17 08:59 08/21/17 08:31 Lorazepam (Ativan 2mg/ml 1ml) 2 mg Q7H IM 08/21/17 13:00 08/23/17 12:59 Multivitamins 10 ml/Potassium Chloride 30 meq/ Sodium Chloride 1,025 ml @ 100 mls/hr Q24H IV 08/14/17 16:00 09/13/17 15:59 08/19/17 16:31 Nicotine (Nicoderm) 1 patch Q24H TDERMAL 08/13/17 16:00 09/12/17 15:59 08/20/17 17:53 Pantoprazole (Protonix) 40 mg DAILY IVP 08/13/17 09:00 09/11/17 09:59 08/21/17 08:31 Piperacillin Sod/ Tazobactam Sod 3.375 gm/Dextrose 55 ml @ 13.75 mls/ hr Q8H IVPB 08/18/17 16:00 08/21/17 17:00 08/21/17 10:13 Piperacillin Sod/ Tazobactam Sod 3.375 gm/Sodium Chloride 110 ml @ 27.5 mls/hr Q8H IVPB 08/22/17 00:00 08/25/17 15:59 Potassium Chloride 30 meq/ Sodium Chloride 1,015 ml @ 100 mls/hr Q10H9M IV 08/20/17 06:00 09/19/17 05:59 08/21/17 01:32 Thiamine HCl 100 mg/Dextrose 56 ml @ 112 mls/hr Q24H IVPB 08/12/17 20:00 09/09/17 19:59 08/20/17 21:35 GAYLE ALMENDAREZ Aug 21, 2017 12:38
[2017-08-21] MEDS ORDERED: LORazepam Inj 2mg/ml 1ml IM SCH (13:00)
--- NOTE | 2017-08-21 14:36 | Neurology Progress Note ---
Interim History Interim History Interim History Ms. Carter is unarousable at this time. As per her mother she was awake earlier. As per her mother she also said a few words. At this time she only responds to deep pain with lower extremity withdrawal. She continues to get Ativan every 7 hours. The myoclonic jerks are rare. She has not been fed through he PEG yet. Review of Systems Neuro Review of Systems Unable to obtain Objective Physical Exam Last Vital Signs Date Time Temp Pulse Resp B/P (MAP) Pulse Ox O2 Delivery O2 Flow Rate FiO2 08/21/17 11:01 97.7 08/21/17 08:00 97 18 107/69 96 Nasal Cannula 1.0 08/17/17 10:02 28 Laboratory Tests Test 08/21/17 05:00 White Blood Count 13.9 K/UL (4.8-10.8) H Red Blood Count 4.96 M/UL (4.20-5.40) Hemoglobin 15.6 G/DL (12.0-16.0) Hematocrit 46.0 % (37.0-47.0) Mean Corpuscular Volume 93 FL (80-99) Mean Corpuscular Hemoglobin 31.4 PG (27.0-31.0) H Mean Corpuscular Hemoglobin Concent 33.9 G/DL (32.0-36.0) Red Cell Distribution Width 13.5 % (11.6-14.8) Platelet Count 331 K/UL (150-450) Mean Platelet Volume 7.1 FL (6.5-10.1) Neutrophils (%) (Auto) 81.4 % (45.0-75.0) H Lymphocytes (%) (Auto) 12.3 % (20.0-45.0) L Monocytes (%) (Auto) 5.3 % (1.0-10.0) Eosinophils (%) (Auto) 0.6 % (0.0-3.0) Basophils (%) (Auto) 0.4 % (0.0-2.0) Sodium Level 136 MMOL/L (136-145) Potassium Level 4.2 MMOL/L (3.5-5.1) Chloride Level 100 MMOL/L (98-107) Carbon Dioxide Level 26 MMOL/L (21-32) Anion Gap 10 mmol/L (5-15) Blood Urea Nitrogen 15 mg/dL (7-18) Creatinine 0.6 MG/DL (0.55-1.30) Estimat Glomerular Filtration Rate > 60 mL/min (>60) Glucose Level 103 MG/DL (74-106) Calcium Level 8.4 MG/DL (8.5-10.1) L Neurologic Exam Objective PHYSICAL EXAMINATION: GENERAL: She is a well-developed, well-nourished lady, lying in bed, having infrequent myoclonic jerks of a generalized nature. HEAD: Normocephalic and atraumatic. NECK: No neck rigidity was observed. EENT: Benign. NEUROLOGICAL EXAMINATION: MENTAL STATUS EXAMINATION: She could not be aroused even to deep pain. Further mental status testing was thus impossible. SPEECH: Could not be tested. LANGUAGE: Could not be tested. CRANIAL NERVE EXAMINATION: II: She did not blink to threat. III, IV & : The external ocular movements were present on oculocephalic maneuvers. The pupils were 5 mm in diameter, equal, round, regular, and reactive sluggishly to light. V & VII: The corneal reflexes were present and were equally brisk bilaterally. VIII: She did not respond to sounds and had no nystagmus. IX & X: The gag reflex was present, but depressed. XI: The sternocleidomastoids and trapezii functioned minimally. XII: The tongue was in the midline. MOTOR SYSTEM: The tone was increased in all four extremities with a mild degree of spasticity. Examination of muscle mass revealed no focal wasting. Examination of power could not be performed because even when deep painful stimuli were applied, only minimal movements were seen in the toes bilaterally. SENSORY EXAMINATION: She did not respond even to deep painful stimuli, other than minimal movements seen in the toes bilaterally. REFLEXES: 3+ and bilaterally symmetrical at the biceps, triceps, brachioradialis , and knees; 2+ at both ankles. The plantar responses were extensor bilaterally. COORDINATION: Could not be tested. STANCE: Could not be tested. GAIT: Could not be tested. Impression/Recommendations Diagnostic Impression 1. Ms. Violetta Carter is a 22-year-old, lady, of unknown handedness, who does have a long history of polysubstance abuse, who in the early hours of 08/15/2017, overdosed on drugs that are unknown to us. She was found by her roommate unresponsive and not breathing. Cardiopulmonary resuscitation was started immediately and paramedics were called in and they arrived within approximately 5 minutes. When they found her, she was having a tonic-clonic seizure. She then was given Versed and Narcan, but no response was seen to the Narcan. She was then transported to [facility] where she was noted to have significant alteration in her mental state, but at one point in time was minimally responsive. 2. She had been given Ativan 2 mg every 4 hours [id number] and had become unresponsive. She is now being weaned off the Ativan. As per her mother she has periods of wakefulness. She has also been exhibiting myoclonic jerks, which seem to be less than what they were earlier. 3. At this time she cannot be aroused and is unable to communicate. 4. On neurological examination, at this time, she cannot be aroused and is unable to communicate. The corneal reflexes are present and equal. The gag reflex is depressed and she does have eye movements on oculocephalic maneuvers. The deep tendon reflexes are pathologically brisk. She does have some mild spasticity in all four extremities. Plantar responses are extensor. 5. The CT scan of the brain without contrast is benign. 6. An electroencephalogram repeated on 08/19/17 revealed a severe encephalopathy with a definite toxic component due to benzodiazepines. 7. The patient's history, neurological examination, laboratory data, CT scan findings, and electroencephalogram findings are most consistent with an anoxic encephalopathy, most probably related to a drug overdose. This has been followed by a drug-induced encephalopathy in the hospital due to the constant dosing with Ativan. Recommendations 1. Continue present management. 2. Attempts should be made to wean the patient off the Ativan and keep her off mind-altering drugs so that the true degree of encephalopathy can be determined. 3. Weaning off Ativan as per Dr. Braswell 4. Observe closely. Prashant Berger M.D., MRyanSPRASHANT COLON Aug 21, 2017 14:35
[2017-08-21] MEDS ORDERED: Thiamine HCl 100 MG in D5W 55 ML IVPB SCH (16:00)
[2017-08-21] MEDS ORDERED: Fluconazole 100mg tab GT SCH (19:30)
[2017-08-21] MEDS ORDERED: Acetaminophen 650 MG SUPP RECTAL PRN (19:30)
[2017-08-21] MEDS ORDERED: 1/2 NS IV SCH (20:00)
[2017-08-21] MEDS ORDERED: MULTIVITAMIN IV SCH (20:00)
[2017-08-21] MEDS ORDERED: POTASSIUM CHLORIDE IV SCH (20:00)
[2017-08-21] MEDS: Dyna-Hex 2% Top Sol 2oz TOPIC SCH (20:36)
[2017-08-21] MEDS: POTASSIUM CHLORIDE IV SCH (21:34)
[2017-08-21] MEDS: Thiamine HCl 100 MG in D5W 55 ML IVPB SCH (21:34)
[2017-08-21] MEDS: MULTIVITAMIN IV SCH (21:34)
[2017-08-21] MEDS: 1/2 NS IV SCH (21:34)
--- NOTE | 2017-08-21 22:59 | General Progress Note ---
Assessment/Plan Assessment/Plan ?anoxic brain injury polysubstance abuse benzo withdrawal -cont ativan prn Subjective Date patient seen: Aug 21, 2017 Allergies: Coded Allergies: No Known Allergies (Unverified , 08/12/17) PER MOM, NO KNOWN ALLERGIES Subjective the pt is s/p GT, doing well less agitated. Objective Last 24 Hour Vital Signs Date Time Temp Pulse Resp B/P (MAP) Pulse Ox O2 Delivery O2 Flow Rate FiO2 08/21/17 20:31 95 Nasal Cannula 1.0 24 08/21/17 20:31 Nasal Cannula 1.0 24 08/21/17 19:20 96.8 98 20 108/59 90 Room Air 08/21/17 16:00 97.9 86 18 105/53 97 08/21/17 15:37 96 Nasal Cannula 1.0 24 08/21/17 15:37 Nasal Cannula 1.0 24 08/21/17 12:00 98.4 109 18 111/69 97 Nasal Cannula 1.0 08/21/17 12:00 90 08/21/17 11:01 97.7 08/21/17 08:00 98.2 97 18 107/69 96 Nasal Cannula 1.0 08/21/17 08:00 97 08/21/17 04:00 111 08/21/17 04:00 97.7 111 18 127/86 96 Nasal Cannula 08/21/17 00:37 100.1 114 18 115/81 96 Nasal Cannula 08/21/17 00:00 106 Intake and Output 08/20/17 08/21/17 19:00 07:00 Intake Total 350 ml 456 ml Output Total 1858 ml 300 ml Balance -1508 ml 156 ml IV Total 456 ml Hemodialysis 350 ml Output Urine Total 1850 ml 300 ml Estimated Blood Loss 8 ml Laboratory Tests 08/21/17 05:00: White Blood Count 13.9H, Red Blood Count 4.96, Hemoglobin 15.6, Hematocrit 46.0 , Mean Corpuscular Volume 93, Mean Corpuscular Hemoglobin 31.4H, Mean Corpuscular Hemoglobin Concent 33.9, Red Cell Distribution Width 13.5, Platelet Count 331, Mean Platelet Volume 7.1, Neutrophils (%) (Auto) 81.4H, Lymphocytes ( %) (Auto) 12.3L, Monocytes (%) (Auto) 5.3, Eosinophils (%) (Auto) 0.6, Basophils (%) (Auto) 0.4, Sodium Level 136, Potassium Level 4.2, Chloride Level 100, Carbon Dioxide Level 26, Anion Gap 10, Blood Urea Nitrogen 15, Creatinine 0.6, Estimat Glomerular Filtration Rate > 60, Glucose Level 103, Calcium Level 8.4L Height (Feet): 5 Height (Inches): 5.00 Weight (Pounds): 140 Kristie Braswell M.D. Aug 21, 2017 22:59
[2017-08-21] MEDS ORDERED: Piperacillin/Tazobactam 3.375 GM in D5W 55 ML IVPB SCH (23:59)
[2017-08-22] MEDS ORDERED: Piperacillin/Tazobactam 3.375 GM in NS 110 ML IVPB SCH ×2
[2017-08-22] MEDS: Piperacillin/Tazobactam 3.375 GM in NS 110 ML IVPB SCH ×3 (00:56→17:05)
[2017-08-22 03:24] VITALS: BP 119/73
[2017-08-22] MEDS: LORazepam Inj 2mg/ml 1ml IM SCH ×3 (03:41→17:05)
[2017-08-22] MEDS: Potassium Chloride 30 MEQ in 1/2 NS 1000ml 1,000 ML IV SCH ×2 (05:09→14:18)
[2017-08-22 07:03] LABS: BASOPHILS % (AUTO) 0.4 % (0.0-2.0); EOSINOPHILS % (AUTO) 0.8 % (0.0-3.0); HEMATOCRIT 38.5 % (37.0-47.0); LYMPHOCYTES % (AUTO) 14.8 % (20.0-45.0); MEAN CORPUSCULAR VOLUME 94 FL (80-99); MONOCYTES % (AUTO) 6.1 % (1.0-10.0); NEUTROPHILS % (AUTO) 77.9 % (45.0-75.0); PLATELET COUNT 268 K/UL (150-450); RED BLOOD COUNT 4.12 M/UL (4.20-5.40); RED CELL DISTRIBUTION WIDTH 13.2 % (11.6-14.8); WHITE BLOOD COUNT 11.3 K/UL (4.8-10.8)
[2017-08-22 07:08] LABS: ANION GAP 8 mmol/L (5-15); BLOOD UREA NITROGEN 12 mg/dL (7-18); CALCIUM 8.3 MG/DL (8.5-10.1); CARBON DIOXIDE 26 MMOL/L (21-32); CHLORIDE 101 MMOL/L (98-107); CREATININE 0.6 MG/DL (0.55-1.30); POTASSIUM 4.6 MMOL/L (3.5-5.1); SODIUM 135 MMOL/L (136-145)
[2017-08-22 08:35] VITALS: BP 145/84
[2017-08-22] MEDS: Pantoprazole Inj IVP SCH (08:45)
[2017-08-22] MEDS: Fluconazole 100mg tab GT SCH (08:47)
[2017-08-22] MEDS: Heparin 5000 units/ml inj SUBQ SCH ×2 (09:01→21:06)
--- NOTE | 2017-08-22 09:46 | Diagnostic Imaging Report ---
Indication: Infection Technique: XRAY Chest 1v Comparison: 08/20/2017 Findings: Heart size and mediastinal contours are stable. Patient again noted is status post median sternotomy and cardiac valve replacement. Orphaned/abandoned epicardial pacer leads unchanged. Right arm PICC line unchanged with its catheter tip at cavoatrial junction. Interval removal of NG tube. Overall improved aeration of the left lower lung with persistent streaky left basilar airspace opacity. No significant pleural fluid; costophrenic angles appear sharp. No definite pneumothorax. Impression: Interval removal of NG tube. Overall improved aeration of the left lower lung. Persistent streaky opacities at left base, possibly related to atelectasis/scarring vs pneumonia. Correlate clinically.
[2017-08-22 10:05] VITALS: BP 105/67
[2017-08-22] MEDS ORDERED: LORazepam Inj 2mg/ml 1ml IM ONE (10:30)
[2017-08-22] MEDS: levETIRAcetam 1,000mg/NS100ml 100 ML IVPB SCH (10:40)
--- NOTE | 2017-08-22 10:40 | General Progress Note ---
Assessment/Plan Assessment/Plan 1) E coli and teri UTI 2) staph bacteremia 3) ESBL PNA 4) acute encephalopathy 5) myoclonic jerk 6) drug overdose 7) hx of infective endocarditis Plan neuro check continue Abx f/u neuro seizure precaution Discussed with pt's mom at bed side Subjective Allergies: Coded Allergies: No Known Allergies (Unverified , 08/12/17) PER MOM, NO KNOWN ALLERGIES Subjective No acute event. still having myoclonic jerk but improved by mother Objective Last 24 Hour Vital Signs Date Time Temp Pulse Resp B/P (MAP) Pulse Ox O2 Delivery O2 Flow Rate FiO2 08/22/17 10:05 67 105/67 08/22/17 08:35 97.9 89 18 145/84 95 Room Air 08/22/17 07:58 95 Nasal Cannula 1.0 24 08/22/17 07:58 Nasal Cannula 1.0 24 08/22/17 03:24 98.2 104 20 119/73 89 Room Air 08/21/17 23:24 98.4 111 22 129/74 91 Room Air 08/21/17 20:31 95 Nasal Cannula 1.0 24 08/21/17 20:31 Nasal Cannula 1.0 24 08/21/17 19:20 96.8 98 20 108/59 90 Room Air 08/21/17 16:00 97.9 86 18 105/53 97 08/21/17 15:37 96 Nasal Cannula 1.0 24 08/21/17 15:37 Nasal Cannula 1.0 24 08/21/17 12:00 98.4 109 18 111/69 97 Nasal Cannula 1.0 08/21/17 12:00 90 08/21/17 11:01 97.7 Intake and Output 08/21/17 08/22/17 19:00 07:00 Intake Total 945.00 ml 1000.0 ml Output Total 825 ml Balance 945.00 ml 175.0 ml Intake Free Water 50 ml 100 ml IV Total 855.00 ml 610.0 ml Tube Feeding 40 ml 290 ml Output Urine Total 825 ml Laboratory Tests 08/22/17 05:00: White Blood Count 11.3H, Red Blood Count 4.12L, Hemoglobin 13.0, Hematocrit 38.5 , Mean Corpuscular Volume 94, Mean Corpuscular Hemoglobin 31.5H, Mean Corpuscular Hemoglobin Concent 33.7, Red Cell Distribution Width 13.2, Platelet Count 268, Mean Platelet Volume 7.4, Neutrophils (%) (Auto) 77.9H, Lymphocytes ( %) (Auto) 14.8L, Monocytes (%) (Auto) 6.1, Eosinophils (%) (Auto) 0.8, Basophils (%) (Auto) 0.4, Sodium Level 135L, Potassium Level 4.6, Chloride Level 101, Carbon Dioxide Level 26, Anion Gap 8, Blood Urea Nitrogen 12, Creatinine 0.6, Estimat Glomerular Filtration Rate > 60, Glucose Level 111H, Calcium Level 8.3L Height (Feet): 5 Height (Inches): 5.00 Weight (Pounds): 137 Objective NAD, mumbling clear RRR soft, non tender, BS+ no edema, some myoclonic jerk SNEHA KOCH Aug 22, 2017 10:40
[2017-08-22 12:00] VITALS: BP 125/84
--- NOTE | 2017-08-22 12:08 | Pulmonology Progress Note ---
Assessment/Plan Assessment/Plan PROBLEM LIST: -Drug OD -H/O IVDU -Respiratory acidosis -MATTHEW -H/O infective endocarditis S/P MVR PLAN: - cxr changes noted- improved -Continue supplemental o2 as needed -monitor for aspiration and repeat Xray as needed -Monitor volumes and renal function -DVT prophylaxis -GT placement -ID followup - dc to snf soon impression, plan, and exam edited and reviewed in detail care discussed with RN Subjective Allergies: Coded Allergies: No Known Allergies (Unverified , 08/12/17) PER MOM, NO KNOWN ALLERGIES Subjective care reviewed and discussed with mother cxr negative Objective Last 24 Hour Vital Signs Date Time Temp Pulse Resp B/P (MAP) Pulse Ox O2 Delivery O2 Flow Rate FiO2 08/22/17 10:05 67 105/67 08/22/17 08:35 97.9 89 18 145/84 95 Room Air 08/22/17 07:58 95 Nasal Cannula 1.0 24 08/22/17 07:58 Nasal Cannula 1.0 24 08/22/17 03:24 98.2 104 20 119/73 89 Room Air 08/21/17 23:24 98.4 111 22 129/74 91 Room Air 08/21/17 20:31 95 Nasal Cannula 1.0 24 08/21/17 20:31 Nasal Cannula 1.0 24 08/21/17 19:20 96.8 98 20 108/59 90 Room Air 08/21/17 16:00 97.9 86 18 105/53 97 08/21/17 15:37 96 Nasal Cannula 1.0 24 08/21/17 15:37 Nasal Cannula 1.0 24 Intake and Output 08/21/17 08/22/17 19:00 07:00 Intake Total 945.00 ml 1000.0 ml Output Total 825 ml Balance 945.00 ml 175.0 ml Intake Free Water 50 ml 100 ml IV Total 855.00 ml 610.0 ml Tube Feeding 40 ml 290 ml Output Urine Total 825 ml Objective WDWN NAD stable breath sounds bilaterally without rhonchi or wheeze [id number] without MRG NABS nontender no HSM no CCE nonfocal NGT in place reduced ROM Laboratory Tests 08/22/17 05:00: White Blood Count 11.3H, Red Blood Count 4.12L, Hemoglobin 13.0, Hematocrit 38.5 , Mean Corpuscular Volume 94, Mean Corpuscular Hemoglobin 31.5H, Mean Corpuscular Hemoglobin Concent 33.7, Red Cell Distribution Width 13.2, Platelet Count 268, Mean Platelet Volume 7.4, Neutrophils (%) (Auto) 77.9H, Lymphocytes ( %) (Auto) 14.8L, Monocytes (%) (Auto) 6.1, Eosinophils (%) (Auto) 0.8, Basophils (%) (Auto) 0.4, Sodium Level 135L, Potassium Level 4.6, Chloride Level 101, Carbon Dioxide Level 26, Anion Gap 8, Blood Urea Nitrogen 12, Creatinine 0.6, Estimat Glomerular Filtration Rate > 60, Glucose Level 111H, Calcium Level 8.3L Current Medications Medications (Trade) Dose Ordered Sig/Hema Route PRN Reason Start Time Stop Time Status Last Admin Dose Admin Acetaminophen (Tylenol) 650 mg Q4H PRN RECTAL Mild Pain/Temp > 100.5 08/21/17 19:30 09/11/17 19:29 Chlorhexidine Gluconate (Valerie-Hex 2%) 1 applic DAILY@1999 TOPIC 08/21/17 20:00 09/10/17 19:59 08/21/17 20:36 Clotrimazole (Lotrimin) 1 applic EVERY 12 HOURS TOPIC 08/21/17 21:00 09/19/17 16:59 08/22/17 08:47 Fluconazole (Diflucan) 100 mg DAILY GT 08/22/17 09:00 08/29/17 08:59 08/22/17 08:47 Heparin Sodium (Porcine) (Heparin 5000 units/ml) 5,000 units EVERY 12 HOURS SUBQ 08/21/17 21:00 09/09/17 20:59 08/22/17 09:01 Levetiracetam 100 ml @ 400 mls/hr DAILY IVPB 08/22/17 09:00 09/11/17 08:59 08/22/17 10:40 Lorazepam (Ativan 2mg/ml 1ml) 2 mg Q7H IM 08/21/17 20:00 08/23/17 12:59 08/22/17 03:41 Multivitamins 10 ml/Potassium Chloride 30 meq/ Sodium Chloride 1,025 ml @ 100 mls/hr Q24H IV 08/21/17 21:00 09/20/17 20:59 08/21/17 21:34 Nicotine (Nicoderm) 1 patch Q24H TDERMAL 08/22/17 16:00 09/12/17 15:59 Pantoprazole (Protonix) 40 mg DAILY IVP 08/22/17 09:00 09/11/17 09:59 08/22/17 08:45 Piperacillin Sod/ Tazobactam Sod 3.375 gm/Sodium Chloride 110 ml @ 27.5 mls/hr Q8H IVPB 08/22/17 00:00 08/25/17 15:59 08/22/17 08:47 Potassium Chloride 30 meq/ Sodium Chloride 1,015 ml @ 100 mls/hr Q10H9M IV 08/21/17 19:00 09/19/17 18:59 Thiamine HCl 100 mg/Dextrose 56 ml @ 112 mls/hr Q24H IVPB 08/21/17 21:00 09/09/17 20:59 08/21/17 21:34 GAYLE ALMENDAREZ Aug 22, 2017 12:08
--- NOTE | 2017-08-22 14:59 | Neurology Progress Note ---
Interim History Interim History Interim History Ms. Carter can be aroused today with vigorous vocal and tactile stimulation. She follows a few simple commands inconsistently. She is able to say a few words. The myoclonic jerks are rare. As per her mother she was awake all night and is sleeping now. Review of Systems Neuro Review of Systems Unable to obtain Objective Physical Exam Last Vital Signs Date Time Temp Pulse Resp B/P (MAP) Pulse Ox O2 Delivery O2 Flow Rate FiO2 08/22/17 12:00 98.2 102 20 125/84 97 Room Air 08/22/17 07:58 1.0 24 Laboratory Tests Test 08/22/17 05:00 White Blood Count 11.3 K/UL (4.8-10.8) H Red Blood Count 4.12 M/UL (4.20-5.40) L Hemoglobin 13.0 G/DL (12.0-16.0) Hematocrit 38.5 % (37.0-47.0) Mean Corpuscular Volume 94 FL (80-99) Mean Corpuscular Hemoglobin 31.5 PG (27.0-31.0) H Mean Corpuscular Hemoglobin Concent 33.7 G/DL (32.0-36.0) Red Cell Distribution Width 13.2 % (11.6-14.8) Platelet Count 268 K/UL (150-450) Mean Platelet Volume 7.4 FL (6.5-10.1) Neutrophils (%) (Auto) 77.9 % (45.0-75.0) H Lymphocytes (%) (Auto) 14.8 % (20.0-45.0) L Monocytes (%) (Auto) 6.1 % (1.0-10.0) Eosinophils (%) (Auto) 0.8 % (0.0-3.0) Basophils (%) (Auto) 0.4 % (0.0-2.0) Sodium Level 135 MMOL/L (136-145) L Potassium Level 4.6 MMOL/L (3.5-5.1) Chloride Level 101 MMOL/L (98-107) Carbon Dioxide Level 26 MMOL/L (21-32) Anion Gap 8 mmol/L (5-15) Blood Urea Nitrogen 12 mg/dL (7-18) Creatinine 0.6 MG/DL (0.55-1.30) Estimat Glomerular Filtration Rate > 60 mL/min (>60) Glucose Level 111 MG/DL (74-106) H Calcium Level 8.3 MG/DL (8.5-10.1) L Neurologic Exam Objective PHYSICAL EXAMINATION: GENERAL: She is a well-developed, well-nourished lady, lying in bed, having infrequent myoclonic jerks of a generalized nature. HEAD: Normocephalic and atraumatic. NECK: No neck rigidity was observed. EENT: Benign. NEUROLOGICAL EXAMINATION: MENTAL STATUS EXAMINATION: She could be aroused with vigorous vocal and tactile stimulation. She followed a few simple commands inconsistently. She is able to say a few words. Further mental status testing was thus impossible. SPEECH: She is able to say a few words but was significantly dysarthric. LANGUAGE: She followed a few simple commands inconsistently and was able to say a few words. CRANIAL NERVE EXAMINATION: II: She did not blink to threat. III, IV & : The external ocular movements were present on oculocephalic maneuvers. The pupils were 5 mm in diameter, equal, round, regular, and reactive briskly to light. V & VII: The corneal reflexes were present and were equally brisk bilaterally. VIII: She did respond to sounds and had no nystagmus. IX & X: The gag reflex was present, but depressed. XI: The sternocleidomastoids and trapezii functioned minimally. XII: The tongue was in the midline. MOTOR SYSTEM: The tone was increased in all four extremities with spasticity more marked on the right than left. Examination of muscle mass revealed no focal wasting. Examination of power could not be performed accurately because of her inability to give a good effort. She however moved all 4 extremities minimally on command. SENSORY EXAMINATION: She did respond to deep painful stimuli with minimal withdrawal in all 4 extremities. REFLEXES: 3+ and bilaterally symmetrical at the biceps, triceps, brachioradialis , and knees; 2+ at both ankles. The plantar responses were extensor bilaterally. COORDINATION: Could not be tested. STANCE: Could not be tested. GAIT: Could not be tested. Impression/Recommendations Diagnostic Impression 1. Ms. Violetta Carter is a 22-year-old, lady, of unknown handedness, who does have a long history of polysubstance abuse, who in the early hours of 08/15/2017, overdosed on drugs that are unknown to us. She was found by her roommate unresponsive and not breathing. Cardiopulmonary resuscitation was started immediately and paramedics were called in and they arrived within approximately 5 minutes. When they found her, she was having a tonic-clonic seizure. She then was given Versed and Narcan, but no response was seen to the Narcan. She was then transported to [facility] where she was noted to have significant alteration in her mental state, but at one point in time was minimally responsive. 2. She had been given Ativan 2 mg every 4 hours [id number] and had become unresponsive. She is now being weaned off the Ativan. She has had periods of wakefulness and could be aroused today. She has also been exhibiting myoclonic jerks, which seem to be less than what they were earlier. 3. At this time she can be aroused briefly and is trying to communicate. 4. On neurological examination, at this time, she can be aroused briefly and is able to communicate minimally. The corneal reflexes are present and equal. The gag reflex is depressed and she does have eye movements on oculocephalic maneuvers. The deep tendon reflexes are pathologically brisk. She does have right > left spasticity in her extremities. Plantar responses are extensor. 5. The CT scan of the brain without contrast is benign. 6. An electroencephalogram repeated on 08/19/17 revealed a severe encephalopathy with a definite toxic component due to benzodiazepines. 7. The patient's history, neurological examination, laboratory data, CT scan findings, and electroencephalogram findings are most consistent with an anoxic encephalopathy, most probably related to a drug overdose. This has been followed by a drug-induced encephalopathy in the hospital due to the constant dosing with Ativan which is now improving with weaning off the Ativan. Recommendations 1. Continue present management. 2. Attempts should be made to wean the patient off the Ativan and keep her off mind-altering drugs so that the true degree of encephalopathy can be determined. 3. Weaning off Ativan as per Dr. Braswell 4. Observe closely. Prashant Berger M.D., M.S.P.PRASHANT DUBON Aug 22, 2017 14:59
--- NOTE | 2017-08-22 17:21 | Infectious Diseases Prog Note ---
Assessment/Plan Assessment/Plan ASSESSMENT AND PLAN: 1. e.coli uti, esbl e.coli pna, ? aspiration pna, ? sepsis, febrile, ams, sedated, ? 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 drug abuse and drug overdose per history, encephalopathy - per neurology, patient sedated, await f/u drug screen 3. hepatitis C serology + - w/u as outpatient including viral load and possible tx, d/w mother 4. Acute kidney injury with elevated creatinine, which is improved. 5. Dehydration. 6. Intravenous fluids. 7. 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 8. No known drug allergies. 9. Social history positive for intravenous drug abuse and smoking. 10. Family history noncontributory. 11. MAR was noted. 12. Continue treatment per primary, Dr. Doran and consultants 13. Case discussed with RN. 14. Case discussed with the patient's mother. Subjective Constitutional: Reports: other - more alert and respsonsive , Denies: fever HEENT: Denies: congestion Respiratory: Denies: shortness of breath Cardiovascular: Denies: chest pain Gastrointestinal/Abdominal: Denies: nausea, vomiting, diarrhea Genitourinary: Reports: other Neurologic: Denies: headache Psychiatric: Reports: no symptoms Skin: Denies: rash Hematologic: Denies: bleeding Musculoskeletal: Denies: pain Allergies: Coded Allergies: No Known Allergies (Unverified , 08/12/17) PER MOM, NO KNOWN ALLERGIES Objective Vital Signs Last 24 Hour Vital Signs Date Time Temp Pulse Resp B/P (MAP) Pulse Ox O2 Delivery O2 Flow Rate FiO2 08/22/17 12:00 98.2 102 20 125/84 97 Room Air 08/22/17 10:05 67 105/67 08/22/17 08:35 97.9 89 18 145/84 95 Room Air 08/22/17 07:58 95 Nasal Cannula 1.0 24 08/22/17 07:58 Nasal Cannula 1.0 24 08/22/17 03:24 98.2 104 20 119/73 89 Room Air 08/21/17 23:24 98.4 111 22 129/74 91 Room Air 08/21/17 20:31 95 Nasal Cannula 1.0 24 08/21/17 20:31 Nasal Cannula 1.0 24 08/21/17 19:20 96.8 98 20 108/59 90 Room Air Height (Feet): 5 Height (Inches): 5.00 Weight (Pounds): 137 General Appearance: no acute distress HEENT: normocephalic, atraumatic, anicteric, mucous membranes moist Respiratory/Chest: lungs clear, normal breath sounds, no respiratory distress, no accessory muscle use Cardiovascular: normal rate, regular rhythm, no gallop/murmur, no JVD Abdomen: normal bowel sounds, soft, non tender, no organomegaly, non distended Genitourinary: other Extremities: no cyanosis Skin: no rash Neurologic/Psychiatric: vice president consulting services II-XII grossly normal, alert - more alert and responsive to quesitons Lymphatic: no neck adenopathy Musculoskeletal: no effusion Objective 08/20 - chest x-ray - Impression: Equivocal minimal hazy parenchymal opacity and possibly pleural fluid at the left lateral lung base. Otherwise little change management consultant 2 days 08/22 - chest x-ray - Interval removal of NG tube. Overall improved aeration of the left lower lung. Persistent streaky opacities at left base, possibly related to atelectasis/scarring vs pneumonia. Correlate clinically. Microbiology Date/Time Source Procedure Growth Status 08/18/17 18:30 Blood Blood Culture - Preliminary NO GROWTH AFTER 72 HOURS Resulted 08/14/17 21:00 Sputum Induced Gram Stain - Final Complete 08/14/17 21:00 Sputum Culture - Final Escherichia Coli - Esbl Complete 08/18/17 14:26 Indwelling Cath Urine Culture - Final Narcisa Albicans Complete 08/10/17 01:50 Rectum VRE Culture - Final NO VANCOMYCIN RESISTANT ENTEROCOCCUS ... Complete Laboratory Tests Test 08/22/17 05:00 White Blood Count 11.3 K/UL (4.8-10.8) H Red Blood Count 4.12 M/UL (4.20-5.40) L Hemoglobin 13.0 G/DL (12.0-16.0) Hematocrit 38.5 % (37.0-47.0) Mean Corpuscular Volume 94 FL (80-99) Mean Corpuscular Hemoglobin 31.5 PG (27.0-31.0) H Mean Corpuscular Hemoglobin Concent 33.7 G/DL (32.0-36.0) Red Cell Distribution Width 13.2 % (11.6-14.8) Platelet Count 268 K/UL (150-450) Mean Platelet Volume 7.4 FL (6.5-10.1) Neutrophils (%) (Auto) 77.9 % (45.0-75.0) H Lymphocytes (%) (Auto) 14.8 % (20.0-45.0) L Monocytes (%) (Auto) 6.1 % (1.0-10.0) Eosinophils (%) (Auto) 0.8 % (0.0-3.0) Basophils (%) (Auto) 0.4 % (0.0-2.0) Sodium Level 135 MMOL/L (136-145) L Potassium Level 4.6 MMOL/L (3.5-5.1) Chloride Level 101 MMOL/L (98-107) Carbon Dioxide Level 26 MMOL/L (21-32) Anion Gap 8 mmol/L (5-15) Blood Urea Nitrogen 12 mg/dL (7-18) Creatinine 0.6 MG/DL (0.55-1.30) Estimat Glomerular Filtration Rate > 60 mL/min (>60) Glucose Level 111 MG/DL (74-106) H Calcium Level 8.3 MG/DL (8.5-10.1) L Current Medications Medications (Trade) Dose Ordered Sig/Hema Route PRN Reason Start Time Stop Time Status Last Admin Dose Admin Acetaminophen (Tylenol) 650 mg Q4H PRN RECTAL Mild Pain/Temp > 100.5 08/21/17 19:30 09/11/17 19:29 Chlorhexidine Gluconate (Valerie-Hex 2%) 1 applic DAILY@1999 TOPIC 08/21/17 20:00 09/10/17 19:59 08/21/17 20:36 Clotrimazole (Lotrimin) 1 applic EVERY 12 HOURS TOPIC 08/21/17 21:00 09/19/17 16:59 08/22/17 08:47 Fluconazole (Diflucan) 100 mg DAILY GT 08/22/17 09:00 08/29/17 08:59 08/22/17 08:47 Heparin Sodium (Porcine) (Heparin 5000 units/ml) 5,000 units EVERY 12 HOURS SUBQ 08/21/17 21:00 09/09/17 20:59 08/22/17 09:01 Levetiracetam 100 ml @ 400 mls/hr DAILY IVPB 08/22/17 09:00 09/11/17 08:59 08/22/17 10:40 Lorazepam (Ativan 2mg/ml 1ml) 2 mg Q7H IM 08/21/17 20:00 08/23/17 12:59 08/22/17 17:05 Multivitamins 10 ml/Potassium Chloride 30 meq/ Sodium Chloride 1,025 ml @ 100 mls/hr Q24H IV 08/21/17 21:00 09/20/17 20:59 08/21/17 21:34 Nicotine (Nicoderm) 1 patch Q24H TDERMAL 08/22/17 16:00 09/12/17 15:59 08/22/17 17:04 Pantoprazole (Protonix) 40 mg DAILY IVP 08/22/17 09:00 09/11/17 09:59 08/22/17 08:45 Piperacillin Sod/ Tazobactam Sod 3.375 gm/Sodium Chloride 110 ml @ 27.5 mls/hr Q8H IVPB 08/22/17 00:00 08/25/17 15:59 08/22/17 17:05 Potassium Chloride 30 meq/ Sodium Chloride 1,015 ml @ 100 mls/hr Q10H9M IV 08/21/17 19:00 09/19/17 18:59 08/22/17 14:18 Thiamine HCl 100 mg/Dextrose 56 ml @ 112 mls/hr Q24H IVPB 08/21/17 21:00 09/09/17 20:59 08/21/17 21:34 MARIA A SMITH Aug 22, 2017 17:21
[2017-08-22 20:00] VITALS: BP 115/68
--- NOTE | 2017-08-22 21:03 | General Progress Note ---
Assessment/Plan Assessment/Plan Assessment/Plan Problems: (1) FTT (failure to thrive) in adult ICD Codes: R62.7 - Adult failure to thrive SNOMED: 164193737 (2) Overdose ICD Codes: T50.901A - Poisoning by unspecified drugs, medicaments and biological substances, accidental (unintentional), initial encounter SNOMED: 70174817 (3) severe encephalopathy, anoxic/drug toxicity/benzo withdrawal (4) iv substance abuse, relapse (5) symptomatic seizure event (6) severe anoxic encephalopathy Status: unchanged Assessment/Plan s/p EGD/PEG SUMMARY OF FINDINGS: 1. Linear gastric ulceration, status post biopsy. 2. Status post successful PEG placement. RECOMMENDATIONS: Abdominal binder. Elevate the head of the bed at all times. G-tube flush. G-tube care. GTFs per RD fu labs outpatient Hep C tx Subjective Allergies: Coded Allergies: No Known Allergies (Unverified , 08/12/17) PER MOM, NO KNOWN ALLERGIES Subjective above note d/w mother patient non interactive s/p PEG Objective Last 24 Hour Vital Signs Date Time Temp Pulse Resp B/P (MAP) Pulse Ox O2 Delivery O2 Flow Rate FiO2 08/22/17 20:00 98.1 105 19 115/68 96 08/22/17 12:00 98.2 102 20 125/84 97 Room Air 08/22/17 10:05 67 105/67 08/22/17 08:35 97.9 89 18 145/84 95 Room Air 08/22/17 07:58 95 Nasal Cannula 1.0 24 08/22/17 07:58 Nasal Cannula 1.0 24 08/22/17 03:24 98.2 104 20 119/73 89 Room Air 08/21/17 23:24 98.4 111 22 129/74 91 Room Air Intake and Output 08/21/17 08/22/17 19:00 07:00 Intake Total 945.00 ml 1000.0 ml Output Total 825 ml Balance 945.00 ml 175.0 ml Intake Free Water 50 ml 100 ml IV Total 855.00 ml 610.0 ml Tube Feeding 40 ml 290 ml Output Urine Total 825 ml Laboratory Tests 08/22/17 05:00: White Blood Count 11.3H, Red Blood Count 4.12L, Hemoglobin 13.0, Hematocrit 38.5 , Mean Corpuscular Volume 94, Mean Corpuscular Hemoglobin 31.5H, Mean Corpuscular Hemoglobin Concent 33.7, Red Cell Distribution Width 13.2, Platelet Count 268, Mean Platelet Volume 7.4, Neutrophils (%) (Auto) 77.9H, Lymphocytes ( %) (Auto) 14.8L, Monocytes (%) (Auto) 6.1, Eosinophils (%) (Auto) 0.8, Basophils (%) (Auto) 0.4, Sodium Level 135L, Potassium Level 4.6, Chloride Level 101, Carbon Dioxide Level 26, Anion Gap 8, Blood Urea Nitrogen 12, Creatinine 0.6, Estimat Glomerular Filtration Rate > 60, Glucose Level 111H, Calcium Level 8.3L Height (Feet): 5 Height (Inches): 5.00 Weight (Pounds): 137 Objective Debilitated young woman NCAT supple CTA RR Soft ND (+) jameson contracted extremities non communicative RICHARD MENDEZ Aug 22, 2017 21:03
[2017-08-22] MEDS: Dyna-Hex 2% Top Sol 2oz TOPIC SCH (21:04)
[2017-08-22] MEDS: Thiamine HCl 100 MG in D5W 55 ML IVPB SCH (21:46)
[2017-08-22] MEDS: POTASSIUM CHLORIDE IV SCH (21:46)
[2017-08-22] MEDS: MULTIVITAMIN IV SCH (21:46)
[2017-08-22] MEDS: 1/2 NS IV SCH (21:46)
[2017-08-23] VITALS: BP 116/55
[2017-08-23] MEDS: LORazepam Inj 2mg/ml 1ml IM SCH ×4 (00:19→22:57)
[2017-08-23] MEDS: Piperacillin/Tazobactam 3.375 GM in NS 110 ML IVPB SCH ×3 (00:53→15:42)
[2017-08-23] MEDS: Potassium Chloride 30 MEQ in 1/2 NS 1000ml 1,000 ML IV SCH ×3 (02:49→21:32)
[2017-08-23 04:50] VITALS: BP 98/55
[2017-08-23 08:00] VITALS: BP 127/79
--- NOTE | 2017-08-23 09:13 | Pulmonology Progress Note ---
Assessment/Plan Assessment/Plan PROBLEM LIST: -Drug OD -H/O IVDU -Respiratory acidosis -MATTHEW -H/O infective endocarditis S/P MVR PLAN: - cxr changes noted- stable -Continue supplemental o2 as needed -monitor for aspiration and repeat Xray as needed -Monitor volumes and renal function -DVT prophylaxis -GT placement -ID followup - dc to snf soon- all consultants noted impression, plan, and exam edited and reviewed in detail care discussed with RN Subjective Allergies: Coded Allergies: No Known Allergies (Unverified , 08/12/17) PER MOM, NO KNOWN ALLERGIES Subjective care reviewed and discussed with mother cxr negative LOC without change Objective Last 24 Hour Vital Signs Date Time Temp Pulse Resp B/P (MAP) Pulse Ox O2 Delivery O2 Flow Rate FiO2 08/23/17 08:00 97.9 95 20 127/79 94 Room Air 08/23/17 04:50 98.2 94 21 98/55 Room Air 08/23/17 00:00 98.2 109 21 116/55 96 Room Air 08/22/17 20:00 98.1 105 19 115/68 96 08/22/17 12:00 98.2 102 20 125/84 97 Room Air 08/22/17 10:05 67 105/67 Intake and Output 08/22/17 08/23/17 19:00 07:00 Intake Total 972.5 ml 2010.0 ml Output Total 950 ml Balance 22.5 ml 2010.0 ml Intake Free Water 70 ml 60 ml IV Total 537.5 ml 1610.0 ml Tube Feeding 365 ml 340 ml Output Urine Total 950 ml # Voids 1 # Bowel Movements 1 Objective WDWN NAD stable breath sounds bilaterally without rhonchi or wheeze [id number] without MRG NABS nontender no HSM no CCE nonfocal NGT in place reduced ROM Current Medications Medications (Trade) Dose Ordered Sig/Hema Route PRN Reason Start Time Stop Time Status Last Admin Dose Admin Acetaminophen (Tylenol) 650 mg Q4H PRN RECTAL Mild Pain/Temp > 100.5 08/21/17 19:30 09/11/17 19:29 Chlorhexidine Gluconate (Valerie-Hex 2%) 1 applic DAILY@1999 TOPIC 08/21/17 20:00 09/10/17 19:59 08/22/17 21:04 Clotrimazole (Lotrimin) 1 applic EVERY 12 HOURS TOPIC 08/21/17 21:00 09/19/17 16:59 08/22/17 21:07 Fluconazole (Diflucan) 100 mg DAILY GT 08/22/17 09:00 08/29/17 08:59 08/22/17 08:47 Heparin Sodium (Porcine) (Heparin 5000 units/ml) 5,000 units EVERY 12 HOURS SUBQ 08/21/17 21:00 09/09/17 20:59 08/22/17 21:06 Levetiracetam 100 ml @ 400 mls/hr DAILY IVPB 08/22/17 09:00 09/11/17 08:59 08/22/17 10:40 Lorazepam (Ativan 2mg/ml 1ml) 2 mg Q7H IM 08/21/17 20:00 08/23/17 12:59 08/23/17 06:34 Multivitamins 10 ml/Potassium Chloride 30 meq/ Sodium Chloride 1,025 ml @ 100 mls/hr Q24H IV 08/21/17 21:00 09/20/17 20:59 08/22/17 21:46 Nicotine (Nicoderm) 1 patch Q24H TDERMAL 08/22/17 16:00 09/12/17 15:59 08/22/17 17:04 Pantoprazole (Protonix) 40 mg DAILY IVP 08/22/17 09:00 09/11/17 09:59 08/22/17 08:45 Piperacillin Sod/ Tazobactam Sod 3.375 gm/Sodium Chloride 110 ml @ 27.5 mls/hr Q8H IVPB 08/22/17 00:00 08/25/17 15:59 08/23/17 08:08 Potassium Chloride 30 meq/ Sodium Chloride 1,015 ml @ 100 mls/hr Q10H9M IV 08/21/17 19:00 09/19/17 18:59 08/23/17 02:49 Thiamine HCl 100 mg/Dextrose 56 ml @ 112 mls/hr Q24H IVPB 08/21/17 21:00 09/09/17 20:59 08/22/17 21:46 GAYLE ALMENDAREZ Aug 23, 2017 09:13
[2017-08-23] MEDS: Pantoprazole Inj IVP SCH (09:25)
[2017-08-23] MEDS: Fluconazole 100mg tab GT SCH (09:27)
[2017-08-23] MEDS: Heparin 5000 units/ml inj SUBQ SCH ×2 (09:31→21:32)
[2017-08-23] MEDS: levETIRAcetam 1,000mg/NS100ml 100 ML IVPB SCH (09:33)
--- NOTE | 2017-08-23 10:27 | General Progress Note ---
Assessment/Plan Assessment/Plan 1) E coli and teri UTI 2) staph bacteremia 3) ESBL PNA 4) acute encephalopathy 5) myoclonic jerk 6) drug overdose 7) hx of infective endocarditis Plan neuro check continue Abx f/u neuro seizure precaution Discussed with pt's mom at bed side Subjective Allergies: Coded Allergies: No Known Allergies (Unverified , 08/12/17) PER MOM, NO KNOWN ALLERGIES Subjective No acute event. no more myoclonic jerk. per mother, pt's mental status improved . can communicate her sometimes Objective Last 24 Hour Vital Signs Date Time Temp Pulse Resp B/P (MAP) Pulse Ox O2 Delivery O2 Flow Rate FiO2 08/23/17 08:00 97.9 95 20 127/79 94 Room Air 08/23/17 04:50 98.2 94 21 98/55 Room Air 08/23/17 00:00 98.2 109 21 116/55 96 Room Air 08/22/17 20:00 98.1 105 19 115/68 96 08/22/17 12:00 98.2 102 20 125/84 97 Room Air Intake and Output 08/22/17 08/23/17 19:00 07:00 Intake Total 972.5 ml 2010.0 ml Output Total 950 ml Balance 22.5 ml 2010.0 ml Intake Free Water 70 ml 60 ml IV Total 537.5 ml 1610.0 ml Tube Feeding 365 ml 340 ml Output Urine Total 950 ml # Voids 1 # Bowel Movements 1 Height (Feet): 5 Height (Inches): 5.00 Weight (Pounds): 148 Objective NAD, sleeping but aurosable clear RRR soft, non tender, BS+ no edema, no more myoclonic jerk, stiffness in bilat SNEHA VANEGAS Aug 23, 2017 10:27
[2017-08-23 12:00] VITALS: BP 111/73
--- NOTE | 2017-08-23 14:33 | Neurology Progress Note ---
Interim History Interim History Complaints: moan groan Events: intermittently verbal more coherent Objective Physical Exam Last Vital Signs Date Time Temp Pulse Resp B/P (MAP) Pulse Ox O2 Delivery O2 Flow Rate FiO2 08/23/17 12:00 97.9 97 18 111/73 95 Room Air 08/23/17 08:39 1.0 24 General: well developed, no acute distress, other - generalised rigidity, abdomen tender Head: normocophalic Neck: other - rigid Neurologic Exam Mental Status: other - drowsy eyes closed Speech: other - slurry Language: no aphasia Cranial Nerve II: other Cranial Nerves III, IV, : other - pupils 5mm rla Cranial Nerve V: normal facial sensations, masseters function normal Cranial Nerve VII: no facial asymmetry Cranial Nerve VIII: no nystagmus Cranial Nerve IX: other - g tube Cranial Nerve X: other Cranial Nerve XI: trapezii function normal Motor System: other - contracted hands extended feet Sensory: normal pinprick Coordination: other Deep Tendon Reflexes: 2+ bicep (L), 2+ bicep (R), 2+ tricep (L), 2+ tricep (R) , 2+ brachioradialis (L), 2+ brachioradialis (R), 2+ knee (L), 2+ knee (R), 2+ ankle (L), 2+ ankle (R) Reflexes: extensor plantar (L), extensor plantar (R) Impression/Recommendations Problems: (1) severe encephalopathy, anoxic/drug toxicity/benzo withdrawal (2) iv substance abuse, relapse (3) symptomatic seizure event (4) nicotine/drug withdrawal. Status: unchanged Recommendations #[id number] EEG n keppra 250 mg bid d/w staff and M [id number] prn venous duplex ble PT REHAB, more aggressive ROM SIT in chair reduce all sedating meds PAM FAN Aug 23, 2017 14:33
--- NOTE | 2017-08-23 14:36 | Neurology Progress Note ---
Interim History Interim History Complaints: moan groan Events: intermittently verbal more coherent Objective Physical Exam Last Vital Signs Date Time Temp Pulse Resp B/P (MAP) Pulse Ox O2 Delivery O2 Flow Rate FiO2 08/23/17 12:00 97.9 97 18 111/73 95 Room Air 08/23/17 08:39 1.0 24 General: well developed, no acute distress, other - generalised rigidity, abdomen tender Head: normocophalic Neck: other - rigid Neurologic Exam Mental Status: other - drowsy eyes closed Speech: other - slurry Language: no aphasia Cranial Nerve II: other Cranial Nerves III, IV, : other - pupils 5mm rla Cranial Nerve V: normal facial sensations, masseters function normal Cranial Nerve VII: no facial asymmetry Cranial Nerve VIII: no nystagmus Cranial Nerve IX: other - g tube Cranial Nerve X: other Cranial Nerve XI: trapezii function normal Motor System: other - contracted hands extended feet Sensory: normal pinprick Coordination: other Deep Tendon Reflexes: 2+ bicep (L), 2+ bicep (R), 2+ tricep (L), 2+ tricep (R) , 2+ brachioradialis (L), 2+ brachioradialis (R), 2+ knee (L), 2+ knee (R), 2+ ankle (L), 2+ ankle (R) Reflexes: extensor plantar (L), extensor plantar (R) Impression/Recommendations Problems: (1) severe encephalopathy, anoxic/drug toxicity/benzo withdrawal (2) iv substance abuse, relapse (3) symptomatic seizure event (4) nicotine/drug withdrawal. (5) Coagulopathy Status: unchanged Recommendations #[id number] EEG n keppra 250 mg bid d/w staff and M [id number] prn venous duplex ble PT REHAB, more aggressive ROM SIT in chair reduce all sedating meds PAM FAN Aug 23, 2017 14:36
[2017-08-23] MEDS ORDERED: LORazepam Inj 2mg/ml 1ml IM SCH (15:30)
--- NOTE | 2017-08-23 15:30 | General Progress Note ---
Assessment/Plan Assessment/Plan Assessment/Plan Problems: (1) FTT (failure to thrive) in adult ICD Codes: R62.7 - Adult failure to thrive SNOMED: 311460478 (2) Overdose ICD Codes: T50.901A - Poisoning by unspecified drugs, medicaments and biological substances, accidental (unintentional), initial encounter SNOMED: 60071276 (3) severe encephalopathy, anoxic/drug toxicity/benzo withdrawal (4) iv substance abuse, relapse (5) symptomatic seizure event (6) severe anoxic encephalopathy Status: unchanged Assessment/Plan s/p EGD/PEG SUMMARY OF FINDINGS: 1. Linear gastric ulceration, status post biopsy. 2. Status post successful PEG placement. RECOMMENDATIONS: Abdominal binder. Elevate the head of the bed at all times. G-tube flush. G-tube care. GTFs per RD fu labs outpatient Hep C tx Subjective Allergies: Coded Allergies: No Known Allergies (Unverified , 08/12/17) PER MOM, NO KNOWN ALLERGIES Subjective above note d/w mother patient non interactive Tolerating feeds Objective Last 24 Hour Vital Signs Date Time Temp Pulse Resp B/P (MAP) Pulse Ox O2 Delivery O2 Flow Rate FiO2 08/23/17 12:00 97.9 97 18 111/73 95 Room Air 08/23/17 08:39 Nasal Cannula 1.0 24 08/23/17 08:39 96 Nasal Cannula 1.0 24 08/23/17 08:00 97.9 95 20 127/79 94 Room Air 08/23/17 04:50 98.2 94 21 98/55 Room Air 08/23/17 00:00 98.2 109 21 116/55 96 Room Air 08/22/17 20:00 98.1 105 19 115/68 96 Intake and Output 08/22/17 08/23/17 19:00 07:00 Intake Total 972.5 ml 2010.0 ml Output Total 950 ml Balance 22.5 ml 2010.0 ml Intake Free Water 70 ml 60 ml IV Total 537.5 ml 1610.0 ml Tube Feeding 365 ml 340 ml Output Urine Total 950 ml # Voids 1 # Bowel Movements 1 Height (Feet): 5 Height (Inches): 5.00 Weight (Pounds): 148 Objective Debilitated young woman NCAT supple CTA RR Soft ND (+) jameson contracted extremities non communicative RICHARD MENDEZ Aug 23, 2017 15:30
[2017-08-23] MEDS: Acetaminophen 650mg/20.3ml GT PRN ×2 (15:42→21:20)
[2017-08-23 16:00] VITALS: BP 104/59
[2017-08-23 16:48] LABS: AMMONIA 17 umol/L (11-32)
[2017-08-23 17:26] LABS: ALANINE AMINOTRANSFERASE 39 U/L (12-78); ALBUMIN 3.2 G/DL (3.4-5.0); ALKALINE PHOSPHATASE 70 U/L (46-116); ASPARTATE AMINO TRANSFERASE 39 U/L (15-37); BILIRUBIN,DIRECT 0.2 MG/DL (0.0-0.3); BILIRUBIN,TOTAL 0.5 MG/DL (0.2-1.0); CKMB 2.5 NG/ML (0.0-3.6); CREATINE KINASE 134 U/L (26-308)
[2017-08-23 20:00] VITALS: BP 112/72
[2017-08-23] MEDS: Dyna-Hex 2% Top Sol 2oz TOPIC SCH (21:18)
[2017-08-23] MEDS: Thiamine HCl 100 MG in D5W 55 ML IVPB SCH (21:19)
[2017-08-23] MEDS: MULTIVITAMIN IV SCH (21:19)
[2017-08-23] MEDS: POTASSIUM CHLORIDE IV SCH (21:19)
[2017-08-23] MEDS: 1/2 NS IV SCH (21:19)
[2017-08-23] MEDS: Sorbitol Solution UD 30ml GT PRN (21:20)
[2017-08-23] MEDS ORDERED: Tubing IV Secondary IV ONE (22:49)
[2017-08-24] VITALS: BP 106/59
[2017-08-24] MEDS: Piperacillin/Tazobactam 3.375 GM in NS 110 ML IVPB SCH ×3 (01:11→17:11)
[2017-08-24 04:00] VITALS: BP 116/54
[2017-08-24] MEDS: LORazepam Inj 2mg/ml 1ml IM SCH (05:02)
[2017-08-24 07:43] LABS: BASOPHILS % (AUTO) 1.2 % (0.0-2.0); HEMATOCRIT 46.1 % (37.0-47.0); LYMPHOCYTES % (AUTO) 16.5 % (20.0-45.0); MEAN CORPUSCULAR VOLUME 93 FL (80-99); MONOCYTES % (AUTO) 8.1 % (1.0-10.0); NEUTROPHILS % (AUTO) 73.2 % (45.0-75.0); PLATELET COUNT 371 K/UL (150-450); RED BLOOD COUNT 4.95 M/UL (4.20-5.40); RED CELL DISTRIBUTION WIDTH 13.4 % (11.6-14.8); WHITE BLOOD COUNT 7.9 K/UL (4.8-10.8)
[2017-08-24 08:01] LABS: ANION GAP 10 mmol/L (5-15); BLOOD UREA NITROGEN 12 mg/dL (7-18); CALCIUM 8.5 MG/DL (8.5-10.1); CARBON DIOXIDE 24 MMOL/L (21-32); CHLORIDE 101 MMOL/L (98-107); CREATININE 0.7 MG/DL (0.55-1.30); POTASSIUM 4.3 MMOL/L (3.5-5.1); SODIUM 135 MMOL/L (136-145)
[2017-08-24 08:15] VITALS: BP 126/82
[2017-08-24] MEDS: Potassium Chloride 30 MEQ in 1/2 NS 1000ml 1,000 ML IV SCH ×2 (08:29→18:03)
[2017-08-24] MEDS: Pantoprazole Inj IVP SCH (08:37)
[2017-08-24] MEDS: Fluconazole 100mg tab GT SCH (08:37)
--- NOTE | 2017-08-24 08:50 | Pulmonology Progress Note ---
Assessment/Plan Assessment/Plan PROBLEM LIST: -Drug OD -H/O IVDU -Respiratory acidosis -MATTHEW -H/O infective endocarditis S/P MVR - GT - hepatitis C PLAN: - cxr changes noted- stable -Continue supplemental o2 as needed -monitor for aspiration and repeat Xray as needed -Monitor volumes and renal function -DVT prophylaxis -GT feeds -ID followup - dc to snf soon impression, plan, and exam edited and reviewed in detail care discussed with RN Subjective Allergies: Coded Allergies: No Known Allergies (Unverified , 08/12/17) PER MOM, NO KNOWN ALLERGIES Subjective care reviewed and discussed with mother cxr negative LOC without change GT in place Objective Last 24 Hour Vital Signs Date Time Temp Pulse Resp B/P (MAP) Pulse Ox O2 Delivery O2 Flow Rate FiO2 08/24/17 04:00 98.2 97 21 116/54 97 08/24/17 04:00 Room Air 08/24/17 00:00 Room Air 08/24/17 00:00 97.7 93 21 106/59 90 08/23/17 22:05 95 Nasal Cannula 1.0 24 08/23/17 22:05 Nasal Cannula 1.0 24 08/23/17 20:00 Room Air 08/23/17 20:00 97.9 65 21 112/72 92 08/23/17 16:00 98.2 95 18 104/59 95 Room Air 08/23/17 12:00 97.9 97 18 111/73 95 Room Air Intake and Output 08/23/17 08/24/17 19:00 07:00 Intake Total 855 ml 1786.00 ml Output Total 2400 ml Balance -1545 ml 1786.00 ml Intake Free Water 180 ml 60 ml IV Total 1066.00 ml Tube Feeding 675 ml 660 ml Output Urine Total 2400 ml Objective WDWN NAD stable breath sounds bilaterally without rhonchi or wheeze [id number] without MRG NABS nontender no HSM; Gt no CCE nonfocal NGT in place reduced ROM Laboratory Tests 08/23/17 16:10: Total Bilirubin 0.5, Direct Bilirubin 0.2, Aspartate Amino Transf (AST/SGOT) 39H , Alanine Aminotransferase (ALT/SGPT) 39, Alkaline Phosphatase 70, Ammonia 17, Total Creatine Kinase 134, Creatine Kinase MB 2.5, Creatine Kinase MB Relative Index 1.8, Total Protein 7.5, Albumin 3.2L 08/24/17 07:30: White Blood Count 7.9, Red Blood Count 4.95, Hemoglobin 15.0, Hematocrit 46.1, Mean Corpuscular Volume 93, Mean Corpuscular Hemoglobin 30.3, Mean Corpuscular Hemoglobin Concent 32.6, Red Cell Distribution Width 13.4, Platelet Count 371, Mean Platelet Volume 7.7, Neutrophils (%) (Auto) 73.2, Lymphocytes (%) (Auto) 16.5L, Monocytes (%) (Auto) 8.1, Eosinophils (%) (Auto) 1.0, Basophils (%) (Auto ) 1.2, Sodium Level 135L, Potassium Level 4.3, Chloride Level 101, Carbon Dioxide Level 24, Anion Gap 10, Blood Urea Nitrogen 12, Creatinine 0.7, Estimat Glomerular Filtration Rate > 60, Glucose Level 152H, Calcium Level 8.5 Current Medications Medications (Trade) Dose Ordered Sig/Hema Route PRN Reason Start Time Stop Time Status Last Admin Dose Admin Acetaminophen (Tylenol) 650 mg Q4H PRN GT Mild Pain/Temp > 100.5 08/23/17 15:15 09/22/17 15:14 08/23/17 21:20 Chlorhexidine Gluconate (Valerie-Hex 2%) 1 applic DAILY@1999 TOPIC 08/21/17 20:00 09/10/17 19:59 08/23/17 21:18 Clotrimazole (Lotrimin) 1 applic EVERY 12 HOURS TOPIC 08/21/17 21:00 09/19/17 16:59 08/23/17 21:19 Diazepam (Valium) 10 mg Q8HR GT 08/24/17 14:00 08/31/17 13:59 Fluconazole (Diflucan) 100 mg DAILY GT 08/22/17 09:00 08/29/17 08:59 08/23/17 09:27 Heparin Sodium (Porcine) (Heparin 5000 units/ml) 5,000 units EVERY 12 HOURS SUBQ 08/21/17 21:00 09/09/17 20:59 08/23/17 21:32 Levetiracetam (Keppra) 250 mg Q12HR ORAL 08/23/17 21:00 09/22/17 20:59 08/23/17 21:19 Multivitamins 10 ml/Potassium Chloride 30 meq/ Sodium Chloride 1,025 ml @ 100 mls/hr Q24H IV 08/21/17 21:00 09/20/17 20:59 08/23/17 21:19 Nicotine (Nicoderm) 1 patch Q24H TDERMAL 08/22/17 16:00 09/12/17 15:59 08/23/17 15:43 Pantoprazole (Protonix) 40 mg DAILY IVP 08/22/17 09:00 09/11/17 09:59 08/23/17 09:25 Piperacillin Sod/ Tazobactam Sod 3.375 gm/Sodium Chloride 110 ml @ 27.5 mls/hr Q8H IVPB 08/22/17 00:00 08/25/17 15:59 08/24/17 01:11 Potassium Chloride 30 meq/ Sodium Chloride 1,015 ml @ 100 mls/hr Q10H9M IV 08/21/17 19:00 09/19/17 18:59 08/23/17 11:35 Sorbitol (Sorbitol) 30 ml Q6H PRN GT Constipation 08/23/17 20:30 09/22/17 20:29 08/23/17 21:20 Thiamine HCl 100 mg/Dextrose 56 ml @ 112 mls/hr Q24H IVPB 08/21/17 21:00 09/09/17 20:59 08/23/17 21:19 GAYLE ALMENDAREZ Aug 24, 2017 08:49
[2017-08-24] MEDS: Heparin 5000 units/ml inj SUBQ SCH ×2 (08:58→21:10)
--- NOTE | 2017-08-24 10:07 | General Progress Note ---
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 Waking up. Prognosis seems better in the long run. 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 Further waking up. CW Brain anoxic damage - EEG diffuse slowing. PEG done ESBL E. Coli UTI per ID Urine Tox Screen Results Still pending? TF on DC planning SNF Subjective Allergies: Coded Allergies: No Known Allergies (Unverified , 08/12/17) PER MOM, NO KNOWN ALLERGIES Subjective Less Sedated. Objective Last 24 Hour Vital Signs Date Time Temp Pulse Resp B/P (MAP) Pulse Ox O2 Delivery O2 Flow Rate FiO2 08/24/17 08:15 98.2 98 23 126/82 94 Room Air 08/24/17 04:00 98.2 97 21 116/54 97 08/24/17 04:00 Room Air 08/24/17 00:00 Room Air 08/24/17 00:00 97.7 93 21 106/59 90 08/23/17 22:05 95 Nasal Cannula 1.0 24 08/23/17 22:05 Nasal Cannula 1.0 24 08/23/17 20:00 Room Air 08/23/17 20:00 97.9 65 21 112/72 92 08/23/17 16:00 98.2 95 18 104/59 95 Room Air 08/23/17 12:00 97.9 97 18 111/73 95 Room Air Intake and Output 08/23/17 08/24/17 19:00 07:00 Intake Total 855 ml 1786.00 ml Output Total 2400 ml Balance -1545 ml 1786.00 ml Intake Free Water 180 ml 60 ml IV Total 1066.00 ml Tube Feeding 675 ml 660 ml Output Urine Total 2400 ml Laboratory Tests 08/23/17 16:10: Total Bilirubin 0.5, Direct Bilirubin 0.2, Aspartate Amino Transf (AST/SGOT) 39H , Alanine Aminotransferase (ALT/SGPT) 39, Alkaline Phosphatase 70, Ammonia 17, Total Creatine Kinase 134, Creatine Kinase MB 2.5, Creatine Kinase MB Relative Index 1.8, Total Protein 7.5, Albumin 3.2L 08/24/17 07:30: White Blood Count 7.9, Red Blood Count 4.95, Hemoglobin 15.0, Hematocrit 46.1, Mean Corpuscular Volume 93, Mean Corpuscular Hemoglobin 30.3, Mean Corpuscular Hemoglobin Concent 32.6, Red Cell Distribution Width 13.4, Platelet Count 371, Mean Platelet Volume 7.7, Neutrophils (%) (Auto) 73.2, Lymphocytes (%) (Auto) 16.5L, Monocytes (%) (Auto) 8.1, Eosinophils (%) (Auto) 1.0, Basophils (%) (Auto ) 1.2, Sodium Level 135L, Potassium Level 4.3, Chloride Level 101, Carbon Dioxide Level 24, Anion Gap 10, Blood Urea Nitrogen 12, Creatinine 0.7, Estimat Glomerular Filtration Rate > 60, Glucose Level 152H, Calcium Level 8.5 Height (Feet): 5 Height (Inches): 5.00 Weight (Pounds): 147 Objective Afebrile. CV RR Lungs CTA Abd SNT. BS +. New PEG. E No CCE + Contractures BERTRAND CONDE Aug 24, 2017 10:07
[2017-08-24] MEDS ORDERED: Tubing Blood Filter IV ONE (14:42)
[2017-08-24] MEDS ORDERED: NS 275ml ONE (14:45)
[2017-08-24] MEDS ORDERED: Tubing IV Secondary IV ONE (14:45)
--- NOTE | 2017-08-24 15:48 | Infectious Diseases Prog Note ---
Assessment/Plan Assessment/Plan ASSESSMENT AND PLAN: 1. e.coli uti, esbl e.coli pna, ? aspiration pna, ? sepsis, febrile, ams, sedated, ? 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 drug abuse and drug overdose per history, encephalopathy - per neurology, patient sedated, await f/u drug screen 3. hepatitis C serology + - w/u as outpatient including viral load and possible tx, d/w mother 4. Acute kidney injury with elevated creatinine, which is improved. 5. Dehydration. 6. Intravenous fluids. 7. 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 8. No known drug allergies. 9. Social history positive for intravenous drug abuse and smoking. 10. Family history noncontributory. 11. MAR was noted. 12. Continue treatment per primary, Dr. Doran and consultants 13. Case discussed with RN. 14. Case discussed with the patient's mother. Subjective Constitutional: Reports: other - more alert, Denies: fever HEENT: Denies: congestion Respiratory: Denies: shortness of breath Cardiovascular: Denies: chest pain Gastrointestinal/Abdominal: Denies: nausea, vomiting, diarrhea Genitourinary: Reports: other - + jameson Neurologic: Denies: headache Psychiatric: Denies: depression Skin: Denies: rash Hematologic: Denies: bleeding Musculoskeletal: Denies: pain Allergies: Coded Allergies: No Known Allergies (Unverified , 08/12/17) PER MOM, NO KNOWN ALLERGIES Objective Vital Signs Last 24 Hour Vital Signs Date Time Temp Pulse Resp B/P (MAP) Pulse Ox O2 Delivery O2 Flow Rate FiO2 08/24/17 08:15 98.2 98 23 126/82 94 Room Air 08/24/17 04:00 98.2 97 21 116/54 97 08/24/17 04:00 Room Air 08/24/17 00:00 Room Air 08/24/17 00:00 97.7 93 21 106/59 90 08/23/17 22:05 95 Nasal Cannula 1.0 24 08/23/17 22:05 Nasal Cannula 1.0 24 08/23/17 20:00 Room Air 08/23/17 20:00 97.9 65 21 112/72 92 08/23/17 16:00 98.2 95 18 104/59 95 Room Air Height (Feet): 5 Height (Inches): 5.00 Weight (Pounds): 147 General Appearance: no acute distress HEENT: normocephalic, atraumatic, anicteric, mucous membranes moist Respiratory/Chest: lungs clear, normal breath sounds, no respiratory distress, no accessory muscle use, crackles/rales - less, rhonchi - bilaterally - less Cardiovascular: normal rate, regular rhythm, no gallop/murmur Abdomen: normal bowel sounds, soft, non tender, no organomegaly, non distended Genitourinary: other - + jameson - urine slt cloudy Extremities: no cyanosis Skin: no rash Neurologic/Psychiatric: visual coordinator II-XII grossly normal, alert, responsive Lymphatic: no neck adenopathy Musculoskeletal: no effusion Objective 08/20 - chest x-ray - Impression: Equivocal minimal hazy parenchymal opacity and possibly pleural fluid at the left lateral lung base. Otherwise little chemical cell changer 2 days 08/22 - chest x-ray - Interval removal of NG tube. Overall improved aeration of the left lower lung. Persistent streaky opacities at left base, possibly related to atelectasis/scarring vs pneumonia. Correlate clinically. Chest x-ray - - Impression: Interval removal of NG tube. Overall improved aeration of the left lower lung. Persistent streaky opacities at left base, possibly related to atelectasis/scarring vs pneumonia. Correlate clinically. Microbiology Date/Time Source Procedure Growth Status 08/18/17 18:30 Blood Blood Culture - Final NO GROWTH AFTER 5 DAYS Complete 08/14/17 21:00 Sputum Induced Gram Stain - Final Complete 08/14/17 21:00 Sputum Culture - Final Escherichia Coli - Esbl Complete 08/18/17 14:26 Indwelling Cath Urine Culture - Final Narcisa Albicans Complete 08/10/17 01:50 Rectum VRE Culture - Final NO VANCOMYCIN RESISTANT ENTEROCOCCUS ... Complete Laboratory Tests Test 08/23/17 16:10 08/24/17 07:30 Total Bilirubin 0.5 MG/DL (0.2-1.0) Direct Bilirubin 0.2 MG/DL (0.0-0.3) Aspartate Amino Transf (AST/SGOT) 39 U/L (15-37) H Alanine Aminotransferase (ALT/SGPT) 39 U/L (12-78) Alkaline Phosphatase 70 U/L (46-116) Ammonia 17 umol/L (11-32) Total Creatine Kinase 134 U/L (26-308) Creatine Kinase MB 2.5 NG/ML (0.0-3.6) Creatine Kinase MB Relative Index 1.8 Total Protein 7.5 G/DL (6.4-8.2) Albumin 3.2 G/DL (3.4-5.0) L White Blood Count 7.9 K/UL (4.8-10.8) Red Blood Count 4.95 M/UL (4.20-5.40) Hemoglobin 15.0 G/DL (12.0-16.0) Hematocrit 46.1 % (37.0-47.0) Mean Corpuscular Volume 93 FL (80-99) Mean Corpuscular Hemoglobin 30.3 PG (27.0-31.0) Mean Corpuscular Hemoglobin Concent 32.6 G/DL (32.0-36.0) Red Cell Distribution Width 13.4 % (11.6-14.8) Platelet Count 371 K/UL (150-450) Mean Platelet Volume 7.7 FL (6.5-10.1) Neutrophils (%) (Auto) 73.2 % (45.0-75.0) Lymphocytes (%) (Auto) 16.5 % (20.0-45.0) L Monocytes (%) (Auto) 8.1 % (1.0-10.0) Eosinophils (%) (Auto) 1.0 % (0.0-3.0) Basophils (%) (Auto) 1.2 % (0.0-2.0) Sodium Level 135 MMOL/L (136-145) L Potassium Level 4.3 MMOL/L (3.5-5.1) Chloride Level 101 MMOL/L (98-107) Carbon Dioxide Level 24 MMOL/L (21-32) Anion Gap 10 mmol/L (5-15) Blood Urea Nitrogen 12 mg/dL (7-18) Creatinine 0.7 MG/DL (0.55-1.30) Estimat Glomerular Filtration Rate > 60 mL/min (>60) Glucose Level 152 MG/DL (74-106) H Calcium Level 8.5 MG/DL (8.5-10.1) Current Medications Medications (Trade) Dose Ordered Sig/Hema Route PRN Reason Start Time Stop Time Status Last Admin Dose Admin Acetaminophen (Tylenol) 650 mg Q4H PRN GT Mild Pain/Temp > 100.5 08/23/17 15:15 09/22/17 15:14 08/23/17 21:20 Chlorhexidine Gluconate (Valerie-Hex 2%) 1 applic DAILY@1999 TOPIC 08/21/17 20:00 09/10/17 19:59 08/23/17 21:18 Clotrimazole (Lotrimin) 1 applic EVERY 12 HOURS TOPIC 08/21/17 21:00 09/19/17 16:59 08/24/17 08:37 Diazepam (Valium) 10 mg Q8H GT 08/24/17 09:00 08/31/17 08:59 08/24/17 09:31 Fluconazole (Diflucan) 100 mg DAILY GT 08/22/17 09:00 08/29/17 08:59 08/24/17 08:37 Heparin Sodium (Porcine) (Heparin 5000 units/ml) 5,000 units EVERY 12 HOURS SUBQ 08/21/17 21:00 09/09/17 20:59 08/24/17 08:58 Levetiracetam (Keppra) 250 mg Q12HR ORAL 08/23/17 21:00 09/22/17 20:59 08/24/17 08:37 Multivitamins 10 ml/Potassium Chloride 30 meq/ Sodium Chloride 1,025 ml @ 100 mls/hr Q24H IV 08/21/17 21:00 09/20/17 20:59 08/23/17 21:19 Nicotine (Nicoderm) 1 patch Q24H TDERMAL 08/22/17 16:00 09/12/17 15:59 08/23/17 15:43 Pantoprazole (Protonix) 40 mg DAILY IVP 08/22/17 09:00 09/11/17 09:59 08/24/17 08:37 Piperacillin Sod/ Tazobactam Sod 3.375 gm/Sodium Chloride 110 ml @ 27.5 mls/hr Q8H IVPB 08/22/17 00:00 08/25/17 15:59 08/24/17 08:29 Potassium Chloride 30 meq/ Sodium Chloride 1,015 ml @ 100 mls/hr Q10H9M IV 08/21/17 19:00 09/19/17 18:59 08/24/17 08:29 Sorbitol (Sorbitol) 30 ml Q6H PRN GT Constipation 08/23/17 20:30 09/22/17 20:29 08/23/17 21:20 Thiamine HCl 100 mg/Dextrose 56 ml @ 112 mls/hr Q24H IVPB 08/21/17 21:00 09/09/17 20:59 08/23/17 21:19 MARIA A SMITH Aug 24, 2017 15:47
[2017-08-24 16:15] VITALS: BP 137/80
--- NOTE | 2017-08-24 17:29 | General Progress Note ---
Assessment/Plan Assessment/Plan Assessment/Plan Problems: (1) FTT (failure to thrive) in adult ICD Codes: R62.7 - Adult failure to thrive SNOMED: 142254023 (2) Overdose ICD Codes: T50.901A - Poisoning by unspecified drugs, medicaments and biological substances, accidental (unintentional), initial encounter SNOMED: 84521984 (3) severe encephalopathy, anoxic/drug toxicity/benzo withdrawal (4) iv substance abuse, relapse (5) symptomatic seizure event (6) severe anoxic encephalopathy Status: unchanged Assessment/Plan s/p EGD/PEG SUMMARY OF FINDINGS: 1. Linear gastric ulceration, status post biopsy. 2. Status post successful PEG placement. RECOMMENDATIONS: Abdominal binder. Elevate the head of the bed at all times. G-tube flush. G-tube care. GTFs per RD fu labs outpatient Hep C tx Subjective Allergies: Coded Allergies: No Known Allergies (Unverified , 08/12/17) PER MOM, NO KNOWN ALLERGIES Subjective above note d/w mother patient non interactive Tolerating feeds some abd pain at GT site Objective Last 24 Hour Vital Signs Date Time Temp Pulse Resp B/P (MAP) Pulse Ox O2 Delivery O2 Flow Rate FiO2 08/24/17 16:15 98.7 114 23 137/80 95 Room Air 08/24/17 08:15 98.2 98 23 126/82 94 Room Air 08/24/17 04:00 98.2 97 21 116/54 97 08/24/17 04:00 Room Air 08/24/17 00:00 Room Air 08/24/17 00:00 97.7 93 21 106/59 90 08/23/17 22:05 95 Nasal Cannula 1.0 24 08/23/17 22:05 Nasal Cannula 1.0 24 08/23/17 20:00 Room Air 08/23/17 20:00 97.9 65 21 112/72 92 Intake and Output 08/23/17 08/24/17 19:00 07:00 Intake Total 855 ml 1786.00 ml Output Total 2400 ml Balance -1545 ml 1786.00 ml Intake Free Water 180 ml 60 ml IV Total 1066.00 ml Tube Feeding 675 ml 660 ml Output Urine Total 2400 ml Laboratory Tests 08/24/17 07:30: White Blood Count 7.9, Red Blood Count 4.95, Hemoglobin 15.0, Hematocrit 46.1, Mean Corpuscular Volume 93, Mean Corpuscular Hemoglobin 30.3, Mean Corpuscular Hemoglobin Concent 32.6, Red Cell Distribution Width 13.4, Platelet Count 371, Mean Platelet Volume 7.7, Neutrophils (%) (Auto) 73.2, Lymphocytes (%) (Auto) 16.5L, Monocytes (%) (Auto) 8.1, Eosinophils (%) (Auto) 1.0, Basophils (%) (Auto ) 1.2, Sodium Level 135L, Potassium Level 4.3, Chloride Level 101, Carbon Dioxide Level 24, Anion Gap 10, Blood Urea Nitrogen 12, Creatinine 0.7, Estimat Glomerular Filtration Rate > 60, Glucose Level 152H, Calcium Level 8.5 Height (Feet): 5 Height (Inches): 5.00 Weight (Pounds): 147 Objective Debilitated young woman NCAT supple CTA RR Soft ND (+) jameson contracted extremities non communicative RICHARD MENDEZ Aug 24, 2017 17:29
[2017-08-24 20:00] VITALS: BP 138/94
[2017-08-24] MEDS: Dyna-Hex 2% Top Sol 2oz TOPIC SCH (20:59)
[2017-08-24] MEDS: MULTIVITAMIN IV SCH (20:59)
[2017-08-24] MEDS: POTASSIUM CHLORIDE IV SCH (20:59)
[2017-08-24] MEDS: 1/2 NS IV SCH (20:59)
[2017-08-24] MEDS: Thiamine HCl 100 MG in D5W 55 ML IVPB SCH (21:00)
--- NOTE | 2017-08-24 22:38 | General Progress Note ---
Assessment/Plan Assessment/Plan ?anoxic brain injury polysubstance abuse benzo withdrawal -cont ativan prn Subjective Date patient seen: Aug 23, 2017 Neurologic/Psychiatric: Reports: anxiety, emotional problems Allergies: Coded Allergies: No Known Allergies (Unverified , 08/12/17) PER MOM, NO KNOWN ALLERGIES Subjective the pt is the same Objective Last 24 Hour Vital Signs Date Time Temp Pulse Resp B/P (MAP) Pulse Ox O2 Delivery O2 Flow Rate FiO2 08/24/17 20:00 98.2 93 20 138/94 95 08/24/17 19:25 Nasal Cannula 1.0 24 08/24/17 19:25 95 Nasal Cannula 1.0 24 08/24/17 16:15 98.7 114 23 137/80 95 Room Air 08/24/17 08:15 98.2 98 23 126/82 94 Room Air 08/24/17 04:00 98.2 97 21 116/54 97 08/24/17 04:00 Room Air 08/24/17 00:00 Room Air 08/24/17 00:00 97.7 93 21 106/59 90 Intake and Output 08/23/17 08/24/17 19:00 07:00 Intake Total 855 ml 1786.00 ml Output Total 2400 ml Balance -1545 ml 1786.00 ml Intake Free Water 180 ml 60 ml IV Total 1066.00 ml Tube Feeding 675 ml 660 ml Output Urine Total 2400 ml Laboratory Tests 08/24/17 07:30: White Blood Count 7.9, Red Blood Count 4.95, Hemoglobin 15.0, Hematocrit 46.1, Mean Corpuscular Volume 93, Mean Corpuscular Hemoglobin 30.3, Mean Corpuscular Hemoglobin Concent 32.6, Red Cell Distribution Width 13.4, Platelet Count 371, Mean Platelet Volume 7.7, Neutrophils (%) (Auto) 73.2, Lymphocytes (%) (Auto) 16.5L, Monocytes (%) (Auto) 8.1, Eosinophils (%) (Auto) 1.0, Basophils (%) (Auto ) 1.2, Sodium Level 135L, Potassium Level 4.3, Chloride Level 101, Carbon Dioxide Level 24, Anion Gap 10, Blood Urea Nitrogen 12, Creatinine 0.7, Estimat Glomerular Filtration Rate > 60, Glucose Level 152H, Calcium Level 8.5 Height (Feet): 5 Height (Inches): 5.00 Weight (Pounds): 147 Kristie Braswell M.D. Aug 24, 2017 22:38
--- NOTE | 2017-08-24 22:38 | General Progress Note ---
Assessment/Plan Status: stable, progressing Assessment/Plan ?anoxic brain injury polysubstance abuse benzo withdrawal -cont ativan prn Subjective Date patient seen: Aug 22, 2017 Neurologic/Psychiatric: Reports: anxiety, emotional problems Allergies: Coded Allergies: No Known Allergies (Unverified , 08/12/17) PER MOM, NO KNOWN ALLERGIES Subjective mom at bedside. the pt was able to min communicate. mom agrees with plan weaning her off benzo doing well less agitated. Objective Last 24 Hour Vital Signs Date Time Temp Pulse Resp B/P (MAP) Pulse Ox O2 Delivery O2 Flow Rate FiO2 08/24/17 20:00 98.2 93 20 138/94 95 08/24/17 19:25 Nasal Cannula 1.0 24 08/24/17 19:25 95 Nasal Cannula 1.0 24 08/24/17 16:15 98.7 114 23 137/80 95 Room Air 08/24/17 08:15 98.2 98 23 126/82 94 Room Air 08/24/17 04:00 98.2 97 21 116/54 97 08/24/17 04:00 Room Air 08/24/17 00:00 Room Air 08/24/17 00:00 97.7 93 21 106/59 90 Intake and Output 08/23/17 08/24/17 19:00 07:00 Intake Total 855 ml 1786.00 ml Output Total 2400 ml Balance -1545 ml 1786.00 ml Intake Free Water 180 ml 60 ml IV Total 1066.00 ml Tube Feeding 675 ml 660 ml Output Urine Total 2400 ml Laboratory Tests 08/24/17 07:30: White Blood Count 7.9, Red Blood Count 4.95, Hemoglobin 15.0, Hematocrit 46.1, Mean Corpuscular Volume 93, Mean Corpuscular Hemoglobin 30.3, Mean Corpuscular Hemoglobin Concent 32.6, Red Cell Distribution Width 13.4, Platelet Count 371, Mean Platelet Volume 7.7, Neutrophils (%) (Auto) 73.2, Lymphocytes (%) (Auto) 16.5L, Monocytes (%) (Auto) 8.1, Eosinophils (%) (Auto) 1.0, Basophils (%) (Auto ) 1.2, Sodium Level 135L, Potassium Level 4.3, Chloride Level 101, Carbon Dioxide Level 24, Anion Gap 10, Blood Urea Nitrogen 12, Creatinine 0.7, Estimat Glomerular Filtration Rate > 60, Glucose Level 152H, Calcium Level 8.5 Height (Feet): 5 Height (Inches): 5.00 Weight (Pounds): 147 General Appearance: no apparent distress, lethargic, confused Kristie Braswell M.D. Aug 24, 2017 22:38
[2017-08-25] VITALS: BP 116/77
[2017-08-25] MEDS: Piperacillin/Tazobactam 3.375 GM in NS 110 ML IVPB SCH ×3 (00:03→18:02)
[2017-08-25] MEDS: Potassium Chloride 30 MEQ in 1/2 NS 1000ml 1,000 ML IV SCH ×2 (02:51→11:21)
[2017-08-25 08:00] VITALS: BP 154/88
[2017-08-25] MEDS: Pantoprazole Inj IVP SCH (08:36)
[2017-08-25] MEDS: Heparin 5000 units/ml inj SUBQ SCH ×2 (08:42→20:39)
--- NOTE | 2017-08-25 09:03 | Pulmonology Progress Note ---
Assessment/Plan Assessment/Plan PROBLEM LIST: -Drug OD -H/O IVDU -Respiratory acidosis -MATTHEW -H/O infective endocarditis S/P MVR - GT - hepatitis C PLAN: -respiratory stable -Continue supplemental o2 as needed -monitor for aspiration and repeat Xray as needed -Monitor volumes and renal function -DVT prophylaxis -GT feeds -ID followup noted - dc to snf soon impression, plan, and exam edited and reviewed in detail care discussed with RN Subjective Allergies: Coded Allergies: No Known Allergies (Unverified , 08/12/17) PER MOM, NO KNOWN ALLERGIES Subjective care reviewed and discussed with mother cxr negative LOC stable GT in place Objective Last 24 Hour Vital Signs Date Time Temp Pulse Resp B/P (MAP) Pulse Ox O2 Delivery O2 Flow Rate FiO2 08/25/17 08:00 97.7 107 20 154/88 95 Room Air 08/25/17 00:00 97.9 105 20 116/77 95 Room Air 08/24/17 20:00 98.2 93 20 138/94 95 08/24/17 19:25 Nasal Cannula 1.0 24 08/24/17 19:25 95 Nasal Cannula 1.0 24 08/24/17 16:15 98.7 114 23 137/80 95 Room Air Intake and Output 08/24/17 08/25/17 19:00 07:00 Intake Total 1272.5 ml 2043.5 ml Output Total 1000 ml 1400 ml Balance 272.5 ml 643.5 ml Intake Free Water 60 ml 90 ml IV Total 1152.5 ml 1293.5 ml Tube Feeding 60 ml 660 ml Output Urine Total 1000 ml 1400 ml # Bowel Movements 3 Objective WDWN NAD stable breath sounds bilaterally without rhonchi or wheeze [id number] without MRG NABS nontender no HSM; Gt no CCE nonfocal NGT in place reduced ROM Current Medications Medications (Trade) Dose Ordered Sig/Hema Route PRN Reason Start Time Stop Time Status Last Admin Dose Admin Acetaminophen (Tylenol) 650 mg Q4H PRN GT Mild Pain/Temp > 100.5 08/23/17 15:15 09/22/17 15:14 08/23/17 21:20 Chlorhexidine Gluconate (Valerie-Hex 2%) 1 applic DAILY@1999 TOPIC 08/21/17 20:00 09/10/17 19:59 08/24/17 20:59 Clotrimazole (Lotrimin) 1 applic EVERY 12 HOURS TOPIC 08/21/17 21:00 09/19/17 16:59 08/25/17 08:39 Diazepam (Valium) 10 mg Q6HR GT 08/25/17 00:00 08/31/17 08:59 08/25/17 05:37 Heparin Sodium (Porcine) (Heparin 5000 units/ml) 5,000 units EVERY 12 HOURS SUBQ 08/21/17 21:00 09/09/17 20:59 08/25/17 08:42 Levetiracetam (Keppra) 250 mg Q12HR ORAL 08/23/17 21:00 09/22/17 20:59 08/25/17 08:44 Multivitamins 10 ml/Potassium Chloride 30 meq/ Sodium Chloride 1,025 ml @ 100 mls/hr Q24H IV 08/21/17 21:00 09/20/17 20:59 08/24/17 20:59 Nicotine (Nicoderm) 1 patch Q24H TDERMAL 08/22/17 16:00 09/12/17 15:59 08/24/17 17:11 Pantoprazole (Protonix) 40 mg DAILY IVP 08/22/17 09:00 09/11/17 09:59 08/25/17 08:36 Piperacillin Sod/ Tazobactam Sod 3.375 gm/Sodium Chloride 110 ml @ 27.5 mls/hr Q8H IVPB 08/24/17 16:00 08/27/17 15:59 08/25/17 08:35 Potassium Chloride 30 meq/ Sodium Chloride 1,015 ml @ 100 mls/hr Q10H9M IV 08/21/17 19:00 09/19/17 18:59 08/24/17 08:29 Sorbitol (Sorbitol) 30 ml Q6H PRN GT Constipation 08/23/17 20:30 09/22/17 20:29 08/23/17 21:20 Thiamine HCl 100 mg/Dextrose 56 ml @ 112 mls/hr Q24H IVPB 08/21/17 21:00 09/09/17 20:59 08/24/17 21:00 GAYLE ALMENDAREZ Aug 25, 2017 09:03
--- NOTE | 2017-08-25 10:31 | General Progress Note ---
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 Waking up. Prognosis seems better in the long run. 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 Further waking up. CW Brain anoxic damage - EEG diffuse slowing. PEG done ESBL E. Coli UTI per ID Urine Tox Screen Results Still pending? TF on DC planning SNF Subjective Allergies: Coded Allergies: No Known Allergies (Unverified , 08/12/17) PER MOM, NO KNOWN ALLERGIES Subjective Less Sedated. Per Mom more awake during the night. c/o itching. Objective Last 24 Hour Vital Signs Date Time Temp Pulse Resp B/P (MAP) Pulse Ox O2 Delivery O2 Flow Rate FiO2 08/25/17 08:00 97.7 107 20 154/88 95 Room Air 08/25/17 00:00 97.9 105 20 116/77 95 Room Air 08/24/17 20:00 98.2 93 20 138/94 95 08/24/17 19:25 Nasal Cannula 1.0 24 08/24/17 19:25 95 Nasal Cannula 1.0 24 08/24/17 16:15 98.7 114 23 137/80 95 Room Air Intake and Output 08/24/17 08/25/17 19:00 07:00 Intake Total 1272.5 ml 2043.5 ml Output Total 1000 ml 1400 ml Balance 272.5 ml 643.5 ml Intake Free Water 60 ml 90 ml IV Total 1152.5 ml 1293.5 ml Tube Feeding 60 ml 660 ml Output Urine Total 1000 ml 1400 ml # Bowel Movements 3 Height (Feet): 5 Height (Inches): 5.00 Weight (Pounds): 148 Objective Afebrile. CV RR Lungs CTA Abd SNT. BS +. New PEG. E No CCE + Contractures BERTRAND CONDE Aug 25, 2017 10:31
[2017-08-25 11:55] VITALS: BP 102/65
--- NOTE | 2017-08-25 12:17 | General Progress Note ---
Assessment/Plan Status: stable Assessment/Plan ?anoxic brain injury polysubstance abuse benzo withdrawal -cont Valium GT -the pt maybe discharged on Valium if medically cleared -the pt's Valium could be managed outpatient. the pt is not on high dosage on Valium Subjective Date patient seen: Aug 25, 2017 Neurologic/Psychiatric: Reports: anxiety, depressed, emotional problems Allergies: Coded Allergies: No Known Allergies (Unverified , 08/12/17) PER MOM, NO KNOWN ALLERGIES Subjective the pt is less agitated switched to Valium GT Objective Last 24 Hour Vital Signs Date Time Temp Pulse Resp B/P (MAP) Pulse Ox O2 Delivery O2 Flow Rate FiO2 08/25/17 11:55 98.1 97 20 102/65 94 Room Air 08/25/17 08:00 97.7 107 20 154/88 95 Room Air 08/25/17 00:00 97.9 105 20 116/77 95 Room Air 08/24/17 20:00 98.2 93 20 138/94 95 08/24/17 19:25 Nasal Cannula 1.0 24 08/24/17 19:25 95 Nasal Cannula 1.0 24 08/24/17 16:15 98.7 114 23 137/80 95 Room Air Intake and Output 08/24/17 08/25/17 19:00 07:00 Intake Total 1272.5 ml 2353.5 ml Output Total 1000 ml 1400 ml Balance 272.5 ml 953.5 ml Intake Free Water 60 ml 90 ml IV Total 1152.5 ml 1543.5 ml Tube Feeding 60 ml 720 ml Output Urine Total 1000 ml 1400 ml # Bowel Movements 3 Height (Feet): 5 Height (Inches): 5.00 Weight (Pounds): 148 General Appearance: no apparent distress, lethargic Neurologic: disoriented Kristie Braswell M.D. Aug 25, 2017 12:16
--- NOTE | 2017-08-25 12:26 | GI Progress Note ---
Assessment/Plan Problems: (1) FTT (failure to thrive) in adult ICD Codes: R62.7 - Adult failure to thrive SNOMED: 570061586 (2) Overdose ICD Codes: T50.901A - Poisoning by unspecified drugs, medicaments and biological substances, accidental (unintentional), initial encounter SNOMED: 80873368 (3) severe encephalopathy, anoxic/drug toxicity/benzo withdrawal (4) iv substance abuse, relapse (5) symptomatic seizure event (6) severe anoxic encephalopathy Status: progressing Status Narrative Discussed with Dr. Enrique. Assessment/Plan s/p EGD/PEG SUMMARY OF FINDINGS: 1. Linear gastric ulceration, status post biopsy. 2. Status post successful PEG placement. RECOMMENDATIONS: Abdominal binder. Elevate the head of the bed at all times. G-tube flush. G-tube care. GTFs per RD fu labs outpatient Hep C tx, will draw genotype Subjective Subjective limited, sleeping. Objective Last 24 Hour Vital Signs Date Time Temp Pulse Resp B/P (MAP) Pulse Ox O2 Delivery O2 Flow Rate FiO2 08/25/17 11:55 98.1 97 20 102/65 94 Room Air 08/25/17 08:00 97.7 107 20 154/88 95 Room Air 08/25/17 00:00 97.9 105 20 116/77 95 Room Air 08/24/17 20:00 98.2 93 20 138/94 95 08/24/17 19:25 Nasal Cannula 1.0 24 08/24/17 19:25 95 Nasal Cannula 1.0 24 08/24/17 16:15 98.7 114 23 137/80 95 Room Air Intake and Output 08/24/17 08/25/17 19:00 07:00 Intake Total 1272.5 ml 2353.5 ml Output Total 1000 ml 1400 ml Balance 272.5 ml 953.5 ml Intake Free Water 60 ml 90 ml IV Total 1152.5 ml 1543.5 ml Tube Feeding 60 ml 720 ml Output Urine Total 1000 ml 1400 ml # Bowel Movements 3 Height (Feet): 5 Height (Inches): 5.00 Weight (Pounds): 148 General Appearance: WD/WN, no apparent distress, alert Cardiovascular: normal rate Respiratory/Chest: normal breath sounds, no respiratory distress Abdominal Exam: normal bowel sounds, non tender, soft, GT site - c/d/i Extremities: non-tender Templeton,Kendra Josue N.P. Aug 25, 2017 12:26
[2017-08-25] MEDS: Triamcinolone 0.1% 15gm Cr TOPIC SCH ×2 (12:47→18:03)
[2017-08-25] MEDS ORDERED: Triamcinolone 0.1% 15gm Cr TOPIC SCH (13:00)
[2017-08-25 16:00] VITALS: BP 113/76
[2017-08-25 20:00] VITALS: BP 117/79
[2017-08-25] MEDS: Dyna-Hex 2% Top Sol 2oz TOPIC SCH (20:37)
[2017-08-25] MEDS: Thiamine HCl 100 MG in D5W 55 ML IVPB SCH (20:38)
[2017-08-25] MEDS: POTASSIUM CHLORIDE IV SCH (20:40)
[2017-08-25] MEDS: 1/2 NS IV SCH (20:40)
[2017-08-25] MEDS: MULTIVITAMIN IV SCH (20:40)
[2017-08-26] MEDS: Potassium Chloride 30 MEQ in 1/2 NS 1000ml 1,000 ML IV SCH ×3 (00:30→20:48)
[2017-08-26] MEDS: Piperacillin/Tazobactam 3.375 GM in NS 110 ML IVPB SCH ×3 (01:01→16:05)
[2017-08-26 07:32] LABS: BASOPHILS % (AUTO) 0.8 % (0.0-2.0); EOSINOPHILS % (AUTO) 0.8 % (0.0-3.0); HEMATOCRIT 46.1 % (37.0-47.0); HEMOGLOBIN 15.3 G/DL (12.0-16.0); LYMPHOCYTES % (AUTO) 22.6 % (20.0-45.0); MEAN CORPUSCULAR VOLUME 93 FL (80-99); MONOCYTES % (AUTO) 7.1 % (1.0-10.0); NEUTROPHILS % (AUTO) 68.7 % (45.0-75.0); PLATELET COUNT 343 K/UL (150-450); RED BLOOD COUNT 4.94 M/UL (4.20-5.40); RED CELL DISTRIBUTION WIDTH 13.4 % (11.6-14.8); WHITE BLOOD COUNT 8.3 K/UL (4.8-10.8)
--- NOTE | 2017-08-26 07:34 | Pulmonology Progress Note ---
Assessment/Plan Assessment/Plan PROBLEM LIST: -Drug OD -H/O IVDU -Respiratory acidosis -MATTHEW -H/O infective endocarditis S/P MVR - GT - hepatitis C PLAN: -respiratory stable -Continue supplemental o2 as needed -monitor for aspiration and repeat Xray as needed -Monitor volumes and renal function -DVT prophylaxis -GT feeds -ID followup noted - dc to snf soon impression, plan, and exam edited and reviewed in detail care discussed with RN Subjective Allergies: Coded Allergies: No Known Allergies (Unverified , 08/12/17) PER MOM, NO KNOWN ALLERGIES Subjective care reviewed LOC stable GT in place Objective Last 24 Hour Vital Signs Date Time Temp Pulse Resp B/P (MAP) Pulse Ox O2 Delivery O2 Flow Rate FiO2 08/25/17 20:00 98.5 105 18 117/79 93 08/25/17 16:22 98 Room Air 21 08/25/17 16:21 Room Air 21 08/25/17 16:00 97.7 63 20 113/76 98 Room Air 08/25/17 11:55 98.1 97 20 102/65 94 Room Air 08/25/17 08:00 97.7 107 20 154/88 95 Room Air Intake and Output 08/25/17 08/26/17 19:00 07:00 Intake Total 1170.0 ml 1926.0 ml Output Total 1450 ml 1500 ml Balance -280.0 ml 426.0 ml Intake Free Water 60 ml IV Total 810.0 ml 1266.0 ml Tube Feeding 300 ml 660 ml Output Urine Total 1450 ml 1500 ml Objective WDWN NAD stable breath sounds bilaterally without rhonchi or wheeze [id number] without MRG NABS nontender no HSM; Gt no CCE nonfocal NGT in place reduced ROM Laboratory Tests 08/26/17 05:00: White Blood Count [Pending], Red Blood Count [Pending], Hemoglobin [Pending], Hematocrit [Pending], Mean Corpuscular Volume [Pending], Mean Corpuscular Hemoglobin [Pending], Mean Corpuscular Hemoglobin Concent [Pending], Red Cell Distribution Width [Pending], Platelet Count [Pending], Mean Platelet Volume [ Pending], Neutrophils (%) (Auto) [Pending], Lymphocytes (%) (Auto) [Pending], Monocytes (%) (Auto) [Pending], Eosinophils (%) (Auto) [Pending], Basophils (%) (Auto) [Pending], Sodium Level [Pending], Potassium Level [Pending], Chloride Level [Pending], Carbon Dioxide Level [Pending], Blood Urea Nitrogen [Pending], Creatinine [Pending], Estimat Glomerular Filtration Rate [Pending], Glucose Level [Pending], Calcium Level [Pending], Hepatitis C Genotype [Pending] Current Medications Medications (Trade) Dose Ordered Sig/Hema Route PRN Reason Start Time Stop Time Status Last Admin Dose Admin Acetaminophen (Tylenol) 650 mg Q4H PRN GT Mild Pain/Temp > 100.5 08/23/17 15:15 09/22/17 15:14 08/23/17 21:20 Chlorhexidine Gluconate (Valerie-Hex 2%) 1 applic DAILY@1999 TOPIC 08/21/17 20:00 09/10/17 19:59 08/25/17 20:37 Clotrimazole (Lotrimin) 1 applic EVERY 12 HOURS TOPIC 08/21/17 21:00 09/19/17 16:59 08/25/17 20:38 Diazepam (Valium) 10 mg Q7H GT 08/26/17 01:00 08/31/17 08:59 08/26/17 01:03 Heparin Sodium (Porcine) (Heparin 5000 units/ml) 5,000 units EVERY 12 HOURS SUBQ 08/21/17 21:00 09/09/17 20:59 08/25/17 20:39 Levetiracetam (Keppra) 250 mg Q12HR ORAL 08/23/17 21:00 09/22/17 20:59 08/25/17 20:38 Multivitamins 10 ml/Potassium Chloride 30 meq/ Sodium Chloride 1,025 ml @ 100 mls/hr Q24H IV 08/21/17 21:00 09/20/17 20:59 08/25/17 20:40 Nicotine (Nicoderm) 1 patch Q24H TDERMAL 08/22/17 16:00 09/12/17 15:59 08/25/17 18:03 Pantoprazole (Protonix) 40 mg DAILY IVP 08/22/17 09:00 09/11/17 09:59 08/25/17 08:36 Piperacillin Sod/ Tazobactam Sod 3.375 gm/Sodium Chloride 110 ml @ 27.5 mls/hr Q8H IVPB 08/24/17 16:00 08/27/17 15:59 08/26/17 01:01 Potassium Chloride 30 meq/ Sodium Chloride 1,015 ml @ 100 mls/hr Q10H9M IV 08/21/17 19:00 09/19/17 18:59 08/25/17 11:21 Sorbitol (Sorbitol) 30 ml Q6H PRN GT Constipation 08/23/17 20:30 09/22/17 20:29 08/23/17 21:20 Thiamine HCl 100 mg/Dextrose 56 ml @ 112 mls/hr Q24H IVPB 08/21/17 21:00 09/09/17 20:59 08/25/17 20:38 Triamcinolone Acetonide (Kenalog) 1 applic THREE TIMES A DAY TOPIC 08/25/17 13:00 09/24/17 12:59 08/25/17 18:03 GAYLE ALMENDAREZ Aug 26, 2017 07:34
[2017-08-26 07:36] LABS: ANION GAP 14 mmol/L (5-15); BLOOD UREA NITROGEN 16 mg/dL (7-18); CALCIUM 8.6 MG/DL (8.5-10.1); CARBON DIOXIDE 25 MMOL/L (21-32); CHLORIDE 100 MMOL/L (98-107); CREATININE 0.7 MG/DL (0.55-1.30); POTASSIUM 3.9 MMOL/L (3.5-5.1); SODIUM 139 MMOL/L (136-145)
[2017-08-26 08:48] VITALS: BP 115/64
[2017-08-26] MEDS: Pantoprazole Inj IVP SCH (08:58)
[2017-08-26] MEDS: Triamcinolone 0.1% 15gm Cr TOPIC SCH ×3 (09:02→17:30)
[2017-08-26] MEDS: Heparin 5000 units/ml inj SUBQ SCH ×2 (09:05→22:35)
--- NOTE | 2017-08-26 10:50 | GI Progress Note ---
Assessment/Plan Problems: (1) FTT (failure to thrive) in adult ICD Codes: R62.7 - Adult failure to thrive SNOMED: 156862249 (2) Overdose ICD Codes: T50.901A - Poisoning by unspecified drugs, medicaments and biological substances, accidental (unintentional), initial encounter SNOMED: 23074819 (3) severe encephalopathy, anoxic/drug toxicity/benzo withdrawal (4) iv substance abuse, relapse (5) symptomatic seizure event (6) severe anoxic encephalopathy Status: progressing, unchanged Status Narrative Discussed with Dr. Enrique. Assessment/Plan s/p EGD/PEG SUMMARY OF FINDINGS: 1. Linear gastric ulceration, status post biopsy. 2. Status post successful PEG placement. RECOMMENDATIONS: Abdominal binder. Elevate the head of the bed at all times. G-tube flush. G-tube care. GTFs per RD OT evaluation fu labs outpatient Hep C tx, will draw genotype Subjective Subjective limited, sleeping. Objective Last 24 Hour Vital Signs Date Time Temp Pulse Resp B/P (MAP) Pulse Ox O2 Delivery O2 Flow Rate FiO2 08/26/17 08:48 98.2 104 21 115/64 96 08/25/17 20:00 98.5 105 18 117/79 93 08/25/17 16:22 98 Room Air 21 08/25/17 16:21 Room Air 21 08/25/17 16:00 97.7 63 20 113/76 98 Room Air 08/25/17 11:55 98.1 97 20 102/65 94 Room Air Intake and Output 08/25/17 08/26/17 19:00 07:00 Intake Total 1170.0 ml 1926.0 ml Output Total 1450 ml 1500 ml Balance -280.0 ml 426.0 ml Intake Free Water 60 ml IV Total 810.0 ml 1266.0 ml Tube Feeding 300 ml 660 ml Output Urine Total 1450 ml 1500 ml Laboratory Tests Test 08/26/17 05:00 White Blood Count 8.3 K/UL (4.8-10.8) Red Blood Count 4.94 M/UL (4.20-5.40) Hemoglobin 15.3 G/DL (12.0-16.0) Hematocrit 46.1 % (37.0-47.0) Mean Corpuscular Volume 93 FL (80-99) Mean Corpuscular Hemoglobin 30.8 PG (27.0-31.0) Mean Corpuscular Hemoglobin Concent 33.1 G/DL (32.0-36.0) Red Cell Distribution Width 13.4 % (11.6-14.8) Platelet Count 343 K/UL (150-450) Mean Platelet Volume 5.6 FL (6.5-10.1) L Neutrophils (%) (Auto) 68.7 % (45.0-75.0) Lymphocytes (%) (Auto) 22.6 % (20.0-45.0) Monocytes (%) (Auto) 7.1 % (1.0-10.0) Eosinophils (%) (Auto) 0.8 % (0.0-3.0) Basophils (%) (Auto) 0.8 % (0.0-2.0) Sodium Level 139 MMOL/L (136-145) Potassium Level 3.9 MMOL/L (3.5-5.1) Chloride Level 100 MMOL/L (98-107) Carbon Dioxide Level 25 MMOL/L (21-32) Anion Gap 14 mmol/L (5-15) Blood Urea Nitrogen 16 mg/dL (7-18) Creatinine 0.7 MG/DL (0.55-1.30) Estimat Glomerular Filtration Rate > 60 mL/min (>60) Glucose Level 141 MG/DL (74-106) H Calcium Level 8.6 MG/DL (8.5-10.1) Hepatitis C Genotype Pending Height (Feet): 5 Height (Inches): 5.00 Weight (Pounds): 147 General Appearance: no apparent distress Cardiovascular: normal rate Respiratory/Chest: normal breath sounds, no respiratory distress Abdominal Exam: normal bowel sounds, non tender, soft, GT site - c/d/i Extremities: non-tender Kendra Templeton N.P. Aug 26, 2017 10:50
[2017-08-26 11:32] VITALS: BP 118/75
--- NOTE | 2017-08-26 12:46 | General Progress Note ---
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 Waking up. Prognosis seems better in the long run. 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 Further waking up. CW Brain anoxic damage - EEG diffuse slowing. PEG done ESBL E. Coli UTI per ID Urine Tox Screen Results Still pending? TF on DC planning SNF Subjective Allergies: Coded Allergies: No Known Allergies (Unverified , 08/12/17) PER MOM, NO KNOWN ALLERGIES Subjective Less Sedated. Per Mom more awake during the night. c/o itching. Objective Last 24 Hour Vital Signs Date Time Temp Pulse Resp B/P (MAP) Pulse Ox O2 Delivery O2 Flow Rate FiO2 08/26/17 11:32 98.0 102 21 118/75 95 08/26/17 08:48 98.2 104 21 115/64 96 08/26/17 07:01 98 Room Air 21 08/26/17 07:01 Room Air 08/25/17 20:00 98.5 105 18 117/79 93 08/25/17 16:22 98 Room Air 21 08/25/17 16:21 Room Air 21 08/25/17 16:00 97.7 63 20 113/76 98 Room Air Intake and Output 08/25/17 08/26/17 19:00 07:00 Intake Total 1170.0 ml 1926.0 ml Output Total 1450 ml 1500 ml Balance -280.0 ml 426.0 ml Intake Free Water 60 ml IV Total 810.0 ml 1266.0 ml Tube Feeding 300 ml 660 ml Output Urine Total 1450 ml 1500 ml Laboratory Tests 08/26/17 05:00: White Blood Count 8.3, Red Blood Count 4.94, Hemoglobin 15.3, Hematocrit 46.1, Mean Corpuscular Volume 93, Mean Corpuscular Hemoglobin 30.8, Mean Corpuscular Hemoglobin Concent 33.1, Red Cell Distribution Width 13.4, Platelet Count 343, Mean Platelet Volume 5.6L, Neutrophils (%) (Auto) 68.7, Lymphocytes (%) (Auto) 22.6, Monocytes (%) (Auto) 7.1, Eosinophils (%) (Auto) 0.8, Basophils (%) (Auto ) 0.8, Sodium Level 139, Potassium Level 3.9, Chloride Level 100, Carbon Dioxide Level 25, Anion Gap 14, Blood Urea Nitrogen 16, Creatinine 0.7, Estimat Glomerular Filtration Rate > 60, Glucose Level 141H, Calcium Level 8.6, Hepatitis C Genotype [Pending] Height (Feet): 5 Height (Inches): 5.00 Weight (Pounds): 147 Objective Afebrile. CV RR Lungs CTA Abd SNT. BS +. New PEG. E No CCE + Contractures BERTRAND CONDE Aug 26, 2017 12:46
--- NOTE | 2017-08-26 14:47 | Diagnostic Imaging Report ---
Indication: Cough Technique: One view of the chest Comparison: 08/22/2017 Findings: Right arm PICC, well prosthesis, orphaned epicardial pacemaker lead are again demonstrated. There is minimal atelectasis at the left lung base. The lungs and pleural spaces otherwise remain clear. The heart size is normal. Findings are unchanged Impression: Unchanged, over 4 days, findings as above.
--- NOTE | 2017-08-26 15:31 | Infectious Diseases Prog Note ---
Assessment/Plan Assessment/Plan ASSESSMENT AND PLAN: 1. e.coli uti, esbl e.coli pna, ? aspiration pna, ? sepsis, febrile, ams, sedated, ? drug overdose, fungal uti, regional clinical director blood cultures likely contaminant - zosyn x 3 days, s/p diflucan - would not treat blood cultures with 1/ regional clinical director - check labs and chest x-ray - respiratory improved, chest x-ray better - d/w mother - more alert overall and responsive - s/p feeding tube 2. drug abuse and drug overdose per history, encephalopathy - per neurology, patient sedated, await f/u drug screen 3. hepatitis C serology + - w/u as outpatient including viral load and possible tx, d/w mother 4. Acute kidney injury with elevated creatinine, which is improved. 5. Dehydration. 6. Intravenous fluids. 7. 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 8. No known drug allergies. 9. Social history positive for intravenous drug abuse and smoking. 10. Family history noncontributory. 11. MAR was noted. 12. Continue treatment per primary, Dr. Doran and consultants 13. Case discussed with RN. 14. Case discussed with the patient's mother. Subjective Constitutional: Reports: fatigue, other - weak, lethargic , Denies: fever HEENT: Denies: congestion Respiratory: Denies: shortness of breath Cardiovascular: Denies: chest pain Gastrointestinal/Abdominal: Denies: nausea, vomiting, diarrhea Genitourinary: Reports: other Neurologic: Reports: other - lethargic Psychiatric: Denies: depression Skin: Denies: rash Endocrine: Reports: other - na Hematologic: Denies: bleeding Musculoskeletal: Reports: other - na Allergies: Coded Allergies: No Known Allergies (Unverified , 08/12/17) PER MOM, NO KNOWN ALLERGIES Objective Vital Signs Last 24 Hour Vital Signs Date Time Temp Pulse Resp B/P (MAP) Pulse Ox O2 Delivery O2 Flow Rate FiO2 08/26/17 11:32 98.0 102 21 118/75 95 08/26/17 08:48 98.2 104 21 115/64 96 08/26/17 07:01 98 Room Air 21 08/26/17 07:01 Room Air 08/25/17 20:00 98.5 105 18 117/79 93 08/25/17 16:22 98 Room Air 21 08/25/17 16:21 Room Air 21 08/25/17 16:00 97.7 63 20 113/76 98 Room Air Height (Feet): 5 Height (Inches): 5.00 Weight (Pounds): 147 General Appearance: no acute distress HEENT: normocephalic, atraumatic, anicteric, supple, no JVD Respiratory/Chest: lungs clear, normal breath sounds, no respiratory distress, no accessory muscle use Cardiovascular: normal rate, regular rhythm, no gallop/murmur, no JVD Abdomen: normal bowel sounds, soft, non tender, no organomegaly, non distended Genitourinary: other - + jameson - urine slt cloudy Extremities: no cyanosis Skin: no rash, no lesions 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 Otherwise little liner roll changer 2 days 08/22 - chest x-ray - Interval removal of NG tube. Overall improved aeration of the left lower lung. Persistent streaky opacities at left base, possibly related to atelectasis/scarring vs pneumonia. Correlate clinically. Chest x-ray - - Impression: Interval removal of NG tube. Overall improved aeration of the left lower lung. Persistent streaky opacities at left base, possibly related to atelectasis/scarring vs pneumonia. Correlate clinically. 08/26 - chest x-ray - no change (report noted) Microbiology Date/Time Source Procedure Growth Status 08/18/17 18:30 Blood Blood Culture - Final NO GROWTH AFTER 5 DAYS Complete 08/14/17 21:00 Sputum Induced Gram Stain - Final Complete 08/14/17 21:00 Sputum Culture - Final Escherichia Coli - Esbl Complete 08/18/17 14:26 Indwelling Cath Urine Culture - Final Narcsia Albicans Complete 08/10/17 01:50 Rectum VRE Culture - Final NO VANCOMYCIN RESISTANT ENTEROCOCCUS ... Complete Laboratory Tests Test 08/26/17 05:00 White Blood Count 8.3 K/UL (4.8-10.8) Red Blood Count 4.94 M/UL (4.20-5.40) Hemoglobin 15.3 G/DL (12.0-16.0) Hematocrit 46.1 % (37.0-47.0) Mean Corpuscular Volume 93 FL (80-99) Mean Corpuscular Hemoglobin 30.8 PG (27.0-31.0) Mean Corpuscular Hemoglobin Concent 33.1 G/DL (32.0-36.0) Red Cell Distribution Width 13.4 % (11.6-14.8) Platelet Count 343 K/UL (150-450) Mean Platelet Volume 5.6 FL (6.5-10.1) L Neutrophils (%) (Auto) 68.7 % (45.0-75.0) Lymphocytes (%) (Auto) 22.6 % (20.0-45.0) Monocytes (%) (Auto) 7.1 % (1.0-10.0) Eosinophils (%) (Auto) 0.8 % (0.0-3.0) Basophils (%) (Auto) 0.8 % (0.0-2.0) Sodium Level 139 MMOL/L (136-145) Potassium Level 3.9 MMOL/L (3.5-5.1) Chloride Level 100 MMOL/L (98-107) Carbon Dioxide Level 25 MMOL/L (21-32) Anion Gap 14 mmol/L (5-15) Blood Urea Nitrogen 16 mg/dL (7-18) Creatinine 0.7 MG/DL (0.55-1.30) Estimat Glomerular Filtration Rate > 60 mL/min (>60) Glucose Level 141 MG/DL (74-106) H Calcium Level 8.6 MG/DL (8.5-10.1) Hepatitis C Genotype Pending Current Medications Medications (Trade) Dose Ordered Sig/Hema Route PRN Reason Start Time Stop Time Status Last Admin Dose Admin Acetaminophen (Tylenol) 650 mg Q4H PRN GT Mild Pain/Temp > 100.5 08/23/17 15:15 09/22/17 15:14 08/23/17 21:20 Chlorhexidine Gluconate (Valerie-Hex 2%) 1 applic DAILY@1999 TOPIC 08/21/17 20:00 09/10/17 19:59 08/25/17 20:37 Clotrimazole (Lotrimin) 1 applic EVERY 12 HOURS TOPIC 08/21/17 21:00 09/19/17 16:59 08/26/17 09:02 Diazepam (Valium) 10 mg Q7H GT 08/26/17 01:00 08/31/17 08:59 08/26/17 14:44 Heparin Sodium (Porcine) (Heparin 5000 units/ml) 5,000 units EVERY 12 HOURS SUBQ 08/21/17 21:00 09/09/17 20:59 08/26/17 09:05 Levetiracetam (Keppra) 250 mg Q12HR ORAL 08/23/17 21:00 09/22/17 20:59 08/26/17 08:58 Multivitamins 10 ml/Potassium Chloride 30 meq/ Sodium Chloride 1,025 ml @ 100 mls/hr Q24H IV 08/21/17 21:00 09/20/17 20:59 08/25/17 20:40 Nicotine (Nicoderm) 1 patch Q24H TDERMAL 08/22/17 16:00 09/12/17 15:59 08/25/17 18:03 Pantoprazole (Protonix) 40 mg DAILY IVP 08/22/17 09:00 09/11/17 09:59 08/26/17 08:58 Piperacillin Sod/ Tazobactam Sod 3.375 gm/Sodium Chloride 110 ml @ 27.5 mls/hr Q8H IVPB 08/24/17 16:00 08/27/17 15:59 08/26/17 08:58 Potassium Chloride 30 meq/ Sodium Chloride 1,015 ml @ 100 mls/hr Q10H9M IV 08/21/17 19:00 09/19/17 18:59 08/26/17 12:04 Sorbitol (Sorbitol) 30 ml Q6H PRN GT Constipation 08/23/17 20:30 09/22/17 20:29 08/23/17 21:20 Thiamine HCl 100 mg/Dextrose 56 ml @ 112 mls/hr Q24H IVPB 08/21/17 21:00 09/09/17 20:59 08/25/17 20:38 Triamcinolone Acetonide (Kenalog) 1 applic THREE TIMES A DAY TOPIC 08/25/17 13:00 09/24/17 12:59 08/26/17 14:44 MARIA A SMITH Aug 26, 2017 15:31
[2017-08-26] MEDS: Docusate 100mg cap ORAL SCH (17:30)
[2017-08-26 20:09] VITALS: BP 118/72
[2017-08-26] MEDS: MULTIVITAMIN IV SCH (21:00)
[2017-08-26] MEDS: Miralax 17gm pkt GT SCH (21:00)
[2017-08-26] MEDS: POTASSIUM CHLORIDE IV SCH (21:00)
[2017-08-26] MEDS: 1/2 NS IV SCH (21:00)
[2017-08-26] MEDS: Thiamine HCl 100 MG in D5W 55 ML IVPB SCH (22:25)
[2017-08-26] MEDS: Dyna-Hex 2% Top Sol 2oz TOPIC SCH (22:43)
[2017-08-27] MEDS: Piperacillin/Tazobactam 3.375 GM in NS 110 ML IVPB SCH ×4 (00:14→23:50)
[2017-08-27] MEDS: Miralax 17gm pkt GT SCH (00:17)
[2017-08-27 04:00] VITALS: BP 157/65
[2017-08-27] MEDS: Potassium Chloride 30 MEQ in 1/2 NS 1000ml 1,000 ML IV SCH ×2 (06:57→17:02)
[2017-08-27 07:44] LABS: EOSINOPHILS % (AUTO) 1.1 % (0.0-3.0); HEMATOCRIT 50.1 % (37.0-47.0); HEMOGLOBIN 15.4 G/DL (12.0-16.0); LYMPHOCYTES % (AUTO) 29.6 % (20.0-45.0); MEAN CORPUSCULAR VOLUME 94 FL (80-99); MONOCYTES % (AUTO) 7.2 % (1.0-10.0); PLATELET COUNT 325 K/UL (150-450); RED BLOOD COUNT 5.31 M/UL (4.20-5.40); RED CELL DISTRIBUTION WIDTH 13.1 % (11.6-14.8); WHITE BLOOD COUNT 9.4 K/UL (4.8-10.8)
[2017-08-27 08:00] VITALS: BP 122/81
[2017-08-27 08:17] LABS: ANION GAP 11 mmol/L (5-15); BLOOD UREA NITROGEN 19 mg/dL (7-18); CALCIUM 8.8 MG/DL (8.5-10.1); CARBON DIOXIDE 26 MMOL/L (21-32); CHLORIDE 100 MMOL/L (98-107); CREATININE 0.6 MG/DL (0.55-1.30); SODIUM 137 MMOL/L (136-145)
[2017-08-27] MEDS: Pantoprazole Inj IVP SCH (08:31)
[2017-08-27] MEDS: Docusate 100mg cap ORAL SCH ×2 (08:31→18:10)
[2017-08-27] MEDS: Triamcinolone 0.1% 15gm Cr TOPIC SCH ×3 (08:32→18:10)
[2017-08-27] MEDS: Heparin 5000 units/ml inj SUBQ SCH ×2 (08:36→21:32)
--- NOTE | 2017-08-27 10:45 | GI Progress Note ---
Assessment/Plan Problems: (1) FTT (failure to thrive) in adult ICD Codes: R62.7 - Adult failure to thrive SNOMED: 256102774 (2) Overdose ICD Codes: T50.901A - Poisoning by unspecified drugs, medicaments and biological substances, accidental (unintentional), initial encounter SNOMED: 06746305 (3) severe encephalopathy, anoxic/drug toxicity/benzo withdrawal (4) iv substance abuse, relapse (5) symptomatic seizure event (6) severe anoxic encephalopathy Status: stable Status Narrative Discussed with Dr. Enrique. Assessment/Plan s/p EGD/PEG SUMMARY OF FINDINGS: 1. Linear gastric ulceration, status post biopsy. 2. Status post successful PEG placement. RECOMMENDATIONS: Abdominal binder. Elevate the head of the bed at all times. G-tube flush. G-tube care. GTFs per RD OT evaluation fu labs outpatient Hep C tx, will draw genotype Subjective Subjective limited, sleeping. Objective Last 24 Hour Vital Signs Date Time Temp Pulse Resp B/P (MAP) Pulse Ox O2 Delivery O2 Flow Rate FiO2 08/27/17 08:00 98.3 82 21 122/81 91 Room Air 08/27/17 04:00 97.0 63 18 157/65 95 Room Air 08/26/17 21:29 Room Air 08/26/17 21:29 96 Room Air 21 08/26/17 20:09 97.9 107 20 118/72 96 Room Air 08/26/17 11:32 98.0 102 21 118/75 95 Intake and Output 08/26/17 08/27/17 19:00 07:00 Intake Total 887.5 ml 60 ml Output Total 600 ml Balance 887.5 ml -540 ml Intake Oral 0 ml IV Total 227.5 ml Tube Feeding 660 ml 60 ml Output Urine Total 600 ml # Bowel Movements 1 Laboratory Tests Test 08/27/17 07:15 White Blood Count 9.4 K/UL (4.8-10.8) Red Blood Count 5.31 M/UL (4.20-5.40) Hemoglobin 15.4 G/DL (12.0-16.0) Hematocrit 50.1 % (37.0-47.0) H Mean Corpuscular Volume 94 FL (80-99) Mean Corpuscular Hemoglobin 29.1 PG (27.0-31.0) Mean Corpuscular Hemoglobin Concent 30.8 G/DL (32.0-36.0) L Red Cell Distribution Width 13.1 % (11.6-14.8) Platelet Count 325 K/UL (150-450) Mean Platelet Volume 7.1 FL (6.5-10.1) Neutrophils (%) (Auto) 60.0 % (45.0-75.0) Lymphocytes (%) (Auto) 29.6 % (20.0-45.0) Monocytes (%) (Auto) 7.2 % (1.0-10.0) Eosinophils (%) (Auto) 1.1 % (0.0-3.0) Basophils (%) (Auto) 2.0 % (0.0-2.0) Sodium Level 137 MMOL/L (136-145) Potassium Level 4.0 MMOL/L (3.5-5.1) Chloride Level 100 MMOL/L (98-107) Carbon Dioxide Level 26 MMOL/L (21-32) Anion Gap 11 mmol/L (5-15) Blood Urea Nitrogen 19 mg/dL (7-18) H Creatinine 0.6 MG/DL (0.55-1.30) Estimat Glomerular Filtration Rate > 60 mL/min (>60) Glucose Level 125 MG/DL (74-106) H Calcium Level 8.8 MG/DL (8.5-10.1) Height (Feet): 5 Height (Inches): 5.00 Weight (Pounds): 147 General Appearance: no apparent distress, alert, confused Cardiovascular: normal rate Respiratory/Chest: normal breath sounds, no respiratory distress Abdominal Exam: normal bowel sounds, non tender, soft, GT site - c/d/i Extremities: non-tender Kendra Templeton N.P. Aug 27, 2017 10:45
--- NOTE | 2017-08-27 11:19 | General Progress Note ---
Assessment/Plan Status: stable, progressing Assessment/Plan ?anoxic brain injury polysubstance abuse benzo withdrawal -cont Valium GT q7/prn -the pt maybe discharged on Valium if medically cleared -the pt's Valium could be managed outpatient. the pt is not on high dosage on Valium Subjective Date patient seen: Aug 26, 2017 Neurologic/Psychiatric: Reports: anxiety, depressed, emotional problems Allergies: Coded Allergies: No Known Allergies (Unverified , 08/12/17) PER MOM, NO KNOWN ALLERGIES Subjective the pt is less agitated switched to Valium GT Objective Last 24 Hour Vital Signs Date Time Temp Pulse Resp B/P (MAP) Pulse Ox O2 Delivery O2 Flow Rate FiO2 08/27/17 08:00 98.3 82 21 122/81 91 Room Air 08/27/17 06:56 Room Air 08/27/17 06:56 96 Room Air 21 08/27/17 04:00 97.0 63 18 157/65 95 Room Air 08/26/17 21:29 Room Air 08/26/17 21:29 96 Room Air 21 08/26/17 20:09 97.9 107 20 118/72 96 Room Air 08/26/17 11:32 98.0 102 21 118/75 95 Intake and Output 08/26/17 08/27/17 19:00 07:00 Intake Total 887.5 ml 60 ml Output Total 600 ml Balance 887.5 ml -540 ml Intake Oral 0 ml IV Total 227.5 ml Tube Feeding 660 ml 60 ml Output Urine Total 600 ml # Bowel Movements 1 Laboratory Tests 08/27/17 07:15: White Blood Count 9.4, Red Blood Count 5.31, Hemoglobin 15.4, Hematocrit 50.1H, Mean Corpuscular Volume 94, Mean Corpuscular Hemoglobin 29.1, Mean Corpuscular Hemoglobin Concent 30.8L, Red Cell Distribution Width 13.1, Platelet Count 325, Mean Platelet Volume 7.1, Neutrophils (%) (Auto) 60.0, Lymphocytes (%) (Auto) 29.6, Monocytes (%) (Auto) 7.2, Eosinophils (%) (Auto) 1.1, Basophils (%) (Auto ) 2.0, Sodium Level 137, Potassium Level 4.0, Chloride Level 100, Carbon Dioxide Level 26, Anion Gap 11, Blood Urea Nitrogen 19H, Creatinine 0.6, Estimat Glomerular Filtration Rate > 60, Glucose Level 125H, Calcium Level 8.8 Height (Feet): 5 Height (Inches): 5.00 Weight (Pounds): 147 General Appearance: no apparent distress, alert, confused, agitated Neurologic: alert, disoriented, depressed affect Kristie Braswell M.D. Aug 27, 2017 11:19
--- NOTE | 2017-08-27 11:20 | Pulmonology Progress Note ---
Assessment/Plan Assessment/Plan PROBLEM LIST: -Drug OD -H/O IVDU -Respiratory acidosis -MATTHEW -H/O infective endocarditis S/P MVR - GT - hepatitis C PLAN: -respiratory stable -Continue supplemental o2 as needed -monitor for aspiration and repeat Xray as needed -Monitor volumes and renal function -DVT prophylaxis -GT feeds -ID followup noted - dc to snf soon impression, plan, and exam edited and reviewed in detail care discussed with RN Subjective Allergies: Coded Allergies: No Known Allergies (Unverified , 08/12/17) PER MOM, NO KNOWN ALLERGIES Subjective care reviewed LOC stable GT in place Objective Last 24 Hour Vital Signs Date Time Temp Pulse Resp B/P (MAP) Pulse Ox O2 Delivery O2 Flow Rate FiO2 08/27/17 08:00 98.3 82 21 122/81 91 Room Air 08/27/17 06:56 Room Air 08/27/17 06:56 96 Room Air 21 08/27/17 04:00 97.0 63 18 157/65 95 Room Air 08/26/17 21:29 Room Air 08/26/17 21:29 96 Room Air 21 08/26/17 20:09 97.9 107 20 118/72 96 Room Air 08/26/17 11:32 98.0 102 21 118/75 95 Intake and Output 08/26/17 08/27/17 19:00 07:00 Intake Total 887.5 ml 60 ml Output Total 600 ml Balance 887.5 ml -540 ml Intake Oral 0 ml IV Total 227.5 ml Tube Feeding 660 ml 60 ml Output Urine Total 600 ml # Bowel Movements 1 Objective WDWN NAD stable breath sounds bilaterally without rhonchi or wheeze [id number] without MRG NABS nontender no HSM; Gt no CCE nonfocal NGT in place reduced ROM Laboratory Tests 08/27/17 07:15: White Blood Count 9.4, Red Blood Count 5.31, Hemoglobin 15.4, Hematocrit 50.1H, Mean Corpuscular Volume 94, Mean Corpuscular Hemoglobin 29.1, Mean Corpuscular Hemoglobin Concent 30.8L, Red Cell Distribution Width 13.1, Platelet Count 325, Mean Platelet Volume 7.1, Neutrophils (%) (Auto) 60.0, Lymphocytes (%) (Auto) 29.6, Monocytes (%) (Auto) 7.2, Eosinophils (%) (Auto) 1.1, Basophils (%) (Auto ) 2.0, Sodium Level 137, Potassium Level 4.0, Chloride Level 100, Carbon Dioxide Level 26, Anion Gap 11, Blood Urea Nitrogen 19H, Creatinine 0.6, Estimat Glomerular Filtration Rate > 60, Glucose Level 125H, Calcium Level 8.8 Current Medications Medications (Trade) Dose Ordered Sig/Hema Route PRN Reason Start Time Stop Time Status Last Admin Dose Admin Acetaminophen (Tylenol) 650 mg Q4H PRN GT Mild Pain/Temp > 100.5 08/23/17 15:15 09/22/17 15:14 08/23/17 21:20 Chlorhexidine Gluconate (Valerie-Hex 2%) 1 applic DAILY@1999 TOPIC 08/21/17 20:00 09/10/17 19:59 08/26/17 22:43 Clotrimazole (Lotrimin) 1 applic EVERY 12 HOURS TOPIC 08/21/17 21:00 09/19/17 16:59 08/27/17 08:33 Diazepam (Valium) 10 mg Q8HR GT 08/27/17 14:00 09/03/17 13:59 UNV Docusate Sodium (Colace) 100 mg BID ORAL 08/26/17 18:00 09/25/17 17:59 08/27/17 08:31 Heparin Sodium (Porcine) (Heparin 5000 units/ml) 5,000 units EVERY 12 HOURS SUBQ 08/21/17 21:00 09/09/17 20:59 08/27/17 08:36 Levetiracetam (Keppra) 250 mg Q12HR ORAL 08/23/17 21:00 09/22/17 20:59 08/27/17 08:31 Multivitamins 10 ml/Potassium Chloride 30 meq/ Sodium Chloride 1,025 ml @ 100 mls/hr Q24H IV 08/21/17 21:00 09/20/17 20:59 08/25/17 20:40 Nicotine (Nicoderm) 1 patch Q24H TDERMAL 08/22/17 16:00 09/12/17 15:59 08/26/17 15:59 Pantoprazole (Protonix) 40 mg DAILY IVP 08/22/17 09:00 09/11/17 09:59 08/27/17 08:31 Piperacillin Sod/ Tazobactam Sod 3.375 gm/Sodium Chloride 110 ml @ 27.5 mls/hr Q8H IVPB 08/26/17 16:00 08/29/17 23:59 08/27/17 10:18 Polyethylene Glycol (Miralax) 17 gm BEDTIME GT 08/26/17 21:00 09/25/17 20:59 08/27/17 00:17 Potassium Chloride 30 meq/ Sodium Chloride 1,015 ml @ 100 mls/hr Q10H9M IV 08/21/17 19:00 09/19/17 18:59 08/26/17 12:04 Sorbitol (Sorbitol) 30 ml Q6H PRN GT Constipation 08/23/17 20:30 09/22/17 20:29 08/23/17 21:20 Thiamine HCl 100 mg/Dextrose 56 ml @ 112 mls/hr Q24H IVPB 08/21/17 21:00 09/09/17 20:59 08/26/17 22:25 Triamcinolone Acetonide (Kenalog) 1 applic THREE TIMES A DAY TOPIC 08/25/17 13:00 09/24/17 12:59 08/27/17 08:32 GAYLE ALMENDAREZ Aug 27, 2017 11:20
[2017-08-27 11:38] VITALS: BP 124/75
--- NOTE | 2017-08-27 12:46 | Neurology Progress Note ---
Interim History Interim History Complaints: moan groan,aches Events: intermittently verbal more coherent,communicating, Objective Physical Exam Last Vital Signs Date Time Temp Pulse Resp B/P (MAP) Pulse Ox O2 Delivery O2 Flow Rate FiO2 08/27/17 11:38 98.3 109 21 124/75 93 08/27/17 08:00 Room Air 08/27/17 06:56 21 08/24/17 19:25 1.0 Laboratory Tests Test 08/27/17 07:15 White Blood Count 9.4 K/UL (4.8-10.8) Red Blood Count 5.31 M/UL (4.20-5.40) Hemoglobin 15.4 G/DL (12.0-16.0) Hematocrit 50.1 % (37.0-47.0) H Mean Corpuscular Volume 94 FL (80-99) Mean Corpuscular Hemoglobin 29.1 PG (27.0-31.0) Mean Corpuscular Hemoglobin Concent 30.8 G/DL (32.0-36.0) L Red Cell Distribution Width 13.1 % (11.6-14.8) Platelet Count 325 K/UL (150-450) Mean Platelet Volume 7.1 FL (6.5-10.1) Neutrophils (%) (Auto) 60.0 % (45.0-75.0) Lymphocytes (%) (Auto) 29.6 % (20.0-45.0) Monocytes (%) (Auto) 7.2 % (1.0-10.0) Eosinophils (%) (Auto) 1.1 % (0.0-3.0) Basophils (%) (Auto) 2.0 % (0.0-2.0) Sodium Level 137 MMOL/L (136-145) Potassium Level 4.0 MMOL/L (3.5-5.1) Chloride Level 100 MMOL/L (98-107) Carbon Dioxide Level 26 MMOL/L (21-32) Anion Gap 11 mmol/L (5-15) Blood Urea Nitrogen 19 mg/dL (7-18) H Creatinine 0.6 MG/DL (0.55-1.30) Estimat Glomerular Filtration Rate > 60 mL/min (>60) Glucose Level 125 MG/DL (74-106) H Calcium Level 8.8 MG/DL (8.5-10.1) General: well developed, no acute distress, other - generalised rigidity, abdomen tender, flexed wrist, extended feet,poor neck extension Head: normocophalic Neck: other - rigid Neurologic Exam Mental Status: other - drowsy eyes closed Speech: other - less slurry , Language: no aphasia Cranial Nerve II: other Cranial Nerves III, IV, : other - pupils 5mm rla Cranial Nerve V: normal facial sensations, masseters function normal Cranial Nerve VII: no facial asymmetry Cranial Nerve VIII: no nystagmus Cranial Nerve IX: other - g tube Cranial Nerve X: other Cranial Nerve XI: trapezii function normal Motor System: strength 5/5, no involuntary movement, no muscle wasting, other - contracted hands extended feet diffuse rigidity Sensory: normal pinprick Coordination: other Deep Tendon Reflexes: 2+ bicep (L), 2+ bicep (R), 2+ tricep (L), 2+ tricep (R) , 2+ brachioradialis (L), 2+ brachioradialis (R), 2+ knee (L), 2+ knee (R), 2+ ankle (L), 2+ ankle (R) Reflexes: mute plantar (L), mute plantar (R) Stance: other Gait: other Impression/Recommendations Problems: (1) severe encephalopathy, anoxic/drug toxicity/benzo withdrawal (2) iv substance abuse, relapse (3) symptomatic seizure event (4) nicotine/drug withdrawal. (5) Coagulopathy Status: stable, progressing Recommendations #[id number] keppra 250 mg bid d/w staff and M on valium per psych nutrition eval PT REHAB, more aggressive ROM SIT in chair reduce all sedating meds ok to d/c to rehab PAM FAN Aug 27, 2017 12:46
[2017-08-27] MEDS ORDERED: Phytonadione 10 mg/mL 1ml amp SUBQ ONE (13:00)
--- NOTE | 2017-08-27 13:53 | General Progress Note ---
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 Waking up. Prognosis seems better in the long run. 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 Further waking up. CW Brain anoxic damage - EEG diffuse slowing. PEG done ESBL E. Coli UTI per ID Urine Tox Screen Results Still pending? TF on DC planning SNF vs. Neuro Rehab Subjective Allergies: Coded Allergies: No Known Allergies (Unverified , 08/12/17) PER MOM, NO KNOWN ALLERGIES Subjective Less Sedated. Per Mom more awake during the night. c/o itching. Objective Last 24 Hour Vital Signs Date Time Temp Pulse Resp B/P (MAP) Pulse Ox O2 Delivery O2 Flow Rate FiO2 08/27/17 11:38 98.3 109 21 124/75 93 08/27/17 08:00 98.3 82 21 122/81 91 Room Air 08/27/17 06:56 Room Air 08/27/17 06:56 96 Room Air 21 08/27/17 04:00 97.0 63 18 157/65 95 Room Air 08/26/17 21:29 Room Air 08/26/17 21:29 96 Room Air 21 08/26/17 20:09 97.9 107 20 118/72 96 Room Air Intake and Output 08/26/17 08/27/17 19:00 07:00 Intake Total 887.5 ml 60 ml Output Total 600 ml Balance 887.5 ml -540 ml Intake Oral 0 ml IV Total 227.5 ml Tube Feeding 660 ml 60 ml Output Urine Total 600 ml # Bowel Movements 1 Laboratory Tests 08/27/17 07:15: White Blood Count 9.4, Red Blood Count 5.31, Hemoglobin 15.4, Hematocrit 50.1H, Mean Corpuscular Volume 94, Mean Corpuscular Hemoglobin 29.1, Mean Corpuscular Hemoglobin Concent 30.8L, Red Cell Distribution Width 13.1, Platelet Count 325, Mean Platelet Volume 7.1, Neutrophils (%) (Auto) 60.0, Lymphocytes (%) (Auto) 29.6, Monocytes (%) (Auto) 7.2, Eosinophils (%) (Auto) 1.1, Basophils (%) (Auto ) 2.0, Sodium Level 137, Potassium Level 4.0, Chloride Level 100, Carbon Dioxide Level 26, Anion Gap 11, Blood Urea Nitrogen 19H, Creatinine 0.6, Estimat Glomerular Filtration Rate > 60, Glucose Level 125H, Calcium Level 8.8 Height (Feet): 5 Height (Inches): 5.00 Weight (Pounds): 147 Objective Afebrile. CV RR Lungs CTA Abd SNT. BS +. New PEG. E No CCE + Contractures BERTRAND CONDE Aug 27, 2017 13:53
[2017-08-27] MEDS ORDERED: Phytonadione 10 MG in D5W 55 ML IVPB ONE (15:00)
[2017-08-27 16:00] VITALS: BP 112/69
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
[2017-08-27 20:00] VITALS: BP 102/79
[2017-08-27] MEDS: Dyna-Hex 2% Top Sol 2oz TOPIC SCH (21:27)
[2017-08-27] MEDS: 1/2 NS IV SCH (21:28)
[2017-08-27] MEDS: MULTIVITAMIN IV SCH (21:28)
[2017-08-27] MEDS: POTASSIUM CHLORIDE IV SCH (21:28)
[2017-08-27] MEDS: Thiamine HCl 100 MG in D5W 55 ML IVPB SCH (21:28)
--- NOTE | 2017-08-27 22:00 | Progress Note ---
DATE: 08/27/2017 SUBJECTIVE: Mother and brother at bedside. The patient still has cognitive impairment and is not able to be engaged during evaluation. Per mother, the patient is more cognizant at night. It appears that wake cycle is impaired. The patient is complaining of whole body pain and itchiness. MENTAL STATUS EXAMINATION: The patient is drowsy. Mood is anxious and agitated. Affect is constricted, congruent with mood. Eyes closed. Thought process, there is a paucity of thought content. Thought content, no suicidal or homicidal ideations. PLAN: 1. We will change the Valium to [address] 2[address] Alvarez spoke with Dr. Doran and they are concerned about INR, PTT malnutrition. 3. The patient may be discharged to rehabilitation with Valium and outpatient psychiatrist may readjust the dosage accordingly. Kristie Braswell M.D. DR: JAMEEL JOB#: [id number] CC:
[2017-08-28] VITALS: BP 110/74
[2017-08-28] MEDS: Potassium Chloride 30 MEQ in 1/2 NS 1000ml 1,000 ML IV SCH ×3 (03:15→23:28)
[2017-08-28] MEDS: Acetaminophen 650mg/20.3ml GT PRN (03:58)
[2017-08-28 04:27] VITALS: BP 118/88
[2017-08-28 07:32] LABS: BASOPHILS % (AUTO) 0.9 % (0.0-2.0); EOSINOPHILS % (AUTO) 1.2 % (0.0-3.0); HEMATOCRIT 45.3 % (37.0-47.0); HEMOGLOBIN 15.1 G/DL (12.0-16.0); LYMPHOCYTES % (AUTO) 26.6 % (20.0-45.0); MEAN CORPUSCULAR VOLUME 93 FL (80-99); MONOCYTES % (AUTO) 8.3 % (1.0-10.0); PLATELET COUNT 338 K/UL (150-450); RED BLOOD COUNT 4.87 M/UL (4.20-5.40); RED CELL DISTRIBUTION WIDTH 13.1 % (11.6-14.8); WHITE BLOOD COUNT 9.5 K/UL (4.8-10.8)
[2017-08-28 07:56] LABS: ANION GAP 9 mmol/L (5-15); BLOOD UREA NITROGEN 16 mg/dL (7-18); CALCIUM 8.9 MG/DL (8.5-10.1); CARBON DIOXIDE 28 MMOL/L (21-32); CHLORIDE 100 MMOL/L (98-107); CREATININE 0.7 MG/DL (0.55-1.30); POTASSIUM 4.5 MMOL/L (3.5-5.1); SODIUM 137 MMOL/L (136-145)
[2017-08-28 08:00] VITALS: BP 120/81
--- NOTE | 2017-08-28 08:31 | Pulmonology Progress Note ---
Assessment/Plan Assessment/Plan PROBLEM LIST: -Drug OD -H/O IVDU -Respiratory acidosis -MATTHEW -H/O infective endocarditis S/P MVR - GT - hepatitis C PLAN: -respiratory stable -Continue supplemental o2 as needed -monitor for aspiration and repeat Xray as needed -Monitor volumes and renal function -DVT prophylaxis -GT feeds -ID followup noted - dc to snf soon impression, plan, and exam edited and reviewed in detail care discussed with RN Subjective Allergies: Coded Allergies: No Known Allergies (Unverified , 08/12/17) PER MOM, NO KNOWN ALLERGIES Subjective care reviewed LOC stable GT in place Objective Last 24 Hour Vital Signs Date Time Temp Pulse Resp B/P (MAP) Pulse Ox O2 Delivery O2 Flow Rate FiO2 08/28/17 04:27 99.0 104 18 118/88 96 Nasal Cannula 08/28/17 00:00 97.8 104 18 110/74 95 Room Air 08/27/17 20:00 97.8 105 18 102/79 98 Room Air 08/27/17 16:00 98.1 108 21 112/69 90 08/27/17 11:38 98.3 109 21 124/75 93 Intake and Output 08/27/17 08/28/17 19:00 07:00 Intake Total 1212.5 ml 2830 ml Output Total 850 ml 800 ml Balance 362.5 ml 2030 ml Free Water 130 ml IV Total 492.5 ml 2100 ml Tube Feeding 720 ml 600 ml Output Urine Total 850 ml 800 ml # Bowel Movements 2 Objective WDWN NAD stable breath sounds bilaterally without rhonchi or wheeze [id number] without MRG NABS nontender no HSM; Gt no CCE nonfocal NGT in place reduced ROM Laboratory Tests 08/28/17 05:30: Sodium Level 137, Potassium Level 4.5, Chloride Level 100, Carbon Dioxide Level 28, Anion Gap 9, Blood Urea Nitrogen 16, Creatinine 0.7, Estimat Glomerular Filtration Rate > 60, Glucose Level 100, Calcium Level 8.9 08/28/17 05:33: White Blood Count 9.5, Red Blood Count 4.87, Hemoglobin 15.1, Hematocrit 45.3, Mean Corpuscular Volume 93, Mean Corpuscular Hemoglobin 31.0, Mean Corpuscular Hemoglobin Concent 33.3, Red Cell Distribution Width 13.1, Platelet Count 338, Mean Platelet Volume 7.6, Neutrophils (%) (Auto) 63.0, Lymphocytes (%) (Auto) 26.6, Monocytes (%) (Auto) 8.3, Eosinophils (%) (Auto) 1.2, Basophils (%) (Auto ) 0.9 Current Medications Medications (Trade) Dose Ordered Sig/Hema Route PRN Reason Start Time Stop Time Status Last Admin Dose Admin Acetaminophen (Tylenol) 650 mg Q4H PRN GT Mild Pain/Temp > 100.5 08/23/17 15:15 09/22/17 15:14 08/28/17 03:58 Chlorhexidine Gluconate (Valerie-Hex 2%) 1 applic DAILY@1999 TOPIC 08/21/17 20:00 09/10/17 19:59 08/27/17 21:27 Clotrimazole (Lotrimin) 1 applic EVERY 12 HOURS TOPIC 08/21/17 21:00 09/19/17 16:59 08/27/17 21:28 Diazepam (Valium) 10 mg Q8H GT 08/27/17 13:30 09/03/17 13:29 08/28/17 05:32 Docusate Sodium (Colace) 100 mg BID ORAL 08/26/17 18:00 09/25/17 17:59 08/27/17 18:10 Heparin Sodium (Porcine) (Heparin 5000 units/ml) 5,000 units EVERY 12 HOURS SUBQ 08/21/17 21:00 09/09/17 20:59 08/27/17 21:32 Levetiracetam (Keppra) 250 mg Q12HR ORAL 08/23/17 21:00 09/22/17 20:59 08/27/17 21:28 Multivitamins 10 ml/Potassium Chloride 30 meq/ Sodium Chloride 1,025 ml @ 100 mls/hr Q24H IV 08/21/17 21:00 09/20/17 20:59 08/27/17 21:28 Nicotine (Nicoderm) 1 patch Q24H TDERMAL 08/22/17 16:00 09/12/17 15:59 08/27/17 16:45 Pantoprazole (Protonix) 40 mg DAILY IVP 08/22/17 09:00 09/11/17 09:59 08/27/17 08:31 Piperacillin Sod/ Tazobactam Sod 3.375 gm/Sodium Chloride 110 ml @ 27.5 mls/hr Q8H IVPB 08/26/17 16:00 08/29/17 23:59 08/27/17 23:50 Polyethylene Glycol (Miralax) 17 gm BEDTIME GT 08/26/17 21:00 09/25/17 20:59 08/27/17 00:17 Potassium Chloride 30 meq/ Sodium Chloride 1,015 ml @ 100 mls/hr Q10H9M IV 08/21/17 19:00 09/19/17 18:59 08/27/17 17:02 Sorbitol (Sorbitol) 30 ml Q6H PRN GT Constipation 08/23/17 20:30 09/22/17 20:29 08/23/17 21:20 Thiamine HCl 100 mg/Dextrose 56 ml @ 112 mls/hr Q24H IVPB 08/21/17 21:00 09/09/17 20:59 08/27/17 21:28 Triamcinolone Acetonide (Kenalog) 1 applic THREE TIMES A DAY TOPIC 08/25/17 13:00 09/24/17 12:59 08/27/17 18:10 GAYLE ALMENDAREZ Aug 28, 2017 08:31
[2017-08-28] MEDS ORDERED: Norco 5mg/325mg tab GT PRN (10:30)
[2017-08-28] MEDS: Docusate 100mg cap ORAL SCH ×2 (10:32→17:36)
[2017-08-28] MEDS: Piperacillin/Tazobactam 3.375 GM in NS 110 ML IVPB SCH ×2 (10:32→17:35)
[2017-08-28] MEDS: Pantoprazole Inj IVP SCH (10:32)
[2017-08-28] MEDS: Heparin 5000 units/ml inj SUBQ SCH ×2 (10:34→21:06)
[2017-08-28] MEDS: Triamcinolone 0.1% 15gm Cr TOPIC SCH ×3 (10:34→17:36)
--- NOTE | 2017-08-28 10:36 | General Progress Note ---
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 Waking up. Prognosis seems better in the long run. 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 Further waking up. s/p PEG ESBL E. Coli UTI per ID TF on DC planning SNF vs. Neuro Rehab Subjective Allergies: Coded Allergies: No Known Allergies (Unverified , 08/12/17) PER MOM, NO KNOWN ALLERGIES Subjective Sleepy. Per Mom more awake during the night. Objective Last 24 Hour Vital Signs Date Time Temp Pulse Resp B/P (MAP) Pulse Ox O2 Delivery O2 Flow Rate FiO2 08/28/17 08:00 98.0 112 18 120/81 95 Room Air 08/28/17 04:27 99.0 104 18 118/88 96 Nasal Cannula 08/28/17 00:00 97.8 104 18 110/74 95 Room Air 08/27/17 20:00 97.8 105 18 102/79 98 Room Air 08/27/17 16:00 98.1 108 21 112/69 90 08/27/17 11:38 98.3 109 21 124/75 93 Intake and Output 08/27/17 08/28/17 19:00 07:00 Intake Total 1212.5 ml 2830 ml Output Total 850 ml 800 ml Balance 362.5 ml 2030 ml Free Water 130 ml IV Total 492.5 ml 2100 ml Tube Feeding 720 ml 600 ml Output Urine Total 850 ml 800 ml # Bowel Movements 2 Laboratory Tests 08/28/17 05:30: Sodium Level 137, Potassium Level 4.5, Chloride Level 100, Carbon Dioxide Level 28, Anion Gap 9, Blood Urea Nitrogen 16, Creatinine 0.7, Estimat Glomerular Filtration Rate > 60, Glucose Level 100, Calcium Level 8.9 08/28/17 05:33: White Blood Count 9.5, Red Blood Count 4.87, Hemoglobin 15.1, Hematocrit 45.3, Mean Corpuscular Volume 93, Mean Corpuscular Hemoglobin 31.0, Mean Corpuscular Hemoglobin Concent 33.3, Red Cell Distribution Width 13.1, Platelet Count 338, Mean Platelet Volume 7.6, Neutrophils (%) (Auto) 63.0, Lymphocytes (%) (Auto) 26.6, Monocytes (%) (Auto) 8.3, Eosinophils (%) (Auto) 1.2, Basophils (%) (Auto ) 0.9 Height (Feet): 5 Height (Inches): 5.00 Weight (Pounds): 156 Objective Afebrile. CV RR Lungs CTA Abd SNT. BS +. New PEG. E No CCE + Contractures BERTRAND CONDE Aug 28, 2017 10:36
--- NOTE | 2017-08-28 11:09 | GI Progress Note ---
Assessment/Plan Problems: (1) FTT (failure to thrive) in adult ICD Codes: R62.7 - Adult failure to thrive SNOMED: 333977659 (2) Overdose ICD Codes: T50.901A - Poisoning by unspecified drugs, medicaments and biological substances, accidental (unintentional), initial encounter SNOMED: 00287598 (3) severe encephalopathy, anoxic/drug toxicity/benzo withdrawal (4) iv substance abuse, relapse (5) symptomatic seizure event (6) severe anoxic encephalopathy Status: stable, progressing Status Narrative Discussed with Dr. Enrique. Assessment/Plan s/p EGD/PEG SUMMARY OF FINDINGS: 1. Linear gastric ulceration, status post biopsy. 2. Status post successful PEG placement. RECOMMENDATIONS: Abdominal binder. Elevate the head of the bed at all times. G-tube flush. G-tube care. GTFs per RD OT evaluation fu labs outpatient Hep C tx, will draw genotype Subjective Subjective limited Objective Last 24 Hour Vital Signs Date Time Temp Pulse Resp B/P (MAP) Pulse Ox O2 Delivery O2 Flow Rate FiO2 08/28/17 08:00 98.0 112 18 120/81 95 Room Air 08/28/17 04:27 99.0 104 18 118/88 96 Nasal Cannula 08/28/17 00:00 97.8 104 18 110/74 95 Room Air 08/27/17 20:00 97.8 105 18 102/79 98 Room Air 08/27/17 16:00 98.1 108 21 112/69 90 08/27/17 11:38 98.3 109 21 124/75 93 Intake and Output 08/27/17 08/28/17 19:00 07:00 Intake Total 1212.5 ml 2830 ml Output Total 850 ml 800 ml Balance 362.5 ml 2030 ml Free Water 130 ml IV Total 492.5 ml 2100 ml Tube Feeding 720 ml 600 ml Output Urine Total 850 ml 800 ml # Bowel Movements 2 Laboratory Tests Test 08/28/17 05:30 08/28/17 05:33 Sodium Level 137 MMOL/L (136-145) Potassium Level 4.5 MMOL/L (3.5-5.1) Chloride Level 100 MMOL/L (98-107) Carbon Dioxide Level 28 MMOL/L (21-32) Anion Gap 9 mmol/L (5-15) Blood Urea Nitrogen 16 mg/dL (7-18) Creatinine 0.7 MG/DL (0.55-1.30) Estimat Glomerular Filtration Rate > 60 mL/min (>60) Glucose Level 100 MG/DL (74-106) Calcium Level 8.9 MG/DL (8.5-10.1) White Blood Count 9.5 K/UL (4.8-10.8) Red Blood Count 4.87 M/UL (4.20-5.40) Hemoglobin 15.1 G/DL (12.0-16.0) Hematocrit 45.3 % (37.0-47.0) Mean Corpuscular Volume 93 FL (80-99) Mean Corpuscular Hemoglobin 31.0 PG (27.0-31.0) Mean Corpuscular Hemoglobin Concent 33.3 G/DL (32.0-36.0) Red Cell Distribution Width 13.1 % (11.6-14.8) Platelet Count 338 K/UL (150-450) Mean Platelet Volume 7.6 FL (6.5-10.1) Neutrophils (%) (Auto) 63.0 % (45.0-75.0) Lymphocytes (%) (Auto) 26.6 % (20.0-45.0) Monocytes (%) (Auto) 8.3 % (1.0-10.0) Eosinophils (%) (Auto) 1.2 % (0.0-3.0) Basophils (%) (Auto) 0.9 % (0.0-2.0) Height (Feet): 5 Height (Inches): 5.00 Weight (Pounds): 156 General Appearance: alert Cardiovascular: normal rate Respiratory/Chest: normal breath sounds, no respiratory distress Abdominal Exam: normal bowel sounds, non tender, soft, GT site - c/d/i Extremities: non-tender Kendra Templeton N.P. Aug 28, 2017 11:09
[2017-08-28 12:00] VITALS: BP 116/72
--- NOTE | 2017-08-28 12:50 | Infectious Diseases Prog Note ---
Assessment/Plan Assessment/Plan ASSESSMENT AND PLAN: 1. e.coli uti, esbl e.coli pna, ? aspiration pna, ? sepsis, febrile, ams, sedated, ? 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 drug abuse and drug overdose per history, encephalopathy - per neurology, patient sedated, await f/u drug screen 3. hepatitis C serology + - w/u as outpatient including viral load and possible tx, d/w mother 4. Acute kidney injury with elevated creatinine, which is improved. 5. Dehydration. 6. Intravenous fluids. 7. 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 8. No known drug allergies. 9. Social history positive for intravenous drug abuse and smoking. 10. Family history noncontributory. 11. MAR was noted. 12. Continue treatment per primary, Dr. Doran and consultants 13. Case discussed with RN. 14. Case discussed with the patient's mother. Subjective Constitutional: Denies: fever HEENT: Denies: congestion Respiratory: Denies: shortness of breath Cardiovascular: Denies: chest pain Gastrointestinal/Abdominal: Denies: nausea, vomiting, diarrhea Genitourinary: Denies: other Neurologic: Denies: headache Psychiatric: Denies: depression Skin: Denies: rash Hematologic: Denies: bleeding Musculoskeletal: Denies: pain Allergies: Coded Allergies: No Known Allergies (Unverified , 08/12/17) PER MOM, NO KNOWN ALLERGIES Objective Vital Signs Last 24 Hour Vital Signs Date Time Temp Pulse Resp B/P (MAP) Pulse Ox O2 Delivery O2 Flow Rate FiO2 08/28/17 12:00 97.9 99 19 116/72 95 08/28/17 08:00 98.0 112 18 120/81 95 Room Air 08/28/17 04:27 99.0 104 18 118/88 96 Nasal Cannula 08/28/17 00:00 97.8 104 18 110/74 95 Room Air 08/27/17 20:00 97.8 105 18 102/79 98 Room Air 08/27/17 16:00 98.1 108 21 112/69 90 Height (Feet): 5 Height (Inches): 5.00 Weight (Pounds): 156 General Appearance: no acute distress HEENT: normocephalic, atraumatic, anicteric, mucous membranes moist, EOMI, pharynx normal, supple, no JVD Respiratory/Chest: lungs clear, normal breath sounds, no respiratory distress, no accessory muscle use Cardiovascular: normal rate, regular rhythm, no gallop/murmur, no JVD Abdomen: normal bowel sounds, soft, non tender, no organomegaly, non distended Genitourinary: other - no Extremities: no cyanosis Skin: no rash 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 Overall improved aeration of the left lower lung. Persistent streaky opacities at left base, possibly related to atelectasis/scarring vs pneumonia. Correlate clinically. Chest x-ray - - Impression: Interval removal of NG tube. Overall improved aeration of the left lower lung. Persistent streaky opacities at left base, possibly related to atelectasis/scarring vs pneumonia. Correlate clinically. 08/26 - chest x-ray - no change (report noted) Microbiology Date/Time Source Procedure Growth Status 08/18/17 18:30 Blood Blood Culture - Final NO GROWTH AFTER 5 DAYS Complete 08/14/17 21:00 Sputum Induced Gram Stain - Final Complete 08/14/17 21:00 Sputum Culture - Final Escherichia Coli - Esbl Complete 08/18/17 14:26 Indwelling Cath Urine Culture - Final Narcisa Albicans Complete 08/10/17 01:50 Rectum VRE Culture - Final NO VANCOMYCIN RESISTANT ENTEROCOCCUS ... Complete Laboratory Tests Test 08/28/17 05:30 08/28/17 05:33 Sodium Level 137 MMOL/L (136-145) Potassium Level 4.5 MMOL/L (3.5-5.1) Chloride Level 100 MMOL/L (98-107) Carbon Dioxide Level 28 MMOL/L (21-32) Anion Gap 9 mmol/L (5-15) Blood Urea Nitrogen 16 mg/dL (7-18) Creatinine 0.7 MG/DL (0.55-1.30) Estimat Glomerular Filtration Rate > 60 mL/min (>60) Glucose Level 100 MG/DL (74-106) Calcium Level 8.9 MG/DL (8.5-10.1) White Blood Count 9.5 K/UL (4.8-10.8) Red Blood Count 4.87 M/UL (4.20-5.40) Hemoglobin 15.1 G/DL (12.0-16.0) Hematocrit 45.3 % (37.0-47.0) Mean Corpuscular Volume 93 FL (80-99) Mean Corpuscular Hemoglobin 31.0 PG (27.0-31.0) Mean Corpuscular Hemoglobin Concent 33.3 G/DL (32.0-36.0) Red Cell Distribution Width 13.1 % (11.6-14.8) Platelet Count 338 K/UL (150-450) Mean Platelet Volume 7.6 FL (6.5-10.1) Neutrophils (%) (Auto) 63.0 % (45.0-75.0) Lymphocytes (%) (Auto) 26.6 % (20.0-45.0) Monocytes (%) (Auto) 8.3 % (1.0-10.0) Eosinophils (%) (Auto) 1.2 % (0.0-3.0) Basophils (%) (Auto) 0.9 % (0.0-2.0) Current Medications Medications (Trade) Dose Ordered Sig/Hema Route PRN Reason Start Time Stop Time Status Last Admin Dose Admin Acetaminophen (Tylenol) 650 mg Q4H PRN GT Mild Pain/Temp > 100.5 08/23/17 15:15 09/22/17 15:14 08/28/17 03:58 Acetaminophen/ Hydrocodone Bitart ([place] 5/325) 1 tab Q6H PRN GT MOD-SEVERE PAIN 4-10 08/28/17 10:30 09/04/17 10:29 Chlorhexidine Gluconate (Valerie-Hex 2%) 1 applic DAILY@1999 TOPIC 08/21/17 20:00 09/10/17 19:59 08/27/17 21:27 Clotrimazole (Lotrimin) 1 applic EVERY 12 HOURS TOPIC 08/21/17 21:00 09/19/17 16:59 08/28/17 10:35 Diazepam (Valium) 10 mg Q8H GT 08/27/17 13:30 09/03/17 13:29 08/28/17 05:32 Docusate Sodium (Colace) 100 mg BID ORAL 08/26/17 18:00 09/25/17 17:59 08/28/17 10:32 Heparin Sodium (Porcine) (Heparin 5000 units/ml) 5,000 units EVERY 12 HOURS SUBQ 08/21/17 21:00 09/09/17 20:59 08/28/17 10:34 Levetiracetam (Keppra) 250 mg Q12HR ORAL 08/23/17 21:00 09/22/17 20:59 08/28/17 10:32 Multivitamins 10 ml/Potassium Chloride 30 meq/ Sodium Chloride 1,025 ml @ 100 mls/hr Q24H IV 08/21/17 21:00 09/20/17 20:59 08/27/17 21:28 Nicotine (Nicoderm) 1 patch Q24H TDERMAL 08/22/17 16:00 09/12/17 15:59 08/27/17 16:45 Pantoprazole (Protonix) 40 mg DAILY IVP 08/22/17 09:00 09/11/17 09:59 08/28/17 10:32 Piperacillin Sod/ Tazobactam Sod 3.375 gm/Sodium Chloride 110 ml @ 27.5 mls/hr Q8H IVPB 08/26/17 16:00 08/29/17 23:59 08/28/17 10:32 Polyethylene Glycol (Miralax) 17 gm BEDTIME GT 08/26/17 21:00 09/25/17 20:59 08/27/17 00:17 Potassium Chloride 30 meq/ Sodium Chloride 1,015 ml @ 100 mls/hr Q10H9M IV 08/21/17 19:00 09/19/17 18:59 08/27/17 17:02 Sorbitol (Sorbitol) 30 ml Q6H PRN GT Constipation 08/23/17 20:30 09/22/17 20:29 08/23/17 21:20 Thiamine HCl 100 mg/Dextrose 56 ml @ 112 mls/hr Q24H IVPB 08/21/17 21:00 09/09/17 20:59 08/27/17 21:28 Triamcinolone Acetonide (Kenalog) 1 applic THREE TIMES A DAY TOPIC 08/25/17 13:00 09/24/17 12:59 08/28/17 10:34 MARIA A SMITH Aug 28, 2017 12:50
[2017-08-28 16:00] VITALS: BP 115/74
[2017-08-28 20:00] VITALS: BP 109/69
[2017-08-28] MEDS: Miralax 17gm pkt GT SCH (21:00)
[2017-08-28] MEDS: Dyna-Hex 2% Top Sol 2oz TOPIC SCH (21:04)
[2017-08-28] MEDS: Cyclobenzaprine 10mg Tab GT SCH (21:04)
--- NOTE | 2017-08-28 22:36 | General Progress Note ---
Assessment/Plan Status: stable Assessment/Plan ?anoxic brain injury polysubstance abuse benzo withdrawal -cont Valium GT q9/prn -the pt maybe discharged on Valium if medically cleared -the pt's Valium could be managed outpatient. the pt is not on high dosage on Valium -Flexeril Subjective Date patient seen: Aug 28, 2017 Neurologic/Psychiatric: Reports: anxiety, emotional problems Allergies: Coded Allergies: No Known Allergies (Unverified , 08/12/17) PER MOM, NO KNOWN ALLERGIES Subjective the pt is less agitated switched to Valium GT. more alert up all night muscle spasm Objective Last 24 Hour Vital Signs Date Time Temp Pulse Resp B/P (MAP) Pulse Ox O2 Delivery O2 Flow Rate FiO2 08/28/17 20:00 97.9 99 20 109/69 100 08/28/17 16:00 98.1 106 19 115/74 97 08/28/17 12:00 97.9 99 19 116/72 95 08/28/17 08:00 98.0 112 18 120/81 95 Room Air 08/28/17 04:27 99.0 104 18 118/88 96 Nasal Cannula 08/28/17 00:00 97.8 104 18 110/74 95 Room Air Intake and Output 08/27/17 08/28/17 19:00 07:00 Intake Total 1212.5 ml 2990 ml Output Total 850 ml 800 ml Balance 362.5 ml 2190 ml Free Water 130 ml IV Total 492.5 ml 2200 ml Tube Feeding 720 ml 660 ml Output Urine Total 850 ml 800 ml # Bowel Movements 2 Laboratory Tests 08/28/17 05:30: Sodium Level 137, Potassium Level 4.5, Chloride Level 100, Carbon Dioxide Level 28, Anion Gap 9, Blood Urea Nitrogen 16, Creatinine 0.7, Estimat Glomerular Filtration Rate > 60, Glucose Level 100, Calcium Level 8.9 08/28/17 05:33: White Blood Count 9.5, Red Blood Count 4.87, Hemoglobin 15.1, Hematocrit 45.3, Mean Corpuscular Volume 93, Mean Corpuscular Hemoglobin 31.0, Mean Corpuscular Hemoglobin Concent 33.3, Red Cell Distribution Width 13.1, Platelet Count 338, Mean Platelet Volume 7.6, Neutrophils (%) (Auto) 63.0, Lymphocytes (%) (Auto) 26.6, Monocytes (%) (Auto) 8.3, Eosinophils (%) (Auto) 1.2, Basophils (%) (Auto ) 0.9 Height (Feet): 5 Height (Inches): 5.00 Weight (Pounds): 156 General Appearance: no apparent distress, lethargic Kristie Braswell M.D. Aug 28, 2017 22:36
[2017-08-28] MEDS: MULTIVITAMIN IV SCH (22:41)
[2017-08-28] MEDS: Thiamine HCl 100 MG in D5W 55 ML IVPB SCH (22:41)
[2017-08-28] MEDS: 1/2 NS IV SCH (22:41)
[2017-08-28] MEDS: POTASSIUM CHLORIDE IV SCH (22:41)
[2017-08-29] VITALS: BP 143/94
[2017-08-29 07:55] VITALS: BP 140/87
[2017-08-29 08:05] LABS: EOSINOPHILS % (AUTO) 0.9 % (0.0-3.0); HEMATOCRIT 46.7 % (37.0-47.0); HEMOGLOBIN 15.6 G/DL (12.0-16.0); LYMPHOCYTES % (AUTO) 29.7 % (20.0-45.0); MEAN CORPUSCULAR VOLUME 92 FL (80-99); MONOCYTES % (AUTO) 6.4 % (1.0-10.0); PLATELET COUNT 337 K/UL (150-450); RED BLOOD COUNT 5.05 M/UL (4.20-5.40); WHITE BLOOD COUNT 9.2 K/UL (4.8-10.8)
[2017-08-29 08:16] LABS: ANION GAP 8 mmol/L (5-15); BLOOD UREA NITROGEN 16 mg/dL (7-18); CARBON DIOXIDE 28 MMOL/L (21-32); CHLORIDE 101 MMOL/L (98-107); CREATININE 0.7 MG/DL (0.55-1.30); POTASSIUM 4.2 MMOL/L (3.5-5.1); SODIUM 137 MMOL/L (136-145)
[2017-08-29] MEDS: Docusate 100mg cap ORAL SCH ×3 (09:00→17:47)
[2017-08-29] MEDS: Acetaminophen 650mg/20.3ml GT PRN (09:22)
[2017-08-29] MEDS: Pantoprazole Inj IVP SCH (09:22)
[2017-08-29] MEDS: Cyclobenzaprine 10mg Tab GT SCH ×3 (09:23→17:49)
[2017-08-29] MEDS: Triamcinolone 0.1% 15gm Cr TOPIC SCH ×3 (09:24→17:50)
[2017-08-29] MEDS: Heparin 5000 units/ml inj SUBQ SCH ×2 (09:25→22:13)
[2017-08-29] MEDS: Potassium Chloride 30 MEQ in 1/2 NS 1000ml 1,000 ML IV SCH ×2 (09:42→19:59)
--- NOTE | 2017-08-29 09:57 | Pulmonology Progress Note ---
Assessment/Plan Assessment/Plan PROBLEM LIST: -Drug OD -H/O IVDU -Respiratory acidosis -MATTHEW -H/O infective endocarditis S/P MVR - GT - hepatitis C PLAN: -respiratory stable -Continue supplemental o2 as needed -monitor for aspiration and repeat Xray as needed -Monitor volumes and renal function -DVT prophylaxis -GT feeds -ID followup noted - dc to snf soon impression, plan, and exam edited and reviewed in detail care discussed with RN Subjective Allergies: Coded Allergies: No Known Allergies (Unverified , 08/12/17) PER MOM, NO KNOWN ALLERGIES Subjective care reviewed LOC stable GT in place Objective Last 24 Hour Vital Signs Date Time Temp Pulse Resp B/P (MAP) Pulse Ox O2 Delivery O2 Flow Rate FiO2 08/29/17 07:55 98.1 112 19 140/87 95 08/29/17 04:34 Room Air 08/29/17 00:00 Room Air 08/29/17 00:00 97.7 105 20 143/94 95 08/28/17 22:03 97.9 08/28/17 20:00 97.9 99 20 109/69 100 08/28/17 20:00 Room Air 08/28/17 16:00 98.1 106 19 115/74 97 08/28/17 12:00 97.9 99 19 116/72 95 Intake and Output 08/28/17 08/29/17 19:00 07:00 Intake Total 1457.5 ml 1458.5 ml Output Total 1800 ml 400 ml Balance -342.5 ml 1058.5 ml Free Water 100 ml 100 ml IV Total 637.5 ml 638.5 ml Tube Feeding 720 ml 720 ml Output Urine Total 1800 ml 400 ml # Bowel Movements 2 Objective WDWN NAD stable breath sounds bilaterally without rhonchi or wheeze [id number] without MRG NABS nontender no HSM; Gt no CCE nonfocal NGT in place reduced ROM Laboratory Tests 08/29/17 05:55: White Blood Count 9.2, Red Blood Count 5.05, Hemoglobin 15.6, Hematocrit 46.7, Mean Corpuscular Volume 92, Mean Corpuscular Hemoglobin 30.9, Mean Corpuscular Hemoglobin Concent 33.5, Red Cell Distribution Width 13.0, Platelet Count 337, Mean Platelet Volume 7.3, Neutrophils (%) (Auto) 62.0, Lymphocytes (%) (Auto) 29.7, Monocytes (%) (Auto) 6.4, Eosinophils (%) (Auto) 0.9, Basophils (%) (Auto ) 1.0, Sodium Level 137, Potassium Level 4.2, Chloride Level 101, Carbon Dioxide Level 28, Anion Gap 8, Blood Urea Nitrogen 16, Creatinine 0.7, Estimat Glomerular Filtration Rate > 60, Glucose Level 110H, Calcium Level 9.0 Current Medications Medications (Trade) Dose Ordered Sig/Hema Route PRN Reason Start Time Stop Time Status Last Admin Dose Admin Acetaminophen (Tylenol) 650 mg Q4H PRN GT Mild Pain/Temp > 100.5 08/23/17 15:15 09/22/17 15:14 08/29/17 09:22 Chlorhexidine Gluconate (Valerie-Hex 2%) 1 applic DAILY@1999 TOPIC 08/21/17 20:00 09/10/17 19:59 08/28/17 21:04 Clotrimazole (Lotrimin) 1 applic EVERY 12 HOURS TOPIC 08/21/17 21:00 09/19/17 16:59 08/29/17 09:24 Cyclobenzaprine HCl (Flexeril) 5 mg THREE TIMES A DAY GT 08/28/17 19:30 09/27/17 19:29 08/29/17 09:23 Diazepam (Valium) 10 mg Q9H GT 08/28/17 22:30 09/04/17 22:29 08/29/17 07:03 Docusate Sodium (Colace) 100 mg BID ORAL 08/26/17 18:00 09/25/17 17:59 08/28/17 17:36 Heparin Sodium (Porcine) (Heparin 5000 units/ml) 5,000 units EVERY 12 HOURS SUBQ 08/21/17 21:00 09/09/17 20:59 08/29/17 09:25 Levetiracetam (Keppra) 250 mg Q12HR ORAL 08/23/17 21:00 09/22/17 20:59 08/29/17 09:22 Multivitamins 10 ml/Potassium Chloride 30 meq/ Sodium Chloride 1,025 ml @ 100 mls/hr Q24H IV 08/21/17 21:00 09/20/17 20:59 08/28/17 22:41 Nicotine (Nicoderm) 1 patch Q24H TDERMAL 08/22/17 16:00 09/12/17 15:59 08/28/17 17:36 Pantoprazole (Protonix) 40 mg DAILY IVP 08/22/17 09:00 09/11/17 09:59 08/29/17 09:22 Polyethylene Glycol (Miralax) 17 gm BEDTIME GT 08/26/17 21:00 09/25/17 20:59 08/27/17 00:17 Potassium Chloride 30 meq/ Sodium Chloride 1,015 ml @ 100 mls/hr Q10H9M IV 08/21/17 19:00 09/19/17 18:59 08/28/17 13:27 Sorbitol (Sorbitol) 30 ml Q6H PRN GT Constipation 08/23/17 20:30 09/22/17 20:29 08/23/17 21:20 Thiamine HCl 100 mg/Dextrose 56 ml @ 112 mls/hr Q24H IVPB 08/21/17 21:00 09/09/17 20:59 08/28/17 22:41 Triamcinolone Acetonide (Kenalog) 1 applic THREE TIMES A DAY TOPIC 08/25/17 13:00 09/24/17 12:59 08/29/17 09:24 GAYLE ALMENDAREZ Aug 29, 2017 09:56
--- NOTE | 2017-08-29 10:17 | General Progress Note ---
Assessment/Plan Problem List: (1) FTT (failure to thrive) in adult ICD Codes: R62.7 - Adult failure to thrive SNOMED: 396947223 (2) severe encephalopathy, anoxic/drug toxicity/benzo withdrawal (3) Overdose ICD Codes: T50.901A - Poisoning by unspecified drugs, medicaments and biological substances, accidental (unintentional), initial encounter SNOMED: 15841843 Assessment/Plan GTF fu labs dc planning per primary team Subjective Allergies: Coded Allergies: No Known Allergies (Unverified , 08/12/17) PER MOM, NO KNOWN ALLERGIES Subjective no event Objective Last 24 Hour Vital Signs Date Time Temp Pulse Resp B/P (MAP) Pulse Ox O2 Delivery O2 Flow Rate FiO2 08/29/17 07:55 98.1 112 19 140/87 95 08/29/17 04:34 Room Air 08/29/17 00:00 Room Air 08/29/17 00:00 97.7 105 20 143/94 95 08/28/17 22:03 97.9 08/28/17 20:00 97.9 99 20 109/69 100 08/28/17 20:00 Room Air 08/28/17 16:00 98.1 106 19 115/74 97 08/28/17 12:00 97.9 99 19 116/72 95 Intake and Output 08/28/17 08/29/17 19:00 07:00 Intake Total 1457.5 ml 1458.5 ml Output Total 1800 ml 400 ml Balance -342.5 ml 1058.5 ml Free Water 100 ml 100 ml IV Total 637.5 ml 638.5 ml Tube Feeding 720 ml 720 ml Output Urine Total 1800 ml 400 ml # Bowel Movements 2 Laboratory Tests 08/29/17 05:55: White Blood Count 9.2, Red Blood Count 5.05, Hemoglobin 15.6, Hematocrit 46.7, Mean Corpuscular Volume 92, Mean Corpuscular Hemoglobin 30.9, Mean Corpuscular Hemoglobin Concent 33.5, Red Cell Distribution Width 13.0, Platelet Count 337, Mean Platelet Volume 7.3, Neutrophils (%) (Auto) 62.0, Lymphocytes (%) (Auto) 29.7, Monocytes (%) (Auto) 6.4, Eosinophils (%) (Auto) 0.9, Basophils (%) (Auto ) 1.0, Sodium Level 137, Potassium Level 4.2, Chloride Level 101, Carbon Dioxide Level 28, Anion Gap 8, Blood Urea Nitrogen 16, Creatinine 0.7, Estimat Glomerular Filtration Rate > 60, Glucose Level 110H, Calcium Level 9.0 Height (Feet): 5 Height (Inches): 5.00 Weight (Pounds): 149 General Appearance: no apparent distress EENT: normal ENT inspection Neck: supple Cardiovascular: normal rate Respiratory/Chest: decreased breath sounds Abdomen: normal bowel sounds, non tender, soft Extremities: non-tender EUSEBIO ESCAMILLA Aug 29, 2017 10:17
[2017-08-29 11:52] VITALS: BP 117/68
--- NOTE | 2017-08-29 12:19 | General Progress Note ---
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 Waking up. Prognosis seems better in the long run. 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 Further waking up. s/p PEG ESBL E. Coli UTI per ID TF on DC planning SNF vs. Neuro Rehab Subjective Allergies: Coded Allergies: No Known Allergies (Unverified , 08/12/17) PER MOM, NO KNOWN ALLERGIES Subjective Sleepy. Objective Last 24 Hour Vital Signs Date Time Temp Pulse Resp B/P (MAP) Pulse Ox O2 Delivery O2 Flow Rate FiO2 08/29/17 11:52 97.1 95 19 117/68 97 08/29/17 10:22 98.1 08/29/17 07:55 98.1 112 19 140/87 95 08/29/17 04:34 Room Air 08/29/17 00:00 Room Air 08/29/17 00:00 97.7 105 20 143/94 95 08/28/17 20:00 97.9 99 20 109/69 100 08/28/17 20:00 Room Air 08/28/17 16:00 98.1 106 19 115/74 97 Intake and Output 08/28/17 08/29/17 19:00 07:00 Intake Total 1457.5 ml 1458.5 ml Output Total 1800 ml 400 ml Balance -342.5 ml 1058.5 ml Free Water 100 ml 100 ml IV Total 637.5 ml 638.5 ml Tube Feeding 720 ml 720 ml Output Urine Total 1800 ml 400 ml # Bowel Movements 2 Laboratory Tests 08/29/17 05:55: White Blood Count 9.2, Red Blood Count 5.05, Hemoglobin 15.6, Hematocrit 46.7, Mean Corpuscular Volume 92, Mean Corpuscular Hemoglobin 30.9, Mean Corpuscular Hemoglobin Concent 33.5, Red Cell Distribution Width 13.0, Platelet Count 337, Mean Platelet Volume 7.3, Neutrophils (%) (Auto) 62.0, Lymphocytes (%) (Auto) 29.7, Monocytes (%) (Auto) 6.4, Eosinophils (%) (Auto) 0.9, Basophils (%) (Auto ) 1.0, Sodium Level 137, Potassium Level 4.2, Chloride Level 101, Carbon Dioxide Level 28, Anion Gap 8, Blood Urea Nitrogen 16, Creatinine 0.7, Estimat Glomerular Filtration Rate > 60, Glucose Level 110H, Calcium Level 9.0 Height (Feet): 5 Height (Inches): 5.00 Weight (Pounds): 149 Objective Afebrile. CV RR Lungs CTA Abd SNT. BS +. New PEG. E No CCE + Contractures BERTRAND CONDE Aug 29, 2017 12:19
[2017-08-29 15:59] VITALS: BP 121/74
[2017-08-29] MEDS: Dyna-Hex 2% Top Sol 2oz TOPIC SCH (19:59)
[2017-08-29 20:00] VITALS: BP 119/79
[2017-08-29] MEDS: Miralax 17gm pkt GT SCH (20:00)
[2017-08-29] MEDS: Thiamine HCl 100 MG in D5W 55 ML IVPB SCH (22:10)
[2017-08-29] MEDS: POTASSIUM CHLORIDE IV SCH (22:10)
[2017-08-29] MEDS: MULTIVITAMIN IV SCH (22:10)
[2017-08-29] MEDS: 1/2 NS IV SCH (22:10)
[2017-08-30 04:00] VITALS: BP 136/89
[2017-08-30] MEDS: Potassium Chloride 30 MEQ in 1/2 NS 1000ml 1,000 ML IV SCH ×2 (05:01→17:01)
[2017-08-30 08:00] VITALS: BP 117/77
--- NOTE | 2017-08-30 08:11 | General Progress Note ---
Assessment/Plan Problem List: (1) FTT (failure to thrive) in adult ICD Codes: R62.7 - Adult failure to thrive SNOMED: 315872166 (2) severe encephalopathy, anoxic/drug toxicity/benzo withdrawal (3) Overdose ICD Codes: T50.901A - Poisoning by unspecified drugs, medicaments and biological substances, accidental (unintentional), initial encounter SNOMED: 76785351 Assessment/Plan GTF fu labs dc planning per primary team Subjective ROS Limited/Unobtainable: No Allergies: Coded Allergies: No Known Allergies (Unverified , 08/12/17) PER MOM, NO KNOWN ALLERGIES Subjective no event Objective Last 24 Hour Vital Signs Date Time Temp Pulse Resp B/P (MAP) Pulse Ox O2 Delivery O2 Flow Rate FiO2 08/30/17 04:00 97.9 101 21 136/89 94 08/30/17 04:00 Room Air 08/30/17 00:00 Room Air 08/29/17 20:00 98.7 101 20 119/79 99 08/29/17 20:00 Room Air 08/29/17 18:48 97.7 08/29/17 15:59 97.7 96 21 121/74 97 Room Air 08/29/17 11:52 97.1 95 19 117/68 97 Intake and Output 08/29/17 08/30/17 19:00 07:00 Intake Total 1760 ml 1816 ml Output Total 2200 ml Balance -440 ml 1816 ml Free Water 240 ml 100 ml IV Total 800 ml 1056 ml Tube Feeding 720 ml 660 ml Output Urine Total 2200 ml Height (Feet): 5 Height (Inches): 5.00 Weight (Pounds): 152 General Appearance: lethargic EENT: normal ENT inspection Neck: supple Cardiovascular: normal rate Respiratory/Chest: decreased breath sounds Abdomen: normal bowel sounds, non tender, soft Extremities: non-tender EUSEBIO ESCAMILLA Aug 30, 2017 08:11
[2017-08-30] MEDS: Cyclobenzaprine 10mg Tab GT SCH ×3 (08:13→22:45)
[2017-08-30] MEDS: Docusate 100mg cap ORAL SCH ×2 (08:14→17:02)
[2017-08-30] MEDS: Heparin 5000 units/ml inj SUBQ SCH ×2 (08:14→20:53)
[2017-08-30] MEDS: Pantoprazole Inj IVP SCH (08:14)
[2017-08-30] MEDS: Triamcinolone 0.1% 15gm Cr TOPIC SCH ×3 (08:15→17:02)
--- NOTE | 2017-08-30 10:31 | Pulmonology Progress Note ---
Assessment/Plan Assessment/Plan PROBLEM LIST: -Drug OD -H/O IVDU -Respiratory acidosis -MATTHEW -H/O infective endocarditis S/P MVR - GT - hepatitis C PLAN: -respiratory stable -Continue supplemental o2 as needed -monitor for aspiration and repeat Xray as needed -Monitor volumes and renal function -DVT prophylaxis -GT feeds -ID followup noted - dc to snf soon impression, plan, and exam edited and reviewed in detail care discussed with RN Subjective Allergies: Coded Allergies: No Known Allergies (Unverified , 08/12/17) PER MOM, NO KNOWN ALLERGIES Subjective care reviewed LOC stable GT in place Objective Last 24 Hour Vital Signs Date Time Temp Pulse Resp B/P (MAP) Pulse Ox O2 Delivery O2 Flow Rate FiO2 08/30/17 09:12 97.9 08/30/17 08:00 97.9 91 18 117/77 97 08/30/17 04:00 97.9 101 21 136/89 94 08/30/17 04:00 Room Air 08/30/17 00:00 Room Air 08/29/17 20:00 98.7 101 20 119/79 99 08/29/17 20:00 Room Air 08/29/17 15:59 97.7 96 21 121/74 97 Room Air 08/29/17 11:52 97.1 95 19 117/68 97 Intake and Output 08/29/17 08/30/17 19:00 07:00 Intake Total 1760 ml 1816 ml Output Total 2200 ml Balance -440 ml 1816 ml Free Water 240 ml 100 ml IV Total 800 ml 1056 ml Tube Feeding 720 ml 660 ml Output Urine Total 2200 ml Objective WDWN NAD stable breath sounds bilaterally without rhonchi or wheeze [id number] without MRG NABS nontender no HSM; Gt no CCE nonfocal NGT in place reduced ROM Current Medications Medications (Trade) Dose Ordered Sig/Hema Route PRN Reason Start Time Stop Time Status Last Admin Dose Admin Acetaminophen (Tylenol) 650 mg Q4H PRN GT Mild Pain/Temp > 100.5 08/23/17 15:15 09/22/17 15:14 08/29/17 09:22 Chlorhexidine Gluconate (Valerie-Hex 2%) 1 applic DAILY@1999 TOPIC 08/21/17 20:00 09/10/17 19:59 1/6/18 19:59 Clotrimazole (Lotrimin) 1 applic EVERY 12 HOURS TOPIC 08/21/17 21:00 09/19/17 16:59 08/30/17 08:15 Cyclobenzaprine HCl (Flexeril) 5 mg Q8HR GT 08/30/17 14:00 09/27/17 19:29 Diazepam (Valium) 10 mg Q9H GT 08/28/17 22:30 09/04/17 22:29 08/30/17 01:08 Docusate Sodium (Colace) 100 mg BID ORAL 08/26/17 18:00 09/25/17 17:59 08/28/17 17:36 Heparin Sodium (Porcine) (Heparin 5000 units/ml) 5,000 units EVERY 12 HOURS SUBQ 08/21/17 21:00 09/09/17 20:59 08/30/17 08:14 Levetiracetam (Keppra) 250 mg Q12HR ORAL 08/23/17 21:00 09/22/17 20:59 08/30/17 08:14 Multivitamins 10 ml/Potassium Chloride 30 meq/ Sodium Chloride 1,025 ml @ 100 mls/hr Q24H IV 08/21/17 21:00 09/20/17 20:59 08/29/17 22:10 Nicotine (Nicoderm) 1 patch Q24H TDERMAL 08/22/17 16:00 09/12/17 15:59 08/29/17 16:02 Pantoprazole (Protonix) 40 mg DAILY IVP 08/22/17 09:00 09/11/17 09:59 08/30/17 08:14 Polyethylene Glycol (Miralax) 17 gm BEDTIME GT 08/26/17 21:00 09/25/17 20:59 08/27/17 00:17 Potassium Chloride 30 meq/ Sodium Chloride 1,015 ml @ 100 mls/hr Q10H9M IV 08/21/17 19:00 09/19/17 18:59 08/29/17 19:59 Sorbitol (Sorbitol) 30 ml Q6H PRN GT Constipation 08/23/17 20:30 09/22/17 20:29 08/23/17 21:20 Thiamine HCl 100 mg/Dextrose 56 ml @ 112 mls/hr Q24H IVPB 08/21/17 21:00 09/09/17 20:59 08/29/17 22:10 Triamcinolone Acetonide (Kenalog) 1 applic THREE TIMES A DAY TOPIC 08/25/17 13:00 09/24/17 12:59 08/30/17 08:15 GAYLE ALMENDAREZ Aug 30, 2017 10:31
[2017-08-30 12:00] VITALS: BP 119/69
--- NOTE | 2017-08-30 13:51 | General Progress Note ---
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 Waking up. Prognosis seems better in the long run. 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 Further waking up. s/p PEG ESBL E. Coli UTI per ID TF on DC planning SNF vs. Neuro Rehab Subjective Allergies: Coded Allergies: No Known Allergies (Unverified , 08/12/17) PER MOM, NO KNOWN ALLERGIES Subjective Sleepy. Objective Last 24 Hour Vital Signs Date Time Temp Pulse Resp B/P (MAP) Pulse Ox O2 Delivery O2 Flow Rate FiO2 08/30/17 12:00 98.6 102 19 119/69 98 08/30/17 09:12 97.9 08/30/17 08:00 97.9 91 18 117/77 97 08/30/17 04:00 97.9 101 21 136/89 94 08/30/17 04:00 Room Air 08/30/17 00:00 Room Air 08/29/17 20:00 98.7 101 20 119/79 99 08/29/17 20:00 Room Air 08/29/17 15:59 97.7 96 21 121/74 97 Room Air Intake and Output 08/29/17 08/30/17 19:00 07:00 Intake Total 1760 ml 1816 ml Output Total 2200 ml Balance -440 ml 1816 ml Free Water 240 ml 100 ml IV Total 800 ml 1056 ml Tube Feeding 720 ml 660 ml Output Urine Total 2200 ml Height (Feet): 5 Height (Inches): 5.00 Weight (Pounds): 152 Objective Afebrile. CV RR Lungs CTA Abd SNT. BS +. New PEG. E No CCE + Contractures BERTRAND CONDE Aug 30, 2017 13:50
--- NOTE | 2017-08-30 14:08 | General Progress Note ---
Assessment/Plan Status: stable Assessment/Plan ?anoxic brain injury polysubstance abuse benzo withdrawal -cont Valium GT q9/prn -the pt maybe discharged on Valium if medically cleared -the pt's Valium could be managed outpatient. the pt is not on high dosage on Valium -Flexeril 5 q 8hr Subjective Date patient seen: Aug 29, 2017 Allergies: Coded Allergies: No Known Allergies (Unverified , 08/12/17) PER MOM, NO KNOWN ALLERGIES Subjective the pt is less agitated c/o muscle pain, on Flexeril more alert up all night muscle spasm Objective Last 24 Hour Vital Signs Date Time Temp Pulse Resp B/P (MAP) Pulse Ox O2 Delivery O2 Flow Rate FiO2 08/30/17 12:00 98.6 102 19 119/69 98 08/30/17 09:12 97.9 08/30/17 08:00 97.9 91 18 117/77 97 08/30/17 04:00 97.9 101 21 136/89 94 08/30/17 04:00 Room Air 08/30/17 00:00 Room Air 08/29/17 20:00 98.7 101 20 119/79 99 08/29/17 20:00 Room Air 08/29/17 15:59 97.7 96 21 121/74 97 Room Air Intake and Output 08/29/17 08/30/17 19:00 07:00 Intake Total 1760 ml 1816 ml Output Total 2200 ml Balance -440 ml 1816 ml Free Water 240 ml 100 ml IV Total 800 ml 1056 ml Tube Feeding 720 ml 660 ml Output Urine Total 2200 ml Height (Feet): 5 Height (Inches): 5.00 Weight (Pounds): 152 General Appearance: no apparent distress, alert Neurologic: responsive, normal mood/affect Kristie Braswell M.D. Aug 30, 2017 14:08
--- NOTE | 2017-08-30 14:09 | Infectious Diseases Prog Note ---
Assessment/Plan Assessment/Plan ASSESSMENT AND PLAN: 1. e.coli uti, esbl e.coli pna, ? aspiration pna, ? sepsis, febrile, ams, sedated, ? drug overdose, fungal uti, hydrotechnical specialist blood cultures likely contaminant - s/p zosyn, s/p diflucan - would not treat blood cultures with 08/27 hydrotechnical specialist - check labs and chest x-ray - respiratory improved, chest x-ray better - d/w mother - more alert overall and responsive - s/p feeding tube - watch off abx 2. drug abuse and drug overdose per history, encephalopathy - per neurology, patient sedated, await f/u drug screen 3. hepatitis C serology + - w/u as outpatient including viral load and possible tx, d/w mother 4. Acute kidney injury with elevated creatinine, which is improved. 5. Dehydration. 6. Intravenous fluids. 7. 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 8. No known drug allergies. 9. Social history positive for intravenous drug abuse and smoking. 10. Family history noncontributory. 11. MAR was noted. 12. Continue treatment per primary, Dr. Doran and consultants 13. Case discussed with RN. 14. Case discussed with the patient's mother. Subjective Constitutional: Denies: fever HEENT: Denies: congestion Respiratory: Denies: shortness of breath Cardiovascular: Denies: chest pain Gastrointestinal/Abdominal: Denies: nausea, vomiting, diarrhea Genitourinary: Reports: other - + jameson Neurologic: Denies: headache Psychiatric: Denies: depression Skin: Denies: rash Hematologic: Denies: bleeding Musculoskeletal: Denies: pain Allergies: Coded Allergies: No Known Allergies (Unverified , 08/12/17) PER MOM, NO KNOWN ALLERGIES Objective Vital Signs Last 24 Hour Vital Signs Date Time Temp Pulse Resp B/P (MAP) Pulse Ox O2 Delivery O2 Flow Rate FiO2 08/30/17 12:00 98.6 102 19 119/69 98 08/30/17 09:12 97.9 08/30/17 08:00 97.9 91 18 117/77 97 08/30/17 04:00 97.9 101 21 136/89 94 08/30/17 04:00 Room Air 08/30/17 00:00 Room Air 08/29/17 20:00 98.7 101 20 119/79 99 08/29/17 20:00 Room Air 08/29/17 15:59 97.7 96 21 121/74 97 Room Air Height (Feet): 5 Height (Inches): 5.00 Weight (Pounds): 152 General Appearance: no acute distress HEENT: normocephalic, atraumatic, anicteric, mucous membranes moist, EOMI, pharynx normal, supple, no JVD Respiratory/Chest: lungs clear, normal breath sounds, no respiratory distress, no accessory muscle use Cardiovascular: normal rate, regular rhythm, no gallop/murmur, no JVD Abdomen: normal bowel sounds, soft, non tender, no organomegaly, non distended Genitourinary: normal external genitalia, other - + jameson - urine clear Extremities: no cyanosis Skin: no rash Neurologic/Psychiatric: manager graphic II-XII grossly normal, responsive Lymphatic: no neck adenopathy Musculoskeletal: no effusion Objective 08/20 - chest x-ray - Impression: Equivocal minimal hazy parenchymal opacity and possibly pleural fluid at the left lateral lung base. Otherwise little private branch exchange service adviser 2 days 08/22 - chest x-ray - Interval removal of NG tube. Overall improved aeration of the left lower lung. Persistent streaky opacities at left base, possibly related to atelectasis/scarring vs pneumonia. Correlate clinically. Chest x-ray - - Impression: Interval removal of NG tube. Overall improved aeration of the left lower lung. Persistent streaky opacities at left base, possibly related to atelectasis/scarring vs pneumonia. Correlate clinically. 08/26 - chest x-ray - no change (report noted) Microbiology Date/Time Source Procedure Growth Status 08/18/17 18:30 Blood Blood Culture - Final NO GROWTH AFTER 5 DAYS Complete 08/14/17 21:00 Sputum Induced Gram Stain - Final Complete 08/14/17 21:00 Sputum Culture - Final Escherichia Coli - Esbl Complete 08/18/17 14:26 Indwelling Cath Urine Culture - Final Narcisa Albicans Complete 08/10/17 01:50 Rectum VRE Culture - Final NO VANCOMYCIN RESISTANT ENTEROCOCCUS ... Complete Labs Test 08/28/17 05:30 08/28/17 05:33 08/29/17 05:55 Sodium Level 137 MMOL/L (136-145) 137 MMOL/L (136-145) Potassium Level 4.5 MMOL/L (3.5-5.1) 4.2 MMOL/L (3.5-5.1) Chloride Level 100 MMOL/L (98-107) 101 MMOL/L (98-107) Carbon Dioxide Level 28 MMOL/L (21-32) 28 MMOL/L (21-32) Anion Gap 9 mmol/L (5-15) 8 mmol/L (5-15) Blood Urea Nitrogen 16 mg/dL (7-18) 16 mg/dL (7-18) Creatinine 0.7 MG/DL (0.55-1.30) 0.7 MG/DL (0.55-1.30) Estimat Glomerular Filtration Rate > 60 mL/min (>60) > 60 mL/min (>60) Glucose Level 100 MG/DL (74-106) 110 MG/DL (74-106) Calcium Level 8.9 MG/DL (8.5-10.1) 9.0 MG/DL (8.5-10.1) White Blood Count 9.5 K/UL (4.8-10.8) 9.2 K/UL (4.8-10.8) Red Blood Count 4.87 M/UL (4.20-5.40) 5.05 M/UL (4.20-5.40) Hemoglobin 15.1 G/DL (12.0-16.0) 15.6 G/DL (12.0-16.0) Hematocrit 45.3 % (37.0-47.0) 46.7 % (37.0-47.0) Mean Corpuscular Volume 93 FL (80-99) 92 FL (80-99) Mean Corpuscular Hemoglobin 31.0 PG (27.0-31.0) 30.9 PG (27.0-31.0) Mean Corpuscular Hemoglobin Concent 33.3 G/DL (32.0-36.0) 33.5 G/DL (32.0-36.0) Red Cell Distribution Width 13.1 % (11.6-14.8) 13.0 % (11.6-14.8) Platelet Count 338 K/UL (150-450) 337 K/UL (150-450) Mean Platelet Volume 7.6 FL (6.5-10.1) 7.3 FL (6.5-10.1) Neutrophils (%) (Auto) 63.0 % (45.0-75.0) 62.0 % (45.0-75.0) Lymphocytes (%) (Auto) 26.6 % (20.0-45.0) 29.7 % (20.0-45.0) Monocytes (%) (Auto) 8.3 % (1.0-10.0) 6.4 % (1.0-10.0) Eosinophils (%) (Auto) 1.2 % (0.0-3.0) 0.9 % (0.0-3.0) Basophils (%) (Auto) 0.9 % (0.0-2.0) 1.0 % (0.0-2.0) Current Medications Medications (Trade) Dose Ordered Sig/Hema Route PRN Reason Start Time Stop Time Status Last Admin Dose Admin Acetaminophen (Tylenol) 650 mg Q4H PRN GT Mild Pain/Temp > 100.5 08/23/17 15:15 09/22/17 15:14 08/29/17 09:22 Chlorhexidine Gluconate (Valerie-Hex 2%) 1 applic DAILY@2000 TOPIC 08/21/17 20:00 09/10/17 19:59 08/29/17 19:59 Clotrimazole (Lotrimin) 1 applic EVERY 12 HOURS TOPIC 08/21/17 21:00 09/19/17 16:59 08/30/17 08:15 Cyclobenzaprine HCl (Flexeril) 5 mg Q8HR GT 08/30/17 14:00 09/27/17 19:29 Diazepam (Valium) 10 mg Q9H GT 08/28/17 22:30 09/04/17 22:29 08/30/17 10:33 Docusate Sodium (Colace) 100 mg BID ORAL 08/26/17 18:00 09/25/17 17:59 08/28/17 17:36 Heparin Sodium (Porcine) (Heparin 5000 units/ml) 5,000 units EVERY 12 HOURS SUBQ 08/21/17 21:00 09/09/17 20:59 08/30/17 08:14 Levetiracetam (Keppra) 250 mg Q12HR ORAL 08/23/17 21:00 09/22/17 20:59 08/30/17 08:14 Multivitamins 10 ml/Potassium Chloride 30 meq/ Sodium Chloride 1,025 ml @ 100 mls/hr Q24H IV 08/21/17 21:00 09/20/17 20:59 08/29/17 22:10 Nicotine (Nicoderm) 1 patch Q24H TDERMAL 08/22/17 16:00 09/12/17 15:59 08/29/17 16:02 Pantoprazole (Protonix) 40 mg DAILY IVP 08/22/17 09:00 09/11/17 09:59 08/30/17 08:14 Polyethylene Glycol (Miralax) 17 gm BEDTIME GT 08/26/17 21:00 09/25/17 20:59 08/27/17 00:17 Potassium Chloride 30 meq/ Sodium Chloride 1,015 ml @ 100 mls/hr Q10H9M IV 08/21/17 19:00 09/19/17 18:59 08/29/17 19:59 Sorbitol (Sorbitol) 30 ml Q6H PRN GT Constipation 08/23/17 20:30 09/22/17 20:29 08/23/17 21:20 Thiamine HCl 100 mg/Dextrose 56 ml @ 112 mls/hr Q24H IVPB 08/21/17 21:00 09/09/17 20:59 08/29/17 22:10 Triamcinolone Acetonide (Kenalog) 1 applic THREE TIMES A DAY TOPIC 08/25/17 13:00 09/24/17 12:59 08/30/17 08:15 MARIA A SMITH Aug 30, 2017 14:09
[2017-08-30 16:00] VITALS: BP 110/73
[2017-08-30] MEDS: Acetaminophen 650mg/20.3ml GT PRN (17:02)
[2017-08-30 20:22] VITALS: BP 95/55
[2017-08-30] MEDS: Miralax 17gm pkt GT SCH (20:26)
[2017-08-30] MEDS: Dyna-Hex 2% Top Sol 2oz TOPIC SCH (20:51)
[2017-08-30] MEDS: Thiamine HCl 100 MG in D5W 55 ML IVPB SCH (21:35)
[2017-08-30] MEDS: 1/2 NS IV SCH (21:36)
[2017-08-30] MEDS: MULTIVITAMIN IV SCH (21:36)
[2017-08-30] MEDS: POTASSIUM CHLORIDE IV SCH (21:36)
[2017-08-30 21:42] VITALS: BP 107/69
[2017-08-31] MEDS: Potassium Chloride 30 MEQ in 1/2 NS 1000ml 1,000 ML IV SCH ×3 (02:18→22:36)
[2017-08-31 04:44] VITALS: BP 112/79
[2017-08-31] MEDS: Cyclobenzaprine 10mg Tab GT SCH ×3 (05:48→21:10)
[2017-08-31 08:00] VITALS: BP 105/67
[2017-08-31] MEDS: Docusate 100mg cap ORAL SCH ×2 (08:58→18:11)
[2017-08-31] MEDS: Pantoprazole Inj IVP SCH (08:58)
[2017-08-31] MEDS: Triamcinolone 0.1% 15gm Cr TOPIC SCH ×3 (08:59→18:11)
[2017-08-31] MEDS: Heparin 5000 units/ml inj SUBQ SCH ×2 (09:00→21:24)
--- NOTE | 2017-08-31 09:23 | Pulmonology Progress Note ---
Assessment/Plan Assessment/Plan PROBLEM LIST: -Drug OD -H/O IVDU -Respiratory acidosis -MATTHEW -H/O infective endocarditis S/P MVR - GT - hepatitis C PLAN: -respiratory stable -Continue supplemental o2 as needed -monitor for aspiration and repeat Xray as needed -Monitor volumes and renal function -DVT prophylaxis -GT feeds -ID followup noted - dc to snf soon impression, plan, and exam edited and reviewed in detail care discussed with RN Subjective Allergies: Coded Allergies: No Known Allergies (Unverified , 08/12/17) PER MOM, NO KNOWN ALLERGIES Subjective care reviewed LOC stable GT in place Objective Last 24 Hour Vital Signs Date Time Temp Pulse Resp B/P (MAP) Pulse Ox O2 Delivery O2 Flow Rate FiO2 08/31/17 06:47 97.9 08/31/17 04:44 97.9 97 18 112/79 96 Room Air 08/30/17 21:42 101 107/69 08/30/17 20:22 97.2 103 19 95/55 93 Room Air 08/30/17 17:32 97.9 08/30/17 16:00 97.9 103 20 110/73 98 08/30/17 12:00 98.6 102 19 119/69 98 Intake and Output 08/30/17 08/31/17 19:00 07:00 Intake Total 1200 ml 1976 ml Output Total 2800 ml 1750 ml Balance -1600 ml 226 ml Free Water 100 ml IV Total 1140 ml 1156 ml Tube Feeding 60 ml 720 ml Output Urine Total 2800 ml 1750 ml # Bowel Movements 1 1 Objective WDWN NAD stable breath sounds bilaterally without rhonchi or wheeze [id number] without MRG NABS nontender no HSM; Gt no CCE nonfocal NGT in place reduced ROM Current Medications Medications (Trade) Dose Ordered Sig/Hema Route PRN Reason Start Time Stop Time Status Last Admin Dose Admin Acetaminophen (Tylenol) 650 mg Q4H PRN GT Mild Pain/Temp > 100.5 08/23/17 15:15 09/22/17 15:14 08/30/17 17:02 Chlorhexidine Gluconate (Valerie-Hex 2%) 1 applic DAILY@1999 TOPIC 08/21/17 20:00 09/10/17 19:59 08/30/17 20:51 Clotrimazole (Lotrimin) 1 applic EVERY 12 HOURS TOPIC 08/21/17 21:00 09/19/17 16:59 08/31/17 08:59 Cyclobenzaprine HCl (Flexeril) 5 mg Q8HR GT 08/30/17 14:00 09/27/17 19:29 08/31/17 05:48 Diazepam (Valium) 10 mg Q9H GT 08/28/17 22:30 09/04/17 22:29 08/31/17 04:27 Docusate Sodium (Colace) 100 mg BID ORAL 08/26/17 18:00 09/25/17 17:59 08/31/17 08:58 Heparin Sodium (Porcine) (Heparin 5000 units/ml) 5,000 units EVERY 12 HOURS SUBQ 08/21/17 21:00 09/09/17 20:59 08/31/17 09:00 Levetiracetam (Keppra) 250 mg Q12HR ORAL 08/23/17 21:00 09/22/17 20:59 08/31/17 08:58 Multivitamins 10 ml/Potassium Chloride 30 meq/ Sodium Chloride 1,025 ml @ 100 mls/hr Q24H IV 08/21/17 21:00 09/20/17 20:59 08/30/17 21:36 Nicotine (Nicoderm) 1 patch Q24H TDERMAL 08/22/17 16:00 09/12/17 15:59 08/30/17 17:01 Pantoprazole (Protonix) 40 mg DAILY IVP 08/22/17 09:00 09/11/17 09:59 08/31/17 08:58 Polyethylene Glycol (Miralax) 17 gm BEDTIME GT 08/26/17 21:00 09/25/17 20:59 08/27/17 00:17 Potassium Chloride 30 meq/ Sodium Chloride 1,015 ml @ 100 mls/hr Q10H9M IV 08/21/17 19:00 09/19/17 18:59 08/30/17 17:01 Sorbitol (Sorbitol) 30 ml Q6H PRN GT Constipation 08/23/17 20:30 09/22/17 20:29 08/23/17 21:20 Thiamine HCl 100 mg/Dextrose 56 ml @ 112 mls/hr Q24H IVPB 08/21/17 21:00 09/09/17 20:59 08/30/17 21:35 Triamcinolone Acetonide (Kenalog) 1 applic THREE TIMES A DAY TOPIC 08/25/17 13:00 09/24/17 12:59 08/31/17 08:59 GAYLE ALMENDAREZ Aug 31, 2017 09:23
[2017-08-31 12:00] VITALS: BP 116/71
--- NOTE | 2017-08-31 12:14 | GI Progress Note ---
Assessment/Plan Problems: (1) FTT (failure to thrive) in adult ICD Codes: R62.7 - Adult failure to thrive SNOMED: 968805008 (2) Overdose ICD Codes: T50.901A - Poisoning by unspecified drugs, medicaments and biological substances, accidental (unintentional), initial encounter SNOMED: 81993401 (3) severe encephalopathy, anoxic/drug toxicity/benzo withdrawal (4) iv substance abuse, relapse (5) symptomatic seizure event (6) severe anoxic encephalopathy Status: progressing Status Narrative Discussed with Dr. Enrique. Assessment/Plan s/p EGD/PEG SUMMARY OF FINDINGS: 1. Linear gastric ulceration, status post biopsy. 2. Status post successful PEG placement. RECOMMENDATIONS: Abdominal binder. Elevate the head of the bed at all times. G-tube flush. G-tube care. GTFs per RD OT evaluation fu labs outpatient Hep C tx, will draw genotype dc planning per primary team Subjective Subjective limited Objective Last 24 Hour Vital Signs Date Time Temp Pulse Resp B/P (MAP) Pulse Ox O2 Delivery O2 Flow Rate FiO2 08/31/17 08:00 97.7 100 20 105/67 95 08/31/17 06:47 97.9 08/31/17 04:44 97.9 97 18 112/79 96 Room Air 08/30/17 21:42 101 107/69 08/30/17 20:22 97.2 103 19 95/55 93 Room Air 08/30/17 17:32 97.9 08/30/17 16:00 97.9 103 20 110/73 98 Intake and Output 08/30/17 08/31/17 19:00 07:00 Intake Total 1200 ml 1976 ml Output Total 2800 ml 1750 ml Balance -1600 ml 226 ml Free Water 100 ml IV Total 1140 ml 1156 ml Tube Feeding 60 ml 720 ml Output Urine Total 2800 ml 1750 ml # Bowel Movements 1 1 Height (Feet): 5 Height (Inches): 5.00 Weight (Pounds): 152 General Appearance: confused Cardiovascular: normal rate Abdominal Exam: GT site - C/D/I Kendra Templeton N.P. Aug 31, 2017 12:14
--- NOTE | 2017-08-31 14:40 | General Progress Note ---
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 Waking up. Prognosis seems better in the long run. 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 Further waking up. s/p PEG ESBL E. Coli UTI per ID TF on DC planning SNF- last resort option vs. Neuro Rehab-best. DW pt's Mother. Subjective Allergies: Coded Allergies: No Known Allergies (Unverified , 08/12/17) PER MOM, NO KNOWN ALLERGIES Subjective Sleepy during the day. Per Mother wakes up in the night. Objective Last 24 Hour Vital Signs Date Time Temp Pulse Resp B/P (MAP) Pulse Ox O2 Delivery O2 Flow Rate FiO2 08/31/17 12:00 97.3 100 20 116/71 96 08/31/17 08:00 97.7 100 20 105/67 95 08/31/17 06:47 97.9 08/31/17 04:44 97.9 97 18 112/79 96 Room Air 08/30/17 21:42 101 107/69 08/30/17 20:22 97.2 103 19 95/55 93 Room Air 08/30/17 17:32 97.9 08/30/17 16:00 97.9 103 20 110/73 98 Intake and Output 08/30/17 08/31/17 19:00 07:00 Intake Total 1200 ml 1976 ml Output Total 2800 ml 1750 ml Balance -1600 ml 226 ml Free Water 100 ml IV Total 1140 ml 1156 ml Tube Feeding 60 ml 720 ml Output Urine Total 2800 ml 1750 ml # Bowel Movements 1 1 Height (Feet): 5 Height (Inches): 5.00 Weight (Pounds): 152 Objective Afebrile. CV RR Lungs CTA Abd SNT. BS +. New PEG. E No CCE + Contractures BERTRAND CONDE Aug 31, 2017 14:40
--- NOTE | 2017-08-31 14:56 | Infectious Diseases Prog Note ---
Assessment/Plan Assessment/Plan ASSESSMENT AND PLAN: 1. e.coli uti, esbl e.coli pna, ? aspiration pna, ? sepsis, febrile, ams, sedated, ? drug overdose, fungal uti, human resources compliance manager blood cultures likely contaminant - s/p zosyn, s/p diflucan - stable off abx - would not treat blood cultures with 08/27 human resources compliance manager - check labs and chest x-ray - respiratory improved, chest x-ray better - d/w mother - more alert overall and responsive - s/p feeding tube - will see less often, call me if re-evaluation needed or any questions, thank you 2. drug abuse and drug overdose per history, encephalopathy - per neurology, patient sedated, await f/u drug screen 3. hepatitis C serology + - w/u as outpatient including viral load and possible tx, d/w mother 4. Acute kidney injury with elevated creatinine, which is improved. 5. Dehydration. 6. Intravenous fluids. 7. 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 8. No known drug allergies. 9. Social history positive for intravenous drug abuse and smoking. 10. Family history noncontributory. 11. MAR was noted. 12. Continue treatment per primary, Dr. Doran and consultants 13. Case discussed with RN. 14. Case discussed with the patient's mother. Subjective Constitutional: Denies: fever HEENT: Denies: congestion Respiratory: Denies: shortness of breath Cardiovascular: Denies: chest pain Gastrointestinal/Abdominal: Denies: nausea, vomiting, diarrhea Genitourinary: Reports: other - + jameson Neurologic: Reports: headache, other - more alert per family Psychiatric: Reports: other - brad Skin: Denies: rash Hematologic: Denies: bleeding Musculoskeletal: Denies: pain Allergies: Coded Allergies: No Known Allergies (Unverified , 08/12/17) PER MOM, NO KNOWN ALLERGIES Objective Vital Signs Last 24 Hour Vital Signs Date Time Temp Pulse Resp B/P (MAP) Pulse Ox O2 Delivery O2 Flow Rate FiO2 08/31/17 12:00 97.3 100 20 116/71 96 08/31/17 08:00 97.7 100 20 105/67 95 08/31/17 06:47 97.9 08/31/17 04:44 97.9 97 18 112/79 96 Room Air 1/7/18 21:42 101 107/69 08/30/17 20:22 97.2 103 19 95/55 93 Room Air 08/30/17 17:32 97.9 08/30/17 16:00 97.9 103 20 110/73 98 Height (Feet): 5 Height (Inches): 5.00 Weight (Pounds): 152 General Appearance: no acute distress HEENT: normocephalic, atraumatic Respiratory/Chest: lungs clear, normal breath sounds, no respiratory distress, no accessory muscle use Cardiovascular: normal rate, regular rhythm, no gallop/murmur Abdomen: normal bowel sounds, soft, non tender, no organomegaly, non distended Genitourinary: other - + jameson - urine clear Extremities: no cyanosis Skin: no lesions Neurologic/Psychiatric: telephone ad taker II-XII grossly normal, other - sleeping at this time Lymphatic: no neck adenopathy Musculoskeletal: no effusion Objective 08/20 - chest x-ray - Impression: Equivocal minimal hazy parenchymal opacity and possibly pleural fluid at the left lateral lung base. Otherwise little international exchange coordinator 2 days 08/22 - chest x-ray - Interval removal of NG tube. Overall improved aeration of the left lower lung. Persistent streaky opacities at left base, possibly related to atelectasis/scarring vs pneumonia. Correlate clinically. Chest x-ray - - Impression: Interval removal of NG tube. Overall improved aeration of the left lower lung. Persistent streaky opacities at left base, possibly related to atelectasis/scarring vs pneumonia. Correlate clinically. 08/26 - chest x-ray - no change (report noted) Microbiology Date/Time Source Procedure Growth Status 08/18/17 18:30 Blood Blood Culture - Final NO GROWTH AFTER 5 DAYS Complete 08/14/17 21:00 Sputum Induced Gram Stain - Final Complete 08/14/17 21:00 Sputum Culture - Final Escherichia Coli - Esbl Complete 08/18/17 14:26 Indwelling Cath Urine Culture - Final Narcisa Albicans Complete 08/10/17 01:50 Rectum VRE Culture - Final NO VANCOMYCIN RESISTANT ENTEROCOCCUS ... Complete Labs Test 08/29/17 05:55 White Blood Count 9.2 K/UL (4.8-10.8) Red Blood Count 5.05 M/UL (4.20-5.40) Hemoglobin 15.6 G/DL (12.0-16.0) Hematocrit 46.7 % (37.0-47.0) Mean Corpuscular Volume 92 FL (80-99) Mean Corpuscular Hemoglobin 30.9 PG (27.0-31.0) Mean Corpuscular Hemoglobin Concent 33.5 G/DL (32.0-36.0) Red Cell Distribution Width 13.0 % (11.6-14.8) Platelet Count 337 K/UL (150-450) Mean Platelet Volume 7.3 FL (6.5-10.1) Neutrophils (%) (Auto) 62.0 % (45.0-75.0) Lymphocytes (%) (Auto) 29.7 % (20.0-45.0) Monocytes (%) (Auto) 6.4 % (1.0-10.0) Eosinophils (%) (Auto) 0.9 % (0.0-3.0) Basophils (%) (Auto) 1.0 % (0.0-2.0) Sodium Level 137 MMOL/L (136-145) Potassium Level 4.2 MMOL/L (3.5-5.1) Chloride Level 101 MMOL/L (98-107) Carbon Dioxide Level 28 MMOL/L (21-32) Anion Gap 8 mmol/L (5-15) Blood Urea Nitrogen 16 mg/dL (7-18) Creatinine 0.7 MG/DL (0.55-1.30) Estimat Glomerular Filtration Rate > 60 mL/min (>60) Glucose Level 110 MG/DL (74-106) Calcium Level 9.0 MG/DL (8.5-10.1) Current Medications Medications (Trade) Dose Ordered Sig/Hema Route PRN Reason Start Time Stop Time Status Last Admin Dose Admin Acetaminophen (Tylenol) 650 mg Q4H PRN GT Mild Pain/Temp > 100.5 08/23/17 15:15 09/22/17 15:14 08/30/17 17:02 Chlorhexidine Gluconate (Valerie-Hex 2%) 1 applic DAILY@1999 TOPIC 08/21/17 20:00 09/10/17 19:59 08/30/17 20:51 Clotrimazole (Lotrimin) 1 applic EVERY 12 HOURS TOPIC 08/21/17 21:00 09/19/17 16:59 08/31/17 08:59 Cyclobenzaprine HCl (Flexeril) 5 mg Q8HR GT 08/30/17 14:00 09/27/17 19:29 08/31/17 14:43 Diazepam (Valium) 10 mg Q9H GT 08/28/17 22:30 09/04/17 22:29 08/31/17 13:50 Docusate Sodium (Colace) 100 mg BID ORAL 08/26/17 18:00 09/25/17 17:59 08/31/17 08:58 Heparin Sodium (Porcine) (Heparin 5000 units/ml) 5,000 units EVERY 12 HOURS SUBQ 08/21/17 21:00 09/09/17 20:59 08/31/17 09:00 Levetiracetam (Keppra) 250 mg Q12HR ORAL 08/23/17 21:00 09/22/17 20:59 08/31/17 08:58 Multivitamins 10 ml/Potassium Chloride 30 meq/ Sodium Chloride 1,025 ml @ 100 mls/hr Q24H IV 08/21/17 21:00 09/20/17 20:59 08/30/17 21:36 Nicotine (Nicoderm) 1 patch Q24H TDERMAL 08/22/17 16:00 09/12/17 15:59 08/30/17 17:01 Pantoprazole (Protonix) 40 mg DAILY IVP 08/22/17 09:00 09/11/17 09:59 08/31/17 08:58 Polyethylene Glycol (Miralax) 17 gm BEDTIME GT 08/26/17 21:00 09/25/17 20:59 08/27/17 00:17 Potassium Chloride 30 meq/ Sodium Chloride 1,015 ml @ 100 mls/hr Q10H9M IV 08/21/17 19:00 09/19/17 18:59 08/31/17 13:50 Sorbitol (Sorbitol) 30 ml Q6H PRN GT Constipation 08/23/17 20:30 09/22/17 20:29 08/23/17 21:20 Thiamine HCl 100 mg/Dextrose 56 ml @ 112 mls/hr Q24H IVPB 08/21/17 21:00 09/09/17 20:59 08/30/17 21:35 Triamcinolone Acetonide (Kenalog) 1 applic THREE TIMES A DAY TOPIC 08/25/17 13:00 09/24/17 12:59 08/31/17 13:50 MARIA A SMITH Aug 31, 2017 14:56
[2017-08-31 16:00] VITALS: BP 111/80
[2017-08-31 20:00] VITALS: BP 115/75
[2017-08-31] MEDS: Miralax 17gm pkt GT SCH (21:00)
[2017-08-31] MEDS: 1/2 NS IV SCH (21:09)
[2017-08-31] MEDS: POTASSIUM CHLORIDE IV SCH (21:09)
[2017-08-31] MEDS: Dyna-Hex 2% Top Sol 2oz TOPIC SCH (21:09)
[2017-08-31] MEDS: Thiamine HCl 100 MG in D5W 55 ML IVPB SCH (21:09)
[2017-08-31] MEDS: MULTIVITAMIN IV SCH (21:09)
[2017-09-01] VITALS: BP 107/72
[2017-09-01 04:00] VITALS: BP 118/71
[2017-09-01] MEDS: Cyclobenzaprine 10mg Tab GT SCH ×3 (05:00→21:10)
[2017-09-01 05:45] LABS: BASOPHILS % (AUTO) 1.5 % (0.0-2.0); EOSINOPHILS % (AUTO) 1.4 % (0.0-3.0); HEMATOCRIT 47.5 % (37.0-47.0); HEMOGLOBIN 15.7 G/DL (12.0-16.0); LYMPHOCYTES % (AUTO) 28.3 % (20.0-45.0); MEAN CORPUSCULAR VOLUME 92 FL (80-99); MONOCYTES % (AUTO) 6.3 % (1.0-10.0); NEUTROPHILS % (AUTO) 62.6 % (45.0-75.0); PLATELET COUNT 293 K/UL (150-450); RED BLOOD COUNT 5.17 M/UL (4.20-5.40); RED CELL DISTRIBUTION WIDTH 12.6 % (11.6-14.8); WHITE BLOOD COUNT 9.6 K/UL (4.8-10.8)
[2017-09-01 06:24] LABS: ANION GAP 9 mmol/L (5-15); BLOOD UREA NITROGEN 17 mg/dL (7-18); CARBON DIOXIDE 28 MMOL/L (21-32); CHLORIDE 99 MMOL/L (98-107); CREATININE 0.7 MG/DL (0.55-1.30); POTASSIUM 4.3 MMOL/L (3.5-5.1); SODIUM 136 MMOL/L (136-145)
--- NOTE | 2017-09-01 08:39 | Pulmonology Progress Note ---
Assessment/Plan Assessment/Plan PROBLEM LIST: -Drug OD -H/O IVDU -Respiratory acidosis -MATTHEW -H/O infective endocarditis S/P MVR - GT - hepatitis C PLAN: -respiratory stable -Continue supplemental o2 as needed -monitor for aspiration and repeat Xray as needed -Monitor volumes and renal function -DVT prophylaxis -GT feeds -ID followup noted - dc to snf soon impression, plan, and exam edited and reviewed in detail care discussed with RN Subjective Allergies: Coded Allergies: No Known Allergies (Unverified , 08/12/17) PER MOM, NO KNOWN ALLERGIES Subjective care reviewed LOC stable GT in place Objective Last 24 Hour Vital Signs Date Time Temp Pulse Resp B/P (MAP) Pulse Ox O2 Delivery O2 Flow Rate FiO2 09/01/17 05:59 98.0 09/01/17 04:00 98.0 112 18 118/71 99 Room Air 09/01/17 00:00 98.2 109 18 107/72 99 Room Air 08/31/17 20:00 98.0 110 18 115/75 99 08/31/17 16:00 97.7 104 19 111/80 100 Room Air 08/31/17 12:00 97.3 100 20 116/71 96 Intake and Output 08/31/17 09/01/17 19:00 07:00 Intake Total 2070 ml 1826 ml Output Total 2250 ml 1800 ml Balance -180 ml 26 ml Free Water 150 ml 210 ml IV Total 1200 ml 956 ml Tube Feeding 720 ml 660 ml Output Urine Total 2250 ml 1800 ml Objective WDWN NAD stable breath sounds bilaterally without rhonchi or wheeze [id number] without MRG NABS nontender no HSM; Gt no CCE nonfocal NGT in place reduced ROM Laboratory Tests 09/01/17 05:20: White Blood Count 9.6, Red Blood Count 5.17, Hemoglobin 15.7, Hematocrit 47.5H, Mean Corpuscular Volume 92, Mean Corpuscular Hemoglobin 30.3, Mean Corpuscular Hemoglobin Concent 33.0, Red Cell Distribution Width 12.6, Platelet Count 293, Mean Platelet Volume 7.9, Neutrophils (%) (Auto) 62.6, Lymphocytes (%) (Auto) 28.3, Monocytes (%) (Auto) 6.3, Eosinophils (%) (Auto) 1.4, Basophils (%) (Auto ) 1.5, Sodium Level 136, Potassium Level 4.3, Chloride Level 99, Carbon Dioxide Level 28, Anion Gap 9, Blood Urea Nitrogen 17, Creatinine 0.7, Estimat Glomerular Filtration Rate > 60, Glucose Level 117H, Calcium Level 9.0 Current Medications Medications (Trade) Dose Ordered Sig/Hema Route PRN Reason Start Time Stop Time Status Last Admin Dose Admin Acetaminophen (Tylenol) 650 mg Q4H PRN GT Mild Pain/Temp > 100.5 08/23/17 15:15 09/22/17 15:14 08/30/17 17:02 Chlorhexidine Gluconate (Valerie-Hex 2%) 1 applic DAILY@1999 TOPIC 08/21/17 20:00 09/10/17 19:59 08/31/17 21:09 Clotrimazole (Lotrimin) 1 applic EVERY 12 HOURS TOPIC 08/21/17 21:00 09/19/17 16:59 08/31/17 21:11 Cyclobenzaprine HCl (Flexeril) 5 mg Q8HR GT 08/30/17 14:00 09/27/17 19:29 09/01/17 05:00 Diazepam (Valium) 10 mg Q9H GT 08/28/17 22:30 09/04/17 22:29 08/31/17 22:53 Docusate Sodium (Colace) 100 mg BID ORAL 08/26/17 18:00 09/25/17 17:59 08/31/17 18:11 Heparin Sodium (Porcine) (Heparin 5000 units/ml) 5,000 units EVERY 12 HOURS SUBQ 08/21/17 21:00 09/09/17 20:59 08/31/17 21:24 Levetiracetam (Keppra) 250 mg Q12HR ORAL 08/23/17 21:00 09/22/17 20:59 08/31/17 21:09 Multivitamins 10 ml/Potassium Chloride 30 meq/ Sodium Chloride 1,025 ml @ 100 mls/hr Q24H IV 08/21/17 21:00 09/20/17 20:59 08/31/17 21:09 Nicotine (Nicoderm) 1 patch Q24H TDERMAL 08/22/17 16:00 09/12/17 15:59 08/31/17 18:11 Pantoprazole (Protonix) 40 mg DAILY IVP 08/22/17 09:00 09/11/17 09:59 08/31/17 08:58 Polyethylene Glycol (Miralax) 17 gm BEDTIME GT 08/26/17 21:00 09/25/17 20:59 08/27/17 00:17 Potassium Chloride 30 meq/ Sodium Chloride 1,015 ml @ 100 mls/hr Q10H9M IV 08/21/17 19:00 09/19/17 18:59 08/31/17 13:50 Sorbitol (Sorbitol) 30 ml Q6H PRN GT Constipation 08/23/17 20:30 09/22/17 20:29 08/23/17 21:20 Thiamine HCl 100 mg/Dextrose 56 ml @ 112 mls/hr Q24H IVPB 08/21/17 21:00 09/09/17 20:59 08/31/17 21:09 Triamcinolone Acetonide (Kenalog) 1 applic THREE TIMES A DAY TOPIC 08/25/17 13:00 09/24/17 12:59 08/31/17 18:11 GAYLE ALMENDAREZ Sep 01, 2017 08:39
[2017-09-01 08:59] VITALS: BP 109/74
[2017-09-01] MEDS: Docusate 100mg cap ORAL SCH ×2 (09:05→17:25)
[2017-09-01] MEDS: Pantoprazole Inj IVP SCH (09:06)
[2017-09-01] MEDS: Heparin 5000 units/ml inj SUBQ SCH ×2 (09:07→21:12)
[2017-09-01] MEDS: Triamcinolone 0.1% 15gm Cr TOPIC SCH ×3 (09:25→17:27)
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
--- NOTE | 2017-09-01 10:42 | General Progress Note ---
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 Prognosis seems somewhat better in the long run. 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 s/p PEG . On TF ESBL E. Coli UTI per ID DC planning SNF- last resort option vs. Neuro Rehab-best. DW pt's Mother. Subjective Allergies: Coded Allergies: No Known Allergies (Unverified , 08/12/17) PER MOM, NO KNOWN ALLERGIES Subjective Sleepy now and during the day. Per Mother wakes up in the night and even communicates. Objective Last 24 Hour Vital Signs Date Time Temp Pulse Resp B/P (MAP) Pulse Ox O2 Delivery O2 Flow Rate FiO2 09/01/17 08:59 98.6 109 20 109/74 93 09/01/17 05:59 98.0 09/01/17 04:00 98.0 112 18 118/71 99 Room Air 09/01/17 00:00 98.2 109 18 107/72 99 Room Air 08/31/17 20:00 98.0 110 18 115/75 99 08/31/17 16:00 97.7 104 19 111/80 100 Room Air 08/31/17 12:00 97.3 100 20 116/71 96 Intake and Output 08/31/17 09/01/17 19:00 07:00 Intake Total 2070 ml 1826 ml Output Total 2250 ml 1800 ml Balance -180 ml 26 ml Free Water 150 ml 210 ml IV Total 1200 ml 956 ml Tube Feeding 720 ml 660 ml Output Urine Total 2250 ml 1800 ml Laboratory Tests 09/01/17 05:20: White Blood Count 9.6, Red Blood Count 5.17, Hemoglobin 15.7, Hematocrit 47.5H, Mean Corpuscular Volume 92, Mean Corpuscular Hemoglobin 30.3, Mean Corpuscular Hemoglobin Concent 33.0, Red Cell Distribution Width 12.6, Platelet Count 293, Mean Platelet Volume 7.9, Neutrophils (%) (Auto) 62.6, Lymphocytes (%) (Auto) 28.3, Monocytes (%) (Auto) 6.3, Eosinophils (%) (Auto) 1.4, Basophils (%) (Auto ) 1.5, Sodium Level 136, Potassium Level 4.3, Chloride Level 99, Carbon Dioxide Level 28, Anion Gap 9, Blood Urea Nitrogen 17, Creatinine 0.7, Estimat Glomerular Filtration Rate > 60, Glucose Level 117H, Calcium Level 9.0 Height (Feet): 5 Height (Inches): 5.00 Weight (Pounds): 151 Objective Afebrile. CV RR Lungs CTA Abd SNT. BS +. New PEG. E No CCE + Contractures BERTRAND CONDE Sep 01, 2017 10:42
[2017-09-01 11:49] VITALS: BP 125/85
--- NOTE | 2017-09-01 14:28 | GI Progress Note ---
Assessment/Plan Problems: (1) FTT (failure to thrive) in adult ICD Codes: R62.7 - Adult failure to thrive SNOMED: 797408518 (2) Overdose ICD Codes: T50.901A - Poisoning by unspecified drugs, medicaments and biological substances, accidental (unintentional), initial encounter SNOMED: 47718780 (3) severe encephalopathy, anoxic/drug toxicity/benzo withdrawal (4) iv substance abuse, relapse (5) symptomatic seizure event (6) severe anoxic encephalopathy Status: unchanged Status Narrative Discussed with Dr. Enrique. Assessment/Plan s/p EGD/PEG SUMMARY OF FINDINGS: 1. Linear gastric ulceration, status post biopsy. 2. Status post successful PEG placement. RECOMMENDATIONS: Abdominal binder. Elevate the head of the bed at all times. G-tube flush. G-tube care. GTFs per RD OT evaluation fu labs outpatient Hep C tx, will draw genotype dc planning per primary team Subjective Subjective limited Objective Last 24 Hour Vital Signs Date Time Temp Pulse Resp B/P (MAP) Pulse Ox O2 Delivery O2 Flow Rate FiO2 09/01/17 11:49 98.2 87 20 125/85 92 09/01/17 08:59 98.6 109 20 109/74 93 09/01/17 05:59 98.0 09/01/17 04:00 98.0 112 18 118/71 99 Room Air 09/01/17 00:00 98.2 109 18 107/72 99 Room Air 08/31/17 20:00 98.0 110 18 115/75 99 08/31/17 16:00 97.7 104 19 111/80 100 Room Air Intake and Output 08/31/17 09/01/17 19:00 07:00 Intake Total 2070 ml 1826 ml Output Total 2250 ml 1800 ml Balance -180 ml 26 ml Free Water 150 ml 210 ml IV Total 1200 ml 956 ml Tube Feeding 720 ml 660 ml Output Urine Total 2250 ml 1800 ml Laboratory Tests Test 09/01/17 05:20 White Blood Count 9.6 K/UL (4.8-10.8) Red Blood Count 5.17 M/UL (4.20-5.40) Hemoglobin 15.7 G/DL (12.0-16.0) Hematocrit 47.5 % (37.0-47.0) H Mean Corpuscular Volume 92 FL (80-99) Mean Corpuscular Hemoglobin 30.3 PG (27.0-31.0) Mean Corpuscular Hemoglobin Concent 33.0 G/DL (32.0-36.0) Red Cell Distribution Width 12.6 % (11.6-14.8) Platelet Count 293 K/UL (150-450) Mean Platelet Volume 7.9 FL (6.5-10.1) Neutrophils (%) (Auto) 62.6 % (45.0-75.0) Lymphocytes (%) (Auto) 28.3 % (20.0-45.0) Monocytes (%) (Auto) 6.3 % (1.0-10.0) Eosinophils (%) (Auto) 1.4 % (0.0-3.0) Basophils (%) (Auto) 1.5 % (0.0-2.0) Sodium Level 136 MMOL/L (136-145) Potassium Level 4.3 MMOL/L (3.5-5.1) Chloride Level 99 MMOL/L (98-107) Carbon Dioxide Level 28 MMOL/L (21-32) Anion Gap 9 mmol/L (5-15) Blood Urea Nitrogen 17 mg/dL (7-18) Creatinine 0.7 MG/DL (0.55-1.30) Estimat Glomerular Filtration Rate > 60 mL/min (>60) Glucose Level 117 MG/DL (74-106) H Calcium Level 9.0 MG/DL (8.5-10.1) Height (Feet): 5 Height (Inches): 5.00 Weight (Pounds): 151 General Appearance: alert, confused Cardiovascular: normal rate Respiratory/Chest: no respiratory distress Abdominal Exam: normal bowel sounds, non tender, soft, GT site - c/d/i Extremities: non-tender Kendra Templeton N.Mee Sep 01, 2017 14:28
[2017-09-01] MEDS: Potassium Chloride 30 MEQ in 1/2 NS 1000ml 1,000 ML IV SCH ×2 (14:57→19:40)
[2017-09-01 15:51] VITALS: BP 108/73
--- NOTE | 2017-09-01 16:00 | General Progress Note ---
Assessment/Plan Status: stable, progressing Assessment/Plan ?anoxic brain injury polysubstance abuse benzo withdrawal -cont Valium GT q10/prn -the pt maybe discharged on Valium if medically cleared -the pt's Valium could be managed outpatient. the pt is not on high dosage on Valium -Flexeril 5 q 8hr Subjective Date patient seen: Aug 31, 2017 Neurologic/Psychiatric: Reports: anxiety, depressed, emotional problems Allergies: Coded Allergies: No Known Allergies (Unverified , 08/12/17) PER MOM, NO KNOWN ALLERGIES Subjective the pt is not agitated c/o muscle pain, on Flexeril more alert up all night Objective Last 24 Hour Vital Signs Date Time Temp Pulse Resp B/P (MAP) Pulse Ox O2 Delivery O2 Flow Rate FiO2 09/01/17 15:51 98.0 103 21 108/73 98 09/01/17 11:49 98.2 87 20 125/85 92 09/01/17 08:59 98.6 109 20 109/74 93 09/01/17 05:59 98.0 09/01/17 04:00 98.0 112 18 118/71 99 Room Air 09/01/17 00:00 98.2 109 18 107/72 99 Room Air 08/31/17 20:00 98.0 110 18 115/75 99 08/31/17 16:00 97.7 104 19 111/80 100 Room Air Intake and Output 08/31/17 09/01/17 19:00 07:00 Intake Total 2070 ml 1826 ml Output Total 2250 ml 1800 ml Balance -180 ml 26 ml Free Water 150 ml 210 ml IV Total 1200 ml 956 ml Tube Feeding 720 ml 660 ml Output Urine Total 2250 ml 1800 ml Laboratory Tests 09/01/17 05:20: White Blood Count 9.6, Red Blood Count 5.17, Hemoglobin 15.7, Hematocrit 47.5H, Mean Corpuscular Volume 92, Mean Corpuscular Hemoglobin 30.3, Mean Corpuscular Hemoglobin Concent 33.0, Red Cell Distribution Width 12.6, Platelet Count 293, Mean Platelet Volume 7.9, Neutrophils (%) (Auto) 62.6, Lymphocytes (%) (Auto) 28.3, Monocytes (%) (Auto) 6.3, Eosinophils (%) (Auto) 1.4, Basophils (%) (Auto ) 1.5, Sodium Level 136, Potassium Level 4.3, Chloride Level 99, Carbon Dioxide Level 28, Anion Gap 9, Blood Urea Nitrogen 17, Creatinine 0.7, Estimat Glomerular Filtration Rate > 60, Glucose Level 117H, Calcium Level 9.0 Height (Feet): 5 Height (Inches): 5.00 Weight (Pounds): 151 General Appearance: no apparent distress, alert Neurologic: alert, oriented x 3, responsive Kristie Braswell M.D. Sep 01, 2017 16:00
[2017-09-01 19:31] VITALS: BP 113/76
[2017-09-01] MEDS: Miralax 17gm pkt GT SCH (21:09)
[2017-09-01] MEDS: Dyna-Hex 2% Top Sol 2oz TOPIC SCH (21:09)
[2017-09-01] MEDS: Thiamine HCl 100 MG in D5W 55 ML IVPB SCH (21:09)
[2017-09-01] MEDS: 1/2 NS IV SCH (21:10)
[2017-09-01] MEDS: POTASSIUM CHLORIDE IV SCH (21:10)
[2017-09-01] MEDS: MULTIVITAMIN IV SCH (21:10)
[2017-09-01] MEDS: Acetaminophen 650mg/20.3ml GT PRN (23:43)
[2017-09-02] VITALS: BP 124/81
[2017-09-02 04:05] VITALS: BP 118/78
[2017-09-02] MEDS: Potassium Chloride 30 MEQ in 1/2 NS 1000ml 1,000 ML IV SCH ×2 (04:12→15:39)
[2017-09-02] MEDS: Cyclobenzaprine 10mg Tab GT SCH ×3 (05:07→22:19)
[2017-09-02 07:24] LABS: ANION GAP 9 mmol/L (5-15); BLOOD UREA NITROGEN 18 mg/dL (7-18); CARBON DIOXIDE 29 MMOL/L (21-32); CHLORIDE 99 MMOL/L (98-107); CREATININE 0.7 MG/DL (0.55-1.30); POTASSIUM 3.8 MMOL/L (3.5-5.1); SODIUM 137 MMOL/L (136-145)
[2017-09-02 07:33] LABS: BASOPHILS % (AUTO) 0.8 % (0.0-2.0); EOSINOPHILS % (AUTO) 1.2 % (0.0-3.0); HEMATOCRIT 46.7 % (37.0-47.0); HEMOGLOBIN 15.3 G/DL (12.0-16.0); LYMPHOCYTES % (AUTO) 26.2 % (20.0-45.0); MEAN CORPUSCULAR VOLUME 92 FL (80-99); MONOCYTES % (AUTO) 5.4 % (1.0-10.0); NEUTROPHILS % (AUTO) 66.5 % (45.0-75.0); PLATELET COUNT 244 K/UL (150-450); RED BLOOD COUNT 5.07 M/UL (4.20-5.40); RED CELL DISTRIBUTION WIDTH 12.9 % (11.6-14.8); WHITE BLOOD COUNT 8.3 K/UL (4.8-10.8)
[2017-09-02 08:00] VITALS: BP 115/80
[2017-09-02] MEDS: Pantoprazole Inj IVP SCH (09:23)
[2017-09-02] MEDS: Docusate 100mg cap ORAL SCH (09:23)
[2017-09-02] MEDS: Heparin 5000 units/ml inj SUBQ SCH ×2 (09:25→22:24)
--- NOTE | 2017-09-02 09:25 | Pulmonology Progress Note ---
Assessment/Plan Assessment/Plan PROBLEM LIST: -Drug OD -H/O IVDU -Respiratory acidosis -MATTHEW -H/O infective endocarditis S/P MVR - GT - hepatitis C PLAN: -respiratory same -Continue supplemental o2 as needed -monitor for aspiration and repeat Xray as needed -Monitor volumes and renal function -DVT prophylaxis -GT feeds -ID followup noted - dc to snf per primary MD- no acute changes noted - will sign off impression, plan, and exam edited and reviewed in detail care discussed with RN Subjective Allergies: Coded Allergies: No Known Allergies (Unverified , 08/12/17) PER MOM, NO KNOWN ALLERGIES Subjective care reviewed LOC same GT in place Objective Last 24 Hour Vital Signs Date Time Temp Pulse Resp B/P (MAP) Pulse Ox O2 Delivery O2 Flow Rate FiO2 09/02/17 08:00 96.6 111 18 115/80 93 09/02/17 06:06 97.5 09/02/17 04:05 97.5 107 18 118/78 96 Room Air 09/02/17 00:13 99.0 09/02/17 00:00 99.0 110 18 124/81 98 09/01/17 19:31 98.1 100 20 113/76 97 Room Air 09/01/17 15:51 98.0 103 21 108/73 98 09/01/17 11:49 98.2 87 20 125/85 92 Intake and Output 09/01/17 09/02/17 19:00 07:00 Intake Total 1370 ml 1946 ml Output Total 1500 ml 1600 ml Balance -130 ml 346 ml Intake Oral 0 ml Free Water 50 ml 150 ml IV Total 600 ml 1076 ml Tube Feeding 720 ml 720 ml Output Urine Total 1500 ml 1600 ml Objective WDWN NAD stable breath sounds bilaterally without rhonchi or wheeze [id number] without MRG NABS nontender no HSM; Gt no CCE nonfocal NGT in place reduced ROM Laboratory Tests 09/02/17 05:20: White Blood Count 8.3, Red Blood Count 5.07, Hemoglobin 15.3, Hematocrit 46.7, Mean Corpuscular Volume 92, Mean Corpuscular Hemoglobin 30.1, Mean Corpuscular Hemoglobin Concent 32.7, Red Cell Distribution Width 12.9, Platelet Count 244, Mean Platelet Volume 7.7, Neutrophils (%) (Auto) 66.5, Lymphocytes (%) (Auto) 26.2, Monocytes (%) (Auto) 5.4, Eosinophils (%) (Auto) 1.2, Basophils (%) (Auto ) 0.8, Sodium Level 137, Potassium Level 3.8, Chloride Level 99, Carbon Dioxide Level 29, Anion Gap 9, Blood Urea Nitrogen 18, Creatinine 0.7, Estimat Glomerular Filtration Rate > 60, Glucose Level 134H, Calcium Level 10.0 Current Medications Medications (Trade) Dose Ordered Sig/Hema Route PRN Reason Start Time Stop Time Status Last Admin Dose Admin Acetaminophen (Tylenol) 650 mg Q4H PRN GT Mild Pain/Temp > 100.5 08/23/17 15:15 09/22/17 15:14 09/01/17 23:43 Chlorhexidine Gluconate (Valerie-Hex 2%) 1 applic DAILY@1999 TOPIC 08/21/17 20:00 09/10/17 19:59 09/01/17 21:09 Clotrimazole (Lotrimin) 1 applic EVERY 12 HOURS TOPIC 08/21/17 21:00 09/19/17 16:59 09/01/17 21:10 Cyclobenzaprine HCl (Flexeril) 5 mg Q8HR GT 08/30/17 14:00 09/27/17 19:29 09/02/17 05:07 Diazepam (Valium) 10 mg BID PRN GT anxiety 09/01/17 18:00 09/04/17 22:29 09/02/17 01:05 Docusate Sodium (Colace) 100 mg BID ORAL 08/26/17 18:00 09/25/17 17:59 09/01/17 17:25 Heparin Sodium (Porcine) (Heparin 5000 units/ml) 5,000 units EVERY 12 HOURS SUBQ 08/21/17 21:00 09/09/17 20:59 09/01/17 21:12 Levetiracetam (Keppra) 250 mg Q12HR ORAL 08/23/17 21:00 09/22/17 20:59 09/01/17 21:10 Mirtazapine (Remeron) 15 mg BEDTIME ORAL 09/01/17 21:00 10/01/17 20:59 09/01/17 21:10 Multivitamins 10 ml/Potassium Chloride 30 meq/ Sodium Chloride 1,025 ml @ 100 mls/hr Q24H IV 08/21/17 21:00 09/20/17 20:59 09/01/17 21:10 Nicotine (Nicoderm) 1 patch Q24H TDERMAL 08/22/17 16:00 09/12/17 15:59 09/01/17 17:26 Pantoprazole (Protonix) 40 mg DAILY IVP 08/22/17 09:00 09/11/17 09:59 09/01/17 09:06 Polyethylene Glycol (Miralax) 17 gm BEDTIME GT 08/26/17 21:00 09/25/17 20:59 09/01/17 21:09 Potassium Chloride 30 meq/ Sodium Chloride 1,015 ml @ 100 mls/hr Q10H9M IV 08/21/17 19:00 09/19/17 18:59 09/01/17 19:40 Sorbitol (Sorbitol) 30 ml Q6H PRN GT Constipation 08/23/17 20:30 09/22/17 20:29 08/23/17 21:20 Thiamine HCl 100 mg/Dextrose 56 ml @ 112 mls/hr Q24H IVPB 08/21/17 21:00 09/09/17 20:59 09/01/17 21:09 Triamcinolone Acetonide (Kenalog) 1 applic THREE TIMES A DAY TOPIC 08/25/17 13:00 09/24/17 12:59 09/01/17 17:27 GAYLE ALMENDAREZ Sep 02, 2017 09:25
--- NOTE | 2017-09-02 09:43 | Progress Note ---
DATE: 08/10/2017 SUBJECTIVE: The patient's family is complaining of the patient's placement issue. The mother stated that the family independence case manager has not been actively assisting with placement in Neuro [facility]. The patient was awake all night and is not having any lethargy during the day. No behavior issues. More engaged. Prognosis is improved. OBJECTIVE: MENTAL STATUS EXAMINATION: The patient is alert, oriented x self, place, and situation, she is in. Mood is neutral. Affect is constricted. Congruent mood. Thought process is concrete. Thought content, no suicidal or homicidal ideation. ASSESSMENT: 1. Polysubstance abuse. 2. Benzodiazepine withdrawal. 3. Heroin withdrawal. PLAN: 1. We will decrease the Valium to 10 mg every 10 hours p.r.n. 2. benzodiazepine p.r.n. and add Remeron 50 mg at bedtime. Kristie Braswell M.D. DR: Thomas JOB#: [id number] CC:
--- NOTE | 2017-09-02 10:31 | General Progress Note ---
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 Prognosis seems somewhat better in the long run. 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 s/p PEG . On TF ESBL E. Coli UTI per ID DC planning SNF- last resort option vs. Neuro Rehab-best. DW pt's Mother. Subjective Allergies: Coded Allergies: No Known Allergies (Unverified , 08/12/17) PER MOM, NO KNOWN ALLERGIES Subjective Sleepy now and during the day. Per Mother wakes up in the night and even communicates. Objective Last 24 Hour Vital Signs Date Time Temp Pulse Resp B/P (MAP) Pulse Ox O2 Delivery O2 Flow Rate FiO2 09/02/17 08:00 96.6 111 18 115/80 93 09/02/17 06:06 97.5 09/02/17 04:05 97.5 107 18 118/78 96 Room Air 09/02/17 00:13 99.0 09/02/17 00:00 99.0 110 18 124/81 98 09/01/17 19:31 98.1 100 20 113/76 97 Room Air 09/01/17 15:51 98.0 103 21 108/73 98 09/01/17 11:49 98.2 87 20 125/85 92 Intake and Output 09/01/17 09/02/17 19:00 07:00 Intake Total 1370 ml 1946 ml Output Total 1500 ml 1600 ml Balance -130 ml 346 ml Intake Oral 0 ml Free Water 50 ml 150 ml IV Total 600 ml 1076 ml Tube Feeding 720 ml 720 ml Output Urine Total 1500 ml 1600 ml Laboratory Tests 09/02/17 05:20: White Blood Count 8.3, Red Blood Count 5.07, Hemoglobin 15.3, Hematocrit 46.7, Mean Corpuscular Volume 92, Mean Corpuscular Hemoglobin 30.1, Mean Corpuscular Hemoglobin Concent 32.7, Red Cell Distribution Width 12.9, Platelet Count 244, Mean Platelet Volume 7.7, Neutrophils (%) (Auto) 66.5, Lymphocytes (%) (Auto) 26.2, Monocytes (%) (Auto) 5.4, Eosinophils (%) (Auto) 1.2, Basophils (%) (Auto ) 0.8, Sodium Level 137, Potassium Level 3.8, Chloride Level 99, Carbon Dioxide Level 29, Anion Gap 9, Blood Urea Nitrogen 18, Creatinine 0.7, Estimat Glomerular Filtration Rate > 60, Glucose Level 134H, Calcium Level 10.0 Height (Feet): 5 Height (Inches): 5.00 Weight (Pounds): 150 Objective Afebrile. CV RR Lungs CTA Abd SNT. BS +. New PEG. E No CCE + Contractures BERTRAND CONDE Sep 02, 2017 10:31
[2017-09-02] MEDS: Triamcinolone 0.1% 15gm Cr TOPIC SCH ×3 (10:47→17:58)
[2017-09-02] MEDS: Acetaminophen 650mg/20.3ml GT PRN (10:52)
[2017-09-02 12:00] VITALS: BP 115/76
--- NOTE | 2017-09-02 14:22 | GI Progress Note ---
Assessment/Plan Problems: (1) FTT (failure to thrive) in adult ICD Codes: R62.7 - Adult failure to thrive SNOMED: 285977325 (2) Overdose ICD Codes: T50.901A - Poisoning by unspecified drugs, medicaments and biological substances, accidental (unintentional), initial encounter SNOMED: 59763778 (3) severe encephalopathy, anoxic/drug toxicity/benzo withdrawal (4) iv substance abuse, relapse (5) symptomatic seizure event (6) severe anoxic encephalopathy Status: unchanged Status Narrative Discussed with Dr. Enrique. Assessment/Plan s/p EGD/PEG SUMMARY OF FINDINGS: 1. Linear gastric ulceration, status post biopsy. 2. Status post successful PEG placement. RECOMMENDATIONS: Abdominal binder. Elevate the head of the bed at all times. G-tube flush. G-tube care. GTFs per RD OT evaluation fu labs outpatient Hep C tx, fu genotype dc planning per primary team Subjective Subjective limited Objective Last 24 Hour Vital Signs Date Time Temp Pulse Resp B/P (MAP) Pulse Ox O2 Delivery O2 Flow Rate FiO2 09/02/17 12:00 97.2 98 18 115/76 98 09/02/17 08:00 96.6 111 18 115/80 93 09/02/17 06:06 97.5 09/02/17 04:05 97.5 107 18 118/78 96 Room Air 09/02/17 00:13 99.0 09/02/17 00:00 99.0 110 18 124/81 98 09/01/17 19:31 98.1 100 20 113/76 97 Room Air 09/01/17 15:51 98.0 103 21 108/73 98 Intake and Output 09/01/17 09/02/17 19:00 07:00 Intake Total 1370 ml 1946 ml Output Total 1500 ml 1600 ml Balance -130 ml 346 ml Intake Oral 0 ml Free Water 50 ml 150 ml IV Total 600 ml 1076 ml Tube Feeding 720 ml 720 ml Output Urine Total 1500 ml 1600 ml Laboratory Tests Test 09/02/17 05:20 White Blood Count 8.3 K/UL (4.8-10.8) Red Blood Count 5.07 M/UL (4.20-5.40) Hemoglobin 15.3 G/DL (12.0-16.0) Hematocrit 46.7 % (37.0-47.0) Mean Corpuscular Volume 92 FL (80-99) Mean Corpuscular Hemoglobin 30.1 PG (27.0-31.0) Mean Corpuscular Hemoglobin Concent 32.7 G/DL (32.0-36.0) Red Cell Distribution Width 12.9 % (11.6-14.8) Platelet Count 244 K/UL (150-450) Mean Platelet Volume 7.7 FL (6.5-10.1) Neutrophils (%) (Auto) 66.5 % (45.0-75.0) Lymphocytes (%) (Auto) 26.2 % (20.0-45.0) Monocytes (%) (Auto) 5.4 % (1.0-10.0) Eosinophils (%) (Auto) 1.2 % (0.0-3.0) Basophils (%) (Auto) 0.8 % (0.0-2.0) Sodium Level 137 MMOL/L (136-145) Potassium Level 3.8 MMOL/L (3.5-5.1) Chloride Level 99 MMOL/L (98-107) Carbon Dioxide Level 29 MMOL/L (21-32) Anion Gap 9 mmol/L (5-15) Blood Urea Nitrogen 18 mg/dL (7-18) Creatinine 0.7 MG/DL (0.55-1.30) Estimat Glomerular Filtration Rate > 60 mL/min (>60) Glucose Level 134 MG/DL (74-106) H Calcium Level 10.0 MG/DL (8.5-10.1) Height (Feet): 5 Height (Inches): 5.00 Weight (Pounds): 150 General Appearance: no apparent distress, lethargic Cardiovascular: normal rate Respiratory/Chest: normal breath sounds, no respiratory distress Abdominal Exam: normal bowel sounds, non tender, soft, GT site - c/d/i Extremities: non-tender Kendra Templeton N.P. Sep 02, 2017 14:21
[2017-09-02] MEDS ORDERED: Tubing IV Secondary IV ONE (15:34)
[2017-09-02 16:00] VITALS: BP 112/73
[2017-09-02] MEDS: Docusate 100mg/10ml Liq ORAL SCH (17:58)
[2017-09-02 20:00] VITALS: BP 114/69
[2017-09-02] MEDS: 1/2 NS IV SCH (22:17)
[2017-09-02] MEDS: MULTIVITAMIN IV SCH (22:17)
[2017-09-02] MEDS: POTASSIUM CHLORIDE IV SCH (22:17)
[2017-09-02] MEDS: Thiamine HCl 100 MG in D5W 55 ML IVPB SCH (22:17)
[2017-09-02] MEDS: Dyna-Hex 2% Top Sol 2oz TOPIC SCH (22:21)
[2017-09-02] MEDS: Miralax 17gm pkt GT SCH (22:21)
[2017-09-03] VITALS: BP 113/74
[2017-09-03] MEDS: Potassium Chloride 30 MEQ in 1/2 NS 1000ml 1,000 ML IV SCH ×3 (01:21→22:07)
[2017-09-03] MEDS: Cyclobenzaprine 10mg Tab GT SCH ×3 (06:33→21:42)
[2017-09-03 08:00] VITALS: BP 110/73
--- NOTE | 2017-09-03 08:35 | Pulmonology Progress Note ---
Assessment/Plan Assessment/Plan PROBLEM LIST: -Drug OD -H/O IVDU -Respiratory acidosis -MATTHEW -H/O infective endocarditis S/P MVR - GT - hepatitis C PLAN: -respiratory same -Continue supplemental o2 as needed -monitor for aspiration and repeat Xray as needed -Monitor volumes and renal function -DVT prophylaxis -GT feeds -ID followup noted - dc to snf per primary MD- no acute changes noted - will sign off impression, plan, and exam edited and reviewed in detail care discussed with RN Subjective Allergies: Coded Allergies: No Known Allergies (Unverified , 08/12/17) PER MOM, NO KNOWN ALLERGIES Subjective care reviewed LOC same GT in place Objective Last 24 Hour Vital Signs Date Time Temp Pulse Resp B/P (MAP) Pulse Ox O2 Delivery O2 Flow Rate FiO2 09/03/17 00:00 97.9 105 20 113/74 98 Room Air 09/02/17 20:00 98.1 100 20 114/69 97 Room Air 09/02/17 16:00 96.8 101 20 112/73 98 09/02/17 12:00 97.2 98 18 115/76 98 Intake and Output 09/02/17 09/03/17 19:00 07:00 Intake Total 1945 ml 2026 ml Output Total 1400 ml 1600 ml Balance 545 ml 426 ml Free Water 100 ml 100 ml IV Total 1125 ml 1206 ml Tube Feeding 720 ml 720 ml Output Urine Total 1400 ml 1600 ml Objective WDWN NAD stable breath sounds bilaterally without rhonchi or wheeze [id number] without MRG NABS nontender no HSM; Gt no CCE nonfocal NGT in place reduced ROM Current Medications Medications (Trade) Dose Ordered Sig/Hema Route PRN Reason Start Time Stop Time Status Last Admin Dose Admin Acetaminophen (Tylenol) 650 mg Q4H PRN GT Mild Pain/Temp > 100.5 08/23/17 15:15 09/22/17 15:14 09/02/17 10:52 Chlorhexidine Gluconate (Valerie-Hex 2%) 1 applic DAILY@1999 TOPIC 08/21/17 20:00 09/10/17 19:59 09/02/17 22:21 Clotrimazole (Lotrimin) 1 applic EVERY 12 HOURS TOPIC 08/21/17 21:00 09/19/17 16:59 09/02/17 22:22 Cyclobenzaprine HCl (Flexeril) 5 mg Q8HR GT 08/30/17 14:00 09/27/17 19:29 09/03/17 06:33 Diazepam (Valium) 10 mg BID PRN GT anxiety 09/01/17 18:00 09/04/17 22:29 09/02/17 01:05 Docusate Sodium (Colace) 100 mg BID ORAL 09/02/17 18:00 10/02/17 17:59 09/02/17 17:58 Heparin Sodium (Porcine) (Heparin 5000 units/ml) 5,000 units EVERY 12 HOURS SUBQ 08/21/17 21:00 09/09/17 20:59 09/02/17 22:24 Levetiracetam (Keppra) 250 mg Q12HR ORAL 08/23/17 21:00 09/22/17 20:59 09/02/17 22:19 Mirtazapine (Remeron) 15 mg BEDTIME ORAL 09/01/17 21:00 10/01/17 20:59 09/02/17 22:19 Multivitamins 10 ml/Potassium Chloride 30 meq/ Sodium Chloride 1,025 ml @ 100 mls/hr Q24H IV 08/21/17 21:00 09/20/17 20:59 09/02/17 22:17 Nicotine (Nicoderm) 1 patch Q24H TDERMAL 08/22/17 16:00 09/12/17 15:59 09/02/17 15:39 Pantoprazole (Protonix) 40 mg DAILY IVP 08/22/17 09:00 09/11/17 09:59 09/02/17 09:23 Polyethylene Glycol (Miralax) 17 gm BEDTIME GT 08/26/17 21:00 09/25/17 20:59 09/02/17 22:21 Potassium Chloride 30 meq/ Sodium Chloride 1,015 ml @ 100 mls/hr Q10H9M IV 08/21/17 19:00 09/19/17 18:59 09/02/17 15:39 Sorbitol (Sorbitol) 30 ml Q6H PRN GT Constipation 08/23/17 20:30 09/22/17 20:29 08/23/17 21:20 Thiamine HCl 100 mg/Dextrose 56 ml @ 112 mls/hr Q24H IVPB 08/21/17 21:00 1/17/18 20:59 09/02/17 22:17 Triamcinolone Acetonide (Kenalog) 1 applic THREE TIMES A DAY TOPIC 08/25/17 13:00 09/24/17 12:59 09/02/17 17:58 GAYLE ALMENDAREZ Sep 03, 2017 08:35
[2017-09-03] MEDS: Heparin 5000 units/ml inj SUBQ SCH ×2 (09:20→21:44)
[2017-09-03] MEDS: Pantoprazole Inj IVP SCH (09:22)
[2017-09-03] MEDS: Docusate 100mg/10ml Liq ORAL SCH ×2 (09:22→17:49)
[2017-09-03] MEDS: Triamcinolone 0.1% 15gm Cr TOPIC SCH ×3 (09:30→17:50)
--- NOTE | 2017-09-03 13:39 | Neurology Progress Note ---
Interim History Interim History ROS Limited/Unobtainable: No Complaints: moan groan,aches Events: intermittently verbal--severe generalised dys- more coherent Objective Physical Exam Last Vital Signs Date Time Temp Pulse Resp B/P (MAP) Pulse Ox O2 Delivery O2 Flow Rate FiO2 09/03/17 08:00 98.3 106 20 110/73 97 09/03/17 00:00 Room Air 08/27/17 06:56 21 General: well developed, no acute distress, other - generalised rigidity, abdomen tender, flexed wrist, extended feet,poor neck extension, more relaxed when asleep Head: normocophalic Neck: other - rigid Neurologic Exam Mental Status: other - drowsy eyes closed Speech: other - less slurry , Language: no aphasia Cranial Nerve II: other Cranial Nerves III, IV, : other - pupils 5mm rla Cranial Nerve V: normal facial sensations, masseters function normal Cranial Nerve VII: no facial asymmetry Cranial Nerve VIII: no nystagmus Cranial Nerve IX: other - g tube Cranial Nerve X: other Cranial Nerve XI: trapezii function normal Motor System: strength 5/5, no involuntary movement, no muscle wasting, other - contracted hands extended feet diffuse rigidity Sensory: normal pinprick Coordination: other Deep Tendon Reflexes: 3+ bicep (L), 3+ bicep (R), 3+ tricep (L), 3+ tricep (R) , 3+ brachioradialis (L), 3+ brachioradialis (R), 3+ knee (L), 3+ knee (R), 3+ ankle (L), 3+ ankle (R) Reflexes: mute plantar (L), mute plantar (R) Stance: other Gait: other Impression/Recommendations Problems: (1) severe encephalopathy, anoxic/drug toxicity/benzo withdrawal (2) iv substance abuse, relapse (3) symptomatic seizure event (4) nicotine/drug withdrawal. (5) Coagulopathy Status: stable, unchanged Recommendations #[id number] keppra 250 mg bid d/w staff and M on valium per psych nutrition eval PT REHAB, more aggressive ROM SIT in chair reduce all sedating meds ok to d/c to rehab baclofen 10mg tid [id number] tid prn PAM FAN Sep 03, 2017 13:39
--- NOTE | 2017-09-03 14:07 | GI Progress Note ---
Assessment/Plan Problems: (1) FTT (failure to thrive) in adult ICD Codes: R62.7 - Adult failure to thrive SNOMED: 327720362 (2) Overdose ICD Codes: T50.901A - Poisoning by unspecified drugs, medicaments and biological substances, accidental (unintentional), initial encounter SNOMED: 11789607 (3) severe encephalopathy, anoxic/drug toxicity/benzo withdrawal (4) iv substance abuse, relapse (5) symptomatic seizure event (6) severe anoxic encephalopathy Status: unchanged Status Narrative Discussed with Dr. Enrique. Assessment/Plan s/p EGD/PEG SUMMARY OF FINDINGS: 1. Linear gastric ulceration, status post biopsy. 2. Status post successful PEG placement. RECOMMENDATIONS: Abdominal binder. Elevate the head of the bed at all times. G-tube flush. G-tube care. GTFs per RD OT evaluation fu labs outpatient Hep C tx, fu genotype dc planning per primary team Subjective Subjective limited Objective Last 24 Hour Vital Signs Date Time Temp Pulse Resp B/P (MAP) Pulse Ox O2 Delivery O2 Flow Rate FiO2 09/03/17 08:00 98.3 106 20 110/73 97 09/03/17 00:00 97.9 105 20 113/74 98 Room Air 09/02/17 20:00 98.1 100 20 114/69 97 Room Air 09/02/17 16:00 96.8 101 20 112/73 98 Intake and Output 09/02/17 09/03/17 19:00 07:00 Intake Total 1945 ml 2126 ml Output Total 1400 ml 1600 ml Balance 545 ml 526 ml Free Water 100 ml 100 ml IV Total 1125 ml 1306 ml Tube Feeding 720 ml 720 ml Output Urine Total 1400 ml 1600 ml Height (Feet): 5 Height (Inches): 5.00 Weight (Pounds): 149 General Appearance: alert, confused, thin Cardiovascular: normal rate Respiratory/Chest: normal breath sounds, no respiratory distress Abdominal Exam: normal bowel sounds, non tender, soft, GT site - c/d/i Extremities: non-tender Kendra Templeton N.P. Sep 03, 2017 14:07
[2017-09-03 16:00] VITALS: BP 114/78
--- NOTE | 2017-09-03 17:27 | General Progress Note ---
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 Prognosis seems somewhat better in the long run. 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 s/p PEG . On TF ESBL E. Coli UTI per ID DC planning [facility]? DW pt's Mother. Subjective Allergies: Coded Allergies: No Known Allergies (Unverified , 08/12/17) PER MOM, NO KNOWN ALLERGIES Subjective Sleepy now and during the day. Per Mother wakes up in the night and even communicates. Objective Last 24 Hour Vital Signs Date Time Temp Pulse Resp B/P (MAP) Pulse Ox O2 Delivery O2 Flow Rate FiO2 09/03/17 16:00 98.0 101 20 114/78 98 09/03/17 08:00 98.3 106 20 110/73 97 09/03/17 00:00 97.9 105 20 113/74 98 Room Air 09/02/17 20:00 98.1 100 20 114/69 97 Room Air Intake and Output 09/02/17 09/03/17 19:00 07:00 Intake Total 1945 ml 2126 ml Output Total 1400 ml 1600 ml Balance 545 ml 526 ml Free Water 100 ml 100 ml IV Total 1125 ml 1306 ml Tube Feeding 720 ml 720 ml Output Urine Total 1400 ml 1600 ml Height (Feet): 5 Height (Inches): 5.00 Weight (Pounds): 149 Objective Afebrile. CV RR Lungs CTA Abd SNT. BS +. New PEG. E No CCE + Contractures BERTRAND CONDE Sep 03, 2017 17:27
[2017-09-03 20:00] VITALS: BP 108/68
[2017-09-03] MEDS: Miralax 17gm pkt GT SCH (21:00)
[2017-09-03] MEDS: Dyna-Hex 2% Top Sol 2oz TOPIC SCH (21:45)
[2017-09-03] MEDS: 1/2 NS IV SCH (22:07)
[2017-09-03] MEDS: Thiamine HCl 100 MG in D5W 55 ML IVPB SCH (22:07)
[2017-09-03] MEDS: POTASSIUM CHLORIDE IV SCH (22:07)
[2017-09-03] MEDS: MULTIVITAMIN IV SCH (22:07)
[2017-09-04] VITALS: BP 111/65
[2017-09-04] MEDS: Cyclobenzaprine 10mg Tab GT SCH ×2 (04:18→21:24)
[2017-09-04] MEDS: Potassium Chloride 30 MEQ in 1/2 NS 1000ml 1,000 ML IV SCH ×2 (06:07→17:20)
[2017-09-04] MEDS: Docusate 100mg/10ml Liq ORAL SCH ×2 (08:38→17:20)
--- NOTE | 2017-09-04 08:38 | Pulmonology Progress Note ---
Assessment/Plan Assessment/Plan PROBLEM LIST: -Drug OD -H/O IVDU -Respiratory acidosis -MATTHEW -H/O infective endocarditis S/P MVR - GT - hepatitis C PLAN: -respiratory same -Continue supplemental o2 as needed -monitor for aspiration and repeat Xray as needed -Monitor volumes and renal function -DVT prophylaxis -GT feeds -ID followup noted - dc to snf per primary MD- no acute changes noted - will sign off impression, plan, and exam edited and reviewed in detail care discussed with RN Subjective Allergies: Coded Allergies: No Known Allergies (Unverified , 08/12/17) PER MOM, NO KNOWN ALLERGIES Subjective care reviewed LOC same GT in place Objective Last 24 Hour Vital Signs Date Time Temp Pulse Resp B/P (MAP) Pulse Ox O2 Delivery O2 Flow Rate FiO2 09/04/17 00:00 98.4 109 20 111/65 98 09/03/17 20:00 97.7 109 20 108/68 95 09/03/17 16:00 98.0 101 20 114/78 98 Intake and Output 09/03/17 09/04/17 19:00 07:00 Intake Total 1700 ml 2436 ml Output Total 1800 ml 1600 ml Balance -100 ml 836 ml Free Water 130 ml 120 ml IV Total 850 ml 1656 ml Tube Feeding 720 ml 660 ml Output Urine Total 1800 ml 1600 ml Objective WDWN NAD stable breath sounds bilaterally without rhonchi or wheeze [id number] without MRG NABS nontender no HSM; Gt no CCE nonfocal NGT in place reduced ROM Current Medications Medications (Trade) Dose Ordered Sig/Hema Route PRN Reason Start Time Stop Time Status Last Admin Dose Admin Acetaminophen (Tylenol) 650 mg Q4H PRN GT Mild Pain/Temp > 100.5 08/23/17 15:15 09/22/17 15:14 09/02/17 10:52 Baclofen (Lioresal) 10 mg THREE TIMES A DAY ORAL 09/03/17 14:00 10/03/17 13:59 09/03/17 17:49 Chlorhexidine Gluconate (Valerie-Hex 2%) 1 applic DAILY@1999 TOPIC 08/21/17 20:00 09/10/17 19:59 09/03/17 21:45 Clotrimazole (Lotrimin) 1 applic EVERY 12 HOURS TOPIC 08/21/17 21:00 09/19/17 16:59 09/03/17 21:00 Cyclobenzaprine HCl (Flexeril) 10 mg Q8HR GT 09/03/17 22:00 10/03/17 21:59 09/04/17 04:18 Docusate Sodium (Colace) 100 mg BID ORAL 09/02/17 18:00 10/02/17 17:59 09/03/17 17:49 Heparin Sodium (Porcine) (Heparin 5000 units/ml) 5,000 units EVERY 12 HOURS SUBQ 08/21/17 21:00 09/09/17 20:59 09/03/17 21:44 Levetiracetam (Keppra) 250 mg Q12HR ORAL 08/23/17 21:00 09/22/17 20:59 09/03/17 21:42 Mirtazapine (Remeron) 15 mg BEDTIME ORAL 09/01/17 21:00 10/01/17 20:59 09/03/17 21:42 Multivitamins 10 ml/Potassium Chloride 30 meq/ Sodium Chloride 1,025 ml @ 100 mls/hr Q24H IV 08/21/17 21:00 09/20/17 20:59 09/03/17 22:07 Nicotine (Nicoderm) 1 patch Q24H TDERMAL 08/22/17 16:00 09/12/17 15:59 09/03/17 16:03 Pantoprazole (Protonix) 40 mg DAILY IVP 08/22/17 09:00 09/11/17 09:59 09/03/17 09:22 Polyethylene Glycol (Miralax) 17 gm BEDTIME GT 08/26/17 21:00 09/25/17 20:59 09/02/17 22:21 Potassium Chloride 30 meq/ Sodium Chloride 1,015 ml @ 100 mls/hr Q10H9M IV 08/21/17 19:00 09/19/17 18:59 09/04/17 06:07 Sorbitol (Sorbitol) 30 ml Q6H PRN GT Constipation 08/23/17 20:30 09/22/17 20:29 08/23/17 21:20 Thiamine HCl 100 mg/Dextrose 56 ml @ 112 mls/hr Q24H IVPB 08/21/17 21:00 09/09/17 20:59 09/03/17 22:07 Triamcinolone Acetonide (Kenalog) 1 applic THREE TIMES A DAY TOPIC 08/25/17 13:00 09/24/17 12:59 09/03/17 17:50 GAYLE ALMENDAREZ Sep 04, 2017 08:38
[2017-09-04] MEDS: Triamcinolone 0.1% 15gm Cr TOPIC SCH ×4 (08:39→21:28)
[2017-09-04] MEDS: Pantoprazole Inj IVP SCH (08:39)
[2017-09-04] MEDS: Heparin 5000 units/ml inj SUBQ SCH ×2 (08:41→21:26)
--- NOTE | 2017-09-04 11:45 | General Progress Note ---
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 Prognosis seems somewhat better in the long run. 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 s/p PEG . On TF ESBL E. Coli UTI per ID DC planning [facility]? DW pt's Mother. Subjective Allergies: Coded Allergies: No Known Allergies (Unverified , 08/12/17) PER MOM, NO KNOWN ALLERGIES Subjective Sleepy now and during the day. Per Mother wakes up in the night and even communicates. Objective Last 24 Hour Vital Signs Date Time Temp Pulse Resp B/P (MAP) Pulse Ox O2 Delivery O2 Flow Rate FiO2 09/04/17 00:00 98.4 109 20 111/65 98 09/03/17 20:00 97.7 109 20 108/68 95 09/03/17 16:00 98.0 101 20 114/78 98 Intake and Output 09/03/17 09/04/17 19:00 07:00 Intake Total 1700 ml 2436 ml Output Total 1800 ml 1600 ml Balance -100 ml 836 ml Free Water 130 ml 120 ml IV Total 850 ml 1656 ml Tube Feeding 720 ml 660 ml Output Urine Total 1800 ml 1600 ml Height (Feet): 5 Height (Inches): 5.00 Weight (Pounds): 149 Objective Afebrile. CV RR Lungs CTA Abd SNT. BS +. New PEG. E No CCE + Contractures BERTRAND CONDE Sep 04, 2017 11:45
--- NOTE | 2017-09-04 12:46 | GI Progress Note ---
Assessment/Plan Problems: (1) FTT (failure to thrive) in adult ICD Codes: R62.7 - Adult failure to thrive SNOMED: 600254366 (2) Overdose ICD Codes: T50.901A - Poisoning by unspecified drugs, medicaments and biological substances, accidental (unintentional), initial encounter SNOMED: 06776178 (3) severe encephalopathy, anoxic/drug toxicity/benzo withdrawal (4) iv substance abuse, relapse (5) symptomatic seizure event (6) severe anoxic encephalopathy Status: unchanged Status Narrative Discussed with Dr. Enrique. Assessment/Plan s/p EGD/PEG SUMMARY OF FINDINGS: 1. Linear gastric ulceration, status post biopsy. 2. Status post successful PEG placement. RECOMMENDATIONS: Abdominal binder. Elevate the head of the bed at all times. G-tube flush. G-tube care. GTFs per RD OT evaluation fu labs outpatient Hep C tx, fu genotype dc planning per primary team Subjective Subjective limited Objective Last 24 Hour Vital Signs Date Time Temp Pulse Resp B/P (MAP) Pulse Ox O2 Delivery O2 Flow Rate FiO2 09/04/17 00:00 98.4 109 20 111/65 98 09/03/17 20:00 97.7 109 20 108/68 95 09/03/17 16:00 98.0 101 20 114/78 98 Intake and Output 09/03/17 09/04/17 19:00 07:00 Intake Total 1700 ml 2436 ml Output Total 1800 ml 1600 ml Balance -100 ml 836 ml Free Water 130 ml 120 ml IV Total 850 ml 1656 ml Tube Feeding 720 ml 660 ml Output Urine Total 1800 ml 1600 ml Height (Feet): 5 Height (Inches): 5.00 Weight (Pounds): 149 General Appearance: confused Cardiovascular: normal rate Respiratory/Chest: no respiratory distress Abdominal Exam: soft, GT site - c/d/i Kendra Templeton N.P. Sep 04, 2017 12:46
[2017-09-04 16:02] VITALS: BP 123/84
[2017-09-04 20:00] VITALS: BP 124/61
[2017-09-04] MEDS: Dyna-Hex 2% Top Sol 2oz TOPIC SCH (21:24)
[2017-09-04] MEDS: POTASSIUM CHLORIDE IV SCH (21:27)
[2017-09-04] MEDS: MULTIVITAMIN IV SCH (21:27)
[2017-09-04] MEDS: Thiamine HCl 100 MG in D5W 55 ML IVPB SCH (21:27)
[2017-09-04] MEDS: 1/2 NS IV SCH (21:27)
[2017-09-05] VITALS: BP_SYST 130; BP_SYST 135; BP_DIAS 80; BP_DIAS 93
[2017-09-05] MEDS ORDERED: LORazepam Inj 2mg/ml 1ml IV PRN ×2 (01:30→18:30)
[2017-09-05] MEDS: Potassium Chloride 30 MEQ in 1/2 NS 1000ml 1,000 ML IV SCH ×2 (05:17→14:23)
--- NOTE | 2017-09-05 07:55 | Pulmonology Progress Note ---
Assessment/Plan Assessment/Plan PROBLEM LIST: -Drug OD -H/O IVDU -Respiratory acidosis -MATTHEW -H/O infective endocarditis S/P MVR - GT - hepatitis C PLAN: -respiratory same -Continue supplemental o2 as needed -monitor for aspiration and repeat Xray as needed -Monitor volumes and renal function -DVT prophylaxis -GT feeds -ID followup noted - dc to snf per primary MD- no acute changes noted - will sign off impression, plan, and exam edited and reviewed in detail care discussed with RN Subjective Allergies: Coded Allergies: No Known Allergies (Unverified , 08/12/17) PER MOM, NO KNOWN ALLERGIES Subjective care reviewed LOC same GT in place Objective Last 24 Hour Vital Signs Date Time Temp Pulse Resp B/P (MAP) Pulse Ox O2 Delivery O2 Flow Rate FiO2 09/05/17 00:00 97.9 103 20 130/93 97 09/04/17 20:00 98.1 111 20 124/61 97 09/04/17 16:02 98.1 111 19 123/84 97 Room Air Intake and Output 09/04/17 09/05/17 19:00 07:00 Intake Total 1190 ml 2621 ml Output Total 2300 ml 3000 ml Balance -1110 ml -379 ml Free Water 30 ml 90 ml IV Total 1100 ml 1871 ml Tube Feeding 60 ml 660 ml Output Urine Total 2300 ml 3000 ml Objective WDWN NAD stable breath sounds bilaterally without rhonchi or wheeze [id number] without MRG NABS nontender no HSM; Gt no CCE nonfocal NGT in place reduced ROM Current Medications Medications (Trade) Dose Ordered Sig/Hema Route PRN Reason Start Time Stop Time Status Last Admin Dose Admin Acetaminophen (Tylenol) 650 mg Q4H PRN GT Mild Pain/Temp > 100.5 08/23/17 15:15 09/22/17 15:14 09/02/17 10:52 Baclofen (Lioresal) 10 mg Q8HR ORAL 09/04/17 22:00 10/03/17 13:59 09/05/17 05:17 Chlorhexidine Gluconate (Valerie-Hex 2%) 1 applic DAILY@1999 TOPIC 08/21/17 20:00 09/10/17 19:59 09/04/17 21:24 Clotrimazole (Lotrimin) 1 applic EVERY 12 HOURS TOPIC 08/21/17 21:00 09/19/17 16:59 09/04/17 21:28 Cyclobenzaprine HCl (Flexeril) 20 mg BEDTIME GT 09/04/17 21:00 10/03/17 21:59 09/04/17 21:24 Docusate Sodium (Colace) 100 mg BID ORAL 09/02/17 18:00 10/02/17 17:59 09/04/17 17:20 Heparin Sodium (Porcine) (Heparin 5000 units/ml) 5,000 units EVERY 12 HOURS SUBQ 08/21/17 21:00 09/09/17 20:59 09/04/17 21:26 Levetiracetam (Keppra) 250 mg Q12HR ORAL 08/23/17 21:00 09/22/17 20:59 09/04/17 21:24 Lorazepam (Ativan 2mg/ml 1ml) 2 mg Q3H PRN IV For Anxiety 09/05/17 01:30 09/12/17 01:29 09/05/17 01:55 Mirtazapine (Remeron) 15 mg BEDTIME ORAL 09/01/17 21:00 10/01/17 20:59 09/04/17 21:24 Multivitamins 10 ml/Potassium Chloride 30 meq/ Sodium Chloride 1,025 ml @ 100 mls/hr Q24H IV 08/21/17 21:00 09/20/17 20:59 09/04/17 21:27 Nicotine (Nicoderm) 1 patch Q24H TDERMAL 08/22/17 16:00 09/12/17 15:59 09/04/17 17:20 Pantoprazole (Protonix) 40 mg DAILY IVP 08/22/17 09:00 09/11/17 09:59 09/04/17 08:39 Polyethylene Glycol (Miralax) 17 gm DAILY GT 09/05/17 09:00 09/25/17 20:59 Potassium Chloride 30 meq/ Sodium Chloride 1,015 ml @ 100 mls/hr Q10H9M IV 08/21/17 19:00 09/19/17 18:59 09/05/17 05:17 Sorbitol (Sorbitol) 30 ml Q6H PRN GT Constipation 08/23/17 20:30 09/22/17 20:29 08/23/17 21:20 Thiamine HCl 100 mg/Dextrose 56 ml @ 112 mls/hr Q24H IVPB 08/21/17 21:00 09/09/17 20:59 09/04/17 21:27 Triamcinolone Acetonide (Kenalog) 1 applic THREE TIMES A DAY TOPIC 08/25/17 13:00 09/24/17 12:59 09/04/17 21:28 GAYLE ALMENDAREZ Sep 05, 2017 07:55
[2017-09-05] MEDS ORDERED: DiphenhydrAMINE 50mg/ml Inj IVP PRN (08:15)
[2017-09-05 08:47] VITALS: BP 127/79
[2017-09-05] MEDS ORDERED: Benztropine 1mg tab GT SCH (09:00)
[2017-09-05] MEDS: Triamcinolone 0.1% 15gm Cr TOPIC SCH ×2 (09:31→17:37)
[2017-09-05] MEDS: Docusate 100mg/10ml Liq ORAL SCH ×2 (09:31→17:36)
[2017-09-05] MEDS: Miralax 17gm pkt GT SCH (09:32)
[2017-09-05] MEDS: Heparin 5000 units/ml inj SUBQ SCH ×2 (09:33→21:15)
[2017-09-05] MEDS: Pantoprazole Inj IVP SCH (09:33)
[2017-09-05 10:21] LABS: BASOPHILS % (AUTO) 0.8 % (0.0-2.0); EOSINOPHILS % (AUTO) 1.4 % (0.0-3.0); HEMATOCRIT 43.8 % (37.0-47.0); HEMOGLOBIN 14.7 G/DL (12.0-16.0); LYMPHOCYTES % (AUTO) 22.8 % (20.0-45.0); MEAN CORPUSCULAR VOLUME 91 FL (80-99); MONOCYTES % (AUTO) 7.8 % (1.0-10.0); NEUTROPHILS % (AUTO) 67.3 % (45.0-75.0); PLATELET COUNT 198 K/UL (150-450); RED BLOOD COUNT 4.82 M/UL (4.20-5.40); RED CELL DISTRIBUTION WIDTH 12.5 % (11.6-14.8); WHITE BLOOD COUNT 7.3 K/UL (4.8-10.8)
[2017-09-05 10:56] LABS: ANION GAP 9 mmol/L (5-15); BLOOD UREA NITROGEN 16 mg/dL (7-18); CALCIUM 9.8 MG/DL (8.5-10.1); CARBON DIOXIDE 28 MMOL/L (21-32); CHLORIDE 100 MMOL/L (98-107); CREATININE 0.6 MG/DL (0.55-1.30); POTASSIUM 4.1 MMOL/L (3.5-5.1); SODIUM 137 MMOL/L (136-145)
--- NOTE | 2017-09-05 11:36 | General Progress Note ---
Assessment/Plan Assessment/Plan 1) E coli and teri UTI 2) staph bacteremia 3) ESBL PNA 4) acute encephalopathy 5) myoclonic jerk 6) drug overdose 7) hx of infective endocarditis Plan neuro check continue Abx f/u neuro seizure precaution Discussed with pt's mom at bed side Subjective Allergies: Coded Allergies: No Known Allergies (Unverified , 08/12/17) PER MOM, NO KNOWN ALLERGIES Subjective No acute event. no more myoclonic jerk. per mother, pt's mental status improved . can communicate her sometimes Objective Last 24 Hour Vital Signs Date Time Temp Pulse Resp B/P (MAP) Pulse Ox O2 Delivery O2 Flow Rate FiO2 09/05/17 08:47 97.8 109 21 127/79 97 09/05/17 00:00 97.9 103 20 130/93 97 09/04/17 20:00 98.1 111 20 124/61 97 09/04/17 16:02 98.1 111 19 123/84 97 Room Air Intake and Output 09/04/17 09/05/17 19:00 07:00 Intake Total 1190 ml 2621 ml Output Total 2300 ml 3000 ml Balance -1110 ml -379 ml Free Water 30 ml 90 ml IV Total 1100 ml 1871 ml Tube Feeding 60 ml 660 ml Output Urine Total 2300 ml 3000 ml Laboratory Tests 09/05/17 09:30: White Blood Count 7.3, Red Blood Count 4.82, Hemoglobin 14.7, Hematocrit 43.8, Mean Corpuscular Volume 91, Mean Corpuscular Hemoglobin 30.6, Mean Corpuscular Hemoglobin Concent 33.7, Red Cell Distribution Width 12.5, Platelet Count 198, Mean Platelet Volume 8.5, Neutrophils (%) (Auto) 67.3, Lymphocytes (%) (Auto) 22.8, Monocytes (%) (Auto) 7.8, Eosinophils (%) (Auto) 1.4, Basophils (%) (Auto ) 0.8, Sodium Level 137, Potassium Level 4.1, Chloride Level 100, Carbon Dioxide Level 28, Anion Gap 9, Blood Urea Nitrogen 16, Creatinine 0.6, Estimat Glomerular Filtration Rate > 60, Glucose Level 125H, Calcium Level 9.8 Height (Feet): 5 Height (Inches): 5.00 Weight (Pounds): 151 Objective NAD, sleeping but aurosable clear RRR soft, non tender, BS+ no edema, no more myoclonic jerk, stiffness in bilat SNEHA VANEGAS Sep 05, 2017 11:36
[2017-09-05 11:42] VITALS: BP 116/81
[2017-09-05] MEDS ORDERED: HYDROmorphone 1mg/ml Carpuject IVP PRN (13:00)
--- NOTE | 2017-09-05 13:01 | Neurology Progress Note ---
Interim History Interim History ROS Limited/Unobtainable: No Complaints: moan groan,aches,nite time severe painful dystonia Events: intermittently verbal-- coherent painful dystonia most night time,no respon Objective Physical Exam Last Vital Signs Date Time Temp Pulse Resp B/P (MAP) Pulse Ox O2 Delivery O2 Flow Rate FiO2 09/05/17 11:42 97.7 112 21 116/81 97 09/04/17 16:02 Room Air Laboratory Tests Test 09/05/17 09:30 White Blood Count 7.3 K/UL (4.8-10.8) Red Blood Count 4.82 M/UL (4.20-5.40) Hemoglobin 14.7 G/DL (12.0-16.0) Hematocrit 43.8 % (37.0-47.0) Mean Corpuscular Volume 91 FL (80-99) Mean Corpuscular Hemoglobin 30.6 PG (27.0-31.0) Mean Corpuscular Hemoglobin Concent 33.7 G/DL (32.0-36.0) Red Cell Distribution Width 12.5 % (11.6-14.8) Platelet Count 198 K/UL (150-450) Mean Platelet Volume 8.5 FL (6.5-10.1) Neutrophils (%) (Auto) 67.3 % (45.0-75.0) Lymphocytes (%) (Auto) 22.8 % (20.0-45.0) Monocytes (%) (Auto) 7.8 % (1.0-10.0) Eosinophils (%) (Auto) 1.4 % (0.0-3.0) Basophils (%) (Auto) 0.8 % (0.0-2.0) Sodium Level 137 MMOL/L (136-145) Potassium Level 4.1 MMOL/L (3.5-5.1) Chloride Level 100 MMOL/L (98-107) Carbon Dioxide Level 28 MMOL/L (21-32) Anion Gap 9 mmol/L (5-15) Blood Urea Nitrogen 16 mg/dL (7-18) Creatinine 0.6 MG/DL (0.55-1.30) Estimat Glomerular Filtration Rate > 60 mL/min (>60) Glucose Level 125 MG/DL (74-106) H Calcium Level 9.8 MG/DL (8.5-10.1) General: well developed, no acute distress, other - generalised rigidity, , flexed wrist, extended feet more relaxed when asleep spasmodic dystonia Head: normocophalic Neck: other - rigid Neurologic Exam Mental Status: other - drowsy eyes closed Speech: other - less slurry , Language: no aphasia Cranial Nerve II: other Cranial Nerves III, IV, : other - pupils 5mm rla Cranial Nerve V: normal facial sensations, masseters function normal Cranial Nerve VII: no facial asymmetry Cranial Nerve VIII: no nystagmus Cranial Nerve IX: other - g tube Cranial Nerve X: other Cranial Nerve XI: trapezii function normal Motor System: strength 5/5, no involuntary movement, no muscle wasting, other - contracted hands extended feet diffuse rigidity Sensory: normal pinprick Coordination: other Deep Tendon Reflexes: 3+ bicep (L), 3+ bicep (R), 3+ tricep (L), 3+ tricep (R) , 3+ brachioradialis (L), 3+ brachioradialis (R), 3+ knee (L), 3+ knee (R), 3+ ankle (L), 3+ ankle (R) Reflexes: mute plantar (L), mute plantar (R) Stance: other Gait: other Impression/Recommendations Problems: (1) severe encephalopathy, anoxic/drug toxicity/benzo withdrawal (2) iv substance abuse, relapse (3) symptomatic seizure event (4) nicotine/drug withdrawal. (5) Coagulopathy Status: unchanged Recommendations #[id number] keppra 250 mg bid d/w staff and Mom PT REHAB, more aggressive ROM SIT in chair ok to d/c to rehab baclofen 10mg tid flexeryl 10mg qhs prn cogentin 2mg tid [id number] qhs prn PAM FAN Sep 05, 2017 13:01
[2017-09-05] MEDS: Benztropine 1mg tab GT SCH ×2 (14:23→21:43)
[2017-09-05] MEDS ORDERED: Tubing IV Secondary IV ONE (15:18)
[2017-09-05 16:00] VITALS: BP 122/78
--- NOTE | 2017-09-05 16:22 | General Progress Note ---
Assessment/Plan Status: stable Assessment/Plan ?anoxic brain injury polysubstance abuse benzo withdrawal -dc Valium GT q10/prn -the pt maybe discharged -cont Flexeril and baclofen -cont remeron Subjective Date patient seen: Sep 03, 2017 Neurologic/Psychiatric: Reports: anxiety Allergies: Coded Allergies: No Known Allergies (Unverified , 08/12/17) PER MOM, NO KNOWN ALLERGIES Subjective the pt is not agitated c/o muscle pain, on Flexeril and baclofen more alert up all night. the pts mom has many complains about this md, neurologist, PMD, outsole caser, splitting nurses. wants Flexeril vs baclofen and vice versa. Objective Last 24 Hour Vital Signs Date Time Temp Pulse Resp B/P (MAP) Pulse Ox O2 Delivery O2 Flow Rate FiO2 09/05/17 11:42 97.7 112 21 116/81 97 09/05/17 08:47 97.8 109 21 127/79 97 09/05/17 00:00 97.9 103 20 130/93 97 09/04/17 20:00 98.1 111 20 124/61 97 Intake and Output 09/04/17 09/05/17 19:00 07:00 Intake Total 1190 ml 2621 ml Output Total 2300 ml 3000 ml Balance -1110 ml -379 ml Free Water 30 ml 90 ml IV Total 1100 ml 1871 ml Tube Feeding 60 ml 660 ml Output Urine Total 2300 ml 3000 ml Laboratory Tests 09/05/17 09:30: White Blood Count 7.3, Red Blood Count 4.82, Hemoglobin 14.7, Hematocrit 43.8, Mean Corpuscular Volume 91, Mean Corpuscular Hemoglobin 30.6, Mean Corpuscular Hemoglobin Concent 33.7, Red Cell Distribution Width 12.5, Platelet Count 198, Mean Platelet Volume 8.5, Neutrophils (%) (Auto) 67.3, Lymphocytes (%) (Auto) 22.8, Monocytes (%) (Auto) 7.8, Eosinophils (%) (Auto) 1.4, Basophils (%) (Auto ) 0.8, Sodium Level 137, Potassium Level 4.1, Chloride Level 100, Carbon Dioxide Level 28, Anion Gap 9, Blood Urea Nitrogen 16, Creatinine 0.6, Estimat Glomerular Filtration Rate > 60, Glucose Level 125H, Calcium Level 9.8 Height (Feet): 5 Height (Inches): 5.00 Weight (Pounds): 147 General Appearance: no apparent distress, lethargic, confused Kristie Braswell M.D. Sep 05, 2017 16:22
--- NOTE | 2017-09-05 18:16 | General Progress Note ---
Assessment/Plan Status: stable Assessment/Plan ?anoxic brain injury polysubstance abuse benzo withdrawal -dc Valium GT q10/prn -the pt maybe discharged -cont Flexeril and baclofen -cont remeron Subjective Date patient seen: Sep 04, 2017 Neurologic/Psychiatric: Reports: anxiety, depressed, emotional problems Allergies: Coded Allergies: No Known Allergies (Unverified , 08/12/17) PER MOM, NO KNOWN ALLERGIES Subjective the pt is not agitated c/o muscle pain, on Flexeril and baclofen the mom is dissatisfied with care Objective Last 24 Hour Vital Signs Date Time Temp Pulse Resp B/P (MAP) Pulse Ox O2 Delivery O2 Flow Rate FiO2 09/05/17 16:00 99.1 90 20 122/78 98 09/05/17 11:42 97.7 112 21 116/81 97 09/05/17 08:47 97.8 109 21 127/79 97 09/05/17 00:00 97.9 103 20 130/93 97 09/04/17 20:00 98.1 111 20 124/61 97 Intake and Output 09/04/17 09/05/17 19:00 07:00 Intake Total 1190 ml 2681 ml Output Total 2300 ml 3000 ml Balance -1110 ml -319 ml Free Water 30 ml 90 ml IV Total 1100 ml 1871 ml Tube Feeding 60 ml 720 ml Output Urine Total 2300 ml 3000 ml Laboratory Tests 09/05/17 09:30: White Blood Count 7.3, Red Blood Count 4.82, Hemoglobin 14.7, Hematocrit 43.8, Mean Corpuscular Volume 91, Mean Corpuscular Hemoglobin 30.6, Mean Corpuscular Hemoglobin Concent 33.7, Red Cell Distribution Width 12.5, Platelet Count 198, Mean Platelet Volume 8.5, Neutrophils (%) (Auto) 67.3, Lymphocytes (%) (Auto) 22.8, Monocytes (%) (Auto) 7.8, Eosinophils (%) (Auto) 1.4, Basophils (%) (Auto ) 0.8, Sodium Level 137, Potassium Level 4.1, Chloride Level 100, Carbon Dioxide Level 28, Anion Gap 9, Blood Urea Nitrogen 16, Creatinine 0.6, Estimat Glomerular Filtration Rate > 60, Glucose Level 125H, Calcium Level 9.8 Height (Feet): 5 Height (Inches): 5.00 Weight (Pounds): 147 General Appearance: no apparent distress, lethargic Kristie Braswlel M.D. Sep 05, 2017 18:16
--- NOTE | 2017-09-05 18:18 | General Progress Note ---
Assessment/Plan Assessment/Plan ?anoxic brain injury polysubstance abuse benzo withdrawal -dc Valium GT q10/prn -the pt maybe discharged -cont Flexeril and baclofen -cont remeron Subjective Date patient seen: Sep 05, 2017 Allergies: Coded Allergies: No Known Allergies (Unverified , 08/12/17) PER MOM, NO KNOWN ALLERGIES Subjective the pt was not seen today. the pt was detoxed from opioids and n=benzo and as of last night she is placed on Dilaudid and Ativan per neurology will sign off no further recs thanks for involving me in the pts care. Objective Last 24 Hour Vital Signs Date Time Temp Pulse Resp B/P (MAP) Pulse Ox O2 Delivery O2 Flow Rate FiO2 09/05/17 16:00 99.1 90 20 122/78 98 09/05/17 11:42 97.7 112 21 116/81 97 09/05/17 08:47 97.8 109 21 127/79 97 09/05/17 00:00 97.9 103 20 130/93 97 09/04/17 20:00 98.1 111 20 124/61 97 Intake and Output 09/04/17 09/05/17 19:00 07:00 Intake Total 1190 ml 2681 ml Output Total 2300 ml 3000 ml Balance -1110 ml -319 ml Free Water 30 ml 90 ml IV Total 1100 ml 1871 ml Tube Feeding 60 ml 720 ml Output Urine Total 2300 ml 3000 ml Laboratory Tests 09/05/17 09:30: White Blood Count 7.3, Red Blood Count 4.82, Hemoglobin 14.7, Hematocrit 43.8, Mean Corpuscular Volume 91, Mean Corpuscular Hemoglobin 30.6, Mean Corpuscular Hemoglobin Concent 33.7, Red Cell Distribution Width 12.5, Platelet Count 198, Mean Platelet Volume 8.5, Neutrophils (%) (Auto) 67.3, Lymphocytes (%) (Auto) 22.8, Monocytes (%) (Auto) 7.8, Eosinophils (%) (Auto) 1.4, Basophils (%) (Auto ) 0.8, Sodium Level 137, Potassium Level 4.1, Chloride Level 100, Carbon Dioxide Level 28, Anion Gap 9, Blood Urea Nitrogen 16, Creatinine 0.6, Estimat Glomerular Filtration Rate > 60, Glucose Level 125H, Calcium Level 9.8 Height (Feet): 5 Height (Inches): 5.00 Weight (Pounds): 147 Kristie Braswell M.D. Sep 05, 2017 18:18
[2017-09-05] MEDS ORDERED: Sterile Water Irrig 1000ml IRRIG ONE (18:36)
[2017-09-05] MEDS ORDERED: Hydromorphone 0.5mg/0.5ml inj IVP PRN (19:00)
[2017-09-05 20:00] VITALS: BP 119/79
--- NOTE | 2017-09-05 20:19 | General Progress Note ---
Assessment/Plan Assessment/Plan 1) E coli and teri UTI 2) staph bacteremia 3) ESBL PNA 4) acute encephalopathy 5) myoclonic jerk 6) drug overdose 7) hx of infective endocarditis Plan neuro check continue Abx f/u neuro seizure precaution Discussed with pt's mom at bed side awaiting insurance for rehab placement Subjective Allergies: Coded Allergies: No Known Allergies (Unverified , 08/12/17) PER MOM, NO KNOWN ALLERGIES Subjective per mom, pt had spasm last night , relieved this AM Objective Last 24 Hour Vital Signs Date Time Temp Pulse Resp B/P (MAP) Pulse Ox O2 Delivery O2 Flow Rate FiO2 09/05/17 16:00 99.1 90 20 122/78 98 09/05/17 11:42 97.7 112 21 116/81 97 09/05/17 08:47 97.8 109 21 127/79 97 09/05/17 00:00 97.9 103 20 130/93 97 Intake and Output 09/04/17 09/05/17 19:00 07:00 Intake Total 1190 ml 2681 ml Output Total 2300 ml 3000 ml Balance -1110 ml -319 ml Free Water 30 ml 90 ml IV Total 1100 ml 1871 ml Tube Feeding 60 ml 720 ml Output Urine Total 2300 ml 3000 ml Laboratory Tests 09/05/17 09:30: White Blood Count 7.3, Red Blood Count 4.82, Hemoglobin 14.7, Hematocrit 43.8, Mean Corpuscular Volume 91, Mean Corpuscular Hemoglobin 30.6, Mean Corpuscular Hemoglobin Concent 33.7, Red Cell Distribution Width 12.5, Platelet Count 198, Mean Platelet Volume 8.5, Neutrophils (%) (Auto) 67.3, Lymphocytes (%) (Auto) 22.8, Monocytes (%) (Auto) 7.8, Eosinophils (%) (Auto) 1.4, Basophils (%) (Auto ) 0.8, Sodium Level 137, Potassium Level 4.1, Chloride Level 100, Carbon Dioxide Level 28, Anion Gap 9, Blood Urea Nitrogen 16, Creatinine 0.6, Estimat Glomerular Filtration Rate > 60, Glucose Level 125H, Calcium Level 9.8 Height (Feet): 5 Height (Inches): 5.00 Weight (Pounds): 147 Objective NAD, sleeping but aurosable clear RRR soft, non tender, BS+ no edema, no more myoclonic jerk, stiffness in bilat SNEHA VANEGAS Sep 05, 2017 20:19
[2017-09-05] MEDS: Cyclobenzaprine 10mg Tab GT SCH (21:14)
[2017-09-05] MEDS: Dyna-Hex 2% Top Sol 2oz TOPIC SCH (21:16)
[2017-09-05] MEDS: 1/2 NS IV SCH (21:43)
[2017-09-05] MEDS: MULTIVITAMIN IV SCH (21:43)
[2017-09-05] MEDS: POTASSIUM CHLORIDE IV SCH (21:43)
[2017-09-06] VITALS: BP 130/71
[2017-09-06] MEDS: Potassium Chloride 30 MEQ in 1/2 NS 1000ml 1,000 ML IV SCH ×3 (00:24→17:41)
[2017-09-06] MEDS: traMADol 50mg tab ORAL PRN (01:17)
[2017-09-06] MEDS: Benztropine 1mg tab GT SCH ×3 (05:11→22:07)
--- NOTE | 2017-09-06 08:45 | General Progress Note ---
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 Prognosis seems somewhat better in the long run. 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 s/p PEG . On TF ESBL E. Coli UTI per ID DC planning [facility]? Subjective Allergies: Coded Allergies: No Known Allergies (Unverified , 08/12/17) PER MOM, NO KNOWN ALLERGIES Subjective Sleepy now and during the day. Per Mother wakes up in the night and even communicates. Objective Last 24 Hour Vital Signs Date Time Temp Pulse Resp B/P (MAP) Pulse Ox O2 Delivery O2 Flow Rate FiO2 09/06/17 00:00 97.5 121 20 130/71 96 Room Air 09/05/17 20:00 98.2 115 22 119/79 98 Room Air 09/05/17 16:00 99.1 90 20 122/78 98 09/05/17 11:42 97.7 112 21 116/81 97 09/05/17 08:47 97.8 109 21 127/79 97 Intake and Output 09/05/17 09/06/17 19:00 07:00 Intake Total 780 ml 860 ml Output Total 2200 ml 1200 ml Balance -1420 ml -340 ml Intake Oral 0 ml Free Water 180 ml IV Total 800 ml Tube Feeding 600 ml 60 ml Output Urine Total 2200 ml 1200 ml Laboratory Tests 09/05/17 09:30: White Blood Count 7.3, Red Blood Count 4.82, Hemoglobin 14.7, Hematocrit 43.8, Mean Corpuscular Volume 91, Mean Corpuscular Hemoglobin 30.6, Mean Corpuscular Hemoglobin Concent 33.7, Red Cell Distribution Width 12.5, Platelet Count 198, Mean Platelet Volume 8.5, Neutrophils (%) (Auto) 67.3, Lymphocytes (%) (Auto) 22.8, Monocytes (%) (Auto) 7.8, Eosinophils (%) (Auto) 1.4, Basophils (%) (Auto ) 0.8, Sodium Level 137, Potassium Level 4.1, Chloride Level 100, Carbon Dioxide Level 28, Anion Gap 9, Blood Urea Nitrogen 16, Creatinine 0.6, Estimat Glomerular Filtration Rate > 60, Glucose Level 125H, Calcium Level 9.8 Height (Feet): 5 Height (Inches): 5.00 Weight (Pounds): 147 Objective Afebrile. CV RR Lungs CTA Abd SNT. BS +. New PEG. E No CCE + Contractures BERTRAND CONDE Sep 06, 2017 08:45
[2017-09-06 08:54] VITALS: BP 121/77
[2017-09-06] MEDS: Miralax 17gm pkt GT SCH (08:56)
[2017-09-06] MEDS: Pantoprazole Inj IVP SCH (08:56)
[2017-09-06] MEDS: Docusate 100mg/10ml Liq ORAL SCH ×2 (08:56→17:41)
[2017-09-06] MEDS: Heparin 5000 units/ml inj SUBQ SCH ×2 (08:58→21:05)
[2017-09-06] MEDS: Triamcinolone 0.1% 15gm Cr TOPIC SCH ×3 (08:59→17:41)
[2017-09-06] MEDS ORDERED: Milk of Magnesia 30ml Ud GT PRN (10:45)
[2017-09-06 11:36] VITALS: BP 106/73
--- NOTE | 2017-09-06 12:57 | Pulmonology Progress Note ---
Assessment/Plan Assessment/Plan PROBLEM LIST: -Drug OD -H/O IVDU -Respiratory acidosis -MATTHEW -H/O infective endocarditis S/P MVR - GT - hepatitis C PLAN: -respiratory same -Continue supplemental o2 as needed -monitor for aspiration and repeat Xray as needed -Monitor volumes and renal function -DVT prophylaxis -GT feeds -ID followup noted - dc to snf per primary MD- no acute changes noted impression, plan, and exam edited and reviewed in detail care discussed with RN Subjective Allergies: Coded Allergies: No Known Allergies (Unverified , 08/12/17) PER MOM, NO KNOWN ALLERGIES Subjective care reviewed LOC same GT in place Objective Last 24 Hour Vital Signs Date Time Temp Pulse Resp B/P (MAP) Pulse Ox O2 Delivery O2 Flow Rate FiO2 09/06/17 11:36 97.7 110 20 106/73 96 09/06/17 08:54 97.9 112 21 121/77 96 09/06/17 00:00 97.5 121 20 130/71 96 Room Air 09/05/17 20:00 98.2 115 22 119/79 98 Room Air 09/05/17 16:00 99.1 90 20 122/78 98 Intake and Output 09/05/17 09/06/17 19:00 07:00 Intake Total 780 ml 860 ml Output Total 2200 ml 1200 ml Balance -1420 ml -340 ml Intake Oral 0 ml Free Water 180 ml IV Total 800 ml Tube Feeding 600 ml 60 ml Output Urine Total 2200 ml 1200 ml Objective WDWN NAD stable breath sounds bilaterally without rhonchi or wheeze [id number] without MRG NABS nontender no HSM; Gt no CCE nonfocal NGT in place reduced ROM Current Medications Medications (Trade) Dose Ordered Sig/Hema Route PRN Reason Start Time Stop Time Status Last Admin Dose Admin Acetaminophen (Tylenol) 650 mg Q4H PRN GT Mild Pain/Temp > 100.5 08/23/17 15:15 09/22/17 15:14 09/02/17 10:52 Baclofen (Lioresal) 20 mg Q8HR ORAL 09/06/17 14:00 10/06/17 13:59 Benztropine Mesylate (Cogentin) 2 mg Q8HR GT 09/05/17 14:00 10/05/17 08:59 09/06/17 05:11 Chlorhexidine Gluconate (Valerie-Hex 2%) 1 applic DAILY@2000 TOPIC 08/21/17 20:00 09/10/17 19:59 09/05/17 21:16 Clotrimazole (Lotrimin) 1 applic EVERY 12 HOURS TOPIC 08/21/17 21:00 09/19/17 16:59 09/06/17 08:59 Cyclobenzaprine HCl (Flexeril) 20 mg BEDTIME GT 09/04/17 21:00 10/03/17 21:59 09/05/17 21:14 Diphenhydramine HCl (Benadryl) 25 mg Q6H PRN IVP Itching 09/05/17 08:15 10/05/17 08:14 Docusate Sodium (Colace) 100 mg BID ORAL 09/02/17 18:00 10/02/17 17:59 09/06/17 08:56 Heparin Sodium (Porcine) (Heparin 5000 units/ml) 5,000 units EVERY 12 HOURS SUBQ 08/21/17 21:00 09/09/17 20:59 09/06/17 08:58 Hydromorphone HCl (Dilaudid) 1 mg HSPRN PRN IVP severe pain 09/05/17 19:00 09/12/17 18:59 Levetiracetam (Keppra) 250 mg Q12HR ORAL 08/23/17 21:00 09/22/17 20:59 09/06/17 08:57 Lorazepam (Ativan 2mg/ml 1ml) 2 mg Q3H PRN IV For Anxiety 09/05/17 18:30 09/12/17 18:29 Magnesium Hydroxide (Mom) 30 ml DAILYPRN PRN GT Constipation 09/06/17 10:45 10/06/17 10:44 Mirtazapine (Remeron) 15 mg BEDTIME ORAL 09/01/17 21:00 10/01/17 20:59 09/05/17 21:14 Multivitamins 10 ml/Potassium Chloride 30 meq/ Sodium Chloride 1,025 ml @ 100 mls/hr Q24H IV 08/21/17 21:00 09/20/17 20:59 09/05/17 21:43 Nicotine (Nicoderm) 1 patch Q24H TDERMAL 08/22/17 16:00 09/12/17 15:59 09/05/17 17:37 Pantoprazole (Protonix) 40 mg DAILY IVP 08/22/17 09:00 09/11/17 09:59 09/06/17 08:56 Polyethylene Glycol (Miralax) 17 gm DAILY GT 09/05/17 09:00 09/25/17 20:59 09/06/17 08:56 Potassium Chloride 30 meq/ Sodium Chloride 1,015 ml @ 100 mls/hr Q10H9M IV 08/21/17 19:00 09/19/17 18:59 09/05/17 14:23 Sorbitol (Sorbitol) 30 ml Q6H PRN GT Constipation 08/23/17 20:30 09/22/17 20:29 08/23/17 21:20 Tramadol HCl (Ultram) 50 mg Q8H PRN ORAL Moderate Pain (Pain Scale 4-6) 09/05/17 16:00 09/12/17 15:59 09/06/17 01:17 Triamcinolone Acetonide (Kenalog) 1 applic THREE TIMES A DAY TOPIC 08/25/17 13:00 09/24/17 12:59 09/06/17 08:59 GAYLE ALMENDAREZ Sep 06, 2017 12:57
[2017-09-06 16:00] VITALS: BP 111/76
[2017-09-06 20:00] VITALS: BP 142/96
[2017-09-06] MEDS: Dyna-Hex 2% Top Sol 2oz TOPIC SCH (21:02)
[2017-09-06] MEDS: TraZODone 50mg tab GT SCH (21:03)
[2017-09-06] MEDS: Cyclobenzaprine 10mg Tab GT SCH (21:03)
[2017-09-06] MEDS: 1/2 NS IV SCH (21:06)
[2017-09-06] MEDS: POTASSIUM CHLORIDE IV SCH (21:06)
[2017-09-06] MEDS: MULTIVITAMIN IV SCH (21:06)
[2017-09-07] VITALS: BP 136/89
[2017-09-07] MEDS: traMADol 50mg tab ORAL PRN (00:56)
[2017-09-07] MEDS: Benztropine 1mg tab GT SCH ×3 (05:47→21:41)
[2017-09-07] MEDS: Potassium Chloride 30 MEQ in 1/2 NS 1000ml 1,000 ML IV SCH ×2 (05:48→16:01)
--- NOTE | 2017-09-07 08:41 | Pulmonology Progress Note ---
Assessment/Plan Assessment/Plan PROBLEM LIST: -Drug OD -H/O IVDU -Respiratory acidosis -MATTHEW -H/O infective endocarditis S/P MVR - GT - hepatitis C PLAN: -respiratory same -Continue supplemental o2 as needed -monitor for aspiration and repeat Xray as needed -Monitor volumes and renal function -DVT prophylaxis -GT feeds -ID followup noted - dc to snf per primary MD- no acute changes noted impression, plan, and exam edited and reviewed in detail care discussed with RN Subjective Allergies: Coded Allergies: No Known Allergies (Unverified , 08/12/17) PER MOM, NO KNOWN ALLERGIES Subjective care reviewed LOC same GT in place Objective Last 24 Hour Vital Signs Date Time Temp Pulse Resp B/P (MAP) Pulse Ox O2 Delivery O2 Flow Rate FiO2 09/07/17 00:00 97.5 114 20 136/89 95 09/06/17 20:00 98.9 113 21 142/96 96 09/06/17 16:00 98.8 111 20 111/76 100 09/06/17 11:36 97.7 110 20 106/73 96 09/06/17 08:54 97.9 112 21 121/77 96 Intake and Output 09/06/17 09/07/17 19:00 07:00 Intake Total 1090 ml 2900 ml Output Total 1400 ml Balance -310 ml 2900 ml Intake Oral 0 ml Free Water 210 ml 180 ml IV Total 100 ml 2000 ml Tube Feeding 780 ml 720 ml Output Urine Total 1400 ml Objective WDWN NAD stable breath sounds bilaterally without rhonchi or wheeze [id number] without MRG NABS nontender no HSM; Gt no CCE nonfocal NGT in place reduced ROM Current Medications Medications (Trade) Dose Ordered Sig/Hema Route PRN Reason Start Time Stop Time Status Last Admin Dose Admin Acetaminophen (Tylenol) 650 mg Q4H PRN GT Mild Pain/Temp > 100.5 08/23/17 15:15 09/22/17 15:14 09/02/17 10:52 Baclofen (Lioresal) 20 mg Q8HR ORAL 09/06/17 14:00 10/06/17 13:59 09/07/17 05:47 Benztropine Mesylate (Cogentin) 2 mg Q8HR GT 09/05/17 14:00 10/05/17 08:59 09/07/17 05:47 Chlorhexidine Gluconate (Valerie-Hex 2%) 1 applic DAILY@2000 TOPIC 08/21/17 20:00 09/10/17 19:59 09/06/17 21:02 Clotrimazole (Lotrimin) 1 applic EVERY 12 HOURS TOPIC 08/21/17 21:00 09/19/17 16:59 09/06/17 21:04 Cyclobenzaprine HCl (Flexeril) 20 mg BEDTIME GT 09/04/17 21:00 10/03/17 21:59 09/06/17 21:03 Diphenhydramine HCl (Benadryl) 25 mg Q6H PRN IVP Itching 09/05/17 08:15 10/05/17 08:14 09/06/17 14:33 Docusate Sodium (Colace) 100 mg BID ORAL 09/02/17 18:00 10/02/17 17:59 09/06/17 17:41 Heparin Sodium (Porcine) (Heparin 5000 units/ml) 5,000 units EVERY 12 HOURS SUBQ 08/21/17 21:00 09/09/17 20:59 09/06/17 21:05 Hydromorphone HCl (Dilaudid) 1 mg HSPRN PRN IVP severe pain 09/05/17 19:00 09/12/17 18:59 Levetiracetam (Keppra) 250 mg Q12HR ORAL 08/23/17 21:00 09/22/17 20:59 09/06/17 21:03 Lorazepam (Ativan 2mg/ml 1ml) 2 mg Q3H PRN IV For Anxiety 09/05/17 18:30 09/12/17 18:29 Magnesium Hydroxide (Mom) 30 ml DAILYPRN PRN GT Constipation 09/06/17 10:45 10/06/17 10:44 09/06/17 17:41 Mirtazapine (Remeron) 15 mg BEDTIME ORAL 09/01/17 21:00 10/01/17 20:59 09/06/17 21:04 Multivitamins 10 ml/Potassium Chloride 30 meq/ Sodium Chloride 1,025 ml @ 100 mls/hr Q24H IV 08/21/17 21:00 09/20/17 20:59 09/06/17 21:06 Nicotine (Nicoderm) 1 patch Q24H TDERMAL 12/30/17 16:00 09/12/17 15:59 09/06/17 17:41 Pantoprazole (Protonix) 40 mg DAILY IVP 08/22/17 09:00 09/11/17 09:59 09/06/17 08:56 Polyethylene Glycol (Miralax) 17 gm DAILY GT 09/05/17 09:00 09/25/17 20:59 09/06/17 08:56 Potassium Chloride 30 meq/ Sodium Chloride 1,015 ml @ 100 mls/hr Q10H9M IV 08/21/17 19:00 09/19/17 18:59 09/07/17 05:48 Sorbitol (Sorbitol) 30 ml Q6H PRN GT Constipation 08/23/17 20:30 09/22/17 20:29 08/23/17 21:20 Temazepam (Restoril) 15 mg HSPRN PRN GT Insomnia 09/06/17 13:15 09/13/17 13:14 09/07/17 00:56 Tramadol HCl (Ultram) 50 mg Q8H PRN ORAL Moderate Pain (Pain Scale 4-6) 09/05/17 16:00 09/12/17 15:59 09/07/17 00:56 Trazodone HCl (Desyrel) 150 mg BEDTIME GT 09/06/17 21:00 10/06/17 20:59 09/06/17 21:03 Triamcinolone Acetonide (Kenalog) 1 applic THREE TIMES A DAY TOPIC 08/25/17 13:00 09/24/17 12:59 09/06/17 17:41 GAYLE ALMENDAREZ Sep 07, 2017 08:41
[2017-09-07] MEDS: Pantoprazole Inj IVP SCH (09:23)
[2017-09-07] MEDS: Miralax 17gm pkt GT SCH (09:23)
[2017-09-07] MEDS: Docusate 100mg/10ml Liq ORAL SCH ×2 (09:23→18:12)
[2017-09-07] MEDS: Heparin 5000 units/ml inj SUBQ SCH ×2 (09:25→21:43)
[2017-09-07] MEDS: Triamcinolone 0.1% 15gm Cr TOPIC SCH ×3 (09:26→18:12)
--- NOTE | 2017-09-07 10:55 | GI Progress Note ---
Assessment/Plan Problems: (1) FTT (failure to thrive) in adult ICD Codes: R62.7 - Adult failure to thrive SNOMED: 505606239 (2) Overdose ICD Codes: T50.901A - Poisoning by unspecified drugs, medicaments and biological substances, accidental (unintentional), initial encounter SNOMED: 60604001 (3) severe encephalopathy, anoxic/drug toxicity/benzo withdrawal (4) iv substance abuse, relapse (5) symptomatic seizure event (6) severe anoxic encephalopathy Status: stable, unchanged Status Narrative Discussed with Dr. Enrique. Assessment/Plan s/p EGD/PEG SUMMARY OF FINDINGS: 1. Linear gastric ulceration, status post biopsy. 2. Status post successful PEG placement. RECOMMENDATIONS: Abdominal binder. Elevate the head of the bed at all times. G-tube flush. G-tube care. GTFs per RD OT evaluation fu labs outpatient Hep C tx, fu genotype dc planning per primary team Subjective Subjective limited Objective Last 24 Hour Vital Signs Date Time Temp Pulse Resp B/P (MAP) Pulse Ox O2 Delivery O2 Flow Rate FiO2 09/07/17 00:00 97.5 114 20 136/89 95 09/06/17 20:00 98.9 113 21 142/96 96 09/06/17 16:00 98.8 111 20 111/76 100 09/06/17 11:36 97.7 110 20 106/73 96 Intake and Output 09/06/17 09/07/17 19:00 07:00 Intake Total 1090 ml 2900 ml Output Total 1400 ml Balance -310 ml 2900 ml Intake Oral 0 ml Free Water 210 ml 180 ml IV Total 100 ml 2000 ml Tube Feeding 780 ml 720 ml Output Urine Total 1400 ml Height (Feet): 5 Height (Inches): 5.00 Weight (Pounds): 147 General Appearance: no apparent distress Cardiovascular: normal rate Respiratory/Chest: normal breath sounds, no respiratory distress Abdominal Exam: normal bowel sounds, non tender, soft, GT site - c/d/i Extremities: non-tender Kendra Templeton N.P. Sep 07, 2017 10:55
--- NOTE | 2017-09-07 12:33 | Neurology Progress Note ---
Interim History Interim History ROS Limited/Unobtainable: No Complaints: moan groan,aches,nite time severe painful dystonia Events: intermittently verbal-- coherent painful dystonia most night time,no respon Objective Physical Exam Last Vital Signs Date Time Temp Pulse Resp B/P (MAP) Pulse Ox O2 Delivery O2 Flow Rate FiO2 09/07/17 00:00 97.5 114 20 136/89 95 09/06/17 00:00 Room Air General: well developed, no acute distress, other - generalised rigidity, , flexed wrist, extended feet more relaxed when asleep spasmodic dystonia Head: normocophalic Neck: other - rigid Neurologic Exam Mental Status: other - drowsy eyes closed Speech: other - less slurry , Language: no aphasia Cranial Nerve II: other Cranial Nerves III, IV, : other - pupils 5mm rla Cranial Nerve V: normal facial sensations, masseters function normal Cranial Nerve VII: no facial asymmetry Cranial Nerve VIII: no nystagmus Cranial Nerve IX: other - g tube Cranial Nerve X: other Cranial Nerve XI: trapezii function normal Motor System: strength 5/5, no involuntary movement, no muscle wasting, other - contracted hands extended feet diffuse rigidity Sensory: normal pinprick Coordination: other Deep Tendon Reflexes: 3+ bicep (L), 3+ bicep (R), 3+ tricep (L), 3+ tricep (R) , 3+ brachioradialis (L), 3+ brachioradialis (R), 3+ knee (L), 3+ knee (R), 3+ ankle (L), 3+ ankle (R) Reflexes: mute plantar (L), mute plantar (R) Stance: other Gait: other Impression/Recommendations Problems: (1) severe encephalopathy, anoxic/drug toxicity/benzo withdrawal (2) iv substance abuse, relapse (3) symptomatic seizure event (4) nicotine/drug withdrawal. (5) Coagulopathy Status: stable, unchanged Recommendations #[id number] keppra 250 mg bid d/c d/w staff and Mom PT REHAB, more aggressive ROM SIT in chair ok to d/c to rehab baclofen 20mg tid flexeryl 10mg qhs prn d/c cogentin 1mg tid [id number] qhs prn d/c depakote 500mg bid PAM FAN Sep 07, 2017 12:33
[2017-09-07] MEDS ORDERED: TraZODone HCl 25 mg tablet ORAL SCH (13:00)
[2017-09-07] MEDS: Depakote 500mg tab ORAL SCH ×2 (13:40→21:41)
--- NOTE | 2017-09-07 14:30 | General Progress Note ---
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 Prognosis seems somewhat better in the long run. 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 s/p PEG . On TF ESBL E. Coli UTI per ID DC planning [facility]? Subjective Allergies: Coded Allergies: No Known Allergies (Unverified , 08/12/17) PER MOM, NO KNOWN ALLERGIES Subjective Sleepy now and during the day. Per Mother wakes up in the night and even communicates. Objective Last 24 Hour Vital Signs Date Time Temp Pulse Resp B/P (MAP) Pulse Ox O2 Delivery O2 Flow Rate FiO2 09/07/17 00:00 97.5 114 20 136/89 95 09/06/17 20:00 98.9 113 21 142/96 96 09/06/17 16:00 98.8 111 20 111/76 100 Intake and Output 09/06/17 09/07/17 19:00 07:00 Intake Total 1090 ml 2900 ml Output Total 1400 ml Balance -310 ml 2900 ml Intake Oral 0 ml Free Water 210 ml 180 ml IV Total 100 ml 2000 ml Tube Feeding 780 ml 720 ml Output Urine Total 1400 ml Height (Feet): 5 Height (Inches): 5.00 Weight (Pounds): 147 Objective Afebrile. CV RR Lungs CTA Abd SNT. BS +. New PEG. E No CCE + Contractures BERTRAND CONDE Sep 07, 2017 14:30
[2017-09-07] MEDS ORDERED: Fleet's Enema 133ml RECTAL ONE (14:45)
[2017-09-07] MEDS ORDERED: TraZODone 50mg tab ORAL PRN (16:00)
[2017-09-07] MEDS ORDERED: TraZODone HCl 25 mg tablet ORAL PRN (16:00)
[2017-09-07 16:15] VITALS: BP 136/85
[2017-09-07] MEDS: Sorbitol Solution UD 30ml GT PRN (18:15)
[2017-09-07 20:00] VITALS: BP 123/84
[2017-09-07] MEDS: Dyna-Hex 2% Top Sol 2oz TOPIC SCH (21:40)
[2017-09-07] MEDS: 1/2 NS IV SCH (21:41)
[2017-09-07] MEDS: POTASSIUM CHLORIDE IV SCH (21:41)
[2017-09-07] MEDS: TraZODone 50mg tab GT SCH (21:41)
[2017-09-07] MEDS: MULTIVITAMIN IV SCH (21:41)
[2017-09-07] MEDS ORDERED: traMADol 50mg tab GT PRN (23:45)
[2017-09-08] VITALS: BP 117/81
[2017-09-08] MEDS: Potassium Chloride 30 MEQ in 1/2 NS 1000ml 1,000 ML IV SCH ×2 (02:52→14:02)
[2017-09-08] MEDS: Benztropine 1mg tab GT SCH ×3 (05:25→21:49)
--- NOTE | 2017-09-08 07:14 | Pulmonology Progress Note ---
Assessment/Plan Assessment/Plan PROBLEM LIST: -Drug OD -H/O IVDU -Respiratory acidosis -MATTHEW -H/O infective endocarditis S/P MVR - GT - hepatitis C PLAN: -respiratory same -Continue supplemental o2 as needed -monitor for aspiration and repeat Xray as needed -Monitor volumes and renal function -DVT prophylaxis -GT feeds -ID followup noted - dc to snf per primary MD- no acute changes noted impression, plan, and exam edited and reviewed in detail care discussed with RN Subjective Allergies: Coded Allergies: No Known Allergies (Unverified , 08/12/17) PER MOM, NO KNOWN ALLERGIES Subjective care reviewed LOC same GT in place Objective Last 24 Hour Vital Signs Date Time Temp Pulse Resp B/P (MAP) Pulse Ox O2 Delivery O2 Flow Rate FiO2 09/08/17 00:00 98.7 86 20 117/81 98 09/07/17 20:00 98.2 114 20 123/84 100 09/07/17 16:15 98.6 115 22 136/85 97 Room Air Intake and Output 09/07/17 09/08/17 19:00 07:00 Intake Total 1950 ml 2680 ml Output Total 2350 ml Balance -400 ml 2680 ml Free Water 230 ml 120 ml IV Total 1000 ml 1900 ml Tube Feeding 720 ml 660 ml Output Urine Total 2350 ml # Bowel Movements 1 Objective WDWN NAD stable breath sounds bilaterally without rhonchi or wheeze [id number] without MRG NABS nontender no HSM; Gt no CCE nonfocal NGT in place reduced ROM Current Medications Medications (Trade) Dose Ordered Sig/Hema Route PRN Reason Start Time Stop Time Status Last Admin Dose Admin Acetaminophen (Tylenol) 650 mg Q4H PRN GT Mild Pain/Temp > 100.5 08/23/17 15:15 09/22/17 15:14 09/02/17 10:52 Baclofen (Lioresal) 20 mg Q8HR ORAL 09/06/17 14:00 10/06/17 13:59 09/08/17 05:25 Benztropine Mesylate (Cogentin) 1 mg Q8HR GT 09/07/17 14:00 10/07/17 13:59 09/08/17 05:25 Chlorhexidine Gluconate (Valerie-Hex 2%) 1 applic DAILY@1999 TOPIC 08/21/17 20:00 09/10/17 19:59 09/07/17 21:40 Clotrimazole (Lotrimin) 1 applic EVERY 12 HOURS TOPIC 08/21/17 21:00 09/19/17 16:59 09/07/17 21:44 Diphenhydramine HCl (Benadryl) 25 mg Q6H PRN IVP Itching 09/05/17 08:15 10/05/17 08:14 09/06/17 14:33 Divalproex Sodium (Depakote) 500 mg EVERY 12 HOURS ORAL 09/07/17 13:00 10/07/17 12:59 09/07/17 21:41 Docusate Sodium (Colace) 100 mg BID ORAL 09/02/17 18:00 10/02/17 17:59 09/07/17 18:12 Heparin Sodium (Porcine) (Heparin 5000 units/ml) 5,000 units EVERY 12 HOURS SUBQ 08/21/17 21:00 09/09/17 20:59 09/07/17 21:43 Lorazepam (Ativan 2mg/ml 1ml) 2 mg Q3H PRN IV For Anxiety 09/05/17 18:30 09/12/17 18:29 Magnesium Hydroxide (Mom) 30 ml DAILYPRN PRN GT Constipation 09/06/17 10:45 10/06/17 10:44 09/06/17 17:41 Mirtazapine (Remeron) 15 mg BEDTIME ORAL 09/01/17 21:00 10/01/17 20:59 09/07/17 21:42 Multivitamins 10 ml/Potassium Chloride 30 meq/ Sodium Chloride 1,025 ml @ 100 mls/hr Q24H IV 08/21/17 21:00 09/20/17 20:59 09/07/17 21:41 Nicotine (Nicoderm) 1 patch Q24H TDERMAL 08/22/17 16:00 09/12/17 15:59 09/07/17 15:57 Pantoprazole (Protonix) 40 mg DAILY IVP 08/22/17 09:00 09/11/17 09:59 09/07/17 09:23 Polyethylene Glycol (Miralax) 17 gm DAILY GT 09/05/17 09:00 09/25/17 20:59 09/07/17 09:23 Potassium Chloride 30 meq/ Sodium Chloride 1,015 ml @ 100 mls/hr Q10H9M IV 08/21/17 19:00 09/19/17 18:59 09/08/17 02:52 Sorbitol (Sorbitol) 30 ml Q6H PRN GT Constipation 08/23/17 20:30 09/22/17 20:29 09/07/17 18:15 Temazepam (Restoril) 15 mg HSPRN PRN GT Insomnia 09/06/17 13:15 09/13/17 13:14 09/08/17 00:10 Tramadol HCl (Ultram) 50 mg Q4H PRN GT Moderate Pain (Pain Scale 4-6) 09/07/17 23:45 09/14/17 23:44 09/08/17 00:11 Trazodone HCl (Desyrel) 25 mg BIDBL PRN ORAL ANXIETY 09/07/17 16:00 10/07/17 15:59 09/07/17 15:57 Trazodone HCl (Desyrel) 150 mg BEDTIME GT 09/06/17 21:00 10/06/17 20:59 09/07/17 21:41 Triamcinolone Acetonide (Kenalog) 1 applic THREE TIMES A DAY TOPIC 08/25/17 13:00 09/24/17 12:59 09/07/17 18:12 GAYLE ALMENDAREZ Sep 08, 2017 07:14
[2017-09-08 08:00] VITALS: BP 111/76
[2017-09-08] MEDS: Miralax 17gm pkt GT SCH ×2 (09:00→09:45)
[2017-09-08] MEDS: Depakote 500mg tab ORAL SCH (09:00)
[2017-09-08] MEDS: Docusate 100mg/10ml Liq ORAL SCH ×3 (09:00→18:22)
[2017-09-08] MEDS: Pantoprazole Inj IVP SCH (09:45)
[2017-09-08] MEDS: Triamcinolone 0.1% 15gm Cr TOPIC SCH ×3 (09:45→18:22)
[2017-09-08] MEDS: Heparin 5000 units/ml inj SUBQ SCH ×2 (09:47→20:24)
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
[2017-09-08 12:00] VITALS: BP 121/56
--- NOTE | 2017-09-08 14:59 | Neurology Progress Note ---
Interim History Interim History ROS Limited/Unobtainable: No Complaints: moan groan,aches,slept ok with trazodone Events: verbal-- coherent painful dystonia Objective Physical Exam Last Vital Signs Date Time Temp Pulse Resp B/P (MAP) Pulse Ox O2 Delivery O2 Flow Rate FiO2 09/08/17 12:00 97.8 64 17 121/56 96 09/07/17 16:15 Room Air General: well developed, no acute distress, other - generalised rigidity, , flexed wrist, extended feet more relaxed when asleep spasmodic dystonia Head: normocophalic Neck: other - rigid Neurologic Exam Mental Status: other - drowsy eyes closed Speech: other - less slurry , Language: no aphasia Cranial Nerve II: other Cranial Nerves III, IV, : other - pupils 5mm rla Cranial Nerve V: normal facial sensations, masseters function normal Cranial Nerve VII: no facial asymmetry Cranial Nerve VIII: no nystagmus Cranial Nerve IX: other - g tube Cranial Nerve X: other Cranial Nerve XI: trapezii function normal Motor System: strength 5/5, no involuntary movement, no muscle wasting, other - contracted hands extended feet diffuse rigidity Sensory: normal pinprick Coordination: other Deep Tendon Reflexes: 3+ bicep (L), 3+ bicep (R), 3+ tricep (L), 3+ tricep (R) , 3+ brachioradialis (L), 3+ brachioradialis (R), 3+ knee (L), 3+ knee (R), 3+ ankle (L), 3+ ankle (R) Reflexes: mute plantar (L), mute plantar (R) Stance: other Gait: other Impression/Recommendations Problems: (1) severe encephalopathy, anoxic/drug toxicity/benzo withdrawal (2) iv substance abuse, relapse (3) symptomatic seizure event (4) nicotine/drug withdrawal. (5) Coagulopathy Status: stable, unchanged Recommendations #[id number] d/w staff and Mom PT REHAB, more aggressive ROM SIT in chair ok to d/c to rehab baclofen 20mg tid cogentin 1mg tid depakote 500mg bid trazodone 150 qhs [id number] prn PAM FAN Sep 08, 2017 14:59
[2017-09-08] MEDS ORDERED: TraZODone 50mg tab ORAL PRN (15:00)
[2017-09-08 15:53] VITALS: BP 134/78
--- NOTE | 2017-09-08 16:23 | GI Progress Note ---
Assessment/Plan Problems: (1) FTT (failure to thrive) in adult ICD Codes: R62.7 - Adult failure to thrive SNOMED: 805153826 (2) Overdose ICD Codes: T50.901A - Poisoning by unspecified drugs, medicaments and biological substances, accidental (unintentional), initial encounter SNOMED: 42013603 (3) severe encephalopathy, anoxic/drug toxicity/benzo withdrawal (4) iv substance abuse, relapse (5) symptomatic seizure event (6) severe anoxic encephalopathy Status: unchanged Status Narrative Discussed with Dr. Enrique. Assessment/Plan s/p EGD/PEG SUMMARY OF FINDINGS: 1. Linear gastric ulceration, status post biopsy. 2. Status post successful PEG placement. RECOMMENDATIONS: Abdominal binder. Elevate the head of the bed at all times. G-tube flush. G-tube care. GTFs per RD OT evaluation fu labs outpatient Hep C tx, fu genotype dc planning per primary team Subjective Subjective limited Objective Last 24 Hour Vital Signs Date Time Temp Pulse Resp B/P (MAP) Pulse Ox O2 Delivery O2 Flow Rate FiO2 09/08/17 15:53 97.7 108 19 134/78 97 Room Air 09/08/17 12:00 97.8 64 17 121/56 96 09/08/17 08:00 97.2 107 17 111/76 95 09/08/17 00:00 98.7 86 20 117/81 98 09/07/17 20:00 98.2 114 20 123/84 100 Intake and Output 09/07/17 09/08/17 19:00 07:00 Intake Total 1950 ml 2940 ml Output Total 2350 ml Balance -400 ml 2940 ml Free Water 230 ml 120 ml IV Total 1000 ml 2100 ml Tube Feeding 720 ml 720 ml Output Urine Total 2350 ml # Bowel Movements 1 Height (Feet): 5 Height (Inches): 5.00 Weight (Pounds): 152 General Appearance: lethargic Cardiovascular: normal rate Respiratory/Chest: normal breath sounds, no respiratory distress Abdominal Exam: normal bowel sounds, non tender, soft, GT site - c/d/i Extremities: non-tender Kendra Templeton N.P. Sep 08, 2017 16:23
--- NOTE | 2017-09-08 17:16 | General Progress Note ---
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 Prognosis seems somewhat better in the long run. 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 s/p PEG . On TF ESBL E. Coli UTI per ID Pt. accepted @ [facility]. Subjective Allergies: Coded Allergies: No Known Allergies (Unverified , 08/12/17) PER MOM, NO KNOWN ALLERGIES Subjective Sleepy now and during the day. Per Mother wakes up in the night and even communicates. Objective Last 24 Hour Vital Signs Date Time Temp Pulse Resp B/P (MAP) Pulse Ox O2 Delivery O2 Flow Rate FiO2 09/08/17 15:53 97.7 108 19 134/78 97 Room Air 09/08/17 12:00 97.8 64 17 121/56 96 09/08/17 08:00 97.2 107 17 111/76 95 09/08/17 00:00 98.7 86 20 117/81 98 09/07/17 20:00 98.2 114 20 123/84 100 Intake and Output 09/07/17 09/08/17 19:00 07:00 Intake Total 1950 ml 2940 ml Output Total 2350 ml Balance -400 ml 2940 ml Free Water 230 ml 120 ml IV Total 1000 ml 2100 ml Tube Feeding 720 ml 720 ml Output Urine Total 2350 ml # Bowel Movements 1 Height (Feet): 5 Height (Inches): 5.00 Weight (Pounds): 152 Objective Afebrile. CV RR Lungs CTA Abd SNT. BS +. New PEG. E No CCE + Contractures BERTRAND CONDE Sep 08, 2017 17:16
[2017-09-08] MEDS ORDERED: ACETAMINOPHEN325 M1 ORAL (18:50)
[2017-09-08] MEDS ORDERED: BACLOFEN10 MG ORAL (18:51)
[2017-09-08] MEDS ORDERED: BENZTROPINE MESY1 MG GT (18:51)
[2017-09-08] MEDS ORDERED: HIBICLENS118 ML TP (18:52)
[2017-09-08] MEDS ORDERED: CLOTRIMAZOLE15 GM TOPIC (18:53)
[2017-09-08] MEDS ORDERED: DIPHENHYDRAMINE25 M1 ORAL (18:53)
[2017-09-08] MEDS ORDERED: DEPAKOTE250 MG GT (18:54)
[2017-09-08] MEDS ORDERED: DOCUSATE SODIU100 MG GT (18:55)
[2017-09-08] MEDS ORDERED: HEPARIN SO5000 UNIT2 SUBQ (18:55)
[2017-09-08] MEDS ORDERED: LORAZEPAM2 MG GT (18:56)
[2017-09-08] MEDS ORDERED: MILK OF MA400 MG/51 GT (18:56)
[2017-09-08] MEDS ORDERED: NICODERM 21MG/241 EA TD (18:57)
[2017-09-08] MEDS ORDERED: MIRTAZAPINE15 M3 GT (18:57)
[2017-09-08] MEDS ORDERED: PROTONIX40 MG GT (18:58)
[2017-09-08] MEDS ORDERED: MIRALAX17 G2 ORAL (18:58)
[2017-09-08] MEDS ORDERED: SORBITOL 70%30 ML GT (18:59)
[2017-09-08] MEDS ORDERED: TEMAZEPAM15 MG GT (19:00)
[2017-09-08] MEDS ORDERED: TRAMADOL HCL50 MG GT (19:00)
[2017-09-08] MEDS ORDERED: TRAZODONE HCL150 MG GT ×2 (19:01)
[2017-09-08] MEDS ORDERED: KENALOG 0.1% CR15 GM APPLIC (19:02)
[2017-09-08 20:00] VITALS: BP 113/79
[2017-09-08] MEDS: TraZODone 50mg tab GT SCH (20:22)
[2017-09-08] MEDS: Dyna-Hex 2% Top Sol 2oz TOPIC SCH (20:36)
[2017-09-08] MEDS: MULTIVITAMIN IV SCH (21:00)
[2017-09-08] MEDS ORDERED: Depakote 500mg tab ORAL SCH (21:00)
[2017-09-08] MEDS: POTASSIUM CHLORIDE IV SCH (21:00)
[2017-09-08] MEDS: 1/2 NS IV SCH (21:00)
--- NOTE | 2017-09-11 14:22 | Discharge Summary ---
Discharge Summary Hospital Course Date of Admission Aug 10, 2017 at 04:10 Date of Discharge Sep 08, 2017 at 22:15 Admitting Diagnosis encephalopathy, Overdose HPI Violetta Carter is a 22 year old female who was admitted on Aug 10, 2017 at 04: 10 for Encephalopathy,Overdose Hospital Course [id number] Discharge Discharge Disposition Patient was discharged to SNF/Subacute Facility(03) Discharge Diagnoses: Farideh Wolf NP Sep 11, 2017 14:22
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
--- NOTE | 2017-09-14 18:24 | Diagnostic Imaging Report ---
Indication: Dysphasia Technique: Real-time fluoroscopic imaging performed in a lateral projection provided for the speech pathology service. Variable consistencies of barium were administered to the patient by the speech pathologist. Total fluoroscopy time: 254.5 seconds Total fluoroscopy dose: 4.10 mGy Findings: No definite aspiration visualized however patient at high risk particularly with thin liquids and sequential strips via straw with both thin and nectar thick liquids. There was trace laryngeal penetration. Impression: Fluoroscopy services provided for the speech pathologist as documented above. Please see final report of swallow evaluation generated by the speech pathology service.
--- NOTE | 2017-09-18 11:39 | Diagnostic Imaging Report ---
APPROVED REPORT CPT Code: 13021 Present Symptoms Lower Extremity Pain: BILATERAL LOWER EXTREMITY VENOUS DUPLEX: Imaging reveals a patent deep venous system bilaterally. There is no evidence of thrombus within the femoral, popliteal or tibial segments. The greater saphenous veins are also within normal limits. Doppler indicates normal spontaneous flow within these segments.
== END 2017-09-08 22:15 | DRG 917 ==
LOC: EDBD 01:48 → EMR 02:00 → 2W 04:10 → EDBEDREQSVC 08:42 → EDBEDREQ 08:42 → ICU 18:15 → 2E 08-12 18:00 → 4E 08-21 16:40
DX: T42.4X1A Poisoning by benzodiazepines, accidental (unintentional), initial encounter (principal); I46.8 Cardiac arrest due to other underlying condition; J96.00 Acute respiratory failure, unspecified whether with hypoxia or hypercapnia; G93.1 Anoxic brain damage, not elsewhere classified; J15.5 Pneumonia due to Escherichia coli; N17.9 Acute kidney failure, unspecified; R78.81 Bacteremia; I95.9 Hypotension, unspecified; E87.2 Acidosis; F11.20 Opioid dependence, uncomplicated; F17.213 Nicotine dependence, cigarettes, with withdrawal; F13.231 Sedative, hypnotic or anxiolytic dependence with withdrawal delirium; G40.89 Other seizures; N39.0 Urinary tract infection, site not specified; G25.3 Myoclonus; T40.1X1A Poisoning by heroin, accidental (unintentional), initial encounter; Y92.092 Bedroom in other non-institutional residence as the place of occurrence of the external cause; E86.0 Dehydration; Z95.2 Presence of prosthetic heart valve; R00.0 Tachycardia, unspecified; F10.10 Alcohol abuse, uncomplicated; K25.9 Gastric ulcer, unspecified as acute or chronic, without hemorrhage or perforation; B19.20 Unspecified viral hepatitis C without hepatic coma; R62.7 Adult failure to thrive; R13.10 Dysphagia, unspecified
CPT/HCPCS: 36415; 36569; 36600; 70450; 71010; 71045; 74000; 74230; 76937; 80048; 80053; 80076; 80202; 80299; 80301; 80307; 80329; 81001; 81003; 81025; 82140; 82550; 82553; 82803; 83605; 83735; 83880; 84484; 85007; 85025; 85610; 85730; 86592; 86635; 86703; 86705; 86709; 86803; 87040; 87070; 87081; 87086; 87181; 87205; 87340; 87902; 92610; 93005; 93306; 93970; 94003; 94150; 94660; 94760; 95819; 99285; J2250; J3490